=== PATIENT | male | born 1940 | race Caucasian/White ===

== ENCOUNTER 2020-04-14 07:28 | Outpatient (REF) | payer MEDICARE, SELFPAY ==
[2020-04-14 08:23] LABS: Estimated Average Glucose 123 mg/dL; Hemoglobin A1c % 5.9 %
[2020-04-14 08:30] LABS: Alanine Aminotransferase 9 U/L (0-40); Anion Gap 13 (12-20); Blood Urea Nitrogen 25 mg/dL (9-16); Carbon Dioxide 26 mmol/L (22-29); Chloride 106 mmol/L (96-108); Cholesterol 111 mg/dL; Estimated Glomerular Filt Rate 54; Glucose Fasting 116 mg/dL (60-99); HDL Cholesterol 43 mg/dL; LDL Cholesterol Calculated 58 mg/dl; Potassium 4.5 mmol/L (3.3-5.1); Sodium 140 mmol/L (135-145); Triglycerides 54 mg/dL; Uric Acid 5.3 mg/dL (3.4-7.0)
[2020-04-14 08:32] LABS: Creatinine Urine 135.55 mg/dL
== END 2020-04-14 07:29 | disposition home or self-care (01) ==
LOC: HO.LAB 07:28
PROVIDERS: PCP Family Medicine; Visit Provider Family Medicine
DX: E11.9 Type 2 diabetes mellitus without complications (principal); E78.00 Pure hypercholesterolemia, unspecified; M10.9 Gout, unspecified; I10 Essential (primary) hypertension; Z79.899 Other long term (current) drug therapy
CPT/HCPCS: 36415; 80051; 80061; 82043; 82550; 82565; 82947; 83036; 84460; 84520; 84550

== ENCOUNTER 2020-10-11 07:43 | Outpatient (REF) | payer MEDICARE, SELFPAY ==
[2020-10-11 08:10] LABS: Estimated Average Glucose 126 mg/dL; Hemoglobin A1C 143.9695 umol/L
[2020-10-11 09:15] LABS: Anion Gap 10 (12-20); Carbon Dioxide 26 mmol/L (22-29); Chloride 108 mmol/L (96-108); Estimated Glomerular Filt Rate 57; Glucose Fasting 108 mg/dL (60-99); Potassium 4.2 mmol/L (3.3-5.1); Sodium 140 mmol/L (135-145)
== END 2020-10-11 07:44 | disposition home or self-care (01) ==
LOC: HO.LAB 07:43
PROVIDERS: PCP Family Medicine; Visit Provider Family Medicine
DX: I10 Essential (primary) hypertension (principal); E11.9 Type 2 diabetes mellitus without complications; Z79.899 Other long term (current) drug therapy
CPT/HCPCS: 36415; 80051; 82565; 82947; 83036; 83735

== ENCOUNTER 2021-07-20 07:52 | Outpatient (REF) | payer MEDICARE, SELFPAY ==
[2021-07-20 08:48] LABS: Estimated Average Glucose 123 mg/dL; Hemoglobin A1c % 5.9 %
[2021-07-20 08:56] LABS: Alanine Aminotransferase 13 U/L (0-40); Anion Gap 10 (12-20); Aspartate Amino Transferase 16 U/L (5-37); Blood Urea Nitrogen 20 mg/dL (9-16); Carbon Dioxide 28 mmol/L (22-29); Chloride 106 mmol/L (96-108); Estimated Glomerular Filt Rate > 60; Glucose Fasting 121 mg/dL (60-99); Potassium 4.6 mmol/L (3.3-5.1); Sodium 139 mmol/L (135-145)
[2021-07-20 09:06] LABS: Creatinine Urine 121.58 mg/dL; Microalbum/Creatinine Ratio Ur 50.1 ug/mg cr
== END 2021-07-20 07:53 | disposition home or self-care (01) ==
LOC: HO.LAB 07:52
PROVIDERS: PCP Family Medicine; Visit Provider Family Medicine
DX: E11.9 Type 2 diabetes mellitus without complications (principal); E78.00 Pure hypercholesterolemia, unspecified; I10 Essential (primary) hypertension; Z79.899 Other long term (current) drug therapy
CPT/HCPCS: 36415; 80051; 82043; 82550; 82565; 82947; 83036; 84450; 84460; 84520

== ENCOUNTER 2021-11-21 15:09 | Outpatient (REF) | payer MEDICARE, SELFPAY | END 2021-11-21 15:10 | disposition home or self-care (01) | LOC: HO.LAB 15:09 | PROVIDERS: PCP Family Medicine; Visit Provider Urology | DX: Z12.5 Encounter for screening for malignant neoplasm of prostate (principal); Z85.46 Personal history of malignant neoplasm of prostate | CPT/HCPCS: 36415; 84153 ==

== ENCOUNTER 2022-02-12 08:03 | Outpatient (REF) | payer MEDICARE, SELFPAY ==
[2022-02-12 08:17] LABS: MANUAL DIFF FLAG NO
[2022-02-12 08:56] LABS: Basophils Percent Auto 0.2 % (0-2); Eosinophils Absolute Auto 0.2 X10*3/uL (0.0-0.4); Eosinophils Percent Auto 1.8 % (0-4); Hematocrit 27.6 % (42.0-52.0); Hemoglobin 8.8 g/dl (14.0-18.0); Imm Gran Abs Auto 0.03 X10*3/uL (0.00-0.03); Imm Gran Pct Auto 0.4 % (0.0-0.4); Lymphocytes Absolute Auto 1.9 X10*3/uL (1.2-4.9); Lymphocytes Percent Auto 22.1 % (20-40); Mean Corpuscular HGB Conc 31.9 g/dl (31.0-36.0); Mean Corpuscular Hemoglobin 32.1 pg (27.0-33.0); Mean Corpuscular Volume 100.7 fL (80.0-98.0); Mean Platelet Volume 10.6 fL (9.4-12.4); Monocytes Absolute Auto 0.7 X10*3/uL (0.1-1.2); Monocytes Percent Auto 7.7 % (2-11); Neutrophils Absolute Auto 5.7 x10*3/uL (2.0-8.3); Neutrophils Percent Auto 67.8 % (45-73); Platelet Count 194 X10*3/uL (160-400); Red Blood Count 2.74 X10*6/uL (4.60-5.80); Red Cell Distribution Width 14.4 % (11.0-16.0); White Blood Count 8.5 X10*3/uL (4.8-10.8)
[2022-02-12 09:03] LABS: Estimated Average Glucose 140 mg/dL; Hemoglobin A1c % 6.5 %
[2022-02-12 09:16] LABS: Appearance Urine Turbid; Color Urine Yellow; Glucose Urine UA Negative (Negative); Leukocyte Esterase Urine Large (3+) (Negative); Nitrite Urine Positive (Negative); UMIC TRIGGER UA YES; Urine Blood Small (1+) (Negative); Urine Ketones Negative (Negative); Urine Protein Negative (Neg-Trace)
[2022-02-12 09:39] LABS: Erythrocyte Sedimentation Rate 115 MM/HR (0-15)
[2022-02-12 09:41] LABS: Bacteria Urine 1+ (None Seen); Hyaline Casts Urine 0-2 /LPF (0-2); Squamous Epithelial Cell Urine 0-2 /HPF (0-2); WBC Urine >50 /HPF (0-5)
[2022-02-12 09:52] LABS: Alanine Aminotransferase 9 U/L (0-40); Albumin Level 3.4 g/dL (3.5-5.0); Alkaline Phosphatase 86 U/L (39-117); Anion Gap 13 (12-20); Aspartate Amino Transferase 13 U/L (5-37); Bilirubin Total 0.4 mg/dL (0.0-1.0); Blood Urea Nitrogen 21 mg/dL (9-16); Calcium 8.6 mg/dL (8.4-10.2); Carbon Dioxide 31 mmol/L (22-29); Chloride 104 mmol/L (96-108); Estimated Glomerular Filt Rate 40; Free T4 (Free Thyroxine) 1.26 ng/dL (0.71-1.85); Glucose Fasting 136 mg/dL (60-99); Sodium 145 mmol/L (135-145); Total Protein 6.2 g/dL (6.5-8.0)
== END 2022-02-12 08:04 | disposition home or self-care (01) ==
LOC: HO.LAB 08:03
PROVIDERS: PCP Family Medicine; Visit Provider Family Medicine
DX: R53.83 Other fatigue (principal); E11.9 Type 2 diabetes mellitus without complications; R63.4 Abnormal weight loss
CPT/HCPCS: 36415; 80053; 81001; 81003; 83036; 84439; 85025; 85652

== ENCOUNTER 2022-02-13 09:39 | Outpatient (REF) | payer MEDICARE, SELFPAY ==
[2022-02-13 10:46] LABS: Immature Retic Fraction 25.9 % (2.3-13.4); Retic HGB Equivalent 32.5 pg (30.0-35.0); Reticulocyte Percent 1.4 % (0.5-1.8); Reticulocytes Absolute 0.038 X10*6/uL (0.026-0.095)
[2022-02-13 11:18] LABS: Iron 29 mcg/dL (45-160); Percent Iron Saturation 12 % (15-50); Total Iron Binding Capacity 233 mcg/dL (228-428); Unsaturated Iron Binding 204 ug/dL
[2022-02-13 11:36] LABS: Prostate Specific Antigen 2.23 ng/mL (<0.05-4.0)
[2022-02-13 14:32] LABS: Ferritin 553 ng/mL (20-250)
[2022-02-13 15:30] LABS: Folate 9.8 ng/mL (> or = 4.0); Vitamin B12 199 pg/mL (200-900)
== END 2022-02-13 09:40 | disposition home or self-care (01) ==
LOC: HO.LAB 09:39
PROVIDERS: PCP Family Medicine; Visit Provider Family Medicine
DX: C61 Malignant neoplasm of prostate (principal); D64.9 Anemia, unspecified; R63.4 Abnormal weight loss
CPT/HCPCS: 36415; 82378; 82607; 82728; 82746; 83540; 84153; 85045; 87086

== ENCOUNTER 2022-02-22 10:21 | Outpatient (REF) | payer MEDICARE, SELFPAY ==
[2022-02-22 10:34] LABS: MANUAL DIFF FLAG NO
[2022-02-22 11:02] LABS: Basophils Percent Auto 0.2 % (0-2); Eosinophils Absolute Auto 0.1 X10*3/uL (0.0-0.4); Eosinophils Percent Auto 1.5 % (0-4); Hematocrit 26.4 % (42.0-52.0); Hemoglobin 8.3 g/dl (14.0-18.0); Imm Gran Abs Auto 0.04 X10*3/uL (0.00-0.03); Imm Gran Pct Auto 0.5 % (0.0-0.4); Immature Retic Fraction 28.5 % (2.3-13.4); Lymphocytes Absolute Auto 2.1 X10*3/uL (1.2-4.9); Lymphocytes Percent Auto 24.3 % (20-40); Mean Corpuscular HGB Conc 31.4 g/dl (31.0-36.0); Mean Corpuscular Hemoglobin 31.3 pg (27.0-33.0); Mean Corpuscular Volume 99.6 fL (80.0-98.0); Mean Platelet Volume 10.4 fL (9.4-12.4); Monocytes Absolute Auto 0.7 X10*3/uL (0.1-1.2); Monocytes Percent Auto 8.1 % (2-11); Neutrophils Absolute Auto 5.5 x10*3/uL (2.0-8.3); Neutrophils Percent Auto 65.4 % (45-73); Platelet Count 224 X10*3/uL (160-400); Red Blood Count 2.65 X10*6/uL (4.60-5.80); Red Cell Distribution Width 14.6 % (11.0-16.0); Retic HGB Equivalent 33.1 pg (30.0-35.0); Reticulocytes Absolute 0.054 X10*6/uL (0.026-0.095); White Blood Count 8.5 X10*3/uL (4.8-10.8)
[2022-02-22 11:47] LABS: Erythrocyte Sedimentation Rate 121 MM/HR (0-15)
[2022-02-22 11:50] LABS: Anion Gap 13 (12-20); Blood Urea Nitrogen 25 mg/dL (9-16); Carbon Dioxide 31 mmol/L (22-29); Chloride 102 mmol/L (96-108); Estimated Glomerular Filt Rate 35; Iron 41 mcg/dL (45-160); Percent Iron Saturation 21 % (15-50); Potassium 2.7 mmol/L (3.3-5.1); Sodium 143 mmol/L (135-145); Total Iron Binding Capacity 200 mcg/dL (228-428); Unsaturated Iron Binding 159 ug/dL
[2022-02-22 14:08] LABS: Urine Cytology See Pathology rpt
== END 2022-02-22 10:22 | disposition home or self-care (01) ==
LOC: HO.LAB 10:21
PROVIDERS: PCP Family Medicine; Visit Provider Family Medicine
DX: D64.9 Anemia, unspecified (principal); R63.4 Abnormal weight loss; N13.30 Unspecified hydronephrosis
CPT/HCPCS: 36415; 80051; 82378; 82565; 83540; 84520; 85025; 85045; 85652; 88112

== ENCOUNTER 2022-02-26 14:41 | Outpatient (REF) | payer MEDICARE, SELFPAY ==
[2022-02-26 15:00] LABS: MANUAL DIFF FLAG NO
[2022-02-26 15:19] LABS: Basophils Percent Auto 0.2 % (0-2); Eosinophils Absolute Auto 0.3 X10*3/uL (0.0-0.4); Eosinophils Percent Auto 2.9 % (0-4); Hematocrit 25.3 % (42.0-52.0); Imm Gran Abs Auto 0.05 X10*3/uL (0.00-0.03); Imm Gran Pct Auto 0.6 % (0.0-0.4); Immature Retic Fraction 30.3 % (2.3-13.4); Lymphocytes Absolute Auto 2.2 X10*3/uL (1.2-4.9); Lymphocytes Percent Auto 25.5 % (20-40); Mean Corpuscular HGB Conc 31.6 g/dl (31.0-36.0); Mean Corpuscular Hemoglobin 31.6 pg (27.0-33.0); Mean Platelet Volume 10.3 fL (9.4-12.4); Monocytes Absolute Auto 0.8 X10*3/uL (0.1-1.2); Monocytes Percent Auto 8.7 % (2-11); Neutrophils Absolute Auto 5.5 x10*3/uL (2.0-8.3); Neutrophils Percent Auto 62.1 % (45-73); Platelet Count 230 X10*3/uL (160-400); Red Blood Count 2.53 X10*6/uL (4.60-5.80); Red Cell Distribution Width 14.6 % (11.0-16.0); Retic HGB Equivalent 33.6 pg (30.0-35.0); Reticulocyte Percent 2.5 % (0.5-1.8); Reticulocytes Absolute 0.062 X10*6/uL (0.026-0.095); White Blood Count 8.8 X10*3/uL (4.8-10.8)
[2022-02-26 16:51] LABS: Anion Gap 14 (12-20); Blood Urea Nitrogen 27 mg/dL (9-16); Carbon Dioxide 32 mmol/L (22-29); Chloride 100 mmol/L (96-108); Estimated Glomerular Filt Rate 33; Iron 36 mcg/dL (45-160); Percent Iron Saturation 18 % (15-50); Potassium 2.8 mmol/L (3.3-5.1); Sodium 143 mmol/L (135-145); Total Iron Binding Capacity 204 mcg/dL (228-428); Unsaturated Iron Binding 168 ug/dL
== END 2022-02-26 14:42 | disposition home or self-care (01) ==
LOC: HO.LAB 14:41
PROVIDERS: PCP Family Medicine; Visit Provider Family Medicine
DX: D50.9 Iron deficiency anemia, unspecified (principal); E87.6 Hypokalemia
CPT/HCPCS: 36415; 80051; 82550; 82565; 83540; 84520; 85025; 85045; 86850; 86880

== ENCOUNTER 2022-03-07 08:03 | Outpatient (REF) | payer MEDICARE, SELFPAY ==
[2022-03-07 08:10] LABS: MANUAL DIFF FLAG NO
[2022-03-07 08:20] LABS: Basophils Percent Auto 0.2 % (0-2); Eosinophils Absolute Auto 0.1 X10*3/uL (0.0-0.4); Eosinophils Percent Auto 1.2 % (0-4); Hematocrit 23.4 % (42.0-52.0); Hemoglobin 7.4 g/dl (14.0-18.0); Imm Gran Abs Auto 0.06 X10*3/uL (0.00-0.03); Imm Gran Pct Auto 0.6 % (0.0-0.4); Lymphocytes Absolute Auto 1.6 X10*3/uL (1.2-4.9); Lymphocytes Percent Auto 16.8 % (20-40); Mean Corpuscular HGB Conc 31.6 g/dl (31.0-36.0); Mean Corpuscular Hemoglobin 31.1 pg (27.0-33.0); Mean Corpuscular Volume 98.3 fL (80.0-98.0); Mean Platelet Volume 9.4 fL (9.4-12.4); Monocytes Absolute Auto 0.6 X10*3/uL (0.1-1.2); Neutrophils Absolute Auto 7.3 x10*3/uL (2.0-8.3); Neutrophils Percent Auto 75.2 % (45-73); Platelet Count 197 X10*3/uL (160-400); Red Blood Count 2.38 X10*6/uL (4.60-5.80); Red Cell Distribution Width 15.4 % (11.0-16.0); White Blood Count 9.7 X10*3/uL (4.8-10.8)
[2022-03-07 09:01] LABS: Anion Gap 13 (12-20); Blood Urea Nitrogen 25 mg/dL (9-16); Carbon Dioxide 25 mmol/L (22-29); Chloride 107 mmol/L (96-108); Estimated Glomerular Filt Rate 39; Iron 31 mcg/dL (45-160); Percent Iron Saturation 17 % (15-50); Potassium 3.4 mmol/L (3.3-5.1); Sodium 142 mmol/L (135-145); Total Iron Binding Capacity 181 mcg/dL (228-428); Unsaturated Iron Binding 150 ug/dL
== END 2022-03-07 08:04 | disposition home or self-care (01) ==
LOC: HO.LAB 08:03
PROVIDERS: PCP Family Medicine; Visit Provider Family Medicine
DX: D50.9 Iron deficiency anemia, unspecified (principal); N18.30 Chronic kidney disease, stage 3 unspecified; E87.6 Hypokalemia
CPT/HCPCS: 36415; 80051; 82565; 83540; 84520; 85025

== ENCOUNTER 2022-03-13 14:28 | Inpatient (IN) | payer MEDICARE, SELFPAY ==
[2022-03-13] VITALS (24 sets, daily range): BP systolic 104–170; BP diastolic 47–95; PULSE 81–157; RESP 14–28; TEMP 36.4–37; O2SAT 97–99; BMI 27.4
--- NOTE | 2022-03-13 | ECG_ITS ---
Test Reason : REPEAT Blood Pressure : / mmHG Vent. Rate : 137 BPM Atrial Rate : 000 BPM P-R Int : 000 ms QRS Dur : 102 ms QT Int : 320 ms P-R-T Axes : 000 069 -26 degrees QTc Int : 483 ms Atrial fibrillation with rapid ventricular response Low voltage QRS Septal infarct (cited on or before 13-MAR-2022) Abnormal ECG When compared with ECG of 13-MAR-2022 14:43, Vent. rate has increased BY 60 BPM Referred By: Brenda Dacosta Electronically Signed By:Rafi Hood
--- NOTE | ~2022-03-13 | FL_ITS ---
EXAMINATION: XR FLUOROSCOPY WITH IMAGES CLINICAL INFORMATION: Cystoscopy. COMPARISON: None. TECHNIQUE: Fluoroscopy Supervised By: Dr. Madsen. Fluoroscopy Time: 116.9 seconds. Cumulative Dose: 40.02 mGy. Images: 1. FINDINGS: A single image obtained of pelvis during cystoscopy reveals contrast within the bladder with a moderate filling defect at the base likely enlarged prostate. FL/FL guidance in OR IMPRESSION: Fluoroscopy was provided to the referring physician for cystoscopy.
--- NOTE | ~2022-03-13 | CT_ITS ---
EXAMINATION: CT HEAD WITHOUT CONTRAST CLINICAL INFORMATION: Fall out of bed on eliquis COMPARISON: None TECHNIQUE: Imaging was performed from the skull base to vertex without intravenous administration of contrast. This CT examination was performed using dose optimization techniques as appropriate, variously including the following: *Automated exposure control *Adjustment of mA and/or kV according to patient size (this includes techniques or standardized protocols for targeted exams where dose is matched to indication/reason for exam; i.e. extremities or head) *Use of iterative reconstruction technique Total exam dose length product: 805 mGy-cm FINDINGS: No intra or extra-axial fluid collection, hemorrhage, or mass. No ventriculomegaly. No midline shift or herniation. Basal cisterns are patent. Zavaleta-white matter differentiation is maintained. No territorial encephalomalacia. Proportional prominence of the ventricles and sulcal spaces is consistent with mild volume loss. Patchy periventricular and deep white matter hypoattenuation is consistent with mild small vessel ischemic changes. Small focus of hypoattenuation consistent with remote lacunar infarct in the right caudate head. Minimal left sided soft tissue/scalp swelling laterally. No calvarial fracture. The mastoid air cells and visualized portions of the paranasal sinuses are well aerated. CT/CT head/brain wo IV con IMPRESSION: 1. No intracranial hemorrhage or calvarial fracture. 2. Mild cerebral atrophy and chronic small vessel ischemic white matter change. 3. 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
--- NOTE | ~2022-03-13 | CT_ITS ---
EXAMINATION: CT CHEST, ABDOMEN AND PELVIS WITHOUT CONTRAST. CLINICAL INFORMATION: Shortness of breath. Abdominal discomfort, ?b/l hydro . COMPARISON: 07/20/2017. TECHNIQUE: Multidetector volumetric imaging was performed from the thoracic inlet through the pubic symphysis without intravenous contrast. Sagittal and coronal reformatted images were obtained on the technologist workstation. This CT examination was performed using dose optimization techniques as appropriate, variously including the following: *Automated exposure control *Adjustment of mA and/or kV according to patient size (this includes techniques or standardized protocols for targeted exams where dose is matched to indication/reason for exam; i.e. extremities or head) *Use of iterative reconstruction technique DLP: 953 mGy-cm FINDINGS: CHEST: Lungs: Patchy groundglass airspace disease is seen within the right lung and to less extent the left lung. Infectious or inflammatory etiologies would be strong suspected. More prominent on the right. There is associated mild peribronchial cuffing and thickening. Minimal dependent atelectasis with the associated small bilateral pleural effusions. Again this is more prominent on the right. Mediastinum: Shotty mediastinal and hilar lymph nodes. Prominent vascular calculation in aorta. Enlarged bilateral atria Coronary Artery Calcification: Present Pericardium/Pleura: Tiny pericardial effusion. No obvious pericardial calcification. Small bilateral pleural effusions. Chest Wall/Axilla: Unremarkable. ABDOMEN/PELVIS: Peritoneal Space:No significant free air or free fluid identified. Liver, Gallbladder, Biliary Tree: The non contrast liver is normal in size, shape, and attenuation. No focal hepatic lesion or biliary ductal dilatation is present. The gallbladder is unremarkable with no evidence of radiopaque gallstones, gallbladder wall thickening, or obvious pericholecystic inflammatory changes. Pancreas: Atrophic Spleen: Unremarkable. Adrenal Glands: Unremarkable. Kidneys and Ureters: Prominent bilateral hydronephrosis and hydroureter with both dilated ureters. Follow up to the dilated bladder. No suspicious ureteric calculi. Lateral right upper pole renal cyst incidentally noted Bladder: Dilated with a few bladder diverticula Gastrointestinal Tract: Scattered colonic diverticulosis but no obvious colonic wall thickening or significant pericolonic inflammatory changes. Surgical clips in the region of the cecum suggesting prior ileocecectomy. No obstructive changes to the adjacent small bowel Abdominal Wall: No significant hernia is appreciated. Lymphovascular Structures: Prominent vascular calcification within the aorta iliac system. Incidental retroaortic left renal vein. Pelvic Viscera: Prostate not well-defined and relatively diminutive Osseus Structures: Degenerative changes in the spine. No acute bony abnormalities CT/CT abdomen pelvis wo IV con IMPRESSION: 1. Patchy groundglass airspace disease more prominent on the right. Infectious or inflammatory causes would be favored with this appearance. There is associated peribronchial cuffing and thickening. Small bilateral pleural effusions. Clinical correlation would be needed. 2. Prominent bilateral hydronephrosis and hydroureter extending up to the dilated bladder. No suspicious ureteric calculi. Prostate is not well-defined. Bladder outlet obstruction could have this appearance and should be clinically correlated. 3. Chronic appearing and postoperative changes otherwise as described.
--- NOTE | 2022-03-13 14:37 | ECG_ITS ---
Test Reason : SYNCOPE Blood Pressure : / mmHG Vent. Rate : 077 BPM Atrial Rate : 000 BPM P-R Int : 000 ms QRS Dur : 108 ms QT Int : 422 ms P-R-T Axes : 000 054 005 degrees QTc Int : 477 ms Atrial fibrillation Low voltage QRS Cannot rule out Anteroseptal infarct , age undetermined Abnormal ECG When compared with ECG of 28-FEB-2019 11:35, Nonspecific T wave abnormality no longer evident in Lateral leads Referred By: Generic ED Physician Electronically Signed By:Rafi Hood
[2022-03-13 15:53] LABS: MANUAL DIFF FLAG NO
[2022-03-13 15:55] LABS: Basophils Percent Auto 0.2 % (0-2); Eosinophils Absolute Auto 0.2 X10*3/uL (0.0-0.4); Eosinophils Percent Auto 1.7 % (0-4); Hematocrit 21.5 % (42.0-52.0); Imm Gran Abs Auto 0.08 X10*3/uL (0.00-0.03); Imm Gran Pct Auto 0.9 % (0.0-0.4); Immature Retic Fraction 27.4 % (2.3-13.4); Lymphocytes Absolute Auto 1.6 X10*3/uL (1.2-4.9); Lymphocytes Percent Auto 16.6 % (20-40); Mean Corpuscular HGB Conc 30.7 g/dl (31.0-36.0); Mean Corpuscular Hemoglobin 30.8 pg (27.0-33.0); Mean Corpuscular Volume 100.5 fL (80.0-98.0); Mean Platelet Volume 9.8 fL (9.4-12.4); Monocytes Absolute Auto 0.5 X10*3/uL (0.1-1.2); Monocytes Percent Auto 5.1 % (2-11); Neutrophils Absolute Auto 7.1 x10*3/uL (2.0-8.3); Neutrophils Percent Auto 75.5 % (45-73); Platelet Count 230 X10*3/uL (160-400); Red Blood Count 2.14 X10*6/uL (4.60-5.80); Red Cell Distribution Width 16.9 % (11.0-16.0); Retic HGB Equivalent 34.1 pg (30.0-35.0); Reticulocyte Percent 4.2 % (0.5-1.8); Reticulocytes Absolute 0.089 X10*6/uL (0.026-0.095); White Blood Count 9.4 X10*3/uL (4.8-10.8)
[2022-03-13 16:02] LABS: Hemoglobin 6.6 g/dl (14.0-18.0)
[2022-03-13 16:03] LABS: INTERNATIONAL NORM RATIO 1.5 (0.9-1.1); Prothrombin Time 17.1 SEC (10.0-13.1)
[2022-03-13 16:11] LABS: Alanine Aminotransferase 10 U/L (0-40); Albumin Level 3.3 g/dL (3.5-5.0); Alkaline Phosphatase 121 U/L (39-117); Anion Gap 10 (12-20); Aspartate Amino Transferase 17 U/L (5-37); Bilirubin Total 0.5 mg/dL (0.0-1.0); Blood Urea Nitrogen 25 mg/dL (9-16); Calcium 8.5 mg/dL (8.4-10.2); Carbon Dioxide 25 mmol/L (22-29); Chloride 109 mmol/L (96-108); Creatinine Clr Calc Pharmacy 42.8; Estimated Glomerular Filt Rate 43; Glucose Random 135 mg/dL (60-115); Magnesium 2.2 mg/dL (1.6-2.6); Sodium 139 mmol/L (135-145); Total Protein 6.2 g/dL (6.5-8.0)
[2022-03-13 16:14] LABS: COVID-19 Test Negative (Negative); IDNOW Serial# 55D5AD1C
[2022-03-13 16:15] LABS: B Type Natriuretic Peptide 477 pg/mL (<100); IDNOW Serial# 9DB6401D; Influenza A Negative (Negative); Influenza B2 Negative (Negative); Troponin-I High Sensitivity 8.5 ng/L (<3.5-35.0)
--- NOTE | 2022-03-13 16:20 | PC.NURSE ---
Due to H&H, 2nd IV established. 18g Rt Forearm
--- NOTE | 2022-03-13 16:29 | ED.WEAKNESS ---
HPI - Weakness General Chief complaint: Weakness Stated complaint: WEAKNESS,ROLLED OUT OF BED Time Seen by Provider: 03/13/22 14:42 Source: patient Mode of arrival: EMS History of Present Illness HPI Narrative: 81-year-old male who presents via EMS with increasing weakness for months, patient states he is unable to lay flat and denies being on any diuretics at this time. Patient denies any hematochezia/melena and denies any hematemesis. Patient states he takes his medications as prescribed and is where that his primary care provider is concerned regarding did degree of anemia that he has. He otherwise denies any fevers, chills, chest pain. Related Data Allergies Allergy/AdvReac Type Severity Reaction Status Date / Time No Known Allergies Allergy Unverified 11/18/19 15:22 [No Known Allergies*] Review of Systems Review of Systems: Pertinent positives and negatives as stated in [facility]PI [facility] Past Medical History Source: nursing notes reviewed Social History Social History Alcohol intake: never Smoked in Last 30 Days: No Use of substances other than those prescribed or required for medical reasons: No Advance Directives: No Advance Directives Information Provided: Yes Physical Exam Vital Signs: Vital Signs: Last Vital Signs Temp 97.6 F 03/13/22 17:49 Pulse 101 H 03/13/22 17:49 Resp 18 03/13/22 17:49 BP 134/81 03/13/22 17:49 Pulse Ox 97 03/13/22 14:42 O2 Del Method 03/13/22 14:42 BMI result Body Mass Index 27.4 VITAL SIGNS: Reviewed. GENERAL: Well developed, well nourished, in no acute distress. HEAD: Normocephalic/atraumatic EYES: PERRLA, EOMI EARS: Ext canals without abnormality, TMs non-bulging and non-erythematous NOSE: Nares patent bilateral OROPHARYNX: no oral lesions noted, posterior pharynx clear NECK: Supple, no adenopathy LUNGS: Good inspiratory effort, however decreased breath sounds with bibasilar rales, tachypnea present. SpO2<97> CARDIOVASCULAR: Regular rate and irregularly irregular rhythm without noted murmurs, no JVD bilateral lower extremity 1 to 2+ pitting edema ABDOMEN: Soft, non-tender, non-distended with bowel sounds. MUSCULOSKELETAL: No tenderness, deformities, or effusions noted on gross inspection. EXTREMITIES: No cyanosis, clubbing or edema. SKIN: Inspection of the skin reveals no rashes NEUROLOGIC: Alert and oriented x 4. Strength and sensation to light touch were grossly intact x 4. Medications Administered Discontinued Medications Generic Name Dose Route Start Last Admin Trade Name Freq PRN Reason Stop Dose Admin Furosemide 80 mg 03/13/22 16:29 03/13/22 16:49 Furosemide 100 Mg/10 Ml Vial IVPUSH 03/13/22 16:30 80 mg ONCE ONE Administration Protocol Lidocaine HCl 10 ml 03/13/22 16:55 03/13/22 17:19 Lidocaine Hcl 2 % Urojet 10 Ml Jel.Pf.Liz TOPICAL 03/13/22 16:56 10 ml ONCE ONE Administration Metoprolol Tartrate 5 mg 03/13/22 17:35 03/13/22 17:35 Metoprolol Tartrate 5 Mg/5 Ml Vial IVPUSH 03/13/22 17:36 5 mg ONCE ONE Administration Medical Decision Making Medical Decision Making MDM Narrative: 81-year-old male with unexplained anemia and clearly in CHF exacerbation. Labs, imaging ordered to include CT of the head as he is on Eliquis. I have reviewed the entire workup and my interpretation is that this patient has gradually developed worsening CHF likely due to a combination of atrial fibrillation and anemia. Patient was consented will receive 2 units of RBCs, he received 80 mg of Lasix, and [place] catheter was applied. 1717: I spoke with the inpatient hospitalist who accepts admission. 174: I was notified the patient was in atrial fibrillation with RVR, ordered 5 mg of Lopressor, with good response. Patient feeling much better and at this time I am going to order an additional 80 mg of Lasix as patient needs aggressive diuresis especially in the context of receiving blood transfusion. On review of prior imaging I am not able to see any CT scan of the abdomen and pelvis so I have ordered a noncontrast CT abdomen pelvis and due to patient's shortness of breath will also obtain a CT of the chest. Differential Diagnosis Please see the discussion above Consult Healthcare Provider Management of the patient was discussed with: Hospitalist Please see the discussion above Lab Data Please see the discussion above 03/13/22 15:45 03/13/22 15:45 Labs: Lab Results 03/13/22 03/13/22 03/13/22 Range/Units 15:45 15:45 15:45 WBC 9.4 (4.8-10.8) X10*3/uL RBC 2.14 L (4.60-5.80) X10*6/uL Hgb 6.6 L* (14.0-18.0) g/dl Hct 21.5 L (42.0-52.0) % MCV 100.5 H (80.0-98.0) fL MCH 30.8 (27.0-33.0) pg MCHC 30.7 L (31.0-36.0) g/dl RDW 16.9 H (11.0-16.0) % Plt Count 230 (160-400) X10*3/uL MPV 9.8 (9.4-12.4) fL Immature Gran % (Auto) 0.9 H (0.0-0.4) % Neut % (Auto) 75.5 H (45-73) % Lymph % (Auto) 16.6 L (20-40) % [place] % (Auto) 5.1 (2-11) % Eos % (Auto) 1.7 (0-4) % Baso % (Auto) 0.2 (0-2) % Lymph # (Auto) 1.6 (1.2-4.9) X10*3/uL [place] # (Auto) 0.5 (0.1-1.2) X10*3/uL Eos # (Auto) 0.2 (0.0-0.4) X10*3/uL Baso # (Auto) 0.0 (0.0-0.2) X10*3/uL Abs Immat Gran (auto) 0.08 H (0.00-0.03) X10*3/uL Absolute Neuts (auto) 7.1 (2.0-8.3) x10*3/uL Absolute Nucleated RBC 0.000 (0.0-0.012) X10*3/uL Nucleated RBC % (auto) 0.0 (0.0-0.2) /100WBC Absolute Retic 0.089 (0.026-0.095) X10*6/uL Percent Retic 4.2 H (0.5-1.8) % Immature Retic Fraction 27.4 H (2.3-13.4) % Retic Hgb Equivalent 34.1 (30.0-35.0) pg PT 17.1 H (10.0-13.1) SEC INR 1.5 H (0.9-1.1) Sodium 139 (135-145) mmol/L Potassium 5.0 D (3.3-5.1) mmol/L Chloride 109 H (96-108) mmol/L Carbon Dioxide 25 (22-29) mmol/L Anion Gap 10 L (12-20) BUN 25 H (9-16) mg/dL Creatinine 1.58 H (0.5-1.4) mg/dL Estim Creat Clear Calc 42.8 Estimated GFR 43 Random Glucose 135 H (60-115) mg/dL Calcium 8.5 (8.4-10.2) mg/dL Magnesium 2.2 (1.6-2.6) mg/dL Total Bilirubin 0.5 (0.0-1.0) mg/dL AST 17 (5-37) U/L ALT 10 (0-40) U/L Alkaline Phosphatase 121 H (39-117) U/L Troponin I High Sens (<3.5-35.0) ng/L B-Natriuretic Peptide (<100) pg/mL Total Protein 6.2 L (6.5-8.0) g/dL Albumin 3.3 L (3.5-5.0) g/dL COVID-19 (JONATHAN) (Negative) COVID-19 Clin Com Influenza Type A (MATTHEW) (Negative) Influenza Type B (MATTHEW) (Negative) Influenza A & B Note Blood Type Antibody Screen Crossmatch 03/13/22 03/13/22 03/13/22 Range/Units 15:45 15:45 15:45 WBC (4.8-10.8) X10*3/uL RBC (4.60-5.80) X10*6/uL Hgb (14.0-18.0) g/dl Hct (42.0-52.0) % MCV (80.0-98.0) fL MCH (27.0-33.0) pg MCHC (31.0-36.0) g/dl RDW (11.0-16.0) % Plt Count (160-400) X10*3/uL MPV (9.4-12.4) fL Immature Gran % (Auto) (0.0-0.4) % Neut % (Auto) (45-73) % Lymph % (Auto) (20-40) % [place] % (Auto) (2-11) % Eos % (Auto) (0-4) % Baso % (Auto) (0-2) % Lymph # (Auto) (1.2-4.9) X10*3/uL [place] # (Auto) (0.1-1.2) X10*3/uL Eos # (Auto) (0.0-0.4) X10*3/uL Baso # (Auto) (0.0-0.2) X10*3/uL Abs Immat Gran (auto) (0.00-0.03) X10*3/uL Absolute Neuts (auto) (2.0-8.3) x10*3/uL Absolute Nucleated RBC (0.0-0.012) X10*3/uL Nucleated RBC % (auto) (0.0-0.2) /100WBC Absolute Retic (0.026-0.095) X10*6/uL Percent Retic (0.5-1.8) % Immature Retic Fraction (2.3-13.4) % Retic Hgb Equivalent (30.0-35.0) pg PT (10.0-13.1) SEC INR (0.9-1.1) Sodium (135-145) mmol/L Potassium (3.3-5.1) mmol/L Chloride (96-108) mmol/L Carbon Dioxide (22-29) mmol/L Anion Gap (12-20) BUN (9-16) mg/dL Creatinine (0.5-1.4) mg/dL Estim Creat Clear Calc Estimated GFR Random Glucose (60-115) mg/dL Calcium (8.4-10.2) mg/dL Magnesium (1.6-2.6) mg/dL Total Bilirubin (0.0-1.0) mg/dL AST (5-37) U/L ALT (0-40) U/L Alkaline Phosphatase (39-117) U/L Troponin I High Sens 8.5 (<3.5-35.0) ng/L B-Natriuretic Peptide 477 H (<100) pg/mL Total Protein (6.5-8.0) g/dL Albumin (3.5-5.0) g/dL COVID-19 (JONATHAN) (Negative) COVID-19 Clin Com Influenza Type A (MATTHEW) Negative (Negative) Influenza Type B (MATTHEW) Negative (Negative) Influenza A & B Note See Note Blood Type Antibody Screen Crossmatch 03/13/22 03/13/22 Range/Units 15:45 16:04 WBC (4.8-10.8) X10*3/uL RBC (4.60-5.80) X10*6/uL Hgb (14.0-18.0) g/dl Hct (42.0-52.0) % MCV (80.0-98.0) fL MCH (27.0-33.0) pg MCHC (31.0-36.0) g/dl RDW (11.0-16.0) % Plt Count (160-400) X10*3/uL MPV (9.4-12.4) fL Immature Gran % (Auto) (0.0-0.4) % Neut % (Auto) (45-73) % Lymph % (Auto) (20-40) % [place] % (Auto) (2-11) % Eos % (Auto) (0-4) % Baso % (Auto) (0-2) % Lymph # (Auto) (1.2-4.9) X10*3/uL [place] # (Auto) (0.1-1.2) X10*3/uL Eos # (Auto) (0.0-0.4) X10*3/uL Baso # (Auto) (0.0-0.2) X10*3/uL Abs Immat Gran (auto) (0.00-0.03) X10*3/uL Absolute Neuts (auto) (2.0-8.3) x10*3/uL Absolute Nucleated RBC (0.0-0.012) X10*3/uL Nucleated RBC % (auto) (0.0-0.2) /100WBC Absolute Retic (0.026-0.095) X10*6/uL Percent Retic (0.5-1.8) % Immature Retic Fraction (2.3-13.4) % Retic Hgb Equivalent (30.0-35.0) pg PT (10.0-13.1) SEC INR (0.9-1.1) Sodium (135-145) mmol/L Potassium (3.3-5.1) mmol/L Chloride (96-108) mmol/L Carbon Dioxide (22-29) mmol/L Anion Gap (12-20) BUN (9-16) mg/dL Creatinine (0.5-1.4) mg/dL Estim Creat Clear Calc Estimated GFR Random Glucose (60-115) mg/dL Calcium (8.4-10.2) mg/dL Magnesium (1.6-2.6) mg/dL Total Bilirubin (0.0-1.0) mg/dL AST (5-37) U/L ALT (0-40) U/L Alkaline Phosphatase (39-117) U/L Troponin I High Sens (<3.5-35.0) ng/L B-Natriuretic Peptide (<100) pg/mL Total Protein (6.5-8.0) g/dL Albumin (3.5-5.0) g/dL COVID-19 (JONATHAN) Negative (Negative) COVID-19 Clin Com See Note Influenza Type A (MATTHEW) (Negative) Influenza Type B (MATTHEW) (Negative) Influenza A & B Note Blood Type O Positive Antibody Screen NEGATIVE Crossmatch See Detail Independent Interpretation I performed an independent interpretation of an: EKG Interpretation: Atrial fibrillation, HR-77, no STEMI, OTC is within normal limits. Radiology Impression Radiologist Impression: My interpretation is in agreement with patient's impression imaging studies. External Record Review External record reviewed: Outpatient record and Prior outpatient labs Chronic Conditions Patient?s care impacted by: Other Atrial fibrillation, prostate cancer history Critical Care Time Critical Care Time Critical Care Time: Yes Total Critical Care Time: 60 Attestation: I personally attest to this time spent taking care of the patient. Discharge Plan Discharge Clinical Impression: CHF exacerbation, Anemia, Weakness Patient Disposition: Admitted As Inpatient
[2022-03-13] MEDS: Furosemide 100 MG/10 ML VIAL 80 MG IVPUSH ×2 (16:49→18:01)
[2022-03-13] MEDS: Lidocaine HCl 2 % Urojet 10 ML JEL.PF.APP TOPICAL (17:19)
[2022-03-13] MEDS: Metoprolol Tartrate 5 MG/5 ML VIAL IVPUSH (17:35)
--- NOTE | 2022-03-13 17:41 | PC.NURSE ---
Pt rolled s/p condom cath administration HR 150's. C/o SOB. Lung sounds clear but diminished. notified. 5mg lopressor administered. pt responsive to bp
[2022-03-13] MEDS: carvediloL 25 MG TABLET PO ×2 (18:03→21:30)
--- NOTE | 2022-03-13 18:08 | PHA.MEDREC ---
Pharmacy Consult ? Medication Reconciliation Pharmacy has completed the medication reconciliation. pt no longer on warfarin changed to eliquis, lisinopril/hctz stop per pcp
--- NOTE | 2022-03-13 18:49 | PM.EVENT ---
Event Note Date of Service: 03/13/22 Event Note: the patient was seen and evaluated with MARY Valdes. I agree with his note, assessment and plan with the following. A 81 years old male with PMHx of Afib, BPH who presents after sustaining a fall at home. reports increase weakness and dyspnea gradually over the last few months. he was evaluated by his PCP for Anemia which has been progressing over the last few months with many tests coming back negative. patient denies bleeding, reports black stool once he start iron pills, had multiple negative occult stool, blood work only showed mildly low B12. today found to drop his Hb to 6.6 from baseline around 8 with symptomatic dyspnea and increase swelling in LE for the last 2 days. Symptomatic Anemia unclear underlying reason; B12 def? GIB ? less likley hemolysis with low bili, pending LDH and Haptoglobin getting 2 units of blood pending CT chest and abdomen CHF exacerbation, acute No prev hx get Echo give Lasix Cardiology consult Rest of evaluations by PA note. Time Spent With Patient Time: Total time managing care of this patient today ____ minutes.
--- NOTE | 2022-03-13 18:59 | PM.IMHP ---
History of Present Illness Date of Service: 03/13/22 Attending physician on admission: Alix Tristan Chief Complaint: Weakness Pt is a 81-year-old male with a PMH significant for persistent afib on Eliquis, restless leg syndrome, HLD, gout, and?prostate cancer treated with radiation in 2005 who presents to the ED with?weakness and recent syncopal episode. Pt states he was climing the stairs earlier today and became lightheaded when he reached the top and blacked out. Denies headstrike. Since the beginning of January the pt has been experiencing a number of medical issues: worsening anemia, iron levels, and weakness. Pt also became incontinent of urine, especially at night when in deep sleep, and developed an ADE. Pt notes he's been anorexic (eating maybe one meal a day), unable to sleep, and has lost 8-10 pounds during this time. Pt's INR, which has been stable for years, suddenly increased and was started on Eliquis. He has developed intermittent headaches in the past few weeks, noticed swelling in his lower legs and feet 2-3 days ago, and become increasingly SOB with exertion. Patient denies hematochezia, melena, hematuria. Denies abdominal pain. No chest pain/pressure, palpitations. Of note, pt has been seeing his PCP Dr. Gibbons for his anemia workup, who has so far not found a cause, and was scheduled to meet with Dr. Mcdaniels from GI tomorrow. In the ED patient was found to be afebrile, tachycardic and tachypneic. Labs were significant for H&H of 6.6/21.5, MCV 100.5, reticulocyte percentage 4.2, immature reticulocyte fraction of 27.4, creatinine of 1.59, elevated BNP of 477. Stool occult blood still pending. UA was hazy with a 3+ blood, positive nitrates, 3+ leukocyte esterase, greater than 20 RBCs, greater than [address]?of head showed no intracranial hemorrhage or calvarial fracture. CT of the abdomen and pelvis found patchy ground-glass airspace disease more prominent on the right with peribronchial cuffing and thickening and small bilateral pleural effusions. It also found prominent bilateral hydronephrosis and hydroureter extending all the way up to the dilated bladder with a suspicion of bladder outlet obstruction. EKG showed atrial fibrillation without any evidence of acute ischemia. Pt was treated with 2 units of packed RBC, 2 doses of furosemide 80 mg IV, metoprolol 5 mg IV, and carvedilol 25 mg, and a [place] catheter was placed. Pt will be admitted to the hospital for further workup and treatment of congestive heart failure likely secondary to anemia. Review of Systems Review of Systems: Generalized weakness, lightheadedness and dizziness since early January Occasional incontinence of urine since january Worsening SOB since january Headache x2 weeks Lower leg edema bilaterally x2-3 days Yes all other systems are reviewed and are negative [facility] Social History (Updated 03/13/22 @ 20:49 by MARY Valdes) Alcohol intake: current Alcohol intake frequency: 0-2 drinks per day Smoked in Last 30 Days: No Use of substances other than those prescribed or required for medical reasons: No Advance Directives: No Advance Directives Information Provided: Yes service: No Current occupational status: retired Meds Allergies Allergy/AdvReac Type Severity Reaction Status Date / Time No Known Allergies Allergy Unverified 11/18/19 15:22 [No Known Allergies*] Active Medications: Current Medications Allopurinol (Allopurinol 300 Mg Tablet) 300 mg PO DAILY [facility] Apixaban (Apixaban 2.5 Mg Tablet) 2.5 mg PO BID [facility] Atorvastatin Calcium (Atorvastatin Calcium 20 Mg Tablet) 20 mg PO BEDTIME [facility] Carvedilol (Carvedilol 25 Mg Tablet) 25 mg PO BID [facility]; Protocol Gabapentin (Gabapentin 600 Mg Tablet) 600 mg PO BEDTIME [facility] Pharmacy Consult (Consult Rx Perform Med Rec) 1 each MISCELLANE ONCE PRN PRN Reason: Consult order Potassium Chloride (Potassium Chloride Er 20 Meq Tab.Er.Prt) 20 meq PO DAILY [facility] Tamsulosin HCl (Tamsulosin Hcl 0.4 Mg Capsule) 0.4 mg PO BEDTIME [facility] Home Medications Medication Instructions Recorded Confirmed Last Taken Type alfuzosin 10 mg tablet,extended 1 tab PO BEDTIME 03/13/22 03/13/22 03/12/22 History release 24 hr allopurinol 300 mg tablet 1 tab PO DAILY 03/13/22 03/13/22 03/13/22 History apixaban 2.5 mg tablet (Eliquis) 1 tab PO BID 03/13/22 03/13/22 03/13/22 History carvedilol 25 mg tablet 1 tab PO BID 03/13/22 03/13/22 03/13/22 History ferrous sulfate 325 mg (65 mg 975 mg PO DAILY 03/13/22 03/13/22 03/13/22 History iron) tablet gabapentin 600 mg tablet 1 tab PO BEDTIME 03/13/22 03/13/22 03/12/22 History magnesium 250 mg tablet 250 mg PO DAILY 03/13/22 03/13/22 03/13/22 History potassium chloride 20 mEq 1 tab PO DAILY 03/13/22 03/13/22 03/13/22 History tablet,extended release simvastatin 40 mg tablet 1 tab PO BEDTIME 03/13/22 03/13/22 03/12/22 History vitamin B complex 1 tab PO DAILY 03/13/22 03/13/22 03/13/22 History Physical Exam Vital Signs and Narrative: Vital Signs: Last Vital Signs Temp 98.0 F 03/13/22 18:06 Pulse 95 03/13/22 18:06 Resp 16 03/13/22 18:06 BP 153/65 H 03/13/22 18:06 Pulse Ox 97 03/13/22 14:42 O2 Del Method 03/13/22 14:42 BMI result Body Mass Index 27.4 Constitutional: Alert, in no acute distress. Mental Status: Oriented to person, place and time. Eyes: Pupils are equal, round, and reactive to light. Ear, Nose, and Throat: Oropharynx clear, mucous membranes moist. Ears and nose without deformities. Trachea midline. Respiratory: Decreased breath sounds of lower lung boland bilaterally. Cardiovascular: Irregularly regular rhythm. No murmurs, rubs, or gallops. Gastrointestinal: Abdomen soft, non-tender, non-distended. Normal bowel sounds. Back: No CVA tenderness Neurologic: Cranial nerves II-XI are grossly intact. No focal neurological deficits. Moves all extremities spontaneously. Skin: No rashes or lesions noted. Musculoskeletal: No cyanosis or clubbing. Extremities: 1+ pitting lower leg edema bilaterally. Psychiatric: Normal mood and affect. Results Labs 03/13/22 15:45 03/13/22 15:45 Labs: Laboratory Results - last 24 hr 03/13/22 03/13/22 03/13/22 15:45 15:45 15:45 MCV 100.5 H MCH 30.8 MCHC 30.7 L RDW 16.9 H Plt Count 230 MPV 9.8 Immature Gran % (Auto) 0.9 H Neut % (Auto) 75.5 H Lymph % (Auto) 16.6 L Windham % (Auto) 5.1 Eos % (Auto) 1.7 Baso % (Auto) 0.2 Lymph # (Auto) 1.6 Windham # (Auto) 0.5 Eos # (Auto) 0.2 Baso # (Auto) 0.0 Abs Immat Gran (auto) 0.08 H Absolute Neuts (auto) 7.1 Absolute Nucleated RBC 0.000 Nucleated RBC % (auto) 0.0 Absolute Retic 0.089 Percent Retic 4.2 H Immature Retic Fraction 27.4 H Retic Hgb Equivalent 34.1 PT 17.1 H INR 1.5 H Anion Gap 10 L Estim Creat Clear Calc 42.8 Estimated GFR 43 Random Glucose 135 H Calcium 8.5 Magnesium 2.2 Total Bilirubin 0.5 AST 17 ALT 10 Alkaline Phosphatase 121 H Troponin I High Sens B-Natriuretic Peptide Total Protein 6.2 L Albumin 3.3 L COVID-19 (JONATHAN) COVID-19 Clin Com Influenza Type A (MATTHEW) Influenza Type B (MATTHEW) Influenza A & B Note Blood Type Antibody Screen Crossmatch 03/13/22 03/13/22 03/13/22 15:45 15:45 15:45 MCV MCH MCHC RDW Plt Count MPV Immature Gran % (Auto) Neut % (Auto) Lymph % (Auto) Windham % (Auto) Eos % (Auto) Baso % (Auto) Lymph # (Auto) Windham # (Auto) Eos # (Auto) Baso # (Auto) Abs Immat Gran (auto) Absolute Neuts (auto) Absolute Nucleated RBC Nucleated RBC % (auto) Absolute Retic Percent Retic Immature Retic Fraction Retic Hgb Equivalent PT INR Anion Gap Estim Creat Clear Calc Estimated GFR Random Glucose Calcium Magnesium Total Bilirubin AST ALT Alkaline Phosphatase Troponin I High Sens 8.5 B-Natriuretic Peptide 477 H Total Protein Albumin COVID-19 (JONATHAN) COVID-19 Clin Com Influenza Type A (MATTHEW) Negative Influenza Type B (MATTHEW) Negative Influenza A & B Note See Note Blood Type Antibody Screen Crossmatch 03/13/22 03/13/22 15:45 16:04 MCV MCH MCHC RDW Plt Count MPV Immature Gran % (Auto) Neut % (Auto) Lymph % (Auto) [place] % (Auto) Eos % (Auto) Baso % (Auto) Lymph # (Auto) [place] # (Auto) Eos # (Auto) Baso # (Auto) Abs Immat Gran (auto) Absolute Neuts (auto) Absolute Nucleated RBC Nucleated RBC % (auto) Absolute Retic Percent Retic Immature Retic Fraction Retic Hgb Equivalent PT INR Anion Gap Estim Creat Clear Calc Estimated GFR Random Glucose Calcium Magnesium Total Bilirubin AST ALT Alkaline Phosphatase Troponin I High Sens B-Natriuretic Peptide Total Protein Albumin COVID-19 (JONATHAN) Negative COVID-19 Clin Com See Note Influenza Type A (MATTHEW) Influenza Type B (MATTHEW) Influenza A & B Note Blood Type O Positive Antibody Screen NEGATIVE Crossmatch See Detail Imaging Radiologist's Impressions: Impressions Head CT 03/13/22 15:32 IMPRESSION: 1. No intracranial hemorrhage or calvarial fracture. 2. Mild cerebral atrophy and chronic small vessel ischemic white matter change. 3. 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 Assessment and Plan (1) CHF exacerbation: Status: Acute (2) Anemia: Status: Acute (3) Weakness: Status: Acute (4) UTI (urinary tract infection): Status: Acute (5) ADE (acute kidney injury): Status: Acute Plan Pt is a 81-year-old male with a PMH significant for persistent afib on Eliquis, restless leg syndrome, HLD, gout, and?prostate cancer treated with radiation in 2005 who presents to the ED with?weakness and recent syncopal episode. Patient was found to have hydronephrosis, hydroureter, positive UTI, anemia, and acute CHF. Patient will be admitted to the hospital for additional workup and treatment for anemia, acute CHF, UTI, and possible bladder obstruction. CHF Likely secondary to anemia Increasing SOB, bilateral pitting edema, elevated BNP, pleural effusions bilaterally Furosemide 40 mg IV b.i.d. Follow lytes, MG, I/O Echocardiogram Cardiology consult Anemia Etiology unclear, possible GI bleed, bladder cancer, multiple myeloma Patient received 2 units of packed blood red cells in the ED UA shows 3+ urine blood and > 20 urine RBC Check iron levels, supplement as necessary Monitor labs Syncopal episode Likely secondary to CHF and anemia CT of head clear Treat as above ADE Patient has been experiencing an ADE since beginning of January Likely post-renal, CT shows prominent bilateral hydronephrosis and hydroureter with possible obstruction Nephrology consult Incontinence of urine Etiology unclear, CT shows suspicion of bladder outlet obstruction, bladder cancer also on the differential UA was hazy with 3+ blood, positive nitrates, 3+ leukocyte esterase, >20 RBC, >50 WBC, 1+ bacteria. Continue catheter Urology consult UTI UA positive for UTI Ceftriaxone 1g daily, 1/5 Chronic AFib Continue Eliquis Admit to telemetry Insomnia Trazodone 50mg at nighttime Tachycardia Patient became tachycardic in the 140s in the ED, given 5 mg IV metoprolol to good effect Patient became tachycardic again in the 140s, HR not resolved with another 5 mg of IV metoprolol, placed on Cardizem drip Consider digoxin if Cardizem drip does not bring down HR Gout Continue home meds HLD Continue home meds Full Code Attending:?Dr. Tristan DVT Prophylaxis: On Eliquis Pt will require a hospitalization of at least two nights for treatment of anemia, CHF, ADE, UTI, and bladder obstruction.. Time Spent With Patient Time: Total time managing care of this patient today ____ minutes. Quality Stroke Does the patient have a stroke diagnosis?: No VTE Prior VTE?: No VTE Risk Level:: Medical - moderate - high VTE Device Contraindication: Treatment Not Indicated VTE Drug Contraindication: N/A - Med Ordered
[2022-03-13 19:13] LABS: Folate 15.2 ng/mL (> or = 4.0); Vitamin B12 339 pg/mL (200-900)
--- NOTE | 2022-03-13 19:17 | PC.NURSE ---
Hospitalist at bedside.
[2022-03-13 19:24] LABS: Lactate Dehydrogenase 166 U/L (118-273)
[2022-03-13 20:08] LABS: Iron 30 mcg/dL (45-160); Percent Iron Saturation 15 % (15-50); Total Iron Binding Capacity 195 mcg/dL (228-428); Unsaturated Iron Binding 165 ug/dL
[2022-03-13 20:18] LABS: Appearance Urine Hazy; Color Urine Yellow; Glucose Urine UA Negative (Negative); Leukocyte Esterase Urine Large (3+) (Negative); Nitrite Urine Positive (Negative); PH 5.5 (5.0-9.0); UMIC TRIGGER UA YES; Urine Blood Large (3+) (Negative); Urine Ketones Negative (Negative); Urine Protein Trace mg/dL (Neg-Trace)
[2022-03-13 20:41] LABS: Bacteria Urine 1+ (None Seen); Hyaline Casts Urine 0-2 /LPF (0-2); RBC Urine >20 /HPF (0-2); Squamous Epithelial Cell Urine 0-2 /HPF (0-2); WBC Urine >50 /HPF (0-5)
[2022-03-13] MEDS: Atorvastatin Calcium 20 MG TABLET PO (21:29)
[2022-03-13] MEDS: Tamsulosin HCL 0.4 MG CAPSULE PO (21:30)
[2022-03-13] MEDS: Gabapentin 600 MG TABLET PO (21:30)
[2022-03-13] MEDS: Metoprolol Tartrate 5 MG/5 ML VIAL 2.5 MG IVPUSH ×2 (21:36→21:58)
[2022-03-13] MEDS: Apixaban 2.5 MG TABLET PO (21:39)
--- NOTE | 2022-03-13 21:50 | PC.NURSE ---
Pt HR 145 MD Dacosta notified orders placed.
--- NOTE | 2022-03-13 22:11 | PC.NURSE ---
Pt HR 144 MD Schmitz notified orders placed.
[2022-03-13] MEDS: dilTIAZem HCL 125 MG in 0.9 % Sodium Chloride 100 ML 10 MG IVCONT (22:24)
[2022-03-13] MEDS: cefTRIAXone sodium 1 GM in 0.9 % Sodium Chloride 50 ML IV (22:41)
--- NOTE | 2022-03-13 22:50 | MHC.CM.PN ---
IMM 03/13. Lives alone. Independent. Drives. No DMR/Services. Pfizer x4. HCP reviewed, completed and signed. Signed by CM with witnesses. Pt in afib w RVR. Copies given. Uploaded into [employer] and [facility]. HCP/daughter Dinora Montejo ([phone]). Dinora lives in [place]. Visiting for holidays. Has remained due to fathers illness.D/C plan: ? STR. Pt and family want to evaluate during hospital stay. CM will evaluate need for STR in daily MDR's. No referrals at this time. CM to follow for d/c planning.
[2022-03-13] MEDS: traZODone HCL 50 MG TABLET PO (23:57)
[2022-03-14] VITALS (18 sets, daily range): BP systolic 101–126; BP diastolic 56–81; PULSE 73–124; RESP 13–22; TEMP 36.6–37.4; O2SAT 92–100
--- NOTE | 2022-03-14 00:03 | PC.NURSE ---
Pt moved to hospital bed. No needs expressed at this time.
--- NOTE | 2022-03-14 02:25 | PC.NURSE ---
Pt sleeping, VSS.
--- NOTE | 2022-03-14 02:59 | PC.NURSE ---
This RN attempted to place Oconnell catheter twice with no success. Bladder scan reads 852ml, MD Dacosta notified. Pt is void minimal urine on own. Pt denies any discomfort.
--- NOTE | 2022-03-14 05:47 | PC.NURSE ---
Pt sleeping, respirations regular.
[2022-03-14 06:42] LABS: Hematocrit 25.7 % (42.0-52.0); Hemoglobin 8.2 g/dl (14.0-18.0); Mean Corpuscular HGB Conc 31.9 g/dl (31.0-36.0); Mean Corpuscular Hemoglobin 31.2 pg (27.0-33.0); Mean Corpuscular Volume 97.7 fL (80.0-98.0); Mean Platelet Volume 10.2 fL (9.4-12.4); Platelet Count 244 X10*3/uL (160-400); Red Blood Count 2.63 X10*6/uL (4.60-5.80); Red Cell Distribution Width 16.4 % (11.0-16.0); White Blood Count 13.9 X10*3/uL (4.8-10.8)
[2022-03-14 06:48] LABS: Anion Gap 14 (12-20); Blood Urea Nitrogen 29 mg/dL (9-16); Calcium 8.3 mg/dL (8.4-10.2); Carbon Dioxide 25 mmol/L (22-29); Chloride 106 mmol/L (96-108); Creatinine Clr Calc Pharmacy 32.5; Estimated Glomerular Filt Rate 31; Glucose Random 106 mg/dL (60-115); Potassium 4.5 mmol/L (3.3-5.1); Sodium 140 mmol/L (135-145)
[2022-03-14 06:50] LABS: Magnesium 1.9 mg/dL (1.6-2.6)
--- NOTE | 2022-03-14 07:00 | CA_ITS ---
Transthoracic Echocardiogram Patient (Last, First, Middle): Damian Sommers D Gender: Male Date of : 1940 Age: 81 Procedure Date: 03/14/2022 Procedure Type: Transthoracic Echocardiogram Location: ER Height: 185.42 cm Weight: 94.35 kg BSA: 2.19 m2 Heart Rate: bpm BP: 125 / 62 mmHg Motor Patrol Operator: ANN Referring MD: Alix Tristan MD Symptoms: new onset heart failure Study Quality: Adequate Conclusions: - Normal left ventricular cavity size. There is mildly increased left ventricular wall thickness. The left ventricular systolic function is mildly decreased. The visually estimated ejection fraction is between 40-45%. - The basal inferior segment is hypokinetic. - Mildly increased right ventricular cavity size. There is mildly decreased right ventricular systolic function. - The left atrium is severely dilated. The right atrium is severely dilated. Findings Left Ventricle Normal left ventricular cavity size. There is mildly increased left ventricular wall thickness. The left ventricular systolic function is mildly decreased. The visually estimated ejection fraction is between 40-45%. There is evidence of regional wall motion abnormalities. Diastolic function is indeterminate on the basis of available data. Wall Motion Rest Echo Findings The basal inferior segment is hypokinetic. Right Ventricle Mildly increased right ventricular cavity size. There is mildly decreased right ventricular systolic function. Atria The left atrium is severely dilated. The right atrium is severely dilated. Aortic Valve There is a normal trileaflet aortic valve. There is mild calcification of the aortic valve. There is moderate thickening of the aortic valve. There is mild aortic valve stenosis. The peak aortic velocity is 2.13 m/s. The mean gradient is 10 mmHg. The aortic valve area is 1.26 cm2. There is no aortic valve regurgitation. Mitral Valve There is mild anterior and posterior mitral leaflet thickening. There is moderate mitral valve regurgitation. There is no mitral valve stenosis. Pulmonic Valve Normal pulmonic valve structure and function. There is no pulmonic valve regurgitation. Tricuspid Valve Normal tricuspid valve structure and function. There is trace tricuspid valve regurgitation. The right ventricular systolic pressure is 46 mmHg. Moderately elevated right atrial pressure. Mild pulmonary hypertension is present. Great Vessels All visible segments of the aorta are normal in size. The visualized portions of the pulmonary artery and branches are normal. Venous The inferior vena cava is dilated and collapses less than 50% with inspiration. Pericardium/Pleural There is no evidence of pericardial effusion. Prior Study Comparison No prior study available for comparison. Measurements 2D Linear Measurements IVSd: 1.03 0.6-0.9/0.6-1.0 cm LVIDd: 5.67 3.9-5.3/4.2-5.9 cm LVIDd Index: 2.59 2.4-3.2/2.2-3.1 cm/m2 LVIDs: 4.31 2.0-3.6 cm LVPWd: 1.15 0.7-1.1 cm LA Diam: 5.30 2.7-3.8/3.0-4.0 cm LAIDs Index: 2.42 1.5-2.3 cm/m2 LV Mass: 313.51 67-162/88-224 g LV Mass Index: 143.16 43-95/49-115 g/m2 LVOT Diam: 2.00 3.0+(-)1.3 cm 2D Systolic Function EF 4C: 44.20 >55% EF 2C: 50.70 >55% EF BiP: 47.90 >55% Mitral Valve MV Pk E: 1.43 MV Decel Time: 167.00 E'Lateral: 9.85 E'Medial: 6.66 E/E' Med: 21.50 E/E' Lat: 14.50 PHT: 49.00 MVA PHT: 4.49 Decel Mcculloch: 8.89 MR Vol - PW Dopp: 36.18 MR VTI: 1.34 MR ERO: 27.00 MR Alias Nishant: 0.42 MR RAD: 0.70 Aortic Valve AoV Pk Nishant: 2.13 AoV Mn Nishant: 1.50 AoV VTI: 0.45 AoV Pk Grad: 18.00 Aov Mn Grad: 10.00 LOKESH Cont.VTI: 1.26 LVOT LVOT Pk Nishant: 0.92 LVOT Mn Nishant: 0.64 LVOT VTI: 0.18 LVOT Pk Grad: 3.00 LVOT Mn Grad: 2.00 LVOT Diam: 2.00 LVOT Area: 3.14 Diastolic Function MV Pk E: 1.43 E'Medial: 6.66 E/E' Med: 21.50 E' Laterial: 9.85 E/E' Lat: 14.50 Right Ventricle TAPSE (mm): 21.90 TVS' Nishant: 11.90 Tricuspid Valve TR Pk Nishant: 2.80 TR Pk Grad: 31.00 RA Press: 15.00 RVSP: 46.00 Great Vessels Aorta Sinus of Valsalva: 3.20 2.0-3.[address] Ridge: 2.29 1.7-3.4 cm Ao Asc: 3.40 2.1-3.4 cm Updated in Other Vendor System with Status of Final Rafi Hood MD electronically signed on 03/14/2022 4:39:30 PM with status of Final
[2022-03-14] MEDS: Apixaban 2.5 MG TABLET PO (08:30)
[2022-03-14] MEDS: allopurinoL 300 MG TABLET PO (08:30)
[2022-03-14] MEDS: Potassium Chloride ER 20 MEQ TAB.ER.PRT PO (08:30)
[2022-03-14] MEDS: Furosemide 40 MG/4 ML VIAL IVPUSH (08:30)
[2022-03-14] MEDS: dilTIAZem HCL 125 MG in 0.9 % Sodium Chloride 100 ML 10 MG IVCONT (08:35)
[2022-03-14] MEDS: 0.9 % Sodium Chloride Flush 3 ML SYRINGE IVFLUSH ×2 (08:37→21:29)
--- NOTE | 2022-03-14 08:45 | PC.NURSE ---
bedside echocardiogram at this time.
--- NOTE | 2022-03-14 09:45 | PC.NURSE ---
dr lezama (nephrology) at bedside, pt/family aware of plan of care.
--- NOTE | 2022-03-14 10:08 | P.CDIC_ITS ---
CDI Concurrent Query Documentation Clarification: PHYSICIAN'S DOCUMENTATION REQUEST Date of Query: 03/14/22 1008 Patient Name: Damian Sommers Admit Date: 03/13/22 Dear Doctor, A review of the medical record indicates additional documentation may be needed. Please review below and update the documentation accordingly. Clinical Indicators: The following diagnoses or signs and symptoms were noted in the patient record: Lab Tests: Imaging: Progress Notes: Nurse's Notes: Ancillary Notes: Other Documentation: Risk Factors/Clinical Indicators/Treatments Based on the above, could you clarify in the Progress Notes the appropriate diagnosis, if significant, that supports the above abnormalities and additional evaluation, monitoring, and/or treatment rendered: * A * Other (please specify) * Unable to determine Use of terms such as suspected, likely, concern for, or probable (associated with a specific diagnosis that is being evaluated, monitored, or treated as if it exists) are acceptable and can be coded in the inpatient setting, when documented at the time of discharge. Thank you, Candy Aj [facility], CDIS Extension: [phone] Please use your independent medical judgment in providing your response. THIS QUERY IS PART OF THE PERMANENT MEDICAL RECORD
--- NOTE | 2022-03-14 10:14 | PC.NURSE ---
pt is a/o x 4 , no sob/jayson noted speaks in full sentences. lungs - diminished. heart sounds irregular. abd soft and non-tender. no edema noted. hob up, cardiazem drip at 10mg/hr. pt aware of plan of care.
[2022-03-14] MEDS: carvediloL 25 MG TABLET PO ×2 (10:32→20:54)
--- NOTE | 2022-03-14 10:37 | MHC.CDI.CONC ---
CDI Concurrent Query Documentation Clarification: PHYSICIAN'S DOCUMENTATION REQUEST Date of Query: 03/14/22 1038 Patient Name: Damian Sommers Admit Date: 03/13/22 Dear Doctor, A review of the medical record indicates additional documentation may be needed. Please review below and update the documentation accordingly. Clinical Indicators: Risk Factors/Clinical Indicators/Treatments Dx: Anemia ? GI bleed Transfused 2 units PRBC HGB 6.6 L post transfusion 8.2 HCT 21.5 post transfusion 25.7 Patient atrial fibrillation on Eliquis. Based on the above, could you clarify in the Progress Notes which of the following is the most likely type of anemia you are evaluating, treating, and/or monitoring? Anemia Acute blood loss anemia Acute blood loss anemia due to anticoagulants or other Other ? please specify Unable to determine Use of terms such as suspected, likely, concern for, or probable (associated with a specific diagnosis that is being evaluated, monitored, or treated as if it exists) are acceptable and can be coded in the inpatient setting, when documented at the time of discharge. Thank you, Candy Aj [facility], CDIS Extension: [phone] Please use your independent medical judgment in providing your response. THIS QUERY IS PART OF THE PERMANENT MEDICAL RECORD Provider Response: Other Other Diagnosis: Unable to determine
--- NOTE | 2022-03-14 10:45 | P.CONCA_ITS ---
History of Present Illness History of Present Illness Date of Service: 03/14/22 Requesting physician: Alix Tristan Chief complaint: Afib, mild CHF Narrative: 81-year-old who has chronic atrial fibrillation on Eliquis and was previously following at [facility] in [place], hyperlipidemia, gout and prostate cancer who is presenting with syncopal episode. He was noticed to be significantly anemic. He is saying he has been taking iron supplements and has noticed black stools. He has chronic atrial fibrillation by report and was also noticed to be in AFib with RVR. His Eliquis was held and he was transfused. He is denying any abdominal pain. He is denying any chest discomfort. He is saying that he has been short of breath for some time. He is saying since transfusion is feeling little better. He was started on Cardizem drip and received IV diuretics. His CT scan of the abdomen and chest has shown patchy ground-glass airspace disease in the lungs as well as prominent bilateral hydronephrosis and hydroureter is extending up to the dilated bladder and it is felt that he has bladder outlet obstruction. His creatinine is also elevated. [facility] Social History Social History (Updated 03/13/22 @ 20:49 by MARY Valdes) Alcohol intake: current Alcohol intake frequency: 0-2 drinks per day Smoked in Last 30 Days: No Use of substances other than those prescribed or required for medical reasons: No Advance Directives: No Advance Directives Information Provided: Yes service: No Current occupational status: retired Meds Allergies Allergy/AdvReac Type Severity Reaction Status Date / Time No Known Allergies Allergy Unverified 11/18/19 15:22 [No Known Allergies*] Active Medications: Current Medications Acetaminophen (Acetaminophen 325 Mg Tablet) 650 mg PO Q6H PRN PRN Reason: Pain, Mild (Pain Scale 1-3) Allopurinol (Allopurinol 100 Mg Tablet) 100 mg PO DAILY [facility] Last Admin: 03/14/22 08:38 Dose: Not Given Apixaban (Apixaban 2.5 Mg Tablet) 2.5 mg PO BID [facility] Last Admin: 03/14/22 08:30 Dose: 2.5 mg Atorvastatin Calcium (Atorvastatin Calcium 20 Mg Tablet) 20 mg PO BEDTIME [facility] Last Admin: 03/13/22 21:29 Dose: 20 mg Carvedilol (Carvedilol 25 Mg Tablet) 25 mg PO BID [facility]; Protocol Last Admin: 03/14/22 10:32 Dose: 25 mg Docusate Sodium (Docusate Sodium 100 Mg Capsule) 100 mg PO DAILY PRN PRN Reason: Constipation Furosemide (Furosemide 40 Mg/4 Ml Vial) 40 mg IVPUSH BID@0900,1800 [facility]; Protocol Last Admin: 03/14/22 08:30 Dose: 40 mg Gabapentin (Gabapentin 600 Mg Tablet) 300 mg PO BEDTIME [facility] Ceftriaxone Sodium 1 gm/ (Sodium Chloride) 50 mls @ 100 mls/hr IV Q24H [facility] Stop: 03/18/22 21:59 Last Infusion: 03/13/22 23:42 Dose: Infused Diltiazem HCl 125 mg/ Sodium (Chloride) 125 mls @ 0 mls/hr IVCONT .Q0M [facility]; Protocol Last Admin: 03/14/22 08:35 Dose: 10 mg/hr, 10 mls/hr Ondansetron HCl (Ondansetron Hcl 4 Mg/2 Ml Vial) 4 mg IVPUSH Q8H PRN PRN Reason: Nausea and Vomiting Pharmacy Consult (Consult Rx Perform Med Rec) 1 each MISCELLANE ONCE PRN PRN Reason: Consult order Potassium Chloride (Potassium Chloride Er 20 Meq Tab.Er.Prt) 20 meq PO DAILY S Last Admin: 03/14/22 08:30 Dose: 20 meq Sodium Chloride (0.9 % Sodium Chloride Flush 3 Ml Syringe) 3 ml IVFLUSH QSHIFT [facility] Last Admin: 03/14/22 08:37 Dose: 3 ml Tamsulosin HCl (Tamsulosin Hcl 0.4 Mg Capsule) 0.4 mg PO BEDTIME [facility] Last Admin: 03/13/22 21:30 Dose: 0.4 mg Trazodone HCl (Trazodone Hcl 50 Mg Tablet) 50 mg PO BEDTIME [facility] Last Admin: 03/13/22 23:57 Dose: 50 mg Home Medications Medication Instructions Recorded Confirmed Last Taken Type alfuzosin 10 mg tablet,extended 1 tab PO BEDTIME 03/13/22 03/13/22 03/12/22 History release 24 hr allopurinol 300 mg tablet 1 tab PO DAILY 03/13/22 03/13/22 03/13/22 History apixaban 2.5 mg tablet (Eliquis) 1 tab PO BID 03/13/22 03/13/22 03/13/22 History carvedilol 25 mg tablet 1 tab PO BID 03/13/22 03/13/22 03/13/22 History ferrous sulfate 325 mg (65 mg 975 mg PO DAILY 03/13/22 03/13/22 03/13/22 History iron) tablet gabapentin 600 mg tablet 1 tab PO BEDTIME 03/13/22 03/13/22 03/12/22 History magnesium 250 mg tablet 250 mg PO DAILY 03/13/22 03/13/22 03/13/22 History potassium chloride 20 mEq 1 tab PO DAILY 03/13/22 03/13/22 03/13/22 History tablet,extended release simvastatin 40 mg tablet 1 tab PO BEDTIME 03/13/22 03/13/22 03/12/22 History vitamin B complex 1 tab PO DAILY 03/13/22 03/13/22 03/13/22 History Physical Exam Vital Signs: Vital Signs: Last Vital Signs Temp 98.2 F 03/14/22 10:06 Pulse 85 03/14/22 10:06 Resp 15 03/14/22 10:06 BP 116/73 03/14/22 10:06 Pulse Ox 100 03/14/22 10:06 O2 Del Method 03/14/22 10:06 O2 Flow Rate 2 03/14/22 10:06 BMI result Body Mass Index 27.4 GENERAL APPEARANCE: in no acute distress, pleasant. NECK: no carotid bruit, no jugular venous distention. SKIN: no suspicious lesions, warm and dry. HEART: no murmurs, irregular rate and rhythm. LUNGS: clear to auscultation bilaterally. ABDOMEN: soft, nontender. EXTREMITIES: no edema. PERIPHERAL PULSES: equal. NEUROLOGIC: No gross deficits, AAO X 3 Objective Labs and Meds 03/14/22 05:34 03/14/22 05:34 Lab results: Laboratory Results - last 24 hr 03/13/22 03/13/22 03/13/22 15:45 15:45 15:45 WBC 9.4 RBC 2.14 L Hgb 6.6 L* Hct 21.5 L MCV 100.5 H MCH 30.8 MCHC 30.7 L RDW 16.9 H Plt Count 230 MPV 9.8 Immature Gran % (Auto) 0.9 H Neut % (Auto) 75.5 H Lymph % (Auto) 16.6 L Dukes % (Auto) 5.1 Eos % (Auto) 1.7 Baso % (Auto) 0.2 Lymph # (Auto) 1.6 Dukes # (Auto) 0.5 Eos # (Auto) 0.2 Baso # (Auto) 0.0 Abs Immat Gran (auto) 0.08 H Absolute Neuts (auto) 7.1 Absolute Nucleated RBC 0.000 Nucleated RBC % (auto) 0.0 Absolute Retic 0.089 Percent Retic 4.2 H Immature Retic Fraction 27.4 H Retic Hgb Equivalent 34.1 PT 17.1 H INR 1.5 H Sodium 139 Potassium 5.0 D Chloride 109 H Carbon Dioxide 25 Anion Gap 10 L BUN 25 H Creatinine 1.58 H Estim Creat Clear Calc 42.8 Estimated GFR 43 Random Glucose 135 H Calcium 8.5 Magnesium 2.2 Iron 30 L TIBC 195 L % Saturation 15 Unsat Iron Binding 165 Total Bilirubin 0.5 AST 17 ALT 10 Alkaline Phosphatase 121 H Lactate Dehydrogenase 166 Troponin I High Sens B-Natriuretic Peptide Total Protein 6.2 L Albumin 3.3 L Vitamin B12 Folate Urine Color Urine Appearance Urine pH Ur Specific Raccoon Urine Protein Urine Glucose (UA) Urine Ketones Urine Blood Urine Nitrite Ur Leukocyte Esterase Urine RBC Urine WBC Ur Squamous Epith Cells Urine Bacteria Hyaline Casts COVID-19 (JONATHAN) COVID-19 Clin Com Influenza Type A (MATTHEW) Influenza Type B (MATTHEW) Influenza A & B Note Blood Type Antibody Screen Crossmatch 03/13/22 03/13/22 03/13/22 15:45 15:45 15:45 WBC RBC Hgb Hct MCV MCH MCHC RDW Plt Count MPV Immature Gran % (Auto) Neut % (Auto) Lymph % (Auto) Dukes % (Auto) Eos % (Auto) Baso % (Auto) Lymph # (Auto) Dukes # (Auto) Eos # (Auto) Baso # (Auto) Abs Immat Gran (auto) Absolute Neuts (auto) Absolute Nucleated RBC Nucleated RBC % (auto) Absolute Retic Percent Retic Immature Retic Fraction Retic Hgb Equivalent PT INR Sodium Potassium Chloride Carbon Dioxide Anion Gap BUN Creatinine Estim Creat Clear Calc Estimated GFR Random Glucose Calcium Magnesium Iron TIBC % Saturation Unsat Iron Binding Total Bilirubin AST ALT Alkaline Phosphatase Lactate Dehydrogenase Troponin I High Sens 8.5 B-Natriuretic Peptide 477 H Total Protein Albumin Vitamin B12 Folate Urine Color Urine Appearance Urine pH Ur Specific Raccoon Urine Protein Urine Glucose (UA) Urine Ketones Urine Blood Urine Nitrite Ur Leukocyte Esterase Urine RBC Urine WBC Ur Squamous Epith Cells Urine Bacteria Hyaline Casts COVID-19 (JONATHAN) COVID-19 Clin Com Influenza Type A (MATTHEW) Negative Influenza Type B (MATTHEW) Negative Influenza A & B Note See Note Blood Type Antibody Screen Crossmatch 03/13/22 03/13/22 03/13/22 15:45 15:45 16:04 WBC RBC Hgb Hct MCV MCH MCHC RDW Plt Count MPV Immature Gran % (Auto) Neut % (Auto) Lymph % (Auto) Dukes % (Auto) Eos % (Auto) Baso % (Auto) Lymph # (Auto) Dukes # (Auto) Eos # (Auto) Baso # (Auto) Abs Immat Gran (auto) Absolute Neuts (auto) Absolute Nucleated RBC Nucleated RBC % (auto) Absolute Retic Percent Retic Immature Retic Fraction Retic Hgb Equivalent PT INR Sodium Potassium Chloride Carbon Dioxide Anion Gap BUN Creatinine Estim Creat Clear Calc Estimated GFR Random Glucose Calcium Magnesium Iron TIBC % Saturation Unsat Iron Binding Total Bilirubin AST ALT Alkaline Phosphatase Lactate Dehydrogenase Troponin I High Sens B-Natriuretic Peptide Total Protein Albumin Vitamin B12 339 Folate 15.2 Urine Color Urine Appearance Urine pH Ur Specific Raccoon Urine Protein Urine Glucose (UA) Urine Ketones Urine Blood Urine Nitrite Ur Leukocyte Esterase Urine RBC Urine WBC Ur Squamous Epith Cells Urine Bacteria Hyaline Casts COVID-19 (JONATHAN) Negative COVID-19 Clin Com See Note Influenza Type A (MATTHEW) Influenza Type B (MATTHEW) Influenza A & B Note Blood Type O Positive Antibody Screen NEGATIVE Crossmatch See Detail 03/13/22 03/14/22 03/14/22 20:10 05:34 05:34 WBC 13.9 H RBC 2.63 L D Hgb 8.2 L D Hct 25.7 L MCV 97.7 MCH 31.2 MCHC 31.9 RDW 16.4 H Plt Count 244 MPV 10.2 Immature Gran % (Auto) Neut % (Auto) Lymph % (Auto) Dukes % (Auto) Eos % (Auto) Baso % (Auto) Lymph # (Auto) Dukes # (Auto) Eos # (Auto) Baso # (Auto) Abs Immat Gran (auto) Absolute Neuts (auto) Absolute Nucleated RBC 0.000 Nucleated RBC % (auto) 0.0 Absolute Retic Percent Retic Immature Retic Fraction Retic Hgb Equivalent PT INR Sodium Potassium Chloride Carbon Dioxide Anion Gap BUN Creatinine Estim Creat Clear Calc Estimated GFR Random Glucose Calcium Magnesium 1.9 Iron TIBC % Saturation Unsat Iron Binding Total Bilirubin AST ALT Alkaline Phosphatase Lactate Dehydrogenase Troponin I High Sens B-Natriuretic Peptide Total Protein Albumin Vitamin B12 Folate Urine Color Yellow Urine Appearance Hazy Urine pH 5.5 Ur Specific Raccoon 1.010 Urine Protein Trace Urine Glucose (UA) Negative Urine Ketones Negative Urine Blood Large (3+) H Urine Nitrite Positive H Ur Leukocyte Esterase Large (3+) H Urine RBC >20 H Urine WBC >50 H Ur Squamous Epith Cells 0-2 Urine Bacteria 1+ Hyaline Casts 0-2 COVID-19 (JONATHAN) COVID-19 Clin Com Influenza Type A (MATTHEW) Influenza Type B (MATTHEW) Influenza A & B Note Blood Type Antibody Screen Crossmatch 03/14/22 05:34 WBC RBC Hgb Hct MCV MCH MCHC RDW Plt Count MPV Immature Gran % (Auto) Neut % (Auto) Lymph % (Auto) Dukes % (Auto) Eos % (Auto) Baso % (Auto) Lymph # (Auto) Dukes # (Auto) Eos # (Auto) Baso # (Auto) Abs Immat Gran (auto) Absolute Neuts (auto) Absolute Nucleated RBC Nucleated RBC % (auto) Absolute Retic Percent Retic Immature Retic Fraction Retic Hgb Equivalent PT INR Sodium 140 Potassium 4.5 Chloride 106 Carbon Dioxide 25 Anion Gap 14 BUN 29 H Creatinine 2.08 H Estim Creat Clear Calc 32.5 Estimated GFR 31 Random Glucose 106 Calcium 8.3 L Magnesium Iron TIBC % Saturation Unsat Iron Binding Total Bilirubin AST ALT Alkaline Phosphatase Lactate Dehydrogenase Troponin I High Sens B-Natriuretic Peptide Total Protein Albumin Vitamin B12 Folate Urine Color Urine Appearance Urine pH Ur Specific [place] Urine Protein Urine Glucose (UA) Urine Ketones Urine Blood Urine Nitrite Ur Leukocyte Esterase Urine RBC Urine WBC Ur Squamous Epith Cells Urine Bacteria Hyaline Casts COVID-19 (JONATHAN) COVID-19 Clin Com Influenza Type A (MATTHEW) Influenza Type B (MATTHEW) Influenza A & B Note Blood Type Antibody Screen Crossmatch Imaging Radiologist's impression: Impressions Head CT 03/13/22 15:32 IMPRESSION: 1. No intracranial hemorrhage or calvarial fracture. 2. Mild cerebral atrophy and chronic small vessel ischemic white matter change. 3. 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 Abdomen/Pelvis CT 03/13/22 18:30 IMPRESSION: 1. Patchy groundglass airspace disease more prominent on the right. Infectious or inflammatory causes would be favored with this appearance. There is associated peribronchial cuffing and thickening. Small bilateral pleural effusions. Clinical correlation would be needed. 2. Prominent bilateral hydronephrosis and hydroureter extending up to the dilated bladder. No suspicious ureteric calculi. Prostate is not well-defined. Bladder outlet obstruction could have this appearance and should be clinically correlated. 3. Chronic appearing and postoperative changes otherwise as described. Chest CT 03/13/22 18:30 IMPRESSION: 1. Patchy groundglass airspace disease more prominent on the right. Infectious or inflammatory causes would be favored with this appearance. There is associated peribronchial cuffing and thickening. Small bilateral pleural effusions. Clinical correlation would be needed. 2. Prominent bilateral hydronephrosis and hydroureter extending up to the dilated bladder. No suspicious ureteric calculi. Prostate is not well-defined. Bladder outlet obstruction could have this appearance and should be clinically correlated. 3. Chronic appearing and postoperative changes otherwise as described. Assessment and Plan (1) CHF exacerbation: Status: Acute (2) ADE (acute kidney injury): Status: Acute (3) Anemia: Status: Acute (4) Atrial fibrillation with rapid ventricular response: Status: Acute Plan 81-year-old gentleman presenting with complex issues. He is anemic, has acute kidney injury with concern for bladder outlet obstruction with bilateral hydronephrosis as well as congestive heart failure. He has chronic atrial fibrillation and was noticed to be in AFib with RVR. I think AFib with RVR is secondary to multiple issues going on. He is on carvedilol 25 mg twice a day currently. He has been transfused 2 units of blood. I think Cardizem can be stopped and we can sees response to blood transfusion. I would not leave him on standing dose of IV diuretics currently specially with bilateral hydronephrosis. His lungs sound clear and I do not see any obvious JVD currently. It is possible all the dyspnea and mild congestive heart failure is due to anemia and as you fix that he may not require diuretics. Anticoagulation is on hold appropriately. We will follow along with you. Thank you for allowing me to participate in the care of your patient. Please feel free to contact me if you have any questions. Time Spent With Patient Time: Total time managing care of this patient today ____ minutes. Procedures Date of Service Date of Service: 03/14/22
--- NOTE | 2022-03-14 11:07 | PC.NURSE ---
pt seen by dr. rivera, pt/daughter aware of plan of care. cardiazem drip decrease to 5mg/hr per hosp, dr. man.
--- NOTE | 2022-03-14 12:30 | PC.NURSE ---
dr. corea (urology and money position officer) at bedside with pt to place multani cath.
--- NOTE | 2022-03-14 13:16 | PC.NURSE ---
dr. corea (urology) attempted to place multani cath without any success. pt aware of plan of care. dante vizcaino d/c'd at this time per hosp . vs 106/57-73, aware
--- NOTE | 2022-03-14 13:24 | PC.NURSE ---
dr. tiwari (egg breaking machine operator) at bedside. pt/family aware of plan of care.
--- NOTE | 2022-03-14 13:42 | PM.UROCN ---
History of Present Illness Consult details Consult date: 03/14/22 Narrative: Damian is a 81 year old male presented in urinary retention. failed multiple multani catheter insertions. 16 fr catheter attempted, met with resistance in the mid urethra. Bedside flexible cystourethroscopy - findings stricture at bulbous urethra unable to pass a guide wire into the bladder. Plan: Evaluation under anesthesia, for possible urethral dilation vs suprapubic tube insertion CT - Pertinent findings: Mod B/L hydronephrosis/hydroureter distended bladder Review of Systems Review of Systems: 10 point ROS negative other than stated in [facility] Social History Social History (Updated 03/13/22 @ 20:49 by MARY Valdes) Alcohol intake: current Alcohol intake frequency: 0-2 drinks per day Patient Tobacco Use Status: Never used Tobacco service: No Current occupational status: retired [employer] Allergies Allergy/AdvReac Type Severity Reaction Status Date / Time No Known Allergies Allergy Unverified 11/18/19 15:22 [No Known Allergies*] Active Medications: Current Medications Acetaminophen (Acetaminophen 325 Mg Tablet) 650 mg PO Q6H PRN PRN Reason: Pain, Mild (Pain Scale 1-3) Allopurinol (Allopurinol 100 Mg Tablet) 100 mg PO DAILY [facility] Last Admin: 03/14/22 08:38 Dose: Not Given Apixaban (Apixaban 2.5 Mg Tablet) 2.5 mg PO BID [facility] Last Admin: 03/14/22 08:30 Dose: 2.5 mg Atorvastatin Calcium (Atorvastatin Calcium 20 Mg Tablet) 20 mg PO BEDTIME [facility] Last Admin: 03/13/22 21:29 Dose: 20 mg Carvedilol (Carvedilol 25 Mg Tablet) 25 mg PO BID [facility]; Protocol Last Admin: 03/14/22 10:32 Dose: 25 mg Docusate Sodium (Docusate Sodium 100 Mg Capsule) 100 mg PO DAILY PRN PRN Reason: Constipation Furosemide (Furosemide 40 Mg/4 Ml Vial) 40 mg IVPUSH BID@0900,1800 [facility]; Protocol Last Admin: 03/14/22 08:30 Dose: 40 mg Gabapentin (Gabapentin 600 Mg Tablet) 300 mg PO BEDTIME [facility] Ceftriaxone Sodium 1 gm/ (Sodium Chloride) 50 mls @ 100 mls/hr IV Q24H [facility] Stop: 03/18/22 21:59 Last Infusion: 01/11/23 23:42 Dose: Infused Diltiazem HCl 125 mg/ Sodium (Chloride) 125 mls @ 0 mls/hr IVCONT .Q0M [facility]; Protocol Last Titration: 03/14/22 13:18 Dose: 0 mg/hr, 0 mls/hr Ondansetron HCl (Ondansetron Hcl 4 Mg/2 Ml Vial) 4 mg IVPUSH Q8H PRN PRN Reason: Nausea and Vomiting Pharmacy Consult (Consult Rx Perform Med Rec) 1 each MISCELLANE ONCE PRN PRN Reason: Consult order Potassium Chloride (Potassium Chloride Er 20 Meq Tab.Er.Prt) 20 meq PO DAILY [facility] Last Admin: 03/14/22 08:30 Dose: 20 meq Sodium Chloride (0.9 % Sodium Chloride Flush 3 Ml Syringe) 3 ml IVFLUSH QSHIFT [facility] Last Admin: 03/14/22 08:37 Dose: 3 ml Tamsulosin HCl (Tamsulosin Hcl 0.4 Mg Capsule) 0.4 mg PO BEDTIME [facility] Last Admin: 03/13/22 21:30 Dose: 0.4 mg Trazodone HCl (Trazodone Hcl 50 Mg Tablet) 50 mg PO BEDTIME [facility] Last Admin: 03/13/22 23:57 Dose: 50 mg Home Medications Medication Instructions Recorded Confirmed Last Taken Type alfuzosin 10 mg tablet,extended 1 tab PO BEDTIME 03/13/22 03/13/22 03/12/22 History release 24 hr allopurinol 300 mg tablet 1 tab PO DAILY 03/13/22 03/13/22 03/13/22 History apixaban 2.5 mg tablet (Eliquis) 1 tab PO BID 03/13/22 03/13/22 03/13/22 History carvedilol 25 mg tablet 1 tab PO BID 03/13/22 03/13/22 03/13/22 History ferrous sulfate 325 mg (65 mg 975 mg PO DAILY 03/13/22 03/13/22 03/13/22 History iron) tablet gabapentin 600 mg tablet 1 tab PO BEDTIME 03/13/22 03/13/22 03/12/22 History magnesium 250 mg tablet 250 mg PO DAILY 03/13/22 03/13/22 03/13/22 History potassium chloride 20 mEq 1 tab PO DAILY 03/13/22 03/13/22 03/13/22 History tablet,extended release simvastatin 40 mg tablet 1 tab PO BEDTIME 03/13/22 03/13/22 03/12/22 History vitamin B complex 1 tab PO DAILY 03/13/22 03/13/22 03/13/22 History Physical Exam Vital Signs: Vital Signs: Last Vital Signs Temp 98.0 F 03/14/22 12:32 Pulse 79 03/14/22 12:32 Resp 20 03/14/22 12:32 BP 101/59 L 03/14/22 12:32 Pulse Ox 99 03/14/22 12:32 O2 Del Method 03/14/22 12:32 O2 Flow Rate 2 03/14/22 12:32 BMI result Body Mass Index 27.4 Const: General: no acute distress Orientation/consciousness: patient oriented x3 HEENT: Head: Yes normocephalic and Yes atraumatic Eyes: Conjunctivae: conjunctivae normal Neck: Neck: Yes normal visual inspection Chest: Chest palpation & inspection: normal inspection of the chest Resp: Effort & Inspection: normal respiratory effort Cardio: Rate: regular rate GI: Inspection: Yes normal to inspection Palpation (GI): Soft to palpation : Penis: normal penis Scrotum: scrotum normal Skin: General skin exam: no rashes or lesions noted Neuro: General: patient oriented x3 Extrem: General: No pedal edema Psych: Appearance: grossly normal Affect: normal affect Results Labs 03/14/22 05:34 03/14/22 05:34 Labs: Abnormal lab results 03/13/22 03/13/22 03/13/22 Range/Units 15:45 15:45 15:45 WBC (4.8-10.8) X10*3/uL RBC 2.14 L (4.60-5.80) X10*6/uL Hgb 6.6 L* (14.0-18.0) g/dl Hct 21.5 L (42.0-52.0) % MCV 100.5 H (80.0-98.0) fL MCHC 30.7 L (31.0-36.0) g/dl RDW 16.9 H (11.0-16.0) % Immature Gran % (Auto) 0.9 H (0.0-0.4) % Neut % (Auto) 75.5 H (45-73) % Lymph % (Auto) 16.6 L (20-40) % Abs Immat Gran (auto) 0.08 H (0.00-0.03) X10*3/uL Percent Retic 4.2 H (0.5-1.8) % Immature Retic Fraction 27.4 H (2.3-13.4) % PT 17.1 H (10.0-13.1) SEC INR 1.5 H (0.9-1.1) Chloride 109 H (96-108) mmol/L Anion Gap 10 L (12-20) BUN 25 H (9-16) mg/dL Creatinine 1.58 H (0.5-1.4) mg/dL Random Glucose 135 H (60-115) mg/dL Calcium (8.4-10.2) mg/dL Iron 30 L (45-160) mcg/dL TIBC 195 L (228-428) mcg/dL Alkaline Phosphatase 121 H (39-117) U/L B-Natriuretic Peptide (<100) pg/mL Total Protein 6.2 L (6.5-8.0) g/dL Albumin 3.3 L (3.5-5.0) g/dL Urine Blood (Negative) Urine Nitrite (Negative) Ur Leukocyte Esterase (Negative) Urine RBC (0-2) /HPF Urine WBC (0-5) /HPF Crossmatch 03/13/22 03/13/22 03/13/22 Range/Units 15:45 16:04 20:10 WBC (4.8-10.8) X10*3/uL RBC (4.60-5.80) X10*6/uL Hgb (14.0-18.0) g/dl Hct (42.0-52.0) % MCV (80.0-98.0) fL MCHC (31.0-36.0) g/dl RDW (11.0-16.0) % Immature Gran % (Auto) (0.0-0.4) % Neut % (Auto) (45-73) % Lymph % (Auto) (20-40) % Abs Immat Gran (auto) (0.00-0.03) X10*3/uL Percent Retic (0.5-1.8) % Immature Retic Fraction (2.3-13.4) % PT (10.0-13.1) SEC INR (0.9-1.1) Chloride (96-108) mmol/L Anion Gap (12-20) BUN (9-16) mg/dL Creatinine (0.5-1.4) mg/dL Random Glucose (60-115) mg/dL Calcium (8.4-10.2) mg/dL Iron (45-160) mcg/dL TIBC (228-428) mcg/dL Alkaline Phosphatase (39-117) U/L B-Natriuretic Peptide 477 H (<100) pg/mL Total Protein (6.5-8.0) g/dL Albumin (3.5-5.0) g/dL Urine Blood Large (3+) H (Negative) Urine Nitrite Positive H (Negative) Ur Leukocyte Esterase Large (3+) H (Negative) Urine RBC >20 H (0-2) /HPF Urine WBC >50 H (0-5) /HPF Crossmatch See Detail 03/14/22 03/14/22 Range/Units 05:34 05:34 WBC 13.9 H (4.8-10.8) X10*3/uL RBC 2.63 L D (4.60-5.80) X10*6/uL Hgb 8.2 L D (14.0-18.0) g/dl Hct 25.7 L (42.0-52.0) % MCV (80.0-98.0) fL MCHC (31.0-36.0) g/dl RDW 16.4 H (11.0-16.0) % Immature Gran % (Auto) (0.0-0.4) % Neut % (Auto) (45-73) % Lymph % (Auto) (20-40) % Abs Immat Gran (auto) (0.00-0.03) X10*3/uL Percent Retic (0.5-1.8) % Immature Retic Fraction (2.3-13.4) % PT (10.0-13.1) SEC INR (0.9-1.1) Chloride (96-108) mmol/L Anion Gap (12-20) BUN 29 H (9-16) mg/dL Creatinine 2.08 H (0.5-1.4) mg/dL Random Glucose (60-115) mg/dL Calcium 8.3 L (8.4-10.2) mg/dL Iron (45-160) mcg/dL TIBC (228-428) mcg/dL Alkaline Phosphatase (39-117) U/L B-Natriuretic Peptide (<100) pg/mL Total Protein (6.5-8.0) g/dL Albumin (3.5-5.0) g/dL Urine Blood (Negative) Urine Nitrite (Negative) Ur Leukocyte Esterase (Negative) Urine RBC (0-2) /HPF Urine WBC (0-5) /HPF Crossmatch Short CBC 03/13/22 03/14/22 Range/Units 15:45 05:34 WBC 9.4 13.9 H (4.8-10.8) X10*3/uL Hgb 6.6 L* 8.2 L D (14.0-18.0) g/dl Hct 21.5 L 25.7 L (42.0-52.0) % Plt Count 230 244 (160-400) X10*3/uL BMP 03/13/22 03/14/22 15:45 05:34 Sodium 139 140 Potassium 5.0 D 4.5 Chloride 109 H 106 Carbon Dioxide 25 25 BUN 25 H 29 H Creatinine 1.58 H 2.08 H Calcium 8.5 8.3 L Liver Function 03/13/22 Range/Units 15:45 Total Bilirubin 0.5 (0.0-1.0) mg/dL AST 17 (5-37) U/L ALT 10 (0-40) U/L Alkaline Phosphatase 121 H (39-117) U/L Albumin 3.3 L (3.5-5.0) g/dL Urine 03/13/22 Range/Units 20:10 Urine Color Yellow Urine Appearance Hazy Urine pH 5.5 (5.0-9.0) Ur Specific [place] 1.010 (1.005-1.025) Urine Protein Trace (Neg-Trace) mg/dL Urine Glucose (UA) Negative (Negative) mg/dL Imaging Abdomen CT scan report/results: report reviewed CT scan - pelvis: report reviewed Additional studies: Date of Service: 03/13/22 CT CHEST, ABDOMEN AND PELVIS WITHOUT CONTRAST. CLINICAL INFORMATION: Shortness of breath. Abdominal discomfort, ?b/l hydro . COMPARISON: 07/20/2017. FINDINGS: CHEST: Lungs: Patchy groundglass airspace disease is seen within the right lung and to less extent the left lung. Infectious or inflammatory etiologies would be strong suspected. More prominent on the right. There is associated mild peribronchial cuffing and thickening. Minimal dependent atelectasis with the associated small bilateral pleural effusions. Again this is more prominent on the right. Mediastinum: Shotty mediastinal and hilar lymph nodes. Prominent vascular calculation in aorta. Enlarged bilateral atria Coronary Artery Calcification: Present Pericardium/Pleura: Tiny pericardial effusion. No obvious pericardial calcification. Small bilateral pleural effusions. Chest Wall/Axilla: Unremarkable. ABDOMEN/PELVIS: Peritoneal Space:No significant free air or free fluid identified. Liver, Gallbladder, Biliary Tree: The non contrast liver is normal in size, shape, and attenuation. No focal hepatic lesion or biliary ductal dilatation is present.? The gallbladder is unremarkable with no evidence of radiopaque gallstones, gallbladder wall thickening, or obvious pericholecystic inflammatory changes. Pancreas: Atrophic Spleen: Unremarkable. Adrenal Glands: Unremarkable. Kidneys and Ureters: Prominent bilateral hydronephrosis and hydroureter with both dilated ureters. Follow up to the dilated bladder. No suspicious ureteric calculi. Lateral right upper pole renal cyst incidentally noted Bladder: Dilated with a few bladder diverticula Gastrointestinal Tract: Scattered colonic diverticulosis but no obvious colonic wall thickening or significant pericolonic inflammatory changes. Surgical clips in the region of the cecum suggesting prior ileocecectomy. No obstructive changes to the adjacent small bowel Abdominal Wall: No significant hernia is appreciated. Lymphovascular Structures: Prominent vascular calcification within the aorta iliac system. Incidental retroaortic left renal vein. Pelvic Viscera: Prostate not well-defined and relatively diminutive Osseus Structures: Degenerative changes in the spine. No acute bony abnormalities IMPRESSION: 1.? Patchy groundglass airspace disease more prominent on the right. Infectious or inflammatory causes would be favored with this appearance. There is associated peribronchial cuffing and thickening. Small bilateral pleural effusions. Clinical correlation would be needed. 2.? Prominent bilateral hydronephrosis and hydroureter extending up to the dilated bladder. No suspicious ureteric calculi. Prostate is not well-defined. Bladder outlet obstruction could have this appearance and should be clinically correlated. 3.? Chronic appearing and postoperative changes otherwise as described. ? Assessment and Plan (1) ADE (acute kidney injury): Status: Acute (2) Obstructive uropathy: Status: Acute (3) Urethral stricture: Status: Acute Plan Unable to get a multani catheter in at the bedside Cystourethroscopy - flexible at bedside bulbous urethral stricture Plan - possible dilate urethral stricture vs supra pubic tube under anesthesia Time Spent With Patient Time: Total time managing care of this patient today ____ minutes. Procedures Date of Service Date of Service: 03/14/22
--- NOTE | 2022-03-14 14:29 | PC.NURSE ---
rn to rn report given to xi in sss. pt aware of plan of care for surgery later today. pt is npo.
--- NOTE | 2022-03-14 14:41 | HO.PM.IMPN ---
Subjective Subjective Date of Service: 03/14/22 Interval History: Seen and evaluated this morning Went into AFib with RVR overnight, better controlled this morning Unable to pass urine lately, CT showed bilateral hydronephrosis He reports feeling little bit stronger with improvement in his breathing No other overnight events Review of Systems Review of Systems: Yes all other systems are reviewed and are negative Physical Exam Vital Signs: Vital Signs: Last Vital Signs Temp 99.4 F 03/14/22 14:13 Pulse 73 03/14/22 14:13 Resp 13 03/14/22 14:13 BP 111/60 03/14/22 14:13 Pulse Ox 98 03/14/22 14:13 O2 Del Method 03/14/22 14:13 O2 Flow Rate 1 03/14/22 14:13 BMI result Body Mass Index 27.4 Const: Other: Constitutional : Awake, interactive, not in distress Neck : Normal inspection, Supple Cardiovascular : Irregular irregular, no JVP, trace lower extremity edema Respiratory : Fair bilateral air entry, no crackles, wheezes or rhonchi Gastrointestinal: soft, lax, Normal bowel sounds, Non tender Skin : Warm, Dry Neurological : Alert & oriented x3, No focal deficit Objective Data Active Medications Acetaminophen (Acetaminophen 325 Mg Tablet) 650 mg PO Q6H PRN PRN Reason: Pain, Mild (Pain Scale 1-3) Allopurinol (Allopurinol 100 Mg Tablet) 100 mg PO DAILY [facility] Last Admin: 03/14/22 08:38 Dose: Not Given Documented By: LIZETH Non-Admin Reason: see d/c order that was given Apixaban (Apixaban 2.5 Mg Tablet) 2.5 mg PO BID [facility] Last Admin: 03/14/22 08:30 Dose: 2.5 mg Documented By: LIZETH Atorvastatin Calcium (Atorvastatin Calcium 20 Mg Tablet) 20 mg PO BEDTIME [facility] Last Admin: 03/13/22 21:29 Dose: 20 mg Documented By: JALEN-LITMARTITA Carvedilol (Carvedilol 25 Mg Tablet) 25 mg PO BID [facility]; Protocol Last Admin: 03/14/22 10:32 Dose: 25 mg Documented By: LIZETH Docusate Sodium (Docusate Sodium 100 Mg Capsule) 100 mg PO DAILY PRN PRN Reason: Constipation Gabapentin (Gabapentin 600 Mg Tablet) 300 mg PO BEDTIME [facility] Ceftriaxone Sodium 1 gm/ (Sodium Chloride) 50 mls @ 100 mls/hr IV Q24H [facility] Stop: 03/18/22 21:59 Last Infusion: 03/13/22 23:42 Dose: 0 mls/hr Documented By: KHADIJAH Ondansetron HCl (Ondansetron Hcl 4 Mg/2 Ml Vial) 4 mg IVPUSH Q8H PRN PRN Reason: Nausea and Vomiting Pharmacy Consult (Consult Rx Perform Med Rec) 1 each MISCELLANE ONCE PRN PRN Reason: Consult order Potassium Chloride (Potassium Chloride Er 20 Meq Tab.Er.Prt) 20 meq PO DAILY [facility] Last Admin: 03/14/22 08:30 Dose: 20 meq Documented By: LIZETH Sodium Chloride (0.9 % Sodium Chloride Flush 3 Ml Syringe) 3 ml IVFLUSH QSHIFT [facility] Last Admin: 03/14/22 08:37 Dose: 3 ml Documented By: LIZETH Tamsulosin HCl (Tamsulosin Hcl 0.4 Mg Capsule) 0.4 mg PO BEDTIME [facility] Last Admin: 03/13/22 21:30 Dose: 0.4 mg Documented By: KHADIJAH Trazodone HCl (Trazodone Hcl 50 Mg Tablet) 50 mg PO BEDTIME [facility] Last Admin: 03/13/22 23:57 Dose: 50 mg Documented By: KHADIJAH Labs 03/14/22 05:34 03/14/22 05:34 Labs: Laboratory Results - last 24 hr 03/13/22 03/13/22 03/13/22 15:45 15:45 15:45 MCV 100.5 H MCH 30.8 MCHC 30.7 L RDW 16.9 H Plt Count 230 MPV 9.8 Immature Gran % (Auto) 0.9 H Neut % (Auto) 75.5 H Lymph % (Auto) 16.6 L [place] % (Auto) 5.1 Eos % (Auto) 1.7 Baso % (Auto) 0.2 Lymph # (Auto) 1.6 [place] # (Auto) 0.5 Eos # (Auto) 0.2 Baso # (Auto) 0.0 Abs Immat Gran (auto) 0.08 H Absolute Neuts (auto) 7.1 Absolute Nucleated RBC 0.000 Nucleated RBC % (auto) 0.0 Smear Path Review SEE NOTE Absolute Retic 0.089 Percent Retic 4.2 H Immature Retic Fraction 27.4 H Retic Hgb Equivalent 34.1 PT 17.1 H INR 1.5 H Anion Gap 10 L Estim Creat Clear Calc 42.8 Estimated GFR 43 Random Glucose 135 H Calcium 8.5 Magnesium 2.2 Iron 30 L TIBC 195 L % Saturation 15 Unsat Iron Binding 165 Total Bilirubin 0.5 AST 17 ALT 10 Alkaline Phosphatase 121 H Lactate Dehydrogenase 166 Troponin I High Sens B-Natriuretic Peptide Total Protein 6.2 L Albumin 3.3 L Vitamin B12 Folate Urine Color Urine Appearance Urine pH Ur Specific [place] Urine Protein Urine Glucose (UA) Urine Ketones Urine Blood Urine Nitrite Ur Leukocyte Esterase Urine RBC Urine WBC Ur Squamous Epith Cells Urine Bacteria Hyaline Casts COVID-19 (JONATHAN) COVID-19 Clin Com Influenza Type A (MATTHEW) Influenza Type B (MATTHEW) Influenza A & B Note Blood Type Antibody Screen Crossmatch 03/13/22 03/13/22 03/13/22 15:45 15:45 15:45 MCV MCH MCHC RDW Plt Count MPV Immature Gran % (Auto) Neut % (Auto) Lymph % (Auto) [place] % (Auto) Eos % (Auto) Baso % (Auto) Lymph # (Auto) [place] # (Auto) Eos # (Auto) Baso # (Auto) Abs Immat Gran (auto) Absolute Neuts (auto) Absolute Nucleated RBC Nucleated RBC % (auto) Smear Path Review Absolute Retic Percent Retic Immature Retic Fraction Retic Hgb Equivalent PT INR Anion Gap Estim Creat Clear Calc Estimated GFR Random Glucose Calcium Magnesium Iron TIBC % Saturation Unsat Iron Binding Total Bilirubin AST ALT Alkaline Phosphatase Lactate Dehydrogenase Troponin I High Sens 8.5 B-Natriuretic Peptide 477 H Total Protein Albumin Vitamin B12 Folate Urine Color Urine Appearance Urine pH Ur Specific [place] Urine Protein Urine Glucose (UA) Urine Ketones Urine Blood Urine Nitrite Ur Leukocyte Esterase Urine RBC Urine WBC Ur Squamous Epith Cells Urine Bacteria Hyaline Casts COVID-19 (JONATHAN) COVID-19 Clin Com Influenza Type A (MATTHEW) Negative Influenza Type B (MATTHEW) Negative Influenza A & B Note See Note Blood Type Antibody Screen Crossmatch 03/13/22 03/13/22 03/13/22 15:45 15:45 16:04 MCV MCH MCHC RDW Plt Count MPV Immature Gran % (Auto) Neut % (Auto) Lymph % (Auto) [place] % (Auto) Eos % (Auto) Baso % (Auto) Lymph # (Auto) [place] # (Auto) Eos # (Auto) Baso # (Auto) Abs Immat Gran (auto) Absolute Neuts (auto) Absolute Nucleated RBC Nucleated RBC % (auto) Smear Path Review Absolute Retic Percent Retic Immature Retic Fraction Retic Hgb Equivalent PT INR Anion Gap Estim Creat Clear Calc Estimated GFR Random Glucose Calcium Magnesium Iron TIBC % Saturation Unsat Iron Binding Total Bilirubin AST ALT Alkaline Phosphatase Lactate Dehydrogenase Troponin I High Sens B-Natriuretic Peptide Total Protein Albumin Vitamin B12 339 Folate 15.2 Urine Color Urine Appearance Urine pH Ur Specific [place] Urine Protein Urine Glucose (UA) Urine Ketones Urine Blood Urine Nitrite Ur Leukocyte Esterase Urine RBC Urine WBC Ur Squamous Epith Cells Urine Bacteria Hyaline Casts COVID-19 (JONATHAN) Negative COVID-19 Clin Com See Note Influenza Type A (MATTHEW) Influenza Type B (MATTHEW) Influenza A & B Note Blood Type O Positive Antibody Screen NEGATIVE Crossmatch See Detail 03/13/22 03/14/22 03/14/22 20:10 05:34 05:34 MCV 97.7 MCH 31.2 MCHC 31.9 RDW 16.4 H Plt Count 244 MPV 10.2 Immature Gran % (Auto) Neut % (Auto) Lymph % (Auto) [place] % (Auto) Eos % (Auto) Baso % (Auto) Lymph # (Auto) [place] # (Auto) Eos # (Auto) Baso # (Auto) Abs Immat Gran (auto) Absolute Neuts (auto) Absolute Nucleated RBC 0.000 Nucleated RBC % (auto) 0.0 Smear Path Review Absolute Retic Percent Retic Immature Retic Fraction Retic Hgb Equivalent PT INR Anion Gap Estim Creat Clear Calc Estimated GFR Random Glucose Calcium Magnesium 1.9 Iron TIBC % Saturation Unsat Iron Binding Total Bilirubin AST ALT Alkaline Phosphatase Lactate Dehydrogenase Troponin I High Sens B-Natriuretic Peptide Total Protein Albumin Vitamin B12 Folate Urine Color Yellow Urine Appearance Hazy Urine pH 5.5 Ur Specific [place] 1.010 Urine Protein Trace Urine Glucose (UA) Negative Urine Ketones Negative Urine Blood Large (3+) H Urine Nitrite Positive H Ur Leukocyte Esterase Large (3+) H Urine RBC >20 H Urine WBC >50 H Ur Squamous Epith Cells 0-2 Urine Bacteria 1+ Hyaline Casts 0-2 COVID-19 (JONATHAN) COVID-19 Clin Com Influenza Type A (MATTHEW) Influenza Type B (MATTHEW) Influenza A & B Note Blood Type Antibody Screen Crossmatch 03/14/22 05:34 MCV MCH MCHC RDW Plt Count MPV Immature Gran % (Auto) Neut % (Auto) Lymph % (Auto) [place] % (Auto) Eos % (Auto) Baso % (Auto) Lymph # (Auto) [place] # (Auto) Eos # (Auto) Baso # (Auto) Abs Immat Gran (auto) Absolute Neuts (auto) Absolute Nucleated RBC Nucleated RBC % (auto) Smear Path Review Absolute Retic Percent Retic Immature Retic Fraction Retic Hgb Equivalent PT INR Anion Gap 14 Estim Creat Clear Calc 32.5 Estimated GFR 31 Random Glucose 106 Calcium 8.3 L Magnesium Iron TIBC % Saturation Unsat Iron Binding Total Bilirubin AST ALT Alkaline Phosphatase Lactate Dehydrogenase Troponin I High Sens B-Natriuretic Peptide Total Protein Albumin Vitamin B12 Folate Urine Color Urine Appearance Urine pH Ur Specific [place] Urine Protein Urine Glucose (UA) Urine Ketones Urine Blood Urine Nitrite Ur Leukocyte Esterase Urine RBC Urine WBC Ur Squamous Epith Cells Urine Bacteria Hyaline Casts COVID-19 (JONATHAN) COVID-19 Clin Com Influenza Type A (MATTHEW) Influenza Type B (MATTHEW) Influenza A & B Note Blood Type Antibody Screen Crossmatch Assessment and Plan (1) Atrial fibrillation with rapid ventricular response: Status: Acute (2) Obstructive uropathy: Status: Acute (3) ADE (acute kidney injury): Status: Acute (4) UTI (urinary tract infection): Status: Acute (5) CHF exacerbation: Status: Acute (6) Symptomatic anemia: Status: Acute Plan Pt is a 81-year-old male with a PMH significant for persistent afib on Eliquis, restless leg syndrome, HLD, gout, and?prostate cancer treated with radiation in 2005 who presents to the ED with?weakness and recent syncopal episode. Patient was found to have hydronephrosis, hydroureter, positive UTI, anemia, and acute CHF. Patient will be admitted to the hospital for additional workup and treatment for anemia, acute CHF, UTI, and possible bladder obstruction. Acute diastolic CHF exacerbation secondary to anemia Med significant amount of urine overnight with decreased swelling Follow lytes, MG, I/O Pending Echocardiogram Cardiology recommended to hold Lasix for now Continue to monitor the need of diuresis Symptomatic Acute on chronic anemia, Etiology unclear, possible GI bleed, bladder cancer, others Received 2 units PRBC with improvement of HGB to 8.2 UA shows 3+ urine blood and > 20 urine RBC Low iron levels Monitor labs Syncopal episode Likely secondary to CHF and anemia CT of head clear To do PT valve ADE on CKD stage 3 Kidney function has worsening for over a month CT shows prominent bilateral hydronephrosis and hydroureter with outlet obstruction Nephrology input appreciated Urology to place click catheter today Monitor BMP Incontinence of urine Etiology unclear, CT shows suspicion of bladder outlet obstruction, bladder cancer also on the differential To place catheter by Urology UTI UA positive for UTI Ceftriaxone 1g daily, 2/5 Chronic AFib Continue Eliquis Admit to telemetry Insomnia Trazodone 50mg at nighttime Chronic atrial fibrillation with RVR Did not respond to IV metoprolol Started on Cardizem drip with good response Continue carvedilol per Cardiology recommendation and avoid Cardizem Gout Continue home meds HLD Continue home meds DVT Prophylaxis: On Eliquis Pt will require inpatient hospital stay overnight for treatment of anemia, CHF, ADE, UTI, and bladder obstruction.. Time Spent With Patient Time: Total time managing care of this patient today ____ minutes. Quality Stroke Does the patient have a stroke diagnosis?: No VTE Prior VTE?: No VTE Risk Level:: Medical - moderate - high VTE Device Contraindication: Treatment Not Indicated VTE Drug Contraindication: N/A - Med Ordered
--- NOTE | 2022-03-14 16:11 | P.CONAN_ITS ---
HPI - Anesthesia Eval Consult details Narrative: Admitted after syncopal episode. Rapid a-fib with chf, anaemia, bilateral uretheral obstruction. 2U's RBCs given, hr down. PMFSH Active Problems Active Problems: All Active Problems (Updated 03/14/22 @ 14:47 by Alix Tristan MD) Symptomatic anemia (Acute) Atrial fibrillation with rapid ventricular response (Acute) Urethral stricture (Acute) Obstructive uropathy (Acute) ADE (acute kidney injury) (Acute) UTI (urinary tract infection) (Acute) CHF exacerbation (Acute) Anemia (Acute) Weakness (Acute) Past Medical History Functional capacity: independent ambulation Family History Family history of problems with anesthesia: No Surgical History History of Problems with Anesthesia: No Social History Social History (Updated 03/13/22 @ 20:49 by MARY Valdes) Alcohol intake: current Alcohol intake frequency: 0-2 drinks per day service: No Current occupational status: retired [employer] Allergies Allergy/AdvReac Type Severity Reaction Status Date / Time No Known Allergies Allergy Unverified 11/18/19 15:22 [No Known Allergies*] Active Medications: Current Medications Acetaminophen (Acetaminophen 325 Mg Tablet) 650 mg PO Q6H PRN PRN Reason: Pain, Mild (Pain Scale 1-3) Allopurinol (Allopurinol 100 Mg Tablet) 100 mg PO DAILY [facility] Last Admin: 03/14/22 08:38 Dose: Not Given Apixaban (Apixaban 2.5 Mg Tablet) 2.5 mg PO BID [facility] Last Admin: 03/14/22 08:30 Dose: 2.5 mg Atorvastatin Calcium (Atorvastatin Calcium 20 Mg Tablet) 20 mg PO BEDTIME [facility] Last Admin: 03/13/22 21:29 Dose: 20 mg Carvedilol (Carvedilol 25 Mg Tablet) 25 mg PO BID [facility]; Protocol Last Admin: 03/14/22 10:32 Dose: 25 mg Docusate Sodium (Docusate Sodium 100 Mg Capsule) 100 mg PO DAILY PRN PRN Reason: Constipation Gabapentin (Gabapentin 600 Mg Tablet) 300 mg PO BEDTIME [facility] Ceftriaxone Sodium 1 gm/ (Sodium Chloride) 50 mls @ 100 mls/hr IV Q24H [facility] Stop: 03/18/22 21:59 Last Infusion: 03/13/22 23:42 Dose: Infused Ondansetron HCl (Ondansetron Hcl 4 Mg/2 Ml Vial) 4 mg IVPUSH Q8H PRN PRN Reason: Nausea and Vomiting Pharmacy Consult (Consult Rx Perform Med Rec) 1 each MISCELLANE ONCE PRN PRN Reason: Consult order Potassium Chloride (Potassium Chloride Er 20 Meq Tab.Er.Prt) 20 meq PO DAILY [facility] Last Admin: 03/14/22 08:30 Dose: 20 meq Sodium Chloride (0.9 % Sodium Chloride Flush 3 Ml Syringe) 3 ml IVFLUSH QSHIFT [facility] Last Admin: 03/14/22 08:37 Dose: 3 ml Tamsulosin HCl (Tamsulosin Hcl 0.4 Mg Capsule) 0.4 mg PO BEDTIME [facility] Last Admin: 03/13/22 21:30 Dose: 0.4 mg Trazodone HCl (Trazodone Hcl 50 Mg Tablet) 50 mg PO BEDTIME [facility] Last Admin: 03/13/22 23:57 Dose: 50 mg Home Medications Medication Instructions Recorded Confirmed Last Taken Type alfuzosin 10 mg tablet,extended 1 tab PO BEDTIME 03/13/22 03/13/22 03/12/22 History release 24 hr allopurinol 300 mg tablet 1 tab PO DAILY 03/13/22 03/13/22 03/13/22 History apixaban 2.5 mg tablet (Eliquis) 1 tab PO BID 03/13/22 03/13/22 03/13/22 History carvedilol 25 mg tablet 1 tab PO BID 03/13/22 03/13/22 03/13/22 History ferrous sulfate 325 mg (65 mg 975 mg PO DAILY 03/13/22 03/13/22 03/13/22 History iron) tablet gabapentin 600 mg tablet 1 tab PO BEDTIME 03/13/22 03/13/22 03/12/22 History magnesium 250 mg tablet 250 mg PO DAILY 03/13/22 03/13/22 03/13/22 History potassium chloride 20 mEq 1 tab PO DAILY 03/13/22 03/13/22 03/13/22 History tablet,extended release simvastatin 40 mg tablet 1 tab PO BEDTIME 03/13/22 03/13/22 03/12/22 History vitamin B complex 1 tab PO DAILY 03/13/22 03/13/22 03/13/22 History Exam Exam Date and Time: March 14, 2022 161 Height,Weight and Vital Signs: Height 6 ft 1 in Weight 94.5 kg Last Vital Signs Temp 99.4 F 03/14/22 14:13 Pulse 73 03/14/22 14:13 Resp 13 03/14/22 14:13 BP 111/60 03/14/22 14:13 Pulse Ox 98 03/14/22 14:13 O2 Del Method 03/14/22 14:13 O2 Flow Rate 1 03/14/22 14:13 Pertinent Lab Results Pertinent Lab Results: Laboratory Tests 03/13/22 03/13/22 03/13/22 15:45 15:45 15:45 WBC 9.4 RBC 2.14 L Hgb 6.6 L* Hct 21.5 L MCV 100.5 H MCH 30.8 MCHC 30.7 L RDW 16.9 H Plt Count 230 MPV 9.8 Immature Gran % (Auto) 0.9 H Neut % (Auto) 75.5 H Lymph % (Auto) 16.6 L Amelia % (Auto) 5.1 Eos % (Auto) 1.7 Baso % (Auto) 0.2 Lymph # (Auto) 1.6 Amelia # (Auto) 0.5 Eos # (Auto) 0.2 Baso # (Auto) 0.0 Abs Immat Gran (auto) 0.08 H Absolute Neuts (auto) 7.1 Absolute Nucleated RBC 0.000 Nucleated RBC % (auto) 0.0 Smear Path Review SEE NOTE Absolute Retic 0.089 Percent Retic 4.2 H Immature Retic Fraction 27.4 H Retic Hgb Equivalent 34.1 PT 17.1 H INR 1.5 H Sodium 139 Potassium 5.0 D Chloride 109 H Carbon Dioxide 25 Anion Gap 10 L BUN 25 H Creatinine 1.58 H Estim Creat Clear Calc 42.8 Estimated GFR 43 Random Glucose 135 H Calcium 8.5 Magnesium 2.2 Iron 30 L TIBC 195 L % Saturation 15 Unsat Iron Binding 165 Total Bilirubin 0.5 AST 17 ALT 10 Alkaline Phosphatase 121 H Lactate Dehydrogenase 166 Troponin I High Sens B-Natriuretic Peptide Total Protein 6.2 L Albumin 3.3 L Vitamin B12 Folate Urine Color Urine Appearance Urine pH Ur Specific [place] Urine Protein Urine Glucose (UA) Urine Ketones Urine Blood Urine Nitrite Ur Leukocyte Esterase Urine RBC Urine WBC Ur Squamous Epith Cells Urine Bacteria Hyaline Casts COVID-19 (JONATHAN) COVID-19 Clin Com Influenza Type A (MATTHEW) Influenza Type B (MATTHEW) Influenza A & B Note Blood Type Antibody Screen Crossmatch 03/13/22 03/13/22 03/13/22 15:45 15:45 15:45 WBC RBC Hgb Hct MCV MCH MCHC RDW Plt Count MPV Immature Gran % (Auto) Neut % (Auto) Lymph % (Auto) Amelia % (Auto) Eos % (Auto) Baso % (Auto) Lymph # (Auto) Amelia # (Auto) Eos # (Auto) Baso # (Auto) Abs Immat Gran (auto) Absolute Neuts (auto) Absolute Nucleated RBC Nucleated RBC % (auto) Smear Path Review Absolute Retic Percent Retic Immature Retic Fraction Retic Hgb Equivalent PT INR Sodium Potassium Chloride Carbon Dioxide Anion Gap BUN Creatinine Estim Creat Clear Calc Estimated GFR Random Glucose Calcium Magnesium Iron TIBC % Saturation Unsat Iron Binding Total Bilirubin AST ALT Alkaline Phosphatase Lactate Dehydrogenase Troponin I High Sens 8.5 B-Natriuretic Peptide 477 H Total Protein Albumin Vitamin B12 Folate Urine Color Urine Appearance Urine pH Ur Specific [place] Urine Protein Urine Glucose (UA) Urine Ketones Urine Blood Urine Nitrite Ur Leukocyte Esterase Urine RBC Urine WBC Ur Squamous Epith Cells Urine Bacteria Hyaline Casts COVID-19 (JONATHAN) COVID-19 Clin Com Influenza Type A (MATTHEW) Negative Influenza Type B (MATTHEW) Negative Influenza A & B Note See Note Blood Type Antibody Screen Crossmatch 03/13/22 03/13/22 03/13/22 15:45 15:45 16:04 WBC RBC Hgb Hct MCV MCH MCHC RDW Plt Count MPV Immature Gran % (Auto) Neut % (Auto) Lymph % (Auto) Amelia % (Auto) Eos % (Auto) Baso % (Auto) Lymph # (Auto) Amelia # (Auto) Eos # (Auto) Baso # (Auto) Abs Immat Gran (auto) Absolute Neuts (auto) Absolute Nucleated RBC Nucleated RBC % (auto) Smear Path Review Absolute Retic Percent Retic Immature Retic Fraction Retic Hgb Equivalent PT INR Sodium Potassium Chloride Carbon Dioxide Anion Gap BUN Creatinine Estim Creat Clear Calc Estimated GFR Random Glucose Calcium Magnesium Iron TIBC % Saturation Unsat Iron Binding Total Bilirubin AST ALT Alkaline Phosphatase Lactate Dehydrogenase Troponin I High Sens B-Natriuretic Peptide Total Protein Albumin Vitamin B12 339 Folate 15.2 Urine Color Urine Appearance Urine pH Ur Specific [place] Urine Protein Urine Glucose (UA) Urine Ketones Urine Blood Urine Nitrite Ur Leukocyte Esterase Urine RBC Urine WBC Ur Squamous Epith Cells Urine Bacteria Hyaline Casts COVID-19 (JONATHAN) Negative COVID-19 Clin Com See Note Influenza Type A (MATTHEW) Influenza Type B (MATTHEW) Influenza A & B Note Blood Type O Positive Antibody Screen NEGATIVE Crossmatch See Detail 03/13/22 03/14/22 03/14/22 20:10 05:34 05:34 WBC 13.9 H RBC 2.63 L D Hgb 8.2 L D Hct 25.7 L MCV 97.7 MCH 31.2 MCHC 31.9 RDW 16.4 H Plt Count 244 MPV 10.2 Immature Gran % (Auto) Neut % (Auto) Lymph % (Auto) Amelia % (Auto) Eos % (Auto) Baso % (Auto) Lymph # (Auto) Amelia # (Auto) Eos # (Auto) Baso # (Auto) Abs Immat Gran (auto) Absolute Neuts (auto) Absolute Nucleated RBC 0.000 Nucleated RBC % (auto) 0.0 Smear Path Review Absolute Retic Percent Retic Immature Retic Fraction Retic Hgb Equivalent PT INR Sodium Potassium Chloride Carbon Dioxide Anion Gap BUN Creatinine Estim Creat Clear Calc Estimated GFR Random Glucose Calcium Magnesium 1.9 Iron TIBC % Saturation Unsat Iron Binding Total Bilirubin AST ALT Alkaline Phosphatase Lactate Dehydrogenase Troponin I High Sens B-Natriuretic Peptide Total Protein Albumin Vitamin B12 Folate Urine Color Yellow Urine Appearance Hazy Urine pH 5.5 Ur Specific [place] 1.010 Urine Protein Trace Urine Glucose (UA) Negative Urine Ketones Negative Urine Blood Large (3+) H Urine Nitrite Positive H Ur Leukocyte Esterase Large (3+) H Urine RBC >20 H Urine WBC >50 H Ur Squamous Epith Cells 0-2 Urine Bacteria 1+ Hyaline Casts 0-2 COVID-19 (JONATHAN) COVID-19 Clin Com Influenza Type A (MATTHEW) Influenza Type B (MATTHEW) Influenza A & B Note Blood Type Antibody Screen Crossmatch 03/14/22 05:34 WBC RBC Hgb Hct MCV MCH MCHC RDW Plt Count MPV Immature Gran % (Auto) Neut % (Auto) Lymph % (Auto) Amelia % (Auto) Eos % (Auto) Baso % (Auto) Lymph # (Auto) Amelia # (Auto) Eos # (Auto) Baso # (Auto) Abs Immat Gran (auto) Absolute Neuts (auto) Absolute Nucleated RBC Nucleated RBC % (auto) Smear Path Review Absolute Retic Percent Retic Immature Retic Fraction Retic Hgb Equivalent PT INR Sodium 140 Potassium 4.5 Chloride 106 Carbon Dioxide 25 Anion Gap 14 BUN 29 H Creatinine 2.08 H Estim Creat Clear Calc 32.5 Estimated GFR 31 Random Glucose 106 Calcium 8.3 L Magnesium Iron TIBC % Saturation Unsat Iron Binding Total Bilirubin AST ALT Alkaline Phosphatase Lactate Dehydrogenase Troponin I High Sens B-Natriuretic Peptide Total Protein Albumin Vitamin B12 Folate Urine Color Urine Appearance Urine pH Ur Specific [place] Urine Protein Urine Glucose (UA) Urine Ketones Urine Blood Urine Nitrite Ur Leukocyte Esterase Urine RBC Urine WBC Ur Squamous Epith Cells Urine Bacteria Hyaline Casts COVID-19 (JONATHAN) COVID-19 Clin Com Influenza Type A (MATTHEW) Influenza Type B (MATTHEW) Influenza A & B Note Blood Type Antibody Screen Crossmatch Airway Mallampati Class: II TM Dist: >3cm Neck ROM: Limited Heart: [id number] irregular Lungs: Decreased BS both sides Assessment and Plan Assessment Anesthesia Assessment: Anesthesia Plan Discussed and Chart Reviewed Final Anesthetic Review Family History of Problems with Anesthesia: No History of Problems with Anesthesia: No NPO: Yes (8am) ASA Class: IV and Emergency Final Preanesthetic Review: No Changes in Pt Med Stat, Meds/Allgs Chart Reviewed, Consent Obtained/Reviewed and Anes Risks/Benef Reviewed Patient Risk: High Procedure Risk: Intermediate Anesthetic Plan Anesthetic Plan: GA and Agree w/ Assess. and Plan Disposition: Standard PACU
--- NOTE | 2022-03-14 16:34 | MHC.SHP ---
Pre-Procedural Eval Section A Date of Service: 03/14/22 The patient is an INPATIENT: Yes Section B Chief Complaint: Afib, mild CHF Details of Present Illness: obstructive uropathy, bladder outlet obstruction, urethral stricture, acute on chronic KD Allergies: Allergies Allergy/AdvReac Type Severity Reaction Status Date / Time No Known Allergies Allergy Unverified 11/18/19 15:22 [No Known Allergies*] Plan Diagnosis/Plan: Unchanged I have reviewed the history and physical and performed a pertinent physical examination on my patient. No changes have occurred unless specified. Cystourethroscopy, possible urethral dilation vs suprapubic tube insertion Time Spent With Patient Time: Total time managing care of this patient today ____ minutes.
--- NOTE | 2022-03-14 17:06 | PM.EVENT ---
Event Note Date of Service: 03/14/22 Event Note: GI consult dictated I have discussed EGD and colonoscopy with Mr Sommers and his daughter for further evaluation of iron deficiency anemia. This will be scheduled for early next week as his last dose of Eliquis was this am. They understand risks and benefits and agree to proceed. Time Spent With Patient Time: Total time managing care of this patient today ____ minutes.
--- NOTE | 2022-03-14 18:47 | PM.CNNEP ---
History of Present Illness Reason for Consult Consult date: 03/14/22 Chief Complaint Chief complaint: Afib, mild CHF History of Present Illness Narrative: 81-year-old male with a PMH significant for CKD 3, prostate cancer treated with radiation in 2005 who presented to the ED with?weakness and recent syncopal episode. Pt also became incontinent of urine, especially at night when in deep sleep, and developed an ADE. Pt notes he's been anorexic (eating maybe one meal a day), unable to sleep, and has lost 8-10 pounds during this time..? Patient denies hematochezia, melena, hematuria.? Denies abdominal pain.? No chest pain/pressure, palpitations. In the ED patient was found to be afebrile, tachycardic and tachypneic. Labs were significant for creatinine of 1.59 [address] has [address] worse[address] CT of the abdomen and pelvis showed bilateral hydronephrosis and hydroureter extending all the way up to the dilated bladder with a suspicion of bladder outlet obstruction. He was admitted for further management. Nephrology has been consulted to assist in his clinical care during his current hospital stay Review of Systems Review of Systems Difficulty catheterizing Yes all other systems are reviewed and are negative PMFSH Past Medical History Functional capacity: independent ambulation Social History Social History (Updated 03/13/22 @ 20:49 by MARY Valdes) Alcohol intake: current Alcohol intake frequency: 0-2 drinks per day Patient Tobacco Use Status: Never used Tobacco service: No Current occupational status: retired Meds Allergies Allergy/AdvReac Type Severity Reaction Status Date / Time No Known Allergies Allergy Unverified 11/18/19 15:22 [No Known Allergies*] Active Medications: Current Medications Acetaminophen (Acetaminophen 325 Mg Tablet) 650 mg PO Q6H PRN PRN Reason: Pain, Mild (Pain Scale 1-3) Allopurinol (Allopurinol 100 Mg Tablet) 100 mg PO DAILY [facility] Last Admin: 03/14/22 08:38 Dose: Not Given Apixaban (Apixaban 2.5 Mg Tablet) 2.5 mg PO BID [facility] Last Admin: 03/14/22 08:30 Dose: 2.5 mg Atorvastatin Calcium (Atorvastatin Calcium 20 Mg Tablet) 20 mg PO BEDTIME [facility] Last Admin: 03/13/22 21:29 Dose: 20 mg Carvedilol (Carvedilol 25 Mg Tablet) 25 mg PO BID [facility]; Protocol Last Admin: 03/14/22 10:32 Dose: 25 mg Docusate Sodium (Docusate Sodium 100 Mg Capsule) 100 mg PO DAILY PRN PRN Reason: Constipation Gabapentin (Gabapentin 600 Mg Tablet) 300 mg PO BEDTIME [facility] Ceftriaxone Sodium 1 gm/ (Sodium Chloride) 50 mls @ 100 mls/hr IV Q24H [facility] Stop: 03/18/22 21:59 Last Infusion: 03/13/22 23:42 Dose: Infused Ondansetron HCl (Ondansetron Hcl 4 Mg/2 Ml Vial) 4 mg IVPUSH Q8H PRN PRN Reason: Nausea and Vomiting Pharmacy Consult (Consult Rx Perform Med Rec) 1 each MISCELLANE ONCE PRN PRN Reason: Consult order Potassium Chloride (Potassium Chloride Er 20 Meq Tab.Er.Prt) 20 meq PO DAILY [facility] Last Admin: 03/14/22 08:30 Dose: 20 meq Sodium Chloride (0.9 % Sodium Chloride Flush 3 Ml Syringe) 3 ml IVFLUSH QSHIFT [facility] Last Admin: 03/14/22 08:37 Dose: 3 ml Tamsulosin HCl (Tamsulosin Hcl 0.4 Mg Capsule) 0.4 mg PO BEDTIME [facility] Last Admin: 03/13/22 21:30 Dose: 0.4 mg Trazodone HCl (Trazodone Hcl 50 Mg Tablet) 50 mg PO BEDTIME [facility] Last Admin: 03/13/22 23:57 Dose: 50 mg Home Medications Medication Instructions Recorded Confirmed Last Taken Type alfuzosin 10 mg tablet,extended 1 tab PO BEDTIME 03/13/22 03/13/22 03/12/22 History release 24 hr allopurinol 300 mg tablet 1 tab PO DAILY 03/13/22 03/13/22 03/13/22 History apixaban 2.5 mg tablet (Eliquis) 1 tab PO BID 03/13/22 03/13/22 03/13/22 History carvedilol 25 mg tablet 1 tab PO BID 03/13/22 03/13/22 03/13/22 History ferrous sulfate 325 mg (65 mg 975 mg PO DAILY 03/13/22 03/13/22 03/13/22 History iron) tablet gabapentin 600 mg tablet 1 tab PO BEDTIME 03/13/22 03/13/22 03/12/22 History magnesium 250 mg tablet 250 mg PO DAILY 03/13/22 03/13/22 03/13/22 History potassium chloride 20 mEq 1 tab PO DAILY 03/13/22 03/13/22 03/13/22 History tablet,extended release simvastatin 40 mg tablet 1 tab PO BEDTIME 03/13/22 03/13/22 03/12/22 History vitamin B complex 1 tab PO DAILY 03/13/22 03/13/22 03/13/22 History Physical Exam Vital Signs: Last Vital Signs Temp 99.2 F 03/14/22 16:10 Pulse 85 03/14/22 16:10 Resp 20 03/14/22 16:10 BP 126/69 03/14/22 16:10 Pulse Ox 96 03/14/22 16:10 O2 Del Method 03/14/22 16:10 O2 Flow Rate 1 03/14/22 14:13 BMI result Body Mass Index 27.4 Const General: no acute distress Orientation/consciousness: patient oriented x3 Eyes EOM: EOMs intact bilaterally Neck Neck: Yes supple Resp Auscultation: diminished lung sounds GI Palpation (GI): Soft to palpation Neuro General: patient oriented x3 and moves all extremities Results Lab Results 03/14/22 05:34 03/14/22 05:34 Lab results: Chemistry 03/13/22 03/14/22 15:45 05:34 Sodium 139 140 Potassium 5.0 D 4.5 Carbon Dioxide 25 25 BUN 25 H 29 H Creatinine 1.58 H 2.08 H Calcium 8.5 8.3 L Hematology 03/13/22 03/14/22 15:45 05:34 WBC 9.4 13.9 H Hgb 6.6 L* 8.2 L D Plt Count 230 244 Urinalysis 03/13/22 20:10 Urine Color Yellow Urine Appearance Hazy Urine pH 5.5 Ur Specific [place] 1.010 Urine Protein Trace Urine Glucose (UA) Negative Urine Ketones Negative Urine Blood Large (3+) H Urine Nitrite Positive H Ur Leukocyte Esterase Large (3+) H Urine RBC >20 H Urine WBC >50 H Ur Squamous Epith Cells 0-2 Hyaline Casts 0-2 Assessment and Plan (1) ADE (acute kidney injury): Status: Acute Plan Has CKD 3 at baseline from obstructive uropathy ADE due to obstruction; Urgent Urology eval- cysto/catheter Ordered Immunofixation given CKD/ADE/Anemia No ACEI/ARB/NSAID's/Diuretics for now Work up for anemia; No indication for renal replacement Labs AM. Shall closely follow up Time Spent With Patient Time: Total time managing care of this patient today ____ minutes. Procedures Date of Service Date of Service: 03/14/22
--- NOTE | 2022-03-14 18:59 | W.PM.OPN ---
Operative Note Operative Note Date of Service: 03/14/22 Narrative: PREOP DIAGNOSIS: Urethral stricture, urinary retention POSTOP DIAGNOSIS: Urethral stricture, urinary retention PROCEDURE: CYSTOSCOPY - Urethrogram, Urethral dilation, Insertion of 16 [place] tip [place] SURGEON: Rosendo Madsen MD ANESTHESIA: general Indications: Damian was admitted with complaints of decreased urinary stream. CT imaging noted bilateral hydronephrosis hydroureter with distended bladder. Bedside flexible cystourethroscopy noted urethral stricture Details of procedure: The patient was brought into the operating room placed on the OR table in supine position. 2 g of Ancef IV. gentamicin 120 mg IV. General anesthesia was administered. The patient was repositioned into lithotomy position, prepped and draped in the usual sterile fashion. Time-out was done per protocol. A 22 fr cystoscope was placed transurethrally a stricture was noted in the proximal bulbous urethra. an open-ended 5 fr catheter was passed to the opening of the stricture and contrast was injected, Urethrogram. The stricture was delineated and contrast entered the bladder. a Sure glide Guidewire was passed through the stricture under fluoroscopy into the bladder, the open-ended 5 [place] catheter was passed over the guidewire, into the bladder, the Sure glide guidewire was removed and the Amplatz stiff guidewire was passed through the 5 fr catheter, the open-ended catheter was removed and the stricture was dilated starting with a 8 [place] up to a 16 [place]ian; upon placing the 18 [place] dilator there was resistance, so a pediatric scope was then passed over the guidewire to visualized the tissue and passed into the bladder, urine was drained from the bladder and sent for culture. A 2nd guidewire was placed through the pediatric cystoscope, after removing the pediatric cystoscope and leaving the guidewire in place the stricture was redilated, up to an 18 [place]ian and a 16 [place]ian [place] tip was then passed the bladder was drained 15 cc placed into the balloon. Complications: None Drains: Sixteen [place]ian [place] tip [place] catheter
[2022-03-14] MEDS: Gabapentin 600 MG TABLET 300 MG PO (20:54)
[2022-03-14] MEDS: Tamsulosin HCL 0.4 MG CAPSULE PO (20:54)
[2022-03-14] MEDS: Atorvastatin Calcium 20 MG TABLET PO (20:55)
[2022-03-14] MEDS: traZODone HCL 50 MG TABLET PO (21:23)
[2022-03-14] MEDS: levoFLOXacin/D5W 500 MG/100 ML PIGGYBACK 100 MG IV (21:23)
[2022-03-14] MEDS: Acetaminophen 325 MG TABLET 650 MG PO (21:32)
[2022-03-15] VITALS (13 sets, daily range): BP systolic 102–134; BP diastolic 53–79; PULSE 90–114; RESP 14–20; TEMP 36.3–37.7; O2SAT 94–98
[2022-03-15] MEDS: diphenhydrAMINE HCL 25 MG CAPSULE PO (00:21)
[2022-03-15] MEDS: HYDROmorphone HCl 0.5 MG/0.5 ML SYRINGE 0.25 MG IVPUSH ×2 (01:11→22:26)
--- NOTE | 2022-03-15 03:18 | CONS_ITS ---
DATE OF SERVICE: 03/14/2022 REFERRING PHYSICIAN: Alix Tristan MD REASON FOR CONSULTATION: Iron deficiency anemia. HISTORY OF PRESENT ILLNESS: The patient is a pleasant 81-year-old man who was admitted to the hospital after presenting to the emergency room on the day of admission with a syncopal episode. This occurred after he climbed a flight of stairs and felt dizzy, he tried to lay down on his bed and woke up on the floor. He was evaluated in the Emergency Department and admitted to the hospital. The patient has been followed by his primary care provider as an outpatient and has had iron deficiency anemia diagnosed several weeks ago for which he has been started on iron supplementation. Despite this, he has been noted to have worsening anemia with a hematocrit of 21.5 on admission, which was down from 23.4 earlier about a week ago. Iron studies have shown a saturation of 15% on admission, which was up from 12% in January of 2022. The patient denies any change in his bowel habits. He reports soft stools. He has not seen any rectal bleeding and denies any abdominal pain. He does have a history of colon polyps and last underwent colonoscopy in January of 2017 and was found to have a 5 x 6 x 4 cm sessile polyp, not amenable to endoscopic resection, for which he underwent laparoscopic hand assisted right colectomy in June of 2017. He was scheduled for outpatient GI evaluation today in the office, but was admitted to the hospital because of the syncopal episode as above. Since admission, he has been transfused 2 units of packed red blood cells and diuresed for what was felt to be an episode of congestive heart failure. His most recent hematocrit was 25.7 this morning. He has no upper GI complaints. PAST MEDICAL HISTORY: 1. Atrial fibrillation, for which he is on Eliquis, and received his last dose as most recent dose this morning. 2. Restless legs syndrome. 3. Hyperlipidemia. 4. Gout. 5. Prostate cancer status post radiation therapy. 6. Recent diagnosis of hydronephrosis and hydroureter with bladder obstruction, currently being evaluated by Urology. CURRENT MEDICATIONS: Current medication list is reviewed in the chart. ALLERGIES: THERE ARE NONE REPORTED. FAMILY HISTORY: This is reviewed with the patient and is negative for GI malignancy. SOCIAL HISTORY: There is no current tobacco, alcohol, or substance abuse. REVIEW OF SYSTEMS: SKIN: No pruritus. HEENT: Negative. CARDIOPULMONARY: No shortness of breath or chest pain currently. GASTROINTESTINAL: As above. GENITOURINARY: Negative. Neuropsychiatric: Negative. PHYSICAL EXAMINATION: GENERAL: Shows an elderly male, in no acute distress. VITAL SIGNS: Reviewed in the electronic medical record and are stable. SKIN: Anicteric. HEENT: Shows no scleral icterus. NECK: Without lymphadenopathy or thyromegaly. LUNGS: Clear. HEART: Shows an irregular S1, S2. No murmur. ABDOMEN: Soft without focal masses or tenderness. Bowel sounds are present. No organomegaly is noted. EXTREMITIES: Without edema. LABORATORY DATA: Reviewed as is his CT scan. IMPRESSION: 1. Iron deficiency anemia. RECOMMENDATION: We discussed the differential diagnosis for this including blood loss from the upper or lower GI tract. He is at risk for polyps and colon cancer because of his prior history of colon polyps. We discussed risks and benefits of endoscopy and colonoscopy today. This will be arranged after he has been off his Eliquis for 2-3 days. I have discussed this with his daughter and him and they understand and agree to proceed. Thanks for asking me to see him. I will follow him in the hospital with you. MD NAV Manriquez/MELVIN / [phone]
[2022-03-15 06:13] LABS: Hematocrit 23.7 % (42.0-52.0); Hemoglobin 7.3 g/dl (14.0-18.0); Mean Corpuscular HGB Conc 30.8 g/dl (31.0-36.0); Mean Corpuscular Hemoglobin 30.9 pg (27.0-33.0); Mean Corpuscular Volume 100.4 fL (80.0-98.0); Mean Platelet Volume 9.8 fL (9.4-12.4); Platelet Count 199 X10*3/uL (160-400); Red Blood Count 2.36 X10*6/uL (4.60-5.80); Red Cell Distribution Width 16.8 % (11.0-16.0); White Blood Count 11.2 X10*3/uL (4.8-10.8)
[2022-03-15 06:33] LABS: B Type Natriuretic Peptide 362 pg/mL (<100)
[2022-03-15 06:43] LABS: Anion Gap 13 (12-20); Blood Urea Nitrogen 31 mg/dL (9-16); Carbon Dioxide 23 mmol/L (22-29); Chloride 109 mmol/L (96-108); Creatinine Clr Calc Pharmacy 32.7; Estimated Glomerular Filt Rate 31; Glucose Random 90 mg/dL (60-115); Potassium 4.1 mmol/L (3.3-5.1); Sodium 141 mmol/L (135-145)
[2022-03-15] MEDS: allopurinoL 100 MG TABLET PO (08:00)
[2022-03-15] MEDS: carvediloL 25 MG TABLET PO ×2 (08:01→20:14)
[2022-03-15] MEDS: Potassium Chloride ER 20 MEQ TAB.ER.PRT PO (08:01)
[2022-03-15] MEDS: 0.9 % Sodium Chloride Flush 3 ML SYRINGE IVFLUSH ×2 (08:01→20:15)
--- NOTE | 2022-03-15 08:16 | HO.POSTANES ---
Post Anesthesia Evaluation Post Anesthesia Evaluation Vital Signs: Vital Signs Temp Pulse Resp BP Pulse Ox O2 Del Method O2 Flow Rate 03/15/22 07:55 97.9 F 109 H 16 134/79 95 Nasal Cannula 1 03/15/22 03:51 98.9 F 101 H 20 131/69 98 Room Air 03/14/22 23:04 98.6 F 82 18 107/56 L 98 Room Air Anesthesia: General Mental Status: Awake Pain Control: Satisfactory Nausea/Vomiting: None Hydration: Adequate Anesthesia-Related Issues: No Anes. Related Issues
--- NOTE | 2022-03-15 12:48 | PM.PNNEP ---
Subjective Subjective Date of Service: 03/15/22 Interval history: seen and examined sitting out of bed no complaints Physical Exam Vital Signs: Vital Signs: Last Vital Signs Temp 98.0 F 03/15/22 12:00 Pulse 95 03/15/22 12:00 Resp 16 03/15/22 12:00 BP 102/58 L 03/15/22 12:00 Pulse Ox 94 03/15/22 12:00 O2 Del Method 03/15/22 12:00 O2 Flow Rate 2 03/15/22 12:00 BMI result Body Mass Index 27.4 Const: General: no acute distress HEENT: Head: Yes normocephalic and Yes atraumatic Neck: Neck: Yes supple Resp: Auscultation: clear to auscultation bilaterally Cardio: Heart sounds: S1 normal heart sound present and S2 normal heart sound present GI: Palpation (GI): Soft to palpation and nontender Extrem: General: Yes no pedal edema Objective Data Labs 03/15/22 05:45 03/15/22 05:45 Labs: Laboratory Results - last 24 hr 03/13/22 03/15/22 03/15/22 16:04 05:45 05:45 WBC 11.2 H RBC 2.36 L Hgb 7.3 L Hct 23.7 L MCV 100.4 H MCH 30.9 MCHC 30.8 L RDW 16.8 H Plt Count 199 MPV 9.8 Absolute Nucleated RBC 0.000 Nucleated RBC % (auto) 0.0 Sodium 141 Potassium 4.1 Chloride 109 H Carbon Dioxide 23 Anion Gap 13 BUN 31 H Creatinine 2.07 H Estim Creat Clear Calc 32.7 Estimated GFR 31 Random Glucose 90 Calcium 8.0 L B-Natriuretic Peptide Blood Type O Positive Antibody Screen NEGATIVE Crossmatch See Detail 03/15/22 05:45 WBC RBC Hgb Hct MCV MCH MCHC RDW Plt Count MPV Absolute Nucleated RBC Nucleated RBC % (auto) Sodium Potassium Chloride Carbon Dioxide Anion Gap BUN Creatinine Estim Creat Clear Calc Estimated GFR Random Glucose Calcium B-Natriuretic Peptide 362 H Blood Type Antibody Screen Crossmatch Procedures Date of Service Date of Service: 03/15/22 Assessment & Plan Assessment and plan (1) ADE (acute kidney injury): Status: Acute (2) Obstructive uropathy: Status: Acute (3) Anemia: Status: Acute Plan Scr stable ADE due to obstructive uropathy bladder outlet obstruction due to urethral stricture seen by urology anemia requiring blood transfusion r/o paraproteinemia serum immunofixation pending REC [facility] urology following blood transfusion as needed follow kidney function and electrolytes Time Spent With Patient Time: Total time managing care of this patient today ____ minutes. Progress Note: Quality Stroke Does the patient have a stroke diagnosis?: No
--- NOTE | 2022-03-15 12:56 | PM.UROPN ---
Subjective Subjective Date of Service: 03/15/22 Patient reports: feels better Interval history: s/p urethral dilation, significant scarring of tissue noted DO NOT REMOVE MULTANI FOR VOIDING TRIAL Intra - op - urine was cloudy; so I sent urine for c/s and empirically started levaquin 250 mg Physical Exam Vital Signs: Vital Signs: Last Vital Signs Temp 98.0 F 03/15/22 12:00 Pulse 95 03/15/22 12:00 Resp 16 03/15/22 12:00 BP 102/58 L 03/15/22 12:00 Pulse Ox 94 03/15/22 12:00 O2 Del Method 03/15/22 12:00 O2 Flow Rate 2 03/15/22 12:00 BMI result Body Mass Index 27.4 Urology Results Labs 03/15/22 05:45 03/15/22 05:45 Labs: Laboratory Results - last 24 hr 03/13/22 03/15/22 03/15/22 16:04 05:45 05:45 WBC 11.2 H RBC 2.36 L Hgb 7.3 L Hct 23.7 L MCV 100.4 H MCH 30.9 MCHC 30.8 L RDW 16.8 H Plt Count 199 MPV 9.8 Absolute Nucleated RBC 0.000 Nucleated RBC % (auto) 0.0 Sodium 141 Potassium 4.1 Chloride 109 H Carbon Dioxide 23 Anion Gap 13 BUN 31 H Creatinine 2.07 H Estim Creat Clear Calc 32.7 Estimated GFR 31 Random Glucose 90 Calcium 8.0 L B-Natriuretic Peptide Blood Type O Positive Antibody Screen NEGATIVE Crossmatch See Detail 03/15/22 05:45 WBC RBC Hgb Hct MCV MCH MCHC RDW Plt Count MPV Absolute Nucleated RBC Nucleated RBC % (auto) Sodium Potassium Chloride Carbon Dioxide Anion Gap BUN Creatinine Estim Creat Clear Calc Estimated GFR Random Glucose Calcium B-Natriuretic Peptide 362 H Blood Type Antibody Screen Crossmatch Progress Note: A&P Assessment and plan (1) Urethral stricture: Status: Acute (2) Obstructive uropathy: Status: Acute (3) ADE (acute kidney injury): Status: Acute (4) UTI (urinary tract infection): Status: Acute (5) Pyuria: Status: Acute Plan s/p urethral dilation, multani needs to stay in place for 10 to 14 days for healing DO NOT REMOVE MULTANI FOR VOIDING TRIAL Intra - op - urine was cloudy; so I sent urine for c/s and empirically started levaquin 250 mg FU with me for out patient management Time Spent With Patient Time: Total time managing care of this patient today ____ minutes. Progress Note: Quality Stroke Does the patient have a stroke diagnosis?: No
--- NOTE | 2022-03-15 14:13 | P.PNIM_ITS ---
Subjective Subjective Date of Service: 03/15/22 Interval History: Seen and evaluated this morning Feels much better, weaned off O2 AFib better controlled this morning Urology placed a multani No other overnight events Review of Systems Review of Systems: Yes all other systems are reviewed and are negative Physical Exam Vital Signs: Vital Signs: Last Vital Signs Temp 98.0 F 03/15/22 12:00 Pulse 95 03/15/22 12:00 Resp 16 03/15/22 12:00 BP 102/58 L 03/15/22 12:00 Pulse Ox 94 03/15/22 12:00 O2 Del Method 03/15/22 12:00 O2 Flow Rate 2 03/15/22 12:00 BMI result Body Mass Index 27.4 Const: Other: Constitutional : Awake, interactive, not in distress Neck : Normal inspection, Supple Cardiovascular : Irregular irregular, no JVP, trace lower extremity edema Respiratory : Fair bilateral air entry, no crackles, wheezes or rhonchi Gastrointestinal: soft, lax, Normal bowel sounds, Non tender Skin : Warm, Dry Neurological : Alert & oriented x3, No focal deficit Objective Data Active Medications Acetaminophen (Acetaminophen 325 Mg Tablet) 650 mg PO Q6H PRN PRN Reason: Pain, Mild (Pain Scale 1-3) Last Admin: 03/14/22 21:32 Dose: 650 mg Documented By: DAVID Allopurinol (Allopurinol 100 Mg Tablet) 100 mg PO DAILY [facility] Last Admin: 03/15/22 08:00 Dose: 100 mg Documented By: PLACIDO Atorvastatin Calcium (Atorvastatin Calcium 20 Mg Tablet) 20 mg PO BEDTIME [facility] Last Admin: 03/14/22 20:55 Dose: 20 mg Documented By: DAVID Carvedilol (Carvedilol 25 Mg Tablet) 25 mg PO BID [facility]; Protocol Last Admin: 03/15/22 08:01 Dose: 25 mg Documented By: PLACIDO Docusate Sodium (Docusate Sodium 100 Mg Capsule) 100 mg PO DAILY PRN PRN Reason: Constipation Fentanyl (Fentanyl Citrate/Pf 100 Mcg/2 Ml Vial) 25 mcg IVPUSH Q5M PRN; Protocol PRN Reason: Pain, Moderate (Pain Scale 4-6 Gabapentin (Gabapentin 600 Mg Tablet) 300 mg PO BEDTIME [facility] Last Admin: 03/14/22 20:54 Dose: 300 mg Documented By: DAVID Hydromorphone HCl (Hydromorphone Hcl 0.5 Mg/0.5 Ml Syringe) 0.25 mg IVPUSH Q5M PRN; Protocol PRN Reason: Pain, Severe (Pain Scale 7-10) Last Admin: 03/15/22 01:11 Dose: 0.25 mg Documented By: DAVID Levofloxacin (Levaquin) 250 mg in 50 mls @ 50 mls/hr IV Q24H [facility] Melatonin (Melatonin 3 Mg Tablet) 6 mg PO BEDTIME [facility] Ondansetron HCl (Ondansetron Hcl 4 Mg/2 Ml Vial) 4 mg IVPUSH Q8H PRN PRN Reason: Nausea and Vomiting Pharmacy Consult (Consult Rx Perform Med Rec) 1 each MISCELLANE ONCE PRN PRN Reason: Consult order Potassium Chloride (Potassium Chloride Er 20 Meq Tab.Er.Prt) 20 meq PO DAILY [facility] Last Admin: 03/15/22 08:01 Dose: 20 meq Documented By: PLACIDO Sodium Chloride (0.9 % Sodium Chloride Flush 3 Ml Syringe) 3 ml IVFLUSH QSHIFT [facility] Last Admin: 03/15/22 08:01 Dose: 3 ml Documented By: PLACIDO Tamsulosin HCl (Tamsulosin Hcl 0.4 Mg Capsule) 0.4 mg PO BEDTIME [facility] Last Admin: 03/14/22 20:54 Dose: 0.4 mg Documented By: DAVID Trazodone HCl (Trazodone Hcl 50 Mg Tablet) 50 mg PO BEDTIME [facility] Last Admin: 03/14/22 21:23 Dose: 50 mg Documented By: DAVID Labs 03/15/22 05:45 03/15/22 05:45 Labs: Laboratory Results - last 24 hr 03/13/22 03/15/22 03/15/22 16:04 05:45 05:45 MCV 100.4 H MCH 30.9 MCHC 30.8 L RDW 16.8 H Plt Count 199 MPV 9.8 Absolute Nucleated RBC 0.000 Nucleated RBC % (auto) 0.0 Anion Gap 13 Estim Creat Clear Calc 32.7 Estimated GFR 31 Random Glucose 90 Calcium 8.0 L B-Natriuretic Peptide Blood Type O Positive Antibody Screen NEGATIVE Crossmatch See Detail 03/15/22 05:45 MCV MCH MCHC RDW Plt Count MPV Absolute Nucleated RBC Nucleated RBC % (auto) Anion Gap Estim Creat Clear Calc Estimated GFR Random Glucose Calcium B-Natriuretic Peptide 362 H Blood Type Antibody Screen Crossmatch Microbiology Microbiology Results: Microbiology 03/14/22 Unknown Urine Culture - Preliminary Urine Catheterized - Straight Catheter No growth to date. Assessment and Plan (1) Symptomatic anemia: Status: Acute (2) Atrial fibrillation with rapid ventricular response: Status: Acute (3) Urethral stricture: Status: Acute (4) Obstructive uropathy: Status: Acute (5) ADE (acute kidney injury): Status: Acute (6) CHF exacerbation: Status: Acute Plan Pt is a 81-year-old male with a PMH significant for persistent afib on Eliquis, restless leg syndrome, HLD, gout, and?prostate cancer treated with radiation in 2005 who presents to the ED with?weakness and recent syncopal episode. Patient was found to have hydronephrosis, hydroureter, positive UTI, anemia, and acute CHF. Patient will be admitted to the hospital for additional workup and treatment for anemia, acute CHF, UTI, and possible bladder obstruction. Acute diastolic CHF exacerbation secondary to anemia improved after transfusion Follow lytes, MG, I/O Echocardiogram EF40-45% Cardiology recommended to hold Lasix for now Continue to monitor the need of diuresis Symptomatic Acute on chronic anemia, Etiology unclear, possible GI bleed, bladder cancer, others Hb dropped to 7.3 this morning, no evidence of bleeding Received 2 units PRBC, to give 2 extra units UA shows 3+ urine blood and > 20 urine RBC Low iron levels Monitor labs Syncopal episode Likely secondary to CHF and anemia CT of head clear PT eval Incontinence of urine 2/2 retention ADE on CKD stage 3 Kidney function stable today CT shows prominent bilateral hydronephrosis and hydroureter with outlet obstruction, URology placed Multani Nephrology input appreciated Monitor BMP Multani catheter placed by Urology UTI UA positive for UTI Ceftriaxone 1g daily, 3/5 Chronic AFib Continue Eliquis Admit to telemetry Insomnia Trazodone 50mg at nighttime Chronic atrial fibrillation with RVR Did not respond to IV metoprolol Started on Cardizem drip with good response Continue carvedilol per Cardiology recommendation and avoid Cardizem Gout Continue home meds HLD Continue home meds DVT Prophylaxis: On Eliquis Pt will require inpatient hospital stay overnight for treatment of anemia, CHF, ADE, UTI, and bladder obstruction.. Time Spent With Patient Time: Total time managing care of this patient today ____ minutes. Quality Stroke Does the patient have a stroke diagnosis?: No VTE Prior VTE?: No VTE Risk Level:: Medical - moderate - high VTE Device Contraindication: Treatment Not Indicated VTE Drug Contraindication: N/A - Med Ordered
--- NOTE | 2022-03-15 15:03 | PC.NURSE ---
Pt recieved a unit of packed red blood cells. Prior to transfusion, patient's vitals were as follows: 102/53, 97.4F, 95, 14, 97% on room air. The transfusion began at 11:05 and vital signs were as follows: 106/58, 98.3F, 100, 14, and 98% on room air. The patient denied any adverse reactions such as chills, fever, aches, SOB. Transfusion ended at 14:00 with 350mL transfused, and current vitals signs are 110/32, 92, 16, 98.3F, and 97% on room air. Patient resting comfortably will continue to monitor.
[2022-03-15] MEDS: Acetaminophen 325 MG TABLET 650 MG PO (16:48)
--- NOTE | 2022-03-15 19:20 | PM.GIPN ---
Subjective Subjective Date of Service: 03/15/22 Interval History: Mr Sommers feels better today. He underwent uretheral dilation and multani catheter placement yesterday. He has a good appetitie. Critical Care Time (minutes): 0 Physical Exam Vital Signs: Vital Signs: Last Vital Signs Temp 99.2 F 03/15/22 18:14 Pulse 104 H 03/15/22 16:40 Resp 16 03/15/22 16:40 BP 129/69 03/15/22 16:40 Pulse Ox 95 03/15/22 15:37 O2 Del Method 03/15/22 18:56 O2 Flow Rate 2 03/15/22 15:37 BMI result Body Mass Index 27.4 GI: Other: abdomen is soft and nontender Objective Data Labs 03/15/22 05:45 03/15/22 05:45 Labs: Laboratory Results - last 24 hr 03/13/22 03/15/22 03/15/22 16:04 05:45 05:45 WBC 11.2 H RBC 2.36 L Hgb 7.3 L Hct 23.7 L MCV 100.4 H MCH 30.9 MCHC 30.8 L RDW 16.8 H Plt Count 199 MPV 9.8 Absolute Nucleated RBC 0.000 Nucleated RBC % (auto) 0.0 Sodium 141 Potassium 4.1 Chloride 109 H Carbon Dioxide 23 Anion Gap 13 BUN 31 H Creatinine 2.07 H Estim Creat Clear Calc 32.7 Estimated GFR 31 Random Glucose 90 Calcium 8.0 L B-Natriuretic Peptide Blood Type O Positive Antibody Screen NEGATIVE Crossmatch See Detail 03/15/22 05:45 WBC RBC Hgb Hct MCV MCH MCHC RDW Plt Count MPV Absolute Nucleated RBC Nucleated RBC % (auto) Sodium Potassium Chloride Carbon Dioxide Anion Gap BUN Creatinine Estim Creat Clear Calc Estimated GFR Random Glucose Calcium B-Natriuretic Peptide 362 H Blood Type Antibody Screen Crossmatch Microbiology Microbiology Results: Microbiology 03/14/22 Unknown Urine Catheterized - Straight Catheter Urine Culture - Preliminary No growth to date. Procedures Date of Service Date of Service: 03/15/22 Progress Note: A&P Assessment and plan (1) Symptomatic anemia: Status: Acute Assessment and Plan: He is currently receiving 2 more pRBCs for a total of 4. No signs of active GI Bleeding Anticoagulation is on hold for EGD/Colonoscopy 03/18. 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 I discussed this with Mr Sommers and his daughter. Time Spent With Patient Time: Total time managing care of this patient today ____ minutes. Quality Stroke Does the patient have a stroke diagnosis?: No VTE Prior VTE?: No VTE Risk Level:: Medical - moderate - high VTE Device Contraindication: Treatment Not Indicated VTE Drug Contraindication: N/A - Med Ordered
[2022-03-15] MEDS: Atorvastatin Calcium 20 MG TABLET PO (20:13)
[2022-03-15] MEDS: Gabapentin 600 MG TABLET 300 MG PO (20:14)
[2022-03-15] MEDS: Tamsulosin HCL 0.4 MG CAPSULE PO (20:15)
[2022-03-15] MEDS: Phytonadione (Vit K1) 10 MG in 0.9 % Sodium Chloride 50 ML 51 MG IV (20:15)
[2022-03-15] MEDS: traZODone HCL 50 MG TABLET PO (20:15)
[2022-03-15] MEDS: Melatonin 3 MG TABLET 6 MG PO (20:15)
[2022-03-15 21:13] LABS: Hematocrit 29.3 % (42.0-52.0); Hemoglobin 9.1 g/dl (14.0-18.0)
[2022-03-15] MEDS: levoFLOXacin/D5W 250 MG/50 ML PIGGYBACK 50 MG IV (21:25)
[2022-03-16] VITALS (9 sets, daily range): BP systolic 104–148; BP diastolic 58–81; PULSE 71–119; RESP 18–20; TEMP 36.3–37.2; O2SAT 93–98
[2022-03-16 06:55] LABS: Hematocrit 28.2 % (42.0-52.0); Mean Corpuscular HGB Conc 31.9 g/dl (31.0-36.0); Mean Corpuscular Hemoglobin 31.1 pg (27.0-33.0); Mean Corpuscular Volume 97.6 fL (80.0-98.0); Mean Platelet Volume 10.1 fL (9.4-12.4); Platelet Count 204 X10*3/uL (160-400); Red Blood Count 2.89 X10*6/uL (4.60-5.80); Red Cell Distribution Width 16.4 % (11.0-16.0); White Blood Count 8.8 X10*3/uL (4.8-10.8)
[2022-03-16 06:58] LABS: INTERNATIONAL NORM RATIO 1.4 (0.9-1.1); Prothrombin Time 16.6 SEC (10.0-13.1)
[2022-03-16 07:21] LABS: Anion Gap 9 (12-20); Blood Urea Nitrogen 26 mg/dL (9-16); Calcium 8.1 mg/dL (8.4-10.2); Carbon Dioxide 28 mmol/L (22-29); Chloride 109 mmol/L (96-108); Creatinine Clr Calc Pharmacy 37.3; Estimated Glomerular Filt Rate 36; Glucose Random 121 mg/dL (60-115); Potassium 4.3 mmol/L (3.3-5.1); Sodium 142 mmol/L (135-145)
[2022-03-16] MEDS: carvediloL 25 MG TABLET PO ×2 (08:50→21:19)
[2022-03-16] MEDS: 0.9 % Sodium Chloride Flush 3 ML SYRINGE IVFLUSH ×3 (08:50→21:20)
[2022-03-16] MEDS: allopurinoL 100 MG TABLET PO (08:50)
[2022-03-16] MEDS: Potassium Chloride ER 20 MEQ TAB.ER.PRT PO (08:50)
--- NOTE | 2022-03-16 10:03 | PM.PNNEP ---
Subjective Subjective Date of Service: 03/16/22 Interval history: seen and examined feels better Physical Exam Vital Signs: Vital Signs: Last Vital Signs Temp 97.9 F 03/16/22 07:38 Pulse 71 03/16/22 07:38 Resp 20 03/16/22 07:38 BP 129/69 03/16/22 07:38 Pulse Ox 96 03/16/22 07:38 O2 Del Method 03/16/22 07:38 O2 Flow Rate 2 03/15/22 15:37 BMI result Body Mass Index 27.4 Const: General: no acute distress HEENT: Head: Yes normocephalic and Yes atraumatic Neck: Neck: Yes supple Resp: Auscultation: clear to auscultation bilaterally Cardio: Heart sounds: S1 normal heart sound present and S2 normal heart sound present GI: Palpation (GI): Soft to palpation and nontender Extrem: General: Yes no pedal edema Objective Data Labs 03/16/22 06:13 03/16/22 06:13 Labs: Laboratory Results - last 24 hr 03/13/22 03/15/22 03/16/22 16:04 21:00 06:13 WBC 8.8 RBC 2.89 L D Hgb 9.1 L D 9.0 L Hct 29.3 L D 28.2 L MCV 97.6 MCH 31.1 MCHC 31.9 RDW 16.4 H Plt Count 204 MPV 10.1 Absolute Nucleated RBC 0.000 Nucleated RBC % (auto) 0.0 PT INR Sodium Potassium Chloride Carbon Dioxide Anion Gap BUN Creatinine Estim Creat Clear Calc Estimated GFR Random Glucose Calcium Blood Type O Positive Antibody Screen NEGATIVE Crossmatch See Detail 03/16/22 03/16/22 06:13 06:13 WBC RBC Hgb Hct MCV MCH MCHC RDW Plt Count MPV Absolute Nucleated RBC Nucleated RBC % (auto) PT 16.6 H INR 1.4 H Sodium 142 Potassium 4.3 Chloride 109 H Carbon Dioxide 28 Anion Gap 9 L BUN 26 H Creatinine 1.81 H Estim Creat Clear Calc 37.3 Estimated GFR 36 Random Glucose 121 H Calcium 8.1 L Blood Type Antibody Screen Crossmatch Microbiology Microbiology Results: Microbiology 03/14/22 Unknown Urine Catheterized - Straight Catheter Urine Culture - Preliminary No growth to date. Procedures Date of Service Date of Service: 03/16/22 Assessment & Plan Assessment and plan (1) ADE (acute kidney injury): Status: Acute (2) Obstructive uropathy: Status: Acute (3) Anemia: Status: Acute Plan kidney function better ADE due to obstructive uropathy bladder outlet obstruction due to urethral stricture seen by urology anemia requiring blood transfusion r/o paraproteinemia serum immunofixation pending scheduled for colonoscopy REC [facility] blood transfusion as needed follow kidney function and electrolytes Time Spent With Patient Time: Total time managing care of this patient today ____ minutes. Progress Note: Quality Stroke Does the patient have a stroke diagnosis?: No
[2022-03-16] MEDS: Acetaminophen 325 MG TABLET 650 MG PO (11:39)
--- NOTE | 2022-03-16 12:06 | HO.PM.IMPN ---
Subjective Subjective Date of Service: 03/16/22 Interval History: Seen and evaluated this morning Hb stable, no major drop post transfusion weaned off O2 AFib rate controlled Cr trending down No other overnight events Review of Systems Review of Systems: Yes all other systems are reviewed and are negative Physical Exam Vital Signs: Vital Signs: Last Vital Signs Temp 97.8 F 03/16/22 11:18 Pulse 84 03/16/22 11:18 Resp 20 03/16/22 11:18 BP 119/65 03/16/22 11:18 Pulse Ox 96 03/16/22 11:18 O2 Del Method 03/16/22 11:18 O2 Flow Rate 2 03/15/22 15:37 BMI result Body Mass Index 27.4 Const: Other: Constitutional : Awake, interactive, not in distress Neck : Normal inspection, Supple Cardiovascular : Irregular irregular, no JVP, trace lower extremity edema Respiratory : Fair bilateral air entry, no crackles, wheezes or rhonchi Gastrointestinal: soft, lax, Normal bowel sounds, Non tender Skin : Warm, Dry Urology: Oconnell cath in place Neurological : Alert & oriented x3, No focal deficit Objective Data Active Medications Acetaminophen (Acetaminophen 325 Mg Tablet) 650 mg PO Q6H PRN PRN Reason: Pain, Mild (Pain Scale 1-3) Last Admin: 03/16/22 11:39 Dose: 650 mg Documented By: VASHTI Allopurinol (Allopurinol 100 Mg Tablet) 100 mg PO DAILY [facility] Last Admin: 03/16/22 08:50 Dose: 100 mg Documented By: VASHTI Atorvastatin Calcium (Atorvastatin Calcium 20 Mg Tablet) 20 mg PO BEDTIME [facility] Last Admin: 03/15/22 20:13 Dose: 20 mg Documented By: TAURUS Carvedilol (Carvedilol 25 Mg Tablet) 25 mg PO BID [facility]; Protocol Last Admin: 03/16/22 08:50 Dose: 25 mg Documented By: VASHTI Docusate Sodium (Docusate Sodium 100 Mg Capsule) 100 mg PO DAILY PRN PRN Reason: Constipation Fentanyl (Fentanyl Citrate/Pf 100 Mcg/2 Ml Vial) 25 mcg IVPUSH Q5M PRN; Protocol PRN Reason: Pain, Moderate (Pain Scale 4-6 Gabapentin (Gabapentin 600 Mg Tablet) 300 mg PO BEDTIME [facility] Last Admin: 03/15/22 20:14 Dose: 300 mg Documented By: TAURUS Hydromorphone HCl (Hydromorphone Hcl 0.5 Mg/0.5 Ml Syringe) 0.25 mg IVPUSH Q5M PRN; Protocol PRN Reason: Pain, Severe (Pain Scale 7-10) Last Admin: 03/15/22 22:26 Dose: 0.25 mg Documented By: TAURUS Levofloxacin (Levaquin) 250 mg in 50 mls @ 50 mls/hr IV Q24H [facility] Last Infusion: 03/15/22 22:31 Dose: 0 mls/hr Documented By: TAURUS Melatonin (Melatonin 3 Mg Tablet) 6 mg PO BEDTIME [facility] Last Admin: 03/15/22 20:15 Dose: 6 mg Documented By: TAURUS Ondansetron HCl (Ondansetron Hcl 4 Mg/2 Ml Vial) 4 mg IVPUSH Q8H PRN PRN Reason: Nausea and Vomiting Pharmacy Consult (Consult Rx Perform Med Rec) 1 each MISCELLANE ONCE PRN PRN Reason: Consult order Polyethylene Glycol/Electrolytes (Peg 3350/Na Sulf,Bicarb,Cl/Kcl 4,000 Ml Soln.Recon) 4,000 ml PO ONCE ONE Stop: 03/17/22 13:01 Potassium Chloride (Potassium Chloride Er 20 Meq Tab.Er.Prt) 20 meq PO DAILY [facility] Last Admin: 03/16/22 08:50 Dose: 20 meq Documented By: VASHTI Sodium Chloride (0.9 % Sodium Chloride Flush 3 Ml Syringe) 3 ml IVFLUSH QSHIFT [facility] Last Admin: 03/16/22 08:50 Dose: 3 ml Documented By: VASHTI Tamsulosin HCl (Tamsulosin Hcl 0.4 Mg Capsule) 0.4 mg PO BEDTIME [facility] Last Admin: 03/15/22 20:15 Dose: 0.4 mg Documented By: TAURUS Trazodone HCl (Trazodone Hcl 50 Mg Tablet) 50 mg PO BEDTIME [facility] Last Admin: 03/15/22 20:15 Dose: 50 mg Documented By: TAURUS Labs 03/16/22 06:13 03/16/22 06:13 Labs: Laboratory Results - last 24 hr 03/13/22 03/16/22 03/16/22 16:04 06:13 06:13 MCV 97.6 MCH 31.1 MCHC 31.9 RDW 16.4 H Plt Count 204 MPV 10.1 Absolute Nucleated RBC 0.000 Nucleated RBC % (auto) 0.0 PT INR Anion Gap 9 L Estim Creat Clear Calc 37.3 Estimated GFR 36 Random Glucose 121 H Calcium 8.1 L Blood Type O Positive Antibody Screen NEGATIVE Crossmatch See Detail 03/16/22 06:13 MCV MCH MCHC RDW Plt Count MPV Absolute Nucleated RBC Nucleated RBC % (auto) PT 16.6 H INR 1.4 H Anion Gap Estim Creat Clear Calc Estimated GFR Random Glucose Calcium Blood Type Antibody Screen Crossmatch Microbiology Microbiology Results: Microbiology 03/14/22 Unknown Urine Culture - Final Urine Catheterized - Straight Catheter No growth. Assessment and Plan (1) Pyuria: Status: Acute (2) Symptomatic anemia: Status: Acute (3) Atrial fibrillation with rapid ventricular response: Status: Acute (4) Urethral stricture: Status: Acute (5) Obstructive uropathy: Status: Acute (6) ADE (acute kidney injury): Status: Acute (7) CHF exacerbation: Status: Acute Plan Pt is a 81-year-old male with a PMH significant for persistent afib on Eliquis, restless leg syndrome, HLD, gout, and?prostate cancer treated with radiation in 2005 who presents to the ED with?weakness and recent syncopal episode. Patient was found to have hydronephrosis, hydroureter, positive UTI, anemia, and acute CHF. Patient will be admitted to the hospital for additional workup and treatment for anemia, acute CHF, UTI, and possible bladder obstruction. Acute diastolic CHF exacerbation secondary to anemia improved after transfusion Follow MG brian, I/O Echocardiogram EF 40-45% Cardiology recommended to hold Lasix for now Continue to monitor the need of diuresis Symptomatic Acute on chronic anemia, Etiology unclear, possible GI bleed, bladder cancer, others Hb improved to 9 post total of 4 units transfusion Low iron levels Monitor labs Gi to do EGD & Colonoscopy by Friday Syncopal episode Likely secondary to CHF and anemia CT of head clear PT eval Incontinence of urine 2/2 retention ADE on CKD stage [address] shows prominent bilateral hydronephrosis and hydroureter with outlet obstruction, URology placed Oconnell Nephrology input appreciated Monitor BMP Oconnell catheter placed by Urology UTI UA positive for UTI Ceftriaxone 1g daily, 4/5 Chronic AFib Continue Eliquis Admit to telemetry Insomnia Trazodone 50mg at nighttime Chronic atrial fibrillation with RVR Did not respond to IV metoprolol Started on Cardizem drip with good response Continue carvedilol per Cardiology recommendation and avoid Cardizem Gout Continue home meds HLD Continue home meds DVT Prophylaxis: On Eliquis Pt will require inpatient hospital stay overnight for treatment of anemia, CHF, ADE, UTI, and bladder obstruction.. Time Spent With Patient Time: Total time managing care of this patient today ____ minutes. Quality Stroke Does the patient have a stroke diagnosis?: No VTE Prior VTE?: No VTE Risk Level:: Medical - moderate - high VTE Device Contraindication: Treatment Not Indicated VTE Drug Contraindication: N/A - Med Ordered
--- NOTE | 2022-03-16 13:52 | P.PNCA_ITS ---
Subjective Subjective Date of Service: 03/16/22 Interval history: Seen examined at bedside. Overall feeling better. Telemetry reviewed and he is in persistent atrial fibrillation with occasional fast heart rates. Echocardiography has shown mildly reduced ejection fraction with severe biatrial enlargement. Physical Exam Vital Signs: Last Vital Signs Temp 97.8 F 03/16/22 11:18 Pulse 84 03/16/22 11:18 Resp 20 03/16/22 11:18 BP 119/65 03/16/22 11:18 Pulse Ox 96 03/16/22 11:18 O2 Del Method 03/16/22 11:18 O2 Flow Rate 2 03/15/22 15:37 BMI result Body Mass Index 27.4 GENERAL APPEARANCE: in no acute distress, pleasant. NECK: no carotid bruit, no jugular venous distention. SKIN: no suspicious lesions, warm and dry. HEART: no murmurs, irregular rate and rhythm. LUNGS: clear to auscultation bilaterally. ABDOMEN: soft, nontender. EXTREMITIES: no edema. PERIPHERAL PULSES: equal. NEUROLOGIC: No gross deficits, AAO X 3 Objective Labs and Meds 03/16/22 06:13 03/16/22 06:13 Lab results: Laboratory Results - last 24 hr 03/13/22 03/15/22 03/16/22 16:04 21:00 06:13 WBC 8.8 RBC 2.89 L D Hgb 9.1 L D 9.0 L Hct 29.3 L D 28.2 L MCV 97.6 MCH 31.1 MCHC 31.9 RDW 16.4 H Plt Count 204 MPV 10.1 Absolute Nucleated RBC 0.000 Nucleated RBC % (auto) 0.0 PT INR Sodium Potassium Chloride Carbon Dioxide Anion Gap BUN Creatinine Estim Creat Clear Calc Estimated GFR Random Glucose Calcium Blood Type O Positive Antibody Screen NEGATIVE Crossmatch See Detail 03/16/22 03/16/22 06:13 06:13 WBC RBC Hgb Hct MCV MCH MCHC RDW Plt Count MPV Absolute Nucleated RBC Nucleated RBC % (auto) PT 16.6 H INR 1.4 H Sodium 142 Potassium 4.3 Chloride 109 H Carbon Dioxide 28 Anion Gap 9 L BUN 26 H Creatinine 1.81 H Estim Creat Clear Calc 37.3 Estimated GFR 36 Random Glucose 121 H Calcium 8.1 L Blood Type Antibody Screen Crossmatch Imaging Radiologist's impression: Impressions Guidance Fluoroscopy 03/14/22 18:48 IMPRESSION: Fluoroscopy was provided to the referring physician for cystoscopy. Progress Note: A&P Assessment and plan (1) Atrial fibrillation with rapid ventricular response: Status: Acute (2) Symptomatic anemia: Status: Acute (3) CHF exacerbation: Status: Acute Plan 81-year-old gentleman presenting with AFib with RVR in the setting of anemia due to GI blood loss. He was on Eliquis which was stopped. He also has obstructive uropathy and had Oconnell catheter placed. Does not look significantly volume overloaded. Should be dosed for diuretics if required. Heart rate is reasonably controlled with occasional fast heart rates when he ambulates. This could be related to anemia and blood loss. He has biatrial enlargement and can have underlying amyloidosis at his age. I would avoid Cardizem and digoxin currently. As he gets GI workup and we find a reversible cause then we can consider starting him back on anticoagulation. He is intermediate risk for periprocedu ral complications. Thank you for allowing me to participate in the care of your patient. Please f eel free to contact me if you have any questions. Time Spent With Patient Time: Total time managing care of this patient today ____ minutes. Progress Note: Quality Stroke Does the patient have a stroke diagnosis?: No Procedures Date of Service Date of Service: 03/16/22
[2022-03-16] MEDS: Melatonin 3 MG TABLET 6 MG PO (21:18)
[2022-03-16] MEDS: levoFLOXacin/D5W 250 MG/50 ML PIGGYBACK 50 MG IV (21:19)
[2022-03-16] MEDS: traZODone HCL 50 MG TABLET PO (21:19)
[2022-03-16] MEDS: Tamsulosin HCL 0.4 MG CAPSULE PO (21:20)
[2022-03-16] MEDS: Atorvastatin Calcium 20 MG TABLET PO (21:20)
[2022-03-16] MEDS: Gabapentin 600 MG TABLET 300 MG PO (21:20)
[2022-03-16] MEDS: HYDROmorphone HCl 0.5 MG/0.5 ML SYRINGE 0.25 MG IVPUSH (22:30)
[2022-03-17] VITALS (7 sets, daily range): BP systolic 124–143; BP diastolic 68–95; PULSE 87–114; RESP 18–20; TEMP 36.6–37.1; O2SAT 96–98
--- NOTE | 2022-03-17 04:02 | PC.NURSE ---
patient had [address] Dacosta sent message via [employer].
[2022-03-17 04:59] LABS: Hematocrit 28.9 % (42.0-52.0); Hemoglobin 9.2 g/dl (14.0-18.0); Mean Corpuscular HGB Conc 31.8 g/dl (31.0-36.0); Mean Corpuscular Hemoglobin 30.9 pg (27.0-33.0); Mean Platelet Volume 9.2 fL (9.4-12.4); Platelet Count 192 X10*3/uL (160-400); Red Blood Count 2.98 X10*6/uL (4.60-5.80); White Blood Count 8.3 X10*3/uL (4.8-10.8)
[2022-03-17 05:25] LABS: Anion Gap 16 (12-20); Blood Urea Nitrogen 24 mg/dL (9-16); Calcium 8.4 mg/dL (8.4-10.2); Carbon Dioxide 24 mmol/L (22-29); Chloride 108 mmol/L (96-108); Creatinine Clr Calc Pharmacy 42.8; Estimated Glomerular Filt Rate 43; Glucose Random 121 mg/dL (60-115); Potassium 4.5 mmol/L (3.3-5.1); Sodium 143 mmol/L (135-145)
[2022-03-17 05:26] LABS: Anion Gap 12 (12-20); Blood Urea Nitrogen 25 mg/dL (9-16); Calcium 8.4 mg/dL (8.4-10.2); Carbon Dioxide 26 mmol/L (22-29); Chloride 109 mmol/L (96-108); Creatinine Clr Calc Pharmacy 43.1; Estimated Glomerular Filt Rate 43; Glucose Random 122 mg/dL (60-115); Magnesium 1.7 mg/dL (1.6-2.6); Potassium 4.7 mmol/L (3.3-5.1); Sodium 142 mmol/L (135-145)
--- NOTE | 2022-03-17 06:23 | PM.EVENT ---
Event Note Date of Service: 03/17/22 Event Note: patient with 3 beats of V-tach, BMP shows potassium 7 and magnesium of 1.7, given 2 of Mag to keep magnesium above 2 Time Spent With Patient Time: Total time managing care of this patient today ____ minutes.
[2022-03-17] MEDS: Magnesium Sulfate/H2O 2 GM/50 ML PIGGYBACK IV (06:49)
[2022-03-17] MEDS: allopurinoL 100 MG TABLET PO (08:01)
[2022-03-17] MEDS: Potassium Chloride ER 20 MEQ TAB.ER.PRT PO (08:01)
[2022-03-17] MEDS: carvediloL 25 MG TABLET PO ×2 (08:01→19:59)
[2022-03-17] MEDS: Acetaminophen 325 MG TABLET 650 MG PO (08:10)
--- NOTE | 2022-03-17 08:35 | PM.PNNEP ---
Subjective Subjective Date of Service: 03/17/22 Interval history: seen and examined no complaints Physical Exam Vital Signs: Vital Signs: Last Vital Signs Temp 97.8 F 03/17/22 07:47 Pulse 89 03/17/22 07:47 Resp 20 03/17/22 07:47 BP 143/95 H 03/17/22 07:47 Pulse Ox 96 03/17/22 07:47 O2 Del Method 03/17/22 07:47 O2 Flow Rate 2 03/15/22 15:37 BMI result Body Mass Index 27.4 Const: General: no acute distress HEENT: Head: Yes normocephalic and Yes atraumatic Neck: Neck: Yes supple Resp: Auscultation: clear to auscultation bilaterally Cardio: Heart sounds: S1 normal heart sound present and S2 normal heart sound present GI: Palpation (GI): Soft to palpation and nontender Extrem: General: Yes no pedal edema Objective Data Labs 03/17/22 04:51 03/17/22 04:51 Labs: Laboratory Results - last 24 hr 03/17/22 03/17/22 03/17/22 04:51 04:51 04:51 WBC 8.3 RBC 2.98 L Hgb 9.2 L Hct 28.9 L MCV 97.0 MCH 30.9 MCHC 31.8 RDW 16.0 Plt Count 192 MPV 9.2 L Absolute Nucleated RBC 0.000 Nucleated RBC % (auto) 0.0 Sodium 143 142 Potassium 4.5 4.7 Chloride 108 109 H Carbon Dioxide 24 26 Anion Gap 16 12 BUN 24 H 25 H Creatinine 1.58 H 1.57 H Estim Creat Clear Calc 42.8 43.1 Estimated GFR 43 43 Random Glucose 121 H 122 H Calcium 8.4 8.4 Magnesium 1.7 Microbiology Microbiology Results: Microbiology 03/14/22 Unknown Urine Catheterized - Straight Catheter Urine Culture - Final No growth. Procedures Date of Service Date of Service: 03/17/22 Assessment & Plan Assessment and plan (1) ADE (acute kidney injury): Status: Acute (2) Obstructive uropathy: Status: Acute (3) Anemia: Status: Acute Plan kidney function contiues to improve ADE due to obstructive uropathy bladder outlet obstruction due to urethral stricture seen by urology anemia requiring blood transfusion r/o paraproteinemia serum immunofixation pending scheduled for colonoscopy REC Oconnell follow kidney function and electrolytes Time Spent With Patient Time: Total time managing care of this patient today ____ minutes. Progress Note: Quality Stroke Does the patient have a stroke diagnosis?: No
--- NOTE | 2022-03-17 11:40 | P.PNIM_ITS ---
Subjective Subjective Date of Service: 03/17/22 Interval History: Seen and evaluated this morning Hb stable, no major drop post transfusion off O2 AFib rate controlled Cr trending down No other overnight events Review of Systems Review of Systems: Yes all other systems are reviewed and are negative Physical Exam Vital Signs: Vital Signs: Last Vital Signs Temp 97.8 F 03/17/22 11:27 Pulse 87 03/17/22 11:27 Resp 20 03/17/22 11:27 BP 141/78 H 03/17/22 11:27 Pulse Ox 97 03/17/22 11:27 O2 Del Method 03/17/22 11:27 O2 Flow Rate 2 03/15/22 15:37 BMI result Body Mass Index 27.4 Const: Other: Constitutional : Awake, interactive, not in distress Neck : Normal inspection, Supple Cardiovascular : Irregular irregular, no JVP, trace lower extremity edema Respiratory : Fair bilateral air entry, no crackles, wheezes or rhonchi Gastrointestinal: soft, lax, Normal bowel sounds, Non tender Skin : Warm, Dry Urology: Oconnell cath in place Neurological : Alert & oriented x3, No focal deficit Objective Data Active Medications Acetaminophen (Acetaminophen 325 Mg Tablet) 650 mg PO Q6H PRN PRN Reason: Pain, Mild (Pain Scale 1-3) Last Admin: 03/17/22 08:10 Dose: 650 mg Documented By: VASHTI Allopurinol (Allopurinol 100 Mg Tablet) 100 mg PO DAILY [facility] Last Admin: 03/17/22 08:01 Dose: 100 mg Documented By: VASHTI Atorvastatin Calcium (Atorvastatin Calcium 20 Mg Tablet) 20 mg PO BEDTIME [facility] Last Admin: 03/16/22 21:20 Dose: 20 mg Documented By: HENRY Carvedilol (Carvedilol 25 Mg Tablet) 25 mg PO BID [facility]; Protocol Last Admin: 03/17/22 08:01 Dose: 25 mg Documented By: VASHTI Docusate Sodium (Docusate Sodium 100 Mg Capsule) 100 mg PO DAILY PRN PRN Reason: Constipation Fentanyl (Fentanyl Citrate/Pf 100 Mcg/2 Ml Vial) 25 mcg IVPUSH Q5M PRN; Protocol PRN Reason: Pain, Moderate (Pain Scale 4-6 Gabapentin (Gabapentin 600 Mg Tablet) 300 mg PO BEDTIME [facility] Last Admin: 03/16/22 21:20 Dose: 300 mg Documented By: HENRY Hydromorphone HCl (Hydromorphone Hcl 0.5 Mg/0.5 Ml Syringe) 0.25 mg IVPUSH Q5M PRN; Protocol PRN Reason: Pain, Severe (Pain Scale 7-10) Last Admin: 03/16/22 22:30 Dose: 0.25 mg Documented By: HENRY Levofloxacin (Levaquin) 250 mg in 50 mls @ 50 mls/hr IV Q24H [facility] Last Infusion: 03/16/22 22:25 Dose: 0 mls/hr Documented By: HENRY Melatonin (Melatonin 3 Mg Tablet) 6 mg PO BEDTIME [facility] Last Admin: 03/16/22 21:18 Dose: 6 mg Documented By: HENRY Ondansetron HCl (Ondansetron Hcl 4 Mg/2 Ml Vial) 4 mg IVPUSH Q8H PRN PRN Reason: Nausea and Vomiting Pharmacy Consult (Consult Rx Perform Med Rec) 1 each MISCELLANE ONCE PRN PRN Reason: Consult order Polyethylene Glycol/Electrolytes (Peg 3350/Na Sulf,Bicarb,Cl/Kcl 4,000 Ml Soln.Recon) 4,000 ml PO ONCE ONE Stop: 03/17/22 13:01 Potassium Chloride (Potassium Chloride Er 20 Meq Tab.Er.Prt) 20 meq PO DAILY [facility] Last Admin: 03/17/22 08:01 Dose: 20 meq Documented By: VASHTI Sodium Chloride (0.9 % Sodium Chloride Flush 3 Ml Syringe) 3 ml IVFLUSH QSHIFT [facility] Last Admin: 03/17/22 08:02 Dose: Not Given Documented By: VASHTI Non-Admin Reason: IV Running Tamsulosin HCl (Tamsulosin Hcl 0.4 Mg Capsule) 0.4 mg PO BEDTIME [facility] Last Admin: 03/16/22 21:20 Dose: 0.4 mg Documented By: HENRY Trazodone HCl (Trazodone Hcl 50 Mg Tablet) 50 mg PO BEDTIME [facility] Last Admin: 03/16/22 21:19 Dose: 50 mg Documented By: HENRY Labs 03/17/22 04:51 03/17/22 04:51 Labs: Laboratory Results - last 24 hr 03/17/22 03/17/22 03/17/22 04:51 04:51 04:51 MCV 97.0 MCH 30.9 MCHC 31.8 RDW 16.0 Plt Count 192 MPV 9.2 L Absolute Nucleated RBC 0.000 Nucleated RBC % (auto) 0.0 Anion Gap 16 12 Estim Creat Clear Calc 42.8 43.1 Estimated GFR 43 43 Random Glucose 121 H 122 H Calcium 8.4 8.4 Magnesium 1.7 Microbiology Microbiology Results: Microbiology 03/14/22 Unknown Urine Culture - Final Urine Catheterized - Straight Catheter No growth. Assessment and Plan (1) Symptomatic anemia: Status: Acute (2) Urethral stricture: Status: Acute (3) Obstructive uropathy: Status: Acute (4) CHF exacerbation: Status: Acute Plan Pt is a 81-year-old male with a PMH significant for persistent afib on Eliquis, restless leg syndrome, HLD, gout, and?prostate cancer treated with radiation in 2005 who presents to the ED with?weakness and recent syncopal episode. Patient was found to have hydronephrosis, hydroureter, positive UTI, anemia, and acute CHF. Patient will be admitted to the hospital for additional workup and treatment for anemia, acute CHF, UTI, and possible bladder obstruction. Acute diastolic CHF exacerbation secondary to anemia improved after transfusion Follow lytes, MG, I/O Echocardiogram EF 40-45% Cardiology recommended to hold Lasix for now Continue to monitor the need of diuresis Symptomatic Acute on chronic anemia, Etiology unclear, possible GI bleed, bladder cancer, others Hb improved to 9 post total of 4 units transfusion Low iron levels Monitor labs Gi to do EGD & Colonoscopy tomorrow Syncopal episode Likely secondary to CHF and anemia CT of head clear PT eval Incontinence of urine 2/2 retention ADE on CKD stage [address] shows prominent bilateral hydronephrosis and hydroureter with outlet obstruction, URology placed Oconnell Nephrology input appreciated Monitor BMP Oconnell catheter placed by Urology UTI UA positive for UTI To finish 5 days of Abx Chronic AFib Continue Eliquis Admit to telemetry Insomnia Trazodone 50mg at nighttime Chronic atrial fibrillation with RVR Did not respond to IV metoprolol Started on Cardizem drip with good response Continue carvedilol per Cardiology recommendation and avoid Cardizem Gout Continue home meds HLD Continue home meds DVT Prophylaxis: On Eliquis Pt will require inpatient hospital stay overnight for treatment of anemia, CHF, ADE, UTI, and bladder obstruction.. Time Spent With Patient Time: Total time managing care of this patient today ____ minutes. Quality Stroke Does the patient have a stroke diagnosis?: No VTE Prior VTE?: No VTE Risk Level:: Medical - moderate - high VTE Device Contraindication: Treatment Not Indicated VTE Drug Contraindication: N/A - Med Ordered
[2022-03-17] MEDS: PEG 3350/Na Sulf,Bicarb,Cl/KCL 4,000 ML SOLN.RECON 4000 ML PO (13:56)
[2022-03-17 14:06] LABS: OBS Int Ctl Valid YES; OBS1 NEGATIVE (NEGATIVE)
[2022-03-17] MEDS: 0.9 % Sodium Chloride Flush 3 ML SYRINGE IVFLUSH ×2 (15:44→20:07)
[2022-03-17] MEDS: traZODone HCL 50 MG TABLET PO (19:59)
[2022-03-17] MEDS: Melatonin 3 MG TABLET 6 MG PO (19:59)
[2022-03-17] MEDS: Tamsulosin HCL 0.4 MG CAPSULE PO (20:00)
[2022-03-17] MEDS: Atorvastatin Calcium 20 MG TABLET PO (20:00)
[2022-03-17] MEDS: Gabapentin 600 MG TABLET 300 MG PO (20:00)
[2022-03-17] MEDS: levoFLOXacin/D5W 250 MG/50 ML PIGGYBACK 50 MG IV (20:02)
[2022-03-18] VITALS (9 sets, daily range): BP systolic 109–159; BP diastolic 59–94; PULSE 80–117; RESP 16–20; TEMP 36.1–37; O2SAT 94–98
[2022-03-18 06:20] LABS: Hematocrit 31.5 % (42.0-52.0); Mean Corpuscular HGB Conc 31.7 g/dl (31.0-36.0); Mean Corpuscular Hemoglobin 30.9 pg (27.0-33.0); Mean Corpuscular Volume 97.2 fL (80.0-98.0); Mean Platelet Volume 9.7 fL (9.4-12.4); Platelet Count 224 X10*3/uL (160-400); Red Blood Count 3.24 X10*6/uL (4.60-5.80); Red Cell Distribution Width 15.8 % (11.0-16.0); White Blood Count 8.6 X10*3/uL (4.8-10.8)
[2022-03-18 06:39] LABS: Anion Gap 13 (12-20); Blood Urea Nitrogen 19 mg/dL (9-16); Calcium 8.8 mg/dL (8.4-10.2); Carbon Dioxide 26 mmol/L (22-29); Chloride 107 mmol/L (96-108); Creatinine Clr Calc Pharmacy 50.5; Estimated Glomerular Filt Rate 51; Glucose Random 117 mg/dL (60-115); Potassium 4.7 mmol/L (3.3-5.1); Sodium 141 mmol/L (135-145)
--- NOTE | 2022-03-18 09:11 | PM.PNNEP ---
Subjective Subjective Date of Service: 03/18/22 Interval history: seen and examined no complaints Physical Exam Vital Signs: Vital Signs: Last Vital Signs Temp 96.9 F 03/18/22 07:07 Pulse 104 H 03/18/22 07:07 Resp 20 03/18/22 07:07 BP 159/83 H 03/18/22 07:07 Pulse Ox 96 03/18/22 07:07 O2 Del Method 03/18/22 07:07 O2 Flow Rate 2 03/15/22 15:37 BMI result Body Mass Index 27.4 Const: General: no acute distress HEENT: Head: Yes normocephalic and Yes atraumatic Neck: Neck: Yes supple Resp: Auscultation: clear to auscultation bilaterally Cardio: Heart sounds: S1 normal heart sound present and S2 normal heart sound present GI: Palpation (GI): Soft to palpation and nontender Extrem: General: Yes no pedal edema Objective Data Labs 03/18/22 05:55 03/18/22 05:55 Labs: Laboratory Results - last 24 hr 03/17/22 03/18/22 03/18/22 Unknown 05:55 05:55 WBC 8.6 RBC 3.24 L Hgb 10.0 L Hct 31.5 L MCV 97.2 MCH 30.9 MCHC 31.7 RDW 15.8 Plt Count 224 MPV 9.7 Absolute Nucleated RBC 0.000 Nucleated RBC % (auto) 0.0 Sodium 141 Potassium 4.7 Chloride 107 Carbon Dioxide 26 Anion Gap 13 BUN 19 H Creatinine 1.34 Estim Creat Clear Calc 50.5 Estimated GFR 51 Random Glucose 117 H Calcium 8.8 Stool Occult Blood NEGATIVE Microbiology Microbiology Results: Microbiology 03/14/22 Unknown Urine Catheterized - Straight Catheter Urine Culture - Final No growth. Procedures Date of Service Date of Service: 03/18/22 Assessment & Plan Assessment and plan (1) ADE (acute kidney injury): Status: Acute (2) Obstructive uropathy: Status: Acute (3) Anemia: Status: Acute Plan kidney function improving ADE due to obstructive uropathy bladder outlet obstruction due to urethral stricture seen by urology anemia requiring blood transfusion r/o paraproteinemia serum immunofixation pending scheduled for colonoscopy REC Oconnell follow kidney function and electrolytes Time Spent With Patient Time: Total time managing care of this patient today ____ minutes. Progress Note: Quality Stroke Does the patient have a stroke diagnosis?: No
[2022-03-18] MEDS: dilTIAZem HCL 125 MG in 0.9 % Sodium Chloride 100 ML 10 MG IVCONT (09:38)
[2022-03-18] MEDS: Potassium Chloride ER 20 MEQ TAB.ER.PRT PO (09:39)
[2022-03-18] MEDS: 0.9 % Sodium Chloride Flush 3 ML SYRINGE IVFLUSH ×2 (09:39→17:51)
[2022-03-18] MEDS: carvediloL 25 MG TABLET PO ×2 (09:39→14:13)
[2022-03-18] MEDS: allopurinoL 100 MG TABLET PO (09:39)
--- NOTE | 2022-03-18 11:12 | MHC.CM.PN ---
per rounds pt to have egd today will be dcd in 1 to 2 days dc plan possible str
--- NOTE | 2022-03-18 11:24 | PM.PNCARD ---
Subjective Subjective Date of Service: 03/18/22 Principal diagnosis: Atrial fibrillation, cardiomyopathy Interval history: At current time I was asked to see this patient again as he has to undergo colonoscopy and was noted to have 1 run of nonsustained VT overnight. No symptoms related to it. He has been restarted on IV Cardizem drip due to rapid heart rate. Currently having no cardiac symptoms. Heart rate is well controlled. No signs or symptoms of heart failure. Review of Systems Review of Systems Yes all other systems are reviewed and are negative Physical Exam Vital Signs: Last Vital Signs Temp 96.9 F 03/18/22 07:07 Pulse 104 H 03/18/22 07:07 Resp 20 03/18/22 07:07 BP 159/83 H 03/18/22 07:07 Pulse Ox 96 03/18/22 07:07 O2 Del Method 03/18/22 07:07 O2 Flow Rate 2 03/15/22 15:37 BMI result Body Mass Index 27.4 GENERAL APPEARANCE: in no acute distress, pleasant. NECK: no carotid bruit, no jugular venous distention. SKIN: no suspicious lesions, warm and dry. HEART: no murmurs, irregular rate and rhythm. LUNGS: clear to auscultation bilaterally. ABDOMEN: soft, nontender. EXTREMITIES: no edema. PERIPHERAL PULSES: equal. NEUROLOGIC: No gross deficits, AAO X 3 Objective Labs and Meds 03/18/22 05:55 03/18/22 05:55 Lab results: Laboratory Results - last 24 hr 03/17/22 03/18/22 03/18/22 Unknown 05:55 05:55 WBC 8.6 RBC 3.24 L Hgb 10.0 L Hct 31.5 L MCV 97.2 MCH 30.9 MCHC 31.7 RDW 15.8 Plt Count 224 MPV 9.7 Absolute Nucleated RBC 0.000 Nucleated RBC % (auto) 0.0 Sodium 141 Potassium 4.7 Chloride 107 Carbon Dioxide 26 Anion Gap 13 BUN 19 H Creatinine 1.34 Estim Creat Clear Calc 50.5 Estimated GFR 51 Random Glucose 117 H Calcium 8.8 Stool Occult Blood NEGATIVE Progress Note: A&P Assessment and plan (1) Persistent atrial fibrillation: Status: Acute Assessment and Plan: Persistent atrial fibrillation this elderly gentleman with prior history of what appears to paroxysmal atrial fibrillation. Currently rate is not adequate control. He has no signs or symptoms of heart failure at current time. Will continue Cardizem drip for now for the purposes of the procedure. Can pursue colonoscopy. He remains at intermediate risk for perioperative cardiovascular morbidity mortality. Nonsustained ventricular tachycardia is not of concern at this point time. Eventually switch to p.o. metoprolol therapy and maximize it for better rate control. Further treatment terms of anticoagulation based on the findings of colonoscopy. GI input will be required to reinitiate oral anticoagulation therapy. If he is not considered a good candidate for anticoagulation should consider Watchman device. This was discussed with the patient. In the long run may require rhythm control approach although this might be less likely given that he has significant biatrial enlargement. But may need to be pursued if he has development of heart failure syndrome or worsening cardiomyopathy process. (2) Cardiomyopathy: Status: Acute Assessment and Plan: Cardiomyopathy process most likely related to recurrent atrial fibrillation flutter with rapid heart rate. Continue aggressive rate control approach. If he has worsening heart failure or worsening LV systolic function may require rhythm control approach. For now given his renal dysfunction would hold off on angiotensin receptor antagonist. Start on metoprolol therapy. Signs and symptoms of heart failure were discussed. Will continue to follow with you Time Spent With Patient Time: Total time managing care of this patient today ____ minutes. Progress Note: Quality Stroke Does the patient have a stroke diagnosis?: No Procedures Date of Service Date of Service: 03/18/22
--- NOTE | 2022-03-18 12:31 | P.PNIM_ITS ---
Subjective Subjective Date of Service: 03/18/22 Interval History: Seen and evaluated this morning Hb stable, no major drop post transfusion broke into Afib w RvR overnight Cr trending down denies chest pain, heaviness or SOB No other overnight events Review of Systems Review of Systems: Yes all other systems are reviewed and are negative Physical Exam Vital Signs: Vital Signs: Last Vital Signs Temp 97.7 F 03/18/22 11:34 Pulse 83 03/18/22 11:34 Resp 20 03/18/22 11:34 BP 138/59 L 03/18/22 11:34 Pulse Ox 97 03/18/22 11:34 O2 Del Method 03/18/22 11:34 O2 Flow Rate 2 03/15/22 15:37 BMI result Body Mass Index 27.4 Const: Other: Constitutional : Awake, interactive, not in distress Neck : Normal inspection, Supple Cardiovascular : Irregular irregular, no JVP, trace lower extremity edema Respiratory : Fair bilateral air entry, no crackles, wheezes or rhonchi Gastrointestinal: soft, lax, Normal bowel sounds, Non tender Skin : Warm, Dry Urology: Oconnell cath in place Neurological : Alert & oriented x3, No focal deficit Objective Data Active Medications Acetaminophen (Acetaminophen 325 Mg Tablet) 650 mg PO Q6H PRN PRN Reason: Pain, Mild (Pain Scale 1-3) Last Admin: 03/17/22 08:10 Dose: 650 mg Documented By: VASHTI Allopurinol (Allopurinol 100 Mg Tablet) 100 mg PO DAILY [facility] Last Admin: 03/18/22 09:39 Dose: 100 mg Documented By: HILL Atorvastatin Calcium (Atorvastatin Calcium 20 Mg Tablet) 20 mg PO BEDTIME [facility] Last Admin: 03/17/22 20:00 Dose: 20 mg Documented By: REY Carvedilol (Carvedilol 25 Mg Tablet) 25 mg PO BID [facility]; Protocol Last Admin: 03/18/22 09:39 Dose: 25 mg Documented By: HILL Docusate Sodium (Docusate Sodium 100 Mg Capsule) 100 mg PO DAILY PRN PRN Reason: Constipation Fentanyl (Fentanyl Citrate/Pf 100 Mcg/2 Ml Vial) 25 mcg IVPUSH Q5M PRN; Protocol PRN Reason: Pain, Moderate (Pain Scale 4-6 Gabapentin (Gabapentin 600 Mg Tablet) 300 mg PO BEDTIME [facility] Last Admin: 03/17/22 20:00 Dose: 300 mg Documented By: REY Hydromorphone HCl (Hydromorphone Hcl 0.5 Mg/0.5 Ml Syringe) 0.25 mg IVPUSH Q5M PRN; Protocol PRN Reason: Pain, Severe (Pain Scale 7-10) Last Admin: 03/16/22 22:30 Dose: 0.25 mg Documented By: HENRY Diltiazem HCl 125 mg/ Sodium (Chloride) 125 mls @ 0 mls/hr IVCONT .Q0M CORTEZ; Protocol Last Titration: 03/18/22 10:56 Dose: 5 mg/hr, 5 mls/hr Documented By: HILL Melatonin (Melatonin 3 Mg Tablet) 6 mg PO BEDTIME [facility] Last Admin: 03/17/22 19:59 Dose: 6 mg Documented By: REY Ondansetron HCl (Ondansetron Hcl 4 Mg/2 Ml Vial) 4 mg IVPUSH Q8H PRN PRN Reason: Nausea and Vomiting Pharmacy Consult (Consult Rx Perform Med Rec) 1 each MISCELLANE ONCE PRN PRN Reason: Consult order Potassium Chloride (Potassium Chloride Er 20 Meq Tab.Er.Prt) 20 meq PO DAILY [facility] Last Admin: 03/18/22 09:39 Dose: 20 meq Documented By: HILL Sodium Chloride (0.9 % Sodium Chloride Flush 3 Ml Syringe) 3 ml IVFLUSH QSHIFT [facility] Last Admin: 03/18/22 09:39 Dose: 3 ml Documented By: HILL Tamsulosin HCl (Tamsulosin Hcl 0.4 Mg Capsule) 0.4 mg PO BEDTIME [facility] Last Admin: 03/17/22 20:00 Dose: 0.4 mg Documented By: REY Trazodone HCl (Trazodone Hcl 50 Mg Tablet) 50 mg PO BEDTIME [facility] Last Admin: 03/17/22 19:59 Dose: 50 mg Documented By: REY Labs 03/18/22 05:55 03/18/22 05:55 Labs: Laboratory Results - last 24 hr 03/17/22 03/18/22 03/18/22 Unknown 05:55 05:55 MCV 97.2 MCH 30.9 MCHC 31.7 RDW 15.8 Plt Count 224 MPV 9.7 Absolute Nucleated RBC 0.000 Nucleated RBC % (auto) 0.0 Anion Gap 13 Estim Creat Clear Calc 50.5 Estimated GFR 51 Random Glucose 117 H Calcium 8.8 Stool Occult Blood NEGATIVE Assessment and Plan (1) Cardiomyopathy: Status: Acute (2) Persistent atrial fibrillation: Status: Acute (3) Symptomatic anemia: Status: Acute (4) Atrial fibrillation with rapid ventricular response: Status: Acute (5) Anemia: Status: Acute (6) ADE (acute kidney injury): Status: Acute (7) UTI (urinary tract infection): Status: Acute (8) Obstructive uropathy: Status: Acute Plan Pt is a 81-year-old male with a PMH significant for persistent afib on Eliquis, restless leg syndrome, HLD, gout, and?prostate cancer treated with radiation in 2005 who presents to the ED with?weakness and recent syncopal episode. Patient was found to have hydronephrosis, hydroureter, positive UTI, anemia, and acute CHF. Patient will be admitted to the hospital for additional workup and treatment for anemia, acute CHF, UTI, and possible bladder obstruction. Chronic AFib w RvR Eliquis held for GIB Increased Carvedilol dosage Start Cardizem drip Symptomatic Acute on chronic anemia, Etiology unclear, possible GI bleed, bladder cancer, others Hb improved to 9 post total of 4 units transfusion Low iron levels Monitor labs Gi to do EGD & Colonoscopy today if HR is better controlled Acute diastolic CHF exacerbation secondary to anemia improved after transfusion Follow lytes, MG, I/O Echocardiogram EF 40-45% Cardiology recommended to hold Lasix for now Continue to monitor the need of diuresis Syncopal episode Likely secondary to CHF and anemia CT of head clear PT eval Incontinence of urine 2/2 retention ADE on CKD stage [address] shows prominent bilateral hydronephrosis and hydroureter with outlet obstruc tion, URology placed Oconnell Nephrology input appreciated Monitor BMP Oconnell catheter placed by Urology UTI UA positive for UTI To finish 5 days of Abx Insomnia Trazodone 50mg at nighttime Chronic atrial fibrillation with RVR Did not respond to IV metoprolol Started on Cardizem drip with good response Continue carvedilol per Cardiology recommendation and avoid Cardizem Gout Continue home meds HLD Continue home meds DVT Prophylaxis: Eliquis held, on SCDs Pt will require inpatient hospital stay overnight for treatment of anemia, CHF, ADE, UTI, and bladder obstruction pending EGD\colonoscopg and HR control Time Spent With Patient Time: Total time managing care of this patient today ____ minutes. Quality Stroke Does the patient have a stroke diagnosis?: No VTE Prior VTE?: No VTE Risk Level:: Medical - moderate - high VTE Device Contraindication: Treatment Not Indicated VTE Drug Contraindication: N/A - Med Ordered
--- NOTE | 2022-03-18 14:03 | P.CONAN_ITS ---
[facility] Active Problems Active Problems: All Active Problems (Updated 03/18/22 @ 11:25 by Baljeet Hastings MD) Cardiomyopathy (Acute) Persistent atrial fibrillation (Acute) Pyuria (Acute) Symptomatic anemia (Acute) Atrial fibrillation with rapid ventricular response (Acute) Urethral stricture (Acute) Obstructive uropathy (Acute) ADE (acute kidney injury) (Acute) UTI (urinary tract infection) (Acute) CHF exacerbation (Acute) Anemia (Acute) Weakness (Acute) Past Medical History Functional capacity: independent ambulation Family History Family history of problems with anesthesia: No Surgical History History of Problems with Anesthesia: No Social History Social History Alcohol intake: current Alcohol intake frequency: 0-2 drinks per day Patient Tobacco Use Status: Never used Tobacco service: No Current occupational status: retired [employer] Allergies Allergy/AdvReac Type Severity Reaction Status Date / Time No Known Allergies Allergy Unverified 11/18/19 15:22 [No Known Allergies*] Active Medications: Current Medications Acetaminophen (Acetaminophen 325 Mg Tablet) 650 mg PO Q6H PRN PRN Reason: Pain, Mild (Pain Scale 1-3) Last Admin: 03/17/22 08:10 Dose: 650 mg Allopurinol (Allopurinol 100 Mg Tablet) 100 mg PO DAILY [facility] Last Admin: 03/18/22 09:39 Dose: 100 mg Atorvastatin Calcium (Atorvastatin Calcium 20 Mg Tablet) 20 mg PO BEDTIME [facility] Last Admin: 03/17/22 20:00 Dose: 20 mg Carvedilol (Carvedilol 12.5 Mg Tablet) 37.5 mg PO BID [facility]; Protocol Docusate Sodium (Docusate Sodium 100 Mg Capsule) 100 mg PO DAILY PRN PRN Reason: Constipation Fentanyl (Fentanyl Citrate/Pf 100 Mcg/2 Ml Vial) 25 mcg IVPUSH Q5M PRN; Protocol PRN Reason: Pain, Moderate (Pain Scale 4-6 Gabapentin (Gabapentin 600 Mg Tablet) 300 mg PO BEDTIME [facility] Last Admin: 03/17/22 20:00 Dose: 300 mg Hydromorphone HCl (Hydromorphone Hcl 0.5 Mg/0.5 Ml Syringe) 0.25 mg IVPUSH Q5M PRN; Protocol PRN Reason: Pain, Severe (Pain Scale 7-10) Last Admin: 03/16/22 22:30 Dose: 0.25 mg Diltiazem HCl 125 mg/ Sodium (Chloride) 125 mls @ 0 mls/hr IVCONT .Q0M [facility]; Protocol Last Titration: 03/18/22 10:56 Dose: 5 mg/hr, 5 mls/hr Melatonin (Melatonin 3 Mg Tablet) 6 mg PO BEDTIME [facility] Last Admin: 03/17/22 19:59 Dose: 6 mg Ondansetron HCl (Ondansetron Hcl 4 Mg/2 Ml Vial) 4 mg IVPUSH Q8H PRN PRN Reason: Nausea and Vomiting Pharmacy Consult (Consult Rx Perform Med Rec) 1 each MISCELLANE ONCE PRN PRN Reason: Consult order Potassium Chloride (Potassium Chloride Er 20 Meq Tab.Er.Prt) 20 meq PO DAILY [facility] Last Admin: 03/18/22 09:39 Dose: 20 meq Sodium Chloride (0.9 % Sodium Chloride Flush 3 Ml Syringe) 3 ml IVFLUSH QSHIFT [facility] Last Admin: 03/18/22 09:39 Dose: 3 ml Tamsulosin HCl (Tamsulosin Hcl 0.4 Mg Capsule) 0.4 mg PO BEDTIME [facility] Last Admin: 03/17/22 20:00 Dose: 0.4 mg Trazodone HCl (Trazodone Hcl 50 Mg Tablet) 50 mg PO BEDTIME [facility] Last Admin: 03/17/22 19:59 Dose: 50 mg Home Medications Medication Instructions Recorded Confirmed Last Taken Type alfuzosin 10 mg tablet,extended 1 tab PO BEDTIME 03/13/22 03/13/22 03/12/22 History release 24 hr allopurinol 300 mg tablet 1 tab PO DAILY 03/13/22 03/13/22 03/13/22 History apixaban 2.5 mg tablet (Eliquis) 1 tab PO BID 03/13/22 03/13/22 03/13/22 History carvedilol 25 mg tablet 1 tab PO BID 03/13/22 03/13/22 03/13/22 History ferrous sulfate 325 mg (65 mg 975 mg PO DAILY 03/13/22 03/13/22 03/13/22 History iron) tablet gabapentin 600 mg tablet 1 tab PO BEDTIME 03/13/22 03/13/22 03/12/22 History magnesium 250 mg tablet 250 mg PO DAILY 03/13/22 03/13/22 03/13/22 History potassium chloride 20 mEq 1 tab PO DAILY 03/13/22 03/13/22 03/13/22 History tablet,extended release simvastatin 40 mg tablet 1 tab PO BEDTIME 03/13/22 03/13/22 03/12/22 History vitamin B complex 1 tab PO DAILY 03/13/22 03/13/22 03/13/22 History Exam Exam Date and Time: March 18, 2022 1403 Height,Weight and Vital Signs: Height 6 ft 1 in Weight 94.5 kg Last Vital Signs Temp 97.7 F 03/18/22 11:34 Pulse 83 03/18/22 11:34 Resp 20 03/18/22 11:34 BP 138/59 L 03/18/22 11:34 Pulse Ox 97 03/18/22 11:34 O2 Del Method 03/18/22 11:34 O2 Flow Rate 2 03/15/22 15:37 Pertinent Lab Results Pertinent Lab Results: Laboratory Tests 03/13/22 03/13/22 03/13/22 15:45 15:45 15:45 WBC 9.4 RBC 2.14 L Hgb 6.6 L* Hct 21.5 L MCV 100.5 H MCH 30.8 MCHC 30.7 L RDW 16.9 H Plt Count 230 MPV 9.8 Immature Gran % (Auto) 0.9 H Neut % (Auto) 75.5 H Lymph % (Auto) 16.6 L [place] % (Auto) 5.1 Eos % (Auto) 1.7 Baso % (Auto) 0.2 Lymph # (Auto) 1.6 [place] # (Auto) 0.5 Eos # (Auto) 0.2 Baso # (Auto) 0.0 Abs Immat Gran (auto) 0.08 H Absolute Neuts (auto) 7.1 Absolute Nucleated RBC 0.000 Nucleated RBC % (auto) 0.0 Smear Path Review SEE NOTE Absolute Retic 0.089 Percent Retic 4.2 H Immature Retic Fraction 27.4 H Retic Hgb Equivalent 34.1 PT 17.1 H INR 1.5 H Sodium 139 Potassium 5.0 D Chloride 109 H Carbon Dioxide 25 Anion Gap 10 L BUN 25 H Creatinine 1.58 H Estim Creat Clear Calc 42.8 Estimated GFR 43 Random Glucose 135 H Calcium 8.5 Magnesium 2.2 Iron 30 L TIBC 195 L % Saturation 15 Unsat Iron Binding 165 Total Bilirubin 0.5 AST 17 ALT 10 Alkaline Phosphatase 121 H Lactate Dehydrogenase 166 Troponin I High Sens B-Natriuretic Peptide Total Protein 6.2 L Albumin 3.3 L Vitamin B12 Folate Urine Color Urine Appearance Urine pH Ur Specific [place] Urine Protein Urine Glucose (UA) Urine Ketones Urine Blood Urine Nitrite Ur Leukocyte Esterase Urine RBC Urine WBC Ur Squamous Epith Cells Urine Bacteria Hyaline Casts Stool Occult Blood COVID-19 (JONATHAN) COVID-19 Clin Com Influenza Type A (MATTHEW) Influenza Type B (MATTHEW) Influenza A & B Note Blood Type Antibody Screen Crossmatch 03/13/22 03/13/22 03/13/22 15:45 15:45 15:45 WBC RBC Hgb Hct MCV MCH MCHC RDW Plt Count MPV Immature Gran % (Auto) Neut % (Auto) Lymph % (Auto) [place] % (Auto) Eos % (Auto) Baso % (Auto) Lymph # (Auto) [place] # (Auto) Eos # (Auto) Baso # (Auto) Abs Immat Gran (auto) Absolute Neuts (auto) Absolute Nucleated RBC Nucleated RBC % (auto) Smear Path Review Absolute Retic Percent Retic Immature Retic Fraction Retic Hgb Equivalent PT INR Sodium Potassium Chloride Carbon Dioxide Anion Gap BUN Creatinine Estim Creat Clear Calc Estimated GFR Random Glucose Calcium Magnesium Iron TIBC % Saturation Unsat Iron Binding Total Bilirubin AST ALT Alkaline Phosphatase Lactate Dehydrogenase Troponin I High Sens 8.5 B-Natriuretic Peptide 477 H Total Protein Albumin Vitamin B12 Folate Urine Color Urine Appearance Urine pH Ur Specific [place] Urine Protein Urine Glucose (UA) Urine Ketones Urine Blood Urine Nitrite Ur Leukocyte Esterase Urine RBC Urine WBC Ur Squamous Epith Cells Urine Bacteria Hyaline Casts Stool Occult Blood COVID-19 (JONATHAN) COVID-19 Clin Com Influenza Type A (MATTHEW) Negative Influenza Type B (MATTHEW) Negative Influenza A & B Note See Note Blood Type Antibody Screen Crossmatch 03/13/22 03/13/22 03/13/22 15:45 15:45 16:04 WBC RBC Hgb Hct MCV MCH MCHC RDW Plt Count MPV Immature Gran % (Auto) Neut % (Auto) Lymph % (Auto) [place] % (Auto) Eos % (Auto) Baso % (Auto) Lymph # (Auto) [place] # (Auto) Eos # (Auto) Baso # (Auto) Abs Immat Gran (auto) Absolute Neuts (auto) Absolute Nucleated RBC Nucleated RBC % (auto) Smear Path Review Absolute Retic Percent Retic Immature Retic Fraction Retic Hgb Equivalent PT INR Sodium Potassium Chloride Carbon Dioxide Anion Gap BUN Creatinine Estim Creat Clear Calc Estimated GFR Random Glucose Calcium Magnesium Iron TIBC % Saturation Unsat Iron Binding Total Bilirubin AST ALT Alkaline Phosphatase Lactate Dehydrogenase Troponin I High Sens B-Natriuretic Peptide Total Protein Albumin Vitamin B12 339 Folate 15.2 Urine Color Urine Appearance Urine pH Ur Specific [place] Urine Protein Urine Glucose (UA) Urine Ketones Urine Blood Urine Nitrite Ur Leukocyte Esterase Urine RBC Urine WBC Ur Squamous Epith Cells Urine Bacteria Hyaline Casts Stool Occult Blood COVID-19 (JONATHAN) Negative COVID-19 Clin Com See Note Influenza Type A (MATTHEW) Influenza Type B (MATTHEW) Influenza A & B Note Blood Type O Positive Antibody Screen NEGATIVE Crossmatch See Detail 03/13/22 03/14/22 03/14/22 20:10 05:34 05:34 WBC 13.9 H RBC 2.63 L D Hgb 8.2 L D Hct 25.7 L MCV 97.7 MCH 31.2 MCHC 31.9 RDW 16.4 H Plt Count 244 MPV 10.2 Immature Gran % (Auto) Neut % (Auto) Lymph % (Auto) [place] % (Auto) Eos % (Auto) Baso % (Auto) Lymph # (Auto) [place] # (Auto) Eos # (Auto) Baso # (Auto) Abs Immat Gran (auto) Absolute Neuts (auto) Absolute Nucleated RBC 0.000 Nucleated RBC % (auto) 0.0 Smear Path Review Absolute Retic Percent Retic Immature Retic Fraction Retic Hgb Equivalent PT INR Sodium Potassium Chloride Carbon Dioxide Anion Gap BUN Creatinine Estim Creat Clear Calc Estimated GFR Random Glucose Calcium Magnesium 1.9 Iron TIBC % Saturation Unsat Iron Binding Total Bilirubin AST ALT Alkaline Phosphatase Lactate Dehydrogenase Troponin I High Sens B-Natriuretic Peptide Total Protein Albumin Vitamin B12 Folate Urine Color Yellow Urine Appearance Hazy Urine pH 5.5 Ur Specific [place] 1.010 Urine Protein Trace Urine Glucose (UA) Negative Urine Ketones Negative Urine Blood Large (3+) H Urine Nitrite Positive H Ur Leukocyte Esterase Large (3+) H Urine RBC >20 H Urine WBC >50 H Ur Squamous Epith Cells 0-2 Urine Bacteria 1+ Hyaline Casts 0-2 Stool Occult Blood COVID-19 (JONATHAN) COVID-19 Clin Com Influenza Type A (MATTHEW) Influenza Type B (MATTHEW) Influenza A & B Note Blood Type Antibody Screen Crossmatch 03/14/22 03/15/22 03/15/22 05:34 05:45 05:45 WBC 11.2 H RBC 2.36 L Hgb 7.3 L Hct 23.7 L MCV 100.4 H MCH 30.9 MCHC 30.8 L RDW 16.8 H Plt Count 199 MPV 9.8 Immature Gran % (Auto) Neut % (Auto) Lymph % (Auto) [place] % (Auto) Eos % (Auto) Baso % (Auto) Lymph # (Auto) [place] # (Auto) Eos # (Auto) Baso # (Auto) Abs Immat Gran (auto) Absolute Neuts (auto) Absolute Nucleated RBC 0.000 Nucleated RBC % (auto) 0.0 Smear Path Review Absolute Retic Percent Retic Immature Retic Fraction Retic Hgb Equivalent PT INR Sodium 140 141 Potassium 4.5 4.1 Chloride 106 109 H Carbon Dioxide 25 23 Anion Gap 14 13 BUN 29 H 31 H Creatinine 2.08 H 2.07 H Estim Creat Clear Calc 32.5 32.7 Estimated GFR 31 31 Random Glucose 106 90 Calcium 8.3 L 8.0 L Magnesium Iron TIBC % Saturation Unsat Iron Binding Total Bilirubin AST ALT Alkaline Phosphatase Lactate Dehydrogenase Troponin I High Sens B-Natriuretic Peptide Total Protein Albumin Vitamin B12 Folate Urine Color Urine Appearance Urine pH Ur Specific [place] Urine Protein Urine Glucose (UA) Urine Ketones Urine Blood Urine Nitrite Ur Leukocyte Esterase Urine RBC Urine WBC Ur Squamous Epith Cells Urine Bacteria Hyaline Casts Stool Occult Blood COVID-19 (JONATHAN) COVID-19 Clin Com Influenza Type A (MATTHEW) Influenza Type B (MATTHEW) Influenza A & B Note Blood Type Antibody Screen Crossmatch 03/15/22 03/15/22 03/16/22 05:45 21:00 06:13 WBC 8.8 RBC 2.89 L D Hgb 9.1 L D 9.0 L Hct 29.3 L D 28.2 L MCV 97.6 MCH 31.1 MCHC 31.9 RDW 16.4 H Plt Count 204 MPV 10.1 Immature Gran % (Auto) Neut % (Auto) Lymph % (Auto) [place] % (Auto) Eos % (Auto) Baso % (Auto) Lymph # (Auto) [place] # (Auto) Eos # (Auto) Baso # (Auto) Abs Immat Gran (auto) Absolute Neuts (auto) Absolute Nucleated RBC 0.000 Nucleated RBC % (auto) 0.0 Smear Path Review Absolute Retic Percent Retic Immature Retic Fraction Retic Hgb Equivalent PT INR Sodium Potassium Chloride Carbon Dioxide Anion Gap BUN Creatinine Estim Creat Clear Calc Estimated GFR Random Glucose Calcium Magnesium Iron TIBC % Saturation Unsat Iron Binding Total Bilirubin AST ALT Alkaline Phosphatase Lactate Dehydrogenase Troponin I High Sens B-Natriuretic Peptide 362 H Total Protein Albumin Vitamin B12 Folate Urine Color Urine Appearance Urine pH Ur Specific [place] Urine Protein Urine Glucose (UA) Urine Ketones Urine Blood Urine Nitrite Ur Leukocyte Esterase Urine RBC Urine WBC Ur Squamous Epith Cells Urine Bacteria Hyaline Casts Stool Occult Blood COVID-19 (JONATHAN) COVID-19 Clin Com Influenza Type A (MATTHEW) Influenza Type B (MATTHEW) Influenza A & B Note Blood Type Antibody Screen Crossmatch 03/16/22 03/16/22 03/17/22 06:13 06:13 04:51 WBC 8.3 RBC 2.98 L Hgb 9.2 L Hct 28.9 L MCV 97.0 MCH 30.9 MCHC 31.8 RDW 16.0 Plt Count 192 MPV 9.2 L Immature Gran % (Auto) Neut % (Auto) Lymph % (Auto) [place] % (Auto) Eos % (Auto) Baso % (Auto) Lymph # (Auto) [place] # (Auto) Eos # (Auto) Baso # (Auto) Abs Immat Gran (auto) Absolute Neuts (auto) Absolute Nucleated RBC 0.000 Nucleated RBC % (auto) 0.0 Smear Path Review Absolute Retic Percent Retic Immature Retic Fraction Retic Hgb Equivalent PT 16.6 H INR 1.4 H Sodium 142 Potassium 4.3 Chloride 109 H Carbon Dioxide 28 Anion Gap 9 L BUN 26 H Creatinine 1.81 H Estim Creat Clear Calc 37.3 Estimated GFR 36 Random Glucose 121 H Calcium 8.1 L Magnesium Iron TIBC % Saturation Unsat Iron Binding Total Bilirubin AST ALT Alkaline Phosphatase Lactate Dehydrogenase Troponin I High Sens B-Natriuretic Peptide Total Protein Albumin Vitamin B12 Folate Urine Color Urine Appearance Urine pH Ur Specific [place] Urine Protein Urine Glucose (UA) Urine Ketones Urine Blood Urine Nitrite Ur Leukocyte Esterase Urine RBC Urine WBC Ur Squamous Epith Cells Urine Bacteria Hyaline Casts Stool Occult Blood COVID-19 (JONATHAN) COVID-19 Clin Com Influenza Type A (MATTHEW) Influenza Type B (MATTHEW) Influenza A & B Note Blood Type Antibody Screen Crossmatch 03/17/22 03/17/2203/17/23 04:51 04:51 Unknown WBC RBC Hgb Hct MCV MCH MCHC RDW Plt Count MPV Immature Gran % (Auto) Neut % (Auto) Lymph % (Auto) [place] % (Auto) Eos % (Auto) Baso % (Auto) Lymph # (Auto) [place] # (Auto) Eos # (Auto) Baso # (Auto) Abs Immat Gran (auto) Absolute Neuts (auto) Absolute Nucleated RBC Nucleated RBC % (auto) Smear Path Review Absolute Retic Percent Retic Immature Retic Fraction Retic Hgb Equivalent PT INR Sodium 143 142 Potassium 4.5 4.7 Chloride 108 109 H Carbon Dioxide 24 26 Anion Gap 16 12 BUN 24 H 25 H Creatinine 1.58 H 1.57 H Estim Creat Clear Calc 42.8 43.1 Estimated GFR 43 43 Random Glucose 121 H 122 H Calcium 8.4 8.4 Magnesium 1.7 Iron TIBC % Saturation Unsat Iron Binding Total Bilirubin AST ALT Alkaline Phosphatase Lactate Dehydrogenase Troponin I High Sens B-Natriuretic Peptide Total Protein Albumin Vitamin B12 Folate Urine Color Urine Appearance Urine pH Ur Specific [place] Urine Protein Urine Glucose (UA) Urine Ketones Urine Blood Urine Nitrite Ur Leukocyte Esterase Urine RBC Urine WBC Ur Squamous Epith Cells Urine Bacteria Hyaline Casts Stool Occult Blood NEGATIVE COVID-19 (JONATHAN) COVID-19 Clin Com Influenza Type A (MATTHEW) Influenza Type B (MATTHEW) Influenza A & B Note Blood Type Antibody Screen Crossmatch 03/18/22 03/18/22 05:55 05:55 WBC 8.6 RBC 3.24 L Hgb 10.0 L Hct 31.5 L MCV 97.2 MCH 30.9 MCHC 31.7 RDW 15.8 Plt Count 224 MPV 9.7 Immature Gran % (Auto) Neut % (Auto) Lymph % (Auto) [place] % (Auto) Eos % (Auto) Baso % (Auto) Lymph # (Auto) [place] # (Auto) Eos # (Auto) Baso # (Auto) Abs Immat Gran (auto) Absolute Neuts (auto) Absolute Nucleated RBC 0.000 Nucleated RBC % (auto) 0.0 Smear Path Review Absolute Retic Percent Retic Immature Retic Fraction Retic Hgb Equivalent PT INR Sodium 141 Potassium 4.7 Chloride 107 Carbon Dioxide 26 Anion Gap 13 BUN 19 H Creatinine 1.34 Estim Creat Clear Calc 50.5 Estimated GFR 51 Random Glucose 117 H Calcium 8.8 Magnesium Iron TIBC % Saturation Unsat Iron Binding Total Bilirubin AST ALT Alkaline Phosphatase Lactate Dehydrogenase Troponin I High Sens B-Natriuretic Peptide Total Protein Albumin Vitamin B12 Folate Urine Color Urine Appearance Urine pH Ur Specific [place] Urine Protein Urine Glucose (UA) Urine Ketones Urine Blood Urine Nitrite Ur Leukocyte Esterase Urine RBC Urine WBC Ur Squamous Epith Cells Urine Bacteria Hyaline Casts Stool Occult Blood COVID-19 (JONATHAN) COVID-19 Clin Com Influenza Type A (MATTHEW) Influenza Type B (MATTHEW) Influenza A & B Note Blood Type Antibody Screen Crossmatch Airway Mallampati Class: III (Poor dentition) TM Dist: >3cm Neck ROM: Full Loose/Missing/Broken Teeth: Yes, Upper and Lower Heart: RRR Lungs: CTA Assessment and Plan Assessment Anesthesia Assessment: Anesthesia Plan Discussed and Chart Reviewed Final Anesthetic Review Family History of Problems with Anesthesia: No History of Problems with Anesthesia: No NPO: Yes ASA Class: III Final Preanesthetic Review: Meds/Allgs Chart Reviewed, Consent Obtained/Reviewed and Anes Risks/Benef Reviewed Patient Risk: Intermediate Procedure Risk: Intermediate Anesthetic Plan Anesthetic Plan: MAC: Disposition: Standard PACU
--- NOTE | 2022-03-18 14:42 | PC.NURSE ---
Pt left at 1415 to surgery to have endoscopy and colonoscopy done. Cardizem drip on hold
--- NOTE | 2022-03-18 15:44 | P.BOP_ITS ---
Brief Operative Note Date of Service: 03/18/22 Pre-op diagnosis: iron def anemia Post-op diagnosis: same (gastritis, colon polyps) Procedure: egd, colonoscopy Surgeon: Jerry Mcdaniels Anesthesia: MAC Was an Behavioral Therapist used for this Procedure?: No Estimated blood loss (mL): 5 Pathology: other Condition: stable Disposition: PACU
--- NOTE | 2022-03-18 15:53 | PM.EVENT ---
Event Note Date of Service: 03/18/22 Event Note: EGD/Colonoscopy egd shows mild focal gastritis, antral biopsies taken. colonoscopy shows multiple polyps, all under 10 mm, removed with snare and biopsy forceps. rec: oral ppi, f/u bx results ok to restart anticoagulation in am monitor hct. Time Spent With Patient Time: Total time managing care of this patient today ____ minutes.
[2022-03-18] MEDS: Melatonin 3 MG TABLET 6 MG PO (20:22)
[2022-03-18] MEDS: Tamsulosin HCL 0.4 MG CAPSULE PO (20:23)
[2022-03-18] MEDS: carvediloL 12.5 MG TABLET 37.5 MG PO (20:23)
[2022-03-18] MEDS: Atorvastatin Calcium 20 MG TABLET PO (20:23)
[2022-03-18] MEDS: Gabapentin 600 MG TABLET 300 MG PO (20:23)
[2022-03-18] MEDS: traZODone HCL 50 MG TABLET PO (20:23)
[2022-03-18] MEDS: HYDROmorphone HCl 0.5 MG/0.5 ML SYRINGE 0.25 MG IVPUSH (21:20)
--- NOTE | 2022-03-18 21:56 | PC.NURSE ---
Patient's heart rate sustaining in the 70s-90, per protocol infusion to be held for hr <90 Dr. Ambriz notified, cardizem drip paused at this time.
[2022-03-19] VITALS (9 sets, daily range): BP systolic 116–140; BP diastolic 58–88; PULSE 75–104; RESP 12–20; TEMP 36.3–37.1; O2SAT 96–99
[2022-03-19] MEDS: 0.9 % Sodium Chloride Flush 3 ML SYRINGE IVFLUSH ×3 (00:44→17:29)
--- NOTE | 2022-03-19 01:51 | OP_ITS ---
SURGEON: Jerry Mcdaniels MD INDICATIONS: Iron deficiency anemia. PREOPERATIVE DIAGNOSIS: POSTOPERATIVE DIAGNOSIS: PROCEDURE PERFORMED: Upper endoscopy, colonoscopy with biopsy and snare polypectomy. ESTIMATED BLOOD LOSS: COMPLICATIONS: ANESTHESIA: Monitored anesthesia care. ASSISTANTS: SPECIMENS: DESCRIPTION OF PROCEDURE: History and physical performed. The procedure was performed on 03/18/2021. The risks and benefits of the procedure were explained to the patient and informed consent was obtained. The patient was placed in the left lateral decubitus position. The Olympus video gastroscope was introduced into the esophagus, stomach, and duodenum. Examination was performed. The scope was removed. He was repositioned for colonoscopy. A digital rectal exam was performed and was found to be normal. The Olympus pediatric video colonoscope was introduced into the rectum and advanced to the ileocolonic anastomosis. Examination was performed. The scope was removed. He tolerated both procedures well and was taken to recovery in stable condition. FINDINGS: Upper endoscopy: 1. Esophagus: The esophagus was normal. 2. Stomach: The stomach showed focal erythema in the antrum consistent with gastritis. Biopsies were obtained to evaluate for H pylori. 3. Duodenum: The bulb and second portion were normal. COLONOSCOPY: There was a widely patent ileocolonic anastomosis at 80 cm from the anal verge. There appeared to be no evidence of recurrent polyp at the anastomosis. Multiple colonic polyps were identified and removed using a combination of snare and biopsy forceps. All were less than 10 mm. Two were located at 75 cm, 2 at 60 cm, which could not be recovered due to technical reasons, 1 at 50 cm, 1 at 40 cm, and 3 polyps in the rectum. Retroflexed examination showed small internal hemorrhoids. There was moderate sigmoid diverticulosis. IMPRESSION: 1. Gastritis. 2. Colon polyps. RECOMMENDATION: 1. Follow up the biopsy results. 2. Anticoagulation may be resumed in the morning. 3. Monitor hematocrit. MD NAV Manriquez/MODL / [id number]
[2022-03-19] MEDS: Omeprazole 20 MG CAPSULE.DR PO (05:22)
[2022-03-19 06:31] LABS: Hematocrit 29.7 % (42.0-52.0); Hemoglobin 9.3 g/dl (14.0-18.0); Mean Corpuscular HGB Conc 31.3 g/dl (31.0-36.0); Mean Corpuscular Hemoglobin 30.3 pg (27.0-33.0); Mean Corpuscular Volume 96.7 fL (80.0-98.0); Platelet Count 199 X10*3/uL (160-400); Red Blood Count 3.07 X10*6/uL (4.60-5.80); Red Cell Distribution Width 15.8 % (11.0-16.0); White Blood Count 7.4 X10*3/uL (4.8-10.8)
[2022-03-19 06:44] LABS: Anion Gap 15 (12-20); Blood Urea Nitrogen 19 mg/dL (9-16); Calcium 8.7 mg/dL (8.4-10.2); Carbon Dioxide 26 mmol/L (22-29); Chloride 108 mmol/L (96-108); Creatinine Clr Calc Pharmacy 50.1; Estimated Glomerular Filt Rate 51; Glucose Random 105 mg/dL (60-115); Potassium 4.5 mmol/L (3.3-5.1); Sodium 144 mmol/L (135-145)
[2022-03-19] MEDS: allopurinoL 100 MG TABLET PO (09:53)
[2022-03-19] MEDS: Potassium Chloride ER 20 MEQ TAB.ER.PRT PO (09:53)
[2022-03-19] MEDS: carvediloL 12.5 MG TABLET 37.5 MG PO ×2 (09:56→20:13)
[2022-03-19] MEDS: Apixaban 5 MG TABLET PO ×2 (10:03→20:13)
--- NOTE | 2022-03-19 10:18 | P.PNCA_ITS ---
Subjective Subjective Date of Service: 03/19/22 Principal diagnosis: Atrial fibrillation, cardiomyopathy Interval history: Patient has no cardiac symptoms. Heart rate is better controlled. Coreg was increased 37.5 mg b.i.d.. Underwent endoscopy and colonoscopy without any obvious source of bleeding. Cleared by GI to start on Eliquis therapy. was started this morning. Renal function is improved. He denies any chest pain, shortness of breath, palpitations, lightheadedness. Review of Systems Constitutional: Reports no additional constitutional complaints Eyes: Reports no additional eye complaints Cardiovascular: Reports no additional cardiovascular complaints Respiratory: Reports no additional respiratory complaints Gastrointestinal: Reports no additional gastrointestinal complaints Genitourinary: Reports no additional male genitourinary complaints Musculoskeletal: Reports no additional musculoskeletal complaints Skin/Breast: Reports system reviewed and no additional complaints, except as docu Physical Exam Vital Signs: Last Vital Signs Temp 98.6 F 03/19/22 08:00 Pulse 93 03/19/22 08:00 Resp 12 03/19/22 08:00 BP 122/88 03/19/22 08:00 Pulse Ox 96 03/19/22 08:00 O2 Del Method 03/19/22 08:00 O2 Flow Rate 2 03/15/22 15:37 BMI result Body Mass Index 27.4 Const General: cooperative, comfortable, no acute distress, alert and awake Nutritional Appearance: average body habitus Orientation/consciousness: patient oriented x3 Neck Neck: Yes trachea midline, Yes supple and Yes no JVD Resp Effort & Inspection: normal respiratory effort Auscultation: clear to auscultation bilaterally Cardio Jugular venous distension: no JVD Rhythm: abnormal rhythm irregularly irregular Heart sounds: S1 normal heart sound present, S2 normal heart sound present, no click and no gallops GI Auscultation: normal bowel sounds Neuro General: patient oriented x3 and no focal motor deficits Extrem General: Yes no clubbing, cyanosis or edema Objective Labs and Meds 03/19/22 05:58 03/19/22 05:58 Lab results: Laboratory Results - last 24 hr 03/18/22 03/19/22 03/19/22 14:41 05:58 05:58 WBC 7.4 RBC 3.07 L Hgb 9.3 L Hct 29.7 L MCV 96.7 MCH 30.3 MCHC 31.3 RDW 15.8 Plt Count 199 MPV 10.0 Absolute Nucleated RBC 0.000 Nucleated RBC % (auto) 0.0 Sodium 144 Potassium 4.5 Chloride 108 Carbon Dioxide 26 Anion Gap 15 BUN 19 H Creatinine 1.35 Estim Creat Clear Calc 50.1 Estimated GFR 51 Random Glucose 105 Calcium 8.7 Blood Type O Positive Antibody Screen NEGATIVE Progress Note: A&P Assessment and plan (1) Persistent atrial fibrillation: Status: Acute Assessment and Plan: Persistent atrial fibrillation with rate control with development of cardiomyopathy, most likely reason for development of LV systolic dysfunction. However his use of oral anticoagulation is not certain given that he came with significant GI bleed of unclear etiology by endoscopy. He has been cleared to be started on Eliquis therapy for now. Closely follow his hematocrit as an outpatient. I would refer him to Watchman team at [facility] for consultation for possible consideration Watchman device as likelihood of GI bleed related to oral anticoagulation therapy remains without obvious source. Agree with carvedilol as rate control. If rate becomes difficult control can add digoxin. Would avoid Cardizem given his LV systolic dysfunction. May need to pursue rhythm control approach in the future which may be difficult given his significant biatrial enlargement. (2) Cardiomyopathy: Status: Acute Assessment and Plan: Mild cardiomyopathy without any obvious evidence of heart failure. Most likely tachycardia mediated or atrial fibrillation mediated. Continue aggressive rate control. Add Diovan 40 mg to his regimen for neurohormonal modulation as well. Signs and symptoms of heart failure were discussed. Will set up for outpatient follow-up. Will sign of the case at this point time. Will follow as outpatient Time Spent With Patient Time: Total time managing care of this patient today ____ minutes. Progress Note: Quality Stroke Does the patient have a stroke diagnosis?: No Procedures Date of Service Date of Service: 03/19/22
--- NOTE | 2022-03-19 10:24 | PM.PNNEP ---
Subjective Subjective Date of Service: 03/19/22 Principal diagnosis: Atrial fibrillation, cardiomyopathy Interval history: Events noted Physical Exam Vital Signs: Vital Signs: Last Vital Signs Temp 98.6 F 03/19/22 08:00 Pulse 93 03/19/22 08:00 Resp 12 03/19/22 08:00 BP 122/88 03/19/22 08:00 Pulse Ox 96 03/19/22 08:00 O2 Del Method 03/19/22 08:00 O2 Flow Rate 2 03/15/22 15:37 BMI result Body Mass Index 27.4 Const: General: no acute distress Orientation/consciousness: patient oriented x3 HEENT: Head: Yes normocephalic and Yes atraumatic Eyes: EOM: EOMs intact bilaterally Neck: Neck: Yes supple Resp: Auscultation: clear to auscultation bilaterally and diminished lung sounds Cardio: Heart sounds: S1 normal heart sound present and S2 normal heart sound present GI: Palpation (GI): Soft to palpation and nontender Neuro: General: patient oriented x3 and moves all extremities Extrem: General: Yes no pedal edema Objective Data Labs 03/19/22 05:58 03/19/22 05:58 Labs: Laboratory Results - last 24 hr 03/18/22 03/19/22 03/19/22 14:41 05:58 05:58 WBC 7.4 RBC 3.07 L Hgb 9.3 L Hct 29.7 L MCV 96.7 MCH 30.3 MCHC 31.3 RDW 15.8 Plt Count 199 MPV 10.0 Absolute Nucleated RBC 0.000 Nucleated RBC % (auto) 0.0 Sodium 144 Potassium 4.5 Chloride 108 Carbon Dioxide 26 Anion Gap 15 BUN 19 H Creatinine 1.35 Estim Creat Clear Calc 50.1 Estimated GFR 51 Random Glucose 105 Calcium 8.7 Blood Type O Positive Antibody Screen NEGATIVE Microbiology Microbiology Results: Microbiology 03/14/22 Unknown Urine Catheterized - Straight Catheter Urine Culture - Final No growth. Procedures Date of Service Date of Service: 03/19/22 Assessment & Plan Assessment and plan (1) Obstructive uropathy: Status: Acute Plan kidney function improving ADE due to obstructive uropathy bladder outlet obstruction due to urethral stricture seen by urology anemia requiring blood transfusion r/o paraproteinemia serum immunofixation pending scheduled for colonoscopy Time Spent With Patient Time: Total time managing care of this patient today ____ minutes. Progress Note: Quality Stroke Does the patient have a stroke diagnosis?: No
--- NOTE | 2022-03-19 11:08 | P.PNIM_ITS ---
Subjective Subjective Date of Service: 03/19/22 Interval History: Seen and evaluated this morning Hb stable, no major drop post transfusion Afib w RvR better controlled Cr trending down denies chest pain, heaviness or SOB No other overnight events Physical Exam Vital Signs: Vital Signs: Last Vital Signs Temp 98.6 F 03/19/22 08:00 Pulse 93 03/19/22 08:00 Resp 12 03/19/22 08:00 BP 122/88 03/19/22 08:00 Pulse Ox 96 03/19/22 08:00 O2 Del Method 03/19/22 08:00 O2 Flow Rate 2 03/15/22 15:37 BMI result Body Mass Index 27.4 Const: Other: Constitutional : Awake, interactive, not in distress Neck : Normal inspection, Supple Cardiovascular : Irregular irregular, no JVP, trace lower extremity edema Respiratory : Fair bilateral air entry, no crackles, wheezes or rhonchi Gastrointestinal: soft, lax, Normal bowel sounds, Non tender Skin : Warm, Dry Urology: Oconnell cath in place Neurological : Alert & oriented x3, No focal deficit Objective Data Active Medications Acetaminophen (Acetaminophen 325 Mg Tablet) 650 mg PO Q6H PRN PRN Reason: Pain, Mild (Pain Scale 1-3) Last Admin: 03/17/22 08:10 Dose: 650 mg Documented By: VASHTI Allopurinol (Allopurinol 100 Mg Tablet) 100 mg PO DAILY COUNT INCLUDES THE [facility] Last Admin: 03/19/22 09:53 Dose: 100 mg Documented By: ESTELA Apixaban (Apixaban 5 Mg Tablet) 5 mg PO BID COUNT INCLUDES THE [facility] Last Admin: 03/19/22 10:03 Dose: 5 mg Documented By: ESTELA Atorvastatin Calcium (Atorvastatin Calcium 20 Mg Tablet) 20 mg PO BEDTIME COUNT INCLUDES THE [facility] Last Admin: 03/18/22 20:23 Dose: 20 mg Documented By: MAL Carvedilol (Carvedilol 12.5 Mg Tablet) 37.5 mg PO BID COUNT INCLUDES THE [facility]; Protocol Last Admin: 03/19/22 09:56 Dose: 37.5 mg Documented By: ESTELA Docusate Sodium (Docusate Sodium 100 Mg Capsule) 100 mg PO DAILY PRN PRN Reason: Constipation Fentanyl (Fentanyl Citrate/Pf 100 Mcg/2 Ml Vial) 25 mcg IVPUSH Q5M PRN; Protocol PRN Reason: Pain, Moderate (Pain Scale 4-6 Gabapentin (Gabapentin 600 Mg Tablet) 300 mg PO BEDTIME COUNT INCLUDES THE [facility] Last Admin: 03/18/22 20:23 Dose: 300 mg Documented By: MAL Melatonin (Melatonin 3 Mg Tablet) 6 mg PO BEDTIME COUNT INCLUDES THE [facility] Last Admin: 03/18/22 20:22 Dose: 6 mg Documented By: MAL Omeprazole (Omeprazole 20 Mg Capsule.Dr) 20 mg PO DAILY@0630 COUNT INCLUDES THE [facility] Last Admin: 03/19/22 05:22 Dose: 20 mg Documented By: MARIBEL Ondansetron HCl (Ondansetron Hcl 4 Mg/2 Ml Vial) 4 mg IVPUSH Q8H PRN PRN Reason: Nausea and Vomiting Pharmacy Consult (Consult Rx Perform Med Rec) 1 each MISCELLANE ONCE PRN PRN Reason: Consult order Potassium Chloride (Potassium Chloride Er 20 Meq Tab.Er.Prt) 20 meq PO DAILY COUNT INCLUDES THE [facility] Last Admin: 03/19/22 09:53 Dose: 20 meq Documented By: ESTELA Sodium Chloride (0.9 % Sodium Chloride Flush 3 Ml Syringe) [facility] Last Admin: 03/19/22 09:57 Dose: 3 ml Documented By: ESTELA Tamsulosin HCl (Tamsulosin Hcl 0.4 Mg Capsule) 0.4 mg PO BEDTIME COUNT INCLUDES THE [facility] Last Admin: 03/18/22 20:23 Dose: 0.4 mg Documented By: MAL Trazodone HCl (Trazodone Hcl 50 Mg Tablet) 50 mg PO BEDTIME COUNT INCLUDES THE [facility] Last Admin: 03/18/22 20:23 Dose: 50 mg Documented By: MAL Labs 03/19/22 05:58 03/19/22 05:58 Labs: Laboratory Results - last 24 hr 03/18/22 03/19/22 03/19/22 14:41 05:58 05:58 MCV 96.7 MCH 30.3 MCHC 31.3 RDW 15.8 Plt Count 199 MPV 10.0 Absolute Nucleated RBC 0.000 Nucleated RBC % (auto) 0.0 Anion Gap 15 Estim Creat Clear Calc 50.1 Estimated GFR 51 Random Glucose 105 Calcium 8.7 Blood Type O Positive Antibody Screen NEGATIVE Assessment and Plan (1) Cardiomyopathy: Status: Acute (2) Atrial fibrillation with rapid ventricular response: Status: Acute (3) Symptomatic anemia: Status: Acute Plan Pt is a 81-year-old male with a PMH significant for persistent afib on Eliquis, restless leg syndrome, HLD, gout, and?prostate cancer treated with radiation in 2005 who presents to the ED with?weakness and recent syncopal episode. Patient was found to have hydronephrosis, hydroureter, positive UTI, anemia, and acute CHF. Patient will be admitted to the hospital for additional workup and treatment for anemia, acute CHF, UTI, and possible bladder obstruction. Symptomatic Acute on chronic anemia, Etiology unclear Hb improved to 9 post total of 4 units transfusion Low iron levels EGD & Colonoscopy showed gastritis and multiple polyps with no bleeding PPI follow H&H after restarting Eliquis Chronic AFib w RvR Eliquis restarted Increased Carvedilol dosage consider Digoxin if not well controlled per Cardiology Acute diastolic CHF exacerbation secondary to anemia improved after transfusion Follow lytes, MG, I/O Echocardiogram EF 40-45% hold Lasix per cardiology Continue to monitor the need of diuresis Syncopal episode Likely secondary to CHF and anemia CT of head clear PT eval Incontinence of urine 2/2 retention ADE on CKD stage 3 Cr trending down to baseline CT shows prominent bilateral hydronephrosis and hydroureter with outlet obstruction, URology placed Oconnlel Nephrology following Monitor BMP Oconnell catheter placed by Urology UTI UA positive for UTI finished 5 days of Abx Insomnia Trazodone 50mg at nighttime Gout Continue home meds HLD Continue home meds DVT Prophylaxis: Eliquis held, on SCDs Pt will require inpatient hospital stay overnight for monitorting of Afib w RvR, Hb after restarting blood thinners. Time Spent With Patient Time: Total time managing care of this patient today ____ minutes. Quality Stroke Does the patient have a stroke diagnosis?: No VTE Prior VTE?: No VTE Risk Level:: Medical - moderate - high VTE Device Contraindication: Treatment Not Indicated VTE Drug Contraindication: N/A - Med Ordered
--- NOTE | 2022-03-19 11:28 | PM.GIPN ---
Subjective Subjective Date of Service: 03/19/22 Interval History: had bowel movement this am, no bleeding restarted anticoagualtion Critical Care Time (minutes): 0 Physical Exam Vital Signs: Vital Signs: Last Vital Signs Temp 98.8 F 03/19/22 11:18 Pulse 91 03/19/22 11:18 Resp 14 03/19/22 11:18 BP 123/65 03/19/22 11:18 Pulse Ox 97 03/19/22 11:18 O2 Del Method 03/19/22 11:18 O2 Flow Rate 2 03/15/22 15:37 BMI result Body Mass Index 27.4 GI: Other: abdomen is soft and nontender Objective Data Labs 03/19/22 05:58 03/19/22 05:58 Labs: Laboratory Results - last 24 hr 03/18/22 03/19/22 03/19/22 14:41 05:58 05:58 WBC 7.4 RBC 3.07 L Hgb 9.3 L Hct 29.7 L MCV 96.7 MCH 30.3 MCHC 31.3 RDW 15.8 Plt Count 199 MPV 10.0 Absolute Nucleated RBC 0.000 Nucleated RBC % (auto) 0.0 Sodium 144 Potassium 4.5 Chloride 108 Carbon Dioxide 26 Anion Gap 15 BUN 19 H Creatinine 1.35 Estim Creat Clear Calc 50.1 Estimated GFR 51 Random Glucose 105 Calcium 8.7 Blood Type O Positive Antibody Screen NEGATIVE Microbiology Microbiology Results: Microbiology 03/14/22 Unknown Urine Catheterized - Straight Catheter Urine Culture - Final No growth. Procedures Date of Service Date of Service: 03/19/22 Progress Note: A&P Assessment and plan (1) Symptomatic anemia: Status: Acute Assessment and Plan: discussed egd/colon findings with Mr Sommers and his daughter recommend continue ppi f/u bx results monitor hct. Time Spent With Patient Time: Total time managing care of this patient today ____ minutes. Quality Stroke Does the patient have a stroke diagnosis?: No VTE Prior VTE?: No VTE Risk Level:: Medical - moderate - high VTE Device Contraindication: Treatment Not Indicated VTE Drug Contraindication: N/A - Med Ordered
--- NOTE | 2022-03-19 14:19 | HO.POSTANES ---
Post Anesthesia Evaluation Post Anesthesia Evaluation Vital Signs: Vital Signs Temp Pulse Resp BP Pulse Ox O2 Del Method 03/19/22 11:18 98.8 F 91 14 123/65 97 Room Air 03/19/22 08:00 98.6 F 93 12 122/88 96 Room Air 03/19/22 04:00 97.5 F 98 126/61 97 Room Air Anesthesia: Monitored Mental Status: Awake Pain Control: Satisfactory Nausea/Vomiting: None Hydration: Adequate Anesthesia-Related Issues: No Anes. Related Issues
[2022-03-19 15:17] LABS: IgA 375 mg/dL (70-320); IgG 993 mg/dL (600-1540); IgM 65 mg/dL (50-300)
[2022-03-19] MEDS: Acetaminophen 325 MG TABLET 650 MG PO (18:54)
[2022-03-19] MEDS: traZODone HCL 50 MG TABLET PO (20:13)
[2022-03-19] MEDS: Atorvastatin Calcium 20 MG TABLET PO (20:13)
[2022-03-19] MEDS: Tamsulosin HCL 0.4 MG CAPSULE PO (20:13)
[2022-03-19] MEDS: traMADoL HCL 50 MG TABLET PO (20:14)
[2022-03-19] MEDS: Melatonin 3 MG TABLET 6 MG PO (20:14)
[2022-03-19] MEDS: Gabapentin 600 MG TABLET 300 MG PO (20:14)
[2022-03-19] MEDS: Morphine Sulfate 2 MG/ML CARTRIDGE 1 MG IVPUSH (22:32)
[2022-03-20] MEDS: 0.9 % Sodium Chloride Flush 3 ML SYRINGE IVFLUSH ×2 (00:05→07:38)
[2022-03-20 02:53] VITALS: BP 125/71; PULSE 85; RESP 20; TEMP 36.3; O2SAT 96
[2022-03-20] MEDS: Omeprazole 20 MG CAPSULE.DR PO (05:56)
[2022-03-20 06:07] LABS: Hematocrit 30.5 % (42.0-52.0); Hemoglobin 9.5 g/dl (14.0-18.0); Mean Corpuscular HGB Conc 31.1 g/dl (31.0-36.0); Mean Corpuscular Hemoglobin 30.8 pg (27.0-33.0); Platelet Count 197 X10*3/uL (160-400); Red Blood Count 3.08 X10*6/uL (4.60-5.80); Red Cell Distribution Width 15.5 % (11.0-16.0); White Blood Count 7.3 X10*3/uL (4.8-10.8)
[2022-03-20 06:30] LABS: Anion Gap 11 (12-20); Blood Urea Nitrogen 17 mg/dL (9-16); Calcium 8.7 mg/dL (8.4-10.2); Carbon Dioxide 28 mmol/L (22-29); Chloride 107 mmol/L (96-108); Creatinine Clr Calc Pharmacy 54.5; Estimated Glomerular Filt Rate 56; Glucose Random 112 mg/dL (60-115); Sodium 142 mmol/L (135-145)
[2022-03-20 07:13] VITALS: BP 135/75; PULSE 95; RESP 18; TEMP 36.4; O2SAT 98
[2022-03-20] MEDS: Potassium Chloride ER 20 MEQ TAB.ER.PRT PO (07:37)
[2022-03-20] MEDS: Apixaban 5 MG TABLET PO (07:37)
[2022-03-20] MEDS: carvediloL 12.5 MG TABLET 37.5 MG PO (07:38)
[2022-03-20] MEDS: allopurinoL 100 MG TABLET PO (07:38)
[2022-03-20] MEDS: Valsartan 40 MG TABLET PO (09:28)
--- NOTE | 2022-03-20 10:15 | P.DS_ITS ---
DS: Providers Provider Date of Service: 03/20/22 Date of admission: 03/13/22 20:02 Primary care physician: Teddy Pabon MD Consults: 03/13/22 18:50 Consult to Cardiology Routine Consulting Provider: Rafi Hood Reason for consultation: new onset heart failure 03/13/22 21:59 Consult to Nephrology Routine Consulting Provider: Dariusz Hardwick Reason for consultation: ADE since January Has provider been notified: No Consult to Urology Routine Consulting Provider: Frances Dasilva Reason for consultation: Hydronephrosis and hydroureter, possible obstruction Has provider been notified: No 03/14/22 08:23 Consult to Gastroenterology Routine Consulting Provider: Jerry Mcdaniels Reason for consultation: symptomatic anemia, for EGD\Colonoscopy 03/18/22 08:42 Consult to Cardiology Stat Consulting Provider: Rafi Hood Reason for consultation: pt episodes of Vtach overnight, needs pre-op clearance. Has provider been notified: Yes DS: Diagnosis Discharge Diagnosis (1) Symptomatic anemia: Status: Acute DS: Summary Hospital Course Hospital Course: from initial hpi: Chief Complaint: Weakness Pt is a 81-year-old male with a PMH significant for persistent afib on Eliquis, restless leg syndrome, HLD, gout, and?prostate cancer treated with radiation in 2005 who presents to the ED with?weakness and recent syncopal episode. Pt states he was climing the stairs earlier today and became lightheaded when he reached the top and blacked out. Denies headstrike. Since the beginning of January the pt has been experiencing a number of medical issues: worsening anemia, iron levels, and weakness. Pt also became incontinent of urine, especially at night when in deep sleep, and developed an DAE. Pt notes he's been anorexic (eating maybe one meal a day), unable to sleep, and has lost 8-10 pounds during this time. Pt's INR, which has been stable for years, suddenly increased and was started on Eliquis. He has developed intermittent headaches in the past few weeks, noticed swelling in his lower legs and feet 2-3 days ago, and become increasingly SOB with exertion.? Patient denies hematochezia, melena, hematuria.? Denies abdominal pain.? No chest pain/pressure, palpitations. Of note, pt has been seeing his PCP Dr. Gibbons for his anemia workup, who has so far not found a cause, and was scheduled to meet with Dr. Mcdaniels from GI tomorrow. In the ED patient was found to be afebrile, tachycardic and tachypneic. Labs were significant for H&H of 6.6/21.5, MCV 100.5, reticulocyte percentage 4.2, immature reticulocyte fraction of 27.4, creatinine of 1.59, elevated BNP of 477.? Stool occult blood still pending.? UA was hazy with a 3+ blood, positive nitrates, 3+ leukocyte esterase, greater than 20 RBCs, greater than [address]?of head showed no intracranial hemorrhage or calvarial fracture.? CT of the abdomen and pelvis found patchy ground-glass airspace disease more prominent on the right with peribronchial cuffing and thickening and small bilateral pleural effusions.? It also found prominent bilateral hydronephrosis and hydroureter extending all the way up to the dilated bladder with a suspicion of bladder outlet obstruction.? EKG showed atrial fibrillation without any evidence of acute ischemia.? Pt was treated with 2 units of packed RBC, 2 doses of furosemide 80 mg IV, metoprolol 5 mg IV, and carvedilol 25 mg, and a [place] catheter was placed. Pt will be admitted to the hospital for further workup and treatment of congestive heart failure likely secondary to anemia. hospital course: Patient was admitted for symptomatic acute on chronic anemia. His hemoglobin improved after total 4 units transfusion. Was noted to have iron deficiency. He underwent EGD and colonoscopy which showed gastritis and multiple polyps but no bleeding and unclear source of blood loss. Recommendations were for PPI, hemoglobin remained stable on Eliquis. He will follow up outpatient for possible capsule endoscopy. Course was complicated by chronic atrial f ibrillation with rapid ventricular response. His carvedilol was increased to 37.5 mg b.i.d.. Heart rate became better controlled. Course was also complicated by acute on chronic systolic CHF. Patient now euvolemic. He will be discharged on carvedilol, valsartan, and follow-up with Cardiology. Patient also presented with acute kidney injury on CKD 3, mostly due to urinary obstruction, bilateral hydronephrosis. Multani catheter was placed by Urology and will be maintained on discharge, patient will follow up with Urology as outpatient. Creatinine returned to baseline. For urinary tract infection patient completed 5 days of antibiotics. For hyperlipidemia is continue on statin. For gout is continued on allopurinol. Patient is feeling better will be discharged home. Time Spent with Patient Time attestation: Total time managing care of this patient today ____ minutes. Discharge coordination time: Greater than 30 minutes Quality: Safe Use of Opioids Does Pt have an Active Cancer Diagnosis on the Problem List?: No Quality: Stroke Does the patient have a stroke diagnosis?: No Physical Exam Vital Signs: Vital Signs: Last Vital Signs Temp 97.6 F 03/20/22 07:13 Pulse 95 03/20/22 07:13 Resp 18 03/20/22 07:13 BP 135/75 03/20/22 07:13 Pulse Ox 98 03/20/22 07:13 O2 Del Method 03/20/22 07:13 O2 Flow Rate 2 03/15/22 15:37 BMI result Body Mass Index 27.4 General: AO X 3, no acute distress Resp: CTA bilateral, no accessory muscles used CVS: S1,S2 irregular GI: soft, non tender, non distended Neuro: motor grossly intact, alert Psych: appropriate affect, appropriate insight DS: Data Data Completed and Pending Pending studies at discharge: Pending at discharge 03/18/22 15:07 Surgical [PTH] Routine Labs on day of discharge: Laboratory Results - last 24 hr 03/15/22 03/20/22 03/20/22 05:45 05:33 05:33 WBC 7.3 RBC 3.08 L Hgb 9.5 L Hct 30.5 L MCV 99.0 H MCH 30.8 MCHC 31.1 RDW 15.5 Plt Count 197 MPV 10.0 Absolute Nucleated RBC 0.000 Nucleated RBC % (auto) 0.0 Sodium 142 Potassium 4.0 Chloride 107 Carbon Dioxide 28 Anion Gap 11 L BUN 17 H Creatinine 1.24 Estim Creat Clear Calc 54.5 Estimated GFR 56 Random Glucose 112 Calcium 8.7 IgG Total 993 IgA Total 375 H IgM 65 DARBY Interpretation Discharge Plan Discharge Anticipated Discharge Date/Time: 03/20/22 10:06 Patient Disposition: Home Health Service Discharge Diagnosis: afib, anemia, cardiomyopathy, ade, hydronephrosis Referrals: Rosendo Madsen MD [Physician] - 1 Week Jerry Mcdaniels [Physician] - 1 Week Dariusz Hardwick MD [Physician] - 1 Week Teddy Pabon MD [Primary Care Provider] - 1 Week Discharge Medications: New Eliquis 5 mg Tablet 5 mg PO BID Qty: 0 0RF carvedilol 12.5 mg Tablet 37.5 mg PO BID Qty: 6 0RF Protocol: Hold for SBP/HR < HOLD for SBP < : 90 HOLD for HR < : 60 omeprazole 20 mg Capsule,Delayed Release(Dr/Ec) 20 mg PO DAILY@0630 Qty: 30 0RF valsartan 40 mg Tablet 40 mg PO DAILY Qty: 30 0RF Protocol: Hold for SBP< HOLD for SBP < : 90 Continued gabapentin 600 mg tablet 1 tab PO BEDTIME simvastatin 40 mg tablet 1 tab PO BEDTIME allopurinol 300 mg tablet 1 tab PO DAILY alfuzosin 10 mg tablet extended release 24 hr 1 tab PO BEDTIME potassium chloride 20 mEq tablet extended release 1 tab PO DAILY ferrous sulfate 325 mg (65 mg iron) Tablet 975 mg PO DAILY vitamin B complex Tablet 1 tab PO DAILY magnesium 250 mg Tablet 250 mg PO DAILY Discontinued carvedilol 25 mg tablet 1 tab PO BID Eliquis 2.5 mg tablet 1 tab PO BID Discharge Orders: Discharge Order (Routine); Ordered 03/20/22 Ordered By: Luke Wood Diet: Advance to usual diet Activity on Discharge: As tolerated Stand Alone Forms: Patient Portal Discharge page Care Plan Goals: manage hydronephrosis, cardiomyopathy, afib, work up anemia Health Concerns: hydronephrosis, cardiomyopathy, afib, anemia Plan of Treatment: coreg increased to 37.5 bid, eliquis increased to 5mg bid, started on valsartan and omeprazole, keep multani until seen by urology, follow up with gi for possible camera pill and pathology results, follow up with nephrology and cardiology Assessment: see above
--- NOTE | 2022-03-20 10:15 | P.F2F_ITS ---
Service Date Service Date: 03/20/22 Encounter Date of encounter: 03/20/22 Reasons for Services Signs and symptoms assessed: weakness, sob on exertion Reason for group home: medication management, medication treatment, teach disease management and GI/ assessment Homebound: Leaving the home is medically contraindicated at this time without the asist of a device and/or another person due th the listed conditions above and below. Reason homebound: unsteady gait / fall risk Certification: Based on the above findings, I certify that this patient is confined to the home and needs intermittent group home care, physical therapy and/or speech therapy, or continues to need occupational therapy. The patient is under my care, and I have initiated the establishment of the plan of care. The patient will be followed by a physician who will periodically review the plan of care. Time Spent With Patient Time: Total time managing care of this patient today ____ minutes.
--- NOTE | 2022-03-20 10:37 | PM.PNNEP ---
Subjective Subjective Date of Service: 04/08/22 Principal diagnosis: Atrial fibrillation, cardiomyopathy Interval history: Events noted Cr trending down Physical Exam Vital Signs: Vital Signs: Last Vital Signs Temp 97.6 F 03/20/22 07:13 Pulse 95 03/20/22 07:13 Resp 18 03/20/22 07:13 BP 135/75 03/20/22 07:13 Pulse Ox 98 03/20/22 07:13 O2 Del Method 03/20/22 07:13 O2 Flow Rate 2 03/15/22 15:37 BMI result Body Mass Index 27.4 Const: General: no acute distress Orientation/consciousness: patient oriented x3 HEENT: Head: Yes normocephalic and Yes atraumatic Eyes: EOM: EOMs intact bilaterally Neck: Neck: Yes supple Resp: Auscultation: clear to auscultation bilaterally and diminished lung sounds Cardio: Heart sounds: S1 normal heart sound present and S2 normal heart sound present GI: Palpation (GI): Soft to palpation and nontender Neuro: General: patient oriented x3 and moves all extremities Extrem: General: Yes no pedal edema Objective Data Labs 03/20/22 05:33 03/20/22 05:33 Labs: Laboratory Results - last 24 hr 03/15/22 03/20/22 03/20/22 05:45 05:33 05:33 WBC 7.3 RBC 3.08 L Hgb 9.5 L Hct 30.5 L MCV 99.0 H MCH 30.8 MCHC 31.1 RDW 15.5 Plt Count 197 MPV 10.0 Absolute Nucleated RBC 0.000 Nucleated RBC % (auto) 0.0 Sodium 142 Potassium 4.0 Chloride 107 Carbon Dioxide 28 Anion Gap 11 L BUN 17 H Creatinine 1.24 Estim Creat Clear Calc 54.5 Estimated GFR 56 Random Glucose 112 Calcium 8.7 IgG Total 993 IgA Total 375 H IgM 65 DARBY Interpretation Microbiology Microbiology Results: Microbiology 03/14/22 Unknown Urine Catheterized - Straight Catheter Urine Culture - Final No growth. Procedures Date of Service Date of Service: 03/20/22 Assessment & Plan Assessment and plan (1) Obstructive uropathy: Status: Inactive Plan kidney function improving ADE due to obstructive uropathy bladder outlet obstruction due to urethral stricture seen by urology anemia requiring blood transfusion r/o paraproteinemia serum immunofixation pending Will arrange OP follow up Time Spent With Patient Time: Total time managing care of this patient today ____ minutes. Progress Note: Quality Stroke Does the patient have a stroke diagnosis?: No
== END 2022-03-20 12:00 | disposition home health service (06) | DRG 811 ==
LOC: HO.ED 17:59 → HO.EDOVER 20:09 → HO.IMC 03-14 15:10
PROVIDERS: Internal Medicine; Internal Medicine Gastroenterology; Internal Medicine Nephrology; Student in an Organized Health Care Education/Training Program; Urology; Admitting Provider Student in an Organized Health Care Education/Training Program; Emergency Provider Student in an Organized Health Care Education/Training Program; PCP Family Medicine; Visit Provider Internal Medicine
PROC: 0T7D8ZZ Dilation of Urethra, Via Natural or Artificial Opening Endoscopic (ICD-10-PCS; principal; 2022-03-14 16:00)
DX: D50.9 Iron deficiency anemia, unspecified (principal); I50.33 Acute on chronic diastolic (congestive) heart failure; N13.6 Pyonephrosis; N13.8 Other obstructive and reflux uropathy; I47.20 Ventricular tachycardia, unspecified; I48.19 Other persistent atrial fibrillation; I42.9 Cardiomyopathy, unspecified; N17.9 Acute kidney failure, unspecified; G47.00 Insomnia, unspecified; D89.2 Hypergammaglobulinemia, unspecified; N40.1 Benign prostatic hyperplasia with lower urinary tract symptoms; N18.30 Chronic kidney disease, stage 3 unspecified; D63.1 Anemia in chronic kidney disease; N35.912 Unspecified bulbous urethral stricture, male; K63.5 Polyp of colon; R33.8 Other retention of urine; K29.70 Gastritis, unspecified, without bleeding; K57.30 Diverticulosis of large intestine without perforation or abscess without bleeding; M10.9 Gout, unspecified; G25.81 Restless legs syndrome; E78.5 Hyperlipidemia, unspecified; Z20.822 Contact with and (suspected) exposure to COVID-19; Z98.0 Intestinal bypass and anastomosis status; Z85.46 Personal history of malignant neoplasm of prostate; Z92.3 Personal history of irradiation; Z79.899 Other long term (current) drug therapy
CPT/HCPCS: 36415; 70450; 71250; 74176; 80048; 80053; 81001; 82272; 82607; 82746; 82784; 83540; 83615; 83735; 83880; 84484; 85014; 85018; 85025; 85027; 85045; 85610; 86334; 86850; 86900; 86901; 86923; 87086; 87502; 87635; 88305; 88342; 93005; 93306; 99285; C1758; C1769; J0690; J0696; J1170; J1940; J1956; J2270; J2370; J2405; J3010; J3430; J3475; P9016; Q9957; Q9967

== ENCOUNTER → 2022-03-22 07:27 | Outpatient (REF) | payer MEDICARE, SELFPAY ==
--- NOTE | 2022-03-22 07:31 | HM_ITS ---
Conclusion: 1. Patient was monitored for total period of 3 days 2. Baseline was atrial fibrillation with average heart of 81 beats per minute with good heart rate control 3. No significant pauses or bradycardia noted 4. Total of 7884 PVCs accounting for 2.2% of total beats account for frequent PVCs 5. Total 7 runs of nonsustained VT, fastest at 164 beats per minute and longest 4 beats 6. Patient reported to events of palpitation that correlated with atrial fibrillation with controlled rate MTDD
== END ==
LOC: HO.CARD 07:27
PROVIDERS: Visit Provider Internal Medicine Cardiovascular Disease
DX: I42.9 Cardiomyopathy, unspecified (principal); I48.91 Unspecified atrial fibrillation
CPT/HCPCS: 93242

== ENCOUNTER 2022-03-26 15:31 | Outpatient (REF) | payer MEDICARE, SELFPAY ==
[2022-03-26 16:15] LABS: MANUAL DIFF FLAG NO
[2022-03-26 16:30] LABS: Basophils Percent Auto 0.4 % (0-2); Eosinophils Absolute Auto 0.3 X10*3/uL (0.0-0.4); Eosinophils Percent Auto 3.6 % (0-4); Hematocrit 30.3 % (42.0-52.0); Hemoglobin 9.6 g/dl (14.0-18.0); Imm Gran Abs Auto 0.05 X10*3/uL (0.00-0.03); Imm Gran Pct Auto 0.7 % (0.0-0.4); Immature Retic Fraction 25.2 % (2.3-13.4); Lymphocytes Absolute Auto 2.4 X10*3/uL (1.2-4.9); Lymphocytes Percent Auto 32.6 % (20-40); Mean Corpuscular HGB Conc 31.7 g/dl (31.0-36.0); Mean Corpuscular Hemoglobin 31.2 pg (27.0-33.0); Mean Corpuscular Volume 98.4 fL (80.0-98.0); Mean Platelet Volume 10.8 fL (9.4-12.4); Monocytes Absolute Auto 0.5 X10*3/uL (0.1-1.2); Monocytes Percent Auto 6.3 % (2-11); Neutrophils Absolute Auto 4.1 x10*3/uL (2.0-8.3); Neutrophils Percent Auto 56.4 % (45-73); Platelet Count 225 X10*3/uL (160-400); Red Blood Count 3.08 X10*6/uL (4.60-5.80); Retic HGB Equivalent 36.5 pg (30.0-35.0); Reticulocyte Percent 2.3 % (0.5-1.8); Reticulocytes Absolute 0.072 X10*6/uL (0.026-0.095); White Blood Count 7.3 X10*3/uL (4.8-10.8)
[2022-03-26 17:04] LABS: C Reactive Protein 0.54 mg/dL (< or = 0.50); Iron 53 mcg/dL (45-160); Percent Iron Saturation 23 % (15-50); Total Iron Binding Capacity 229 mcg/dL (228-428); Unsaturated Iron Binding 176 ug/dL; Uric Acid 4.1 mg/dL (3.4-7.0)
[2022-03-26 17:11] LABS: Erythrocyte Sedimentation Rate 70 MM/HR (0-15)
[2022-03-26 17:18] LABS: Ferritin 661 ng/mL (20-250)
[2022-03-27 08:37] LABS: HIV AB/AG Nonreactive (Nonreactive); HIV Num 1 0.06 S/CO (0.00-0.99)
[2022-03-28 14:19] LABS: Beta-2 Microglobulin, Serum 4.51 mg/L (< OR = 2.51)
[2022-03-28 14:38] LABS: Anti Nuclear Antibody Screen NEGATIVE (NEGATIVE)
== END 2022-03-26 15:32 | disposition home or self-care (01) ==
LOC: HO.LAB 15:31
PROVIDERS: PCP Family Medicine; Visit Provider Family Medicine
DX: D50.9 Iron deficiency anemia, unspecified (principal); R53.1 Weakness
CPT/HCPCS: 36415; 82232; 82728; 83540; 84550; 85025; 85045; 85652; 86038; 86039; 86140; 87389; 88184; 88185

== ENCOUNTER → 2022-03-28 09:43 | Outpatient (BNVA) | payer MEDICARE, SELFPAY | PROVIDERS: PCP Family Medicine; Visit Provider Urology | DX: C61 Malignant neoplasm of prostate (principal) | CPT/HCPCS: 51700; 51702; 99212 ==

== ENCOUNTER 2022-03-31 18:12 | Inpatient (IN) | payer MEDICARE, SELFPAY ==
--- NOTE | 2022-03-31 | ECG_ITS ---
Test Reason : tachy Blood Pressure : / mmHG Vent. Rate : 117 BPM Atrial Rate : 000 BPM P-R Int : 000 ms QRS Dur : 110 ms QT Int : 350 ms P-R-T Axes : 000 082 -19 degrees QTc Int : 488 ms Atrial fibrillation with rapid ventricular response with premature ventricular or aberrantly conducted complexes Low voltage QRS Septal infarct (cited on or before 13-MAR-2022) Abnormal ECG When compared with ECG of 13-MAR-2022 21:59, Questionable change in initial forces of Septal leads Referred By: Isaac Stiles Electronically Signed By:Rafi Hood
--- NOTE | ~2022-03-31 | XR_ITS ---
EXAMINATION: XR CHEST CLINICAL INFORMATION: Follow-up abnormal chest radiograph COMPARISON: Chest radiograph and CT chest 03/31/2022 TECHNIQUE: 2 views of the chest were obtained. FINDINGS: Compared to the study from a few days ago, findings are unchanged. The lungs are better expanded and right mid to lower lung infiltrates are again seen and unchanged. Heart size is borderline. There is no upper zone redistribution. There are no pleural effusions. XR/XR chest 2V IMPRESSION: Unchanged right mid to lower lung infiltrates. No evidence of CHF
--- NOTE | ~2022-03-31 | CT_ITS ---
EXAMINATION: CT CHEST WITHOUT CONTRAST CLINICAL INFORMATION: Evaluate pneumonia versus alveolar edema COMPARISON: Chest CT 03/13/2022 TECHNIQUE: Multidetector volumetric CT imaging of the chest was done. Axial MIP volume rendering provided. Sagittal and coronal reformatted images were obtained. This CT examination was performed using dose optimization techniques as appropriate, variously including the following: *Automated exposure control *Adjustment of mA and/or kV according to patient size (this includes techniques or standardized protocols for targeted exams where dose is matched to indication/reason for exam; i.e. extremities or head) *Use of iterative reconstruction technique DLP: 313 mGy-cm FINDINGS: LUNGS: Interlobular septal thickening or pronounced in the right lung relative to the left. Accompanying areas of hazy groundglass opacity in the right middle and lower lobes. Additionally, there are some patchy nodular consolidative opacities in the right middle lobe small ill-defined centrilobular and tree-in-bud nodules in the right lung. No suspicious appearing pulmonary nodule. Small amount of fluid dependent secretions or debris within the trachea and mainstem bronchi and bronchus intermedius. Mild bronchial wall thickening. MEDIASTINUM: Mild biatrial enlargement. No pericardial effusion. LAD and left circumflex coronary artery vascular calcifications. Normal caliber thoracic aorta. Nondilated central pulmonary trunk. No mediastinal or hilar lymphadenopathy by size criteria. CORONARY ARTERY CALCIFICATION: Present, as above. PLEURA: No pleural effusions. No pneumothorax. AXILLA: No lymphadenopathy. UPPER ABDOMEN: Small calcified gallstone. 2.3 cm exophytic right upper pole renal lesion, likely a cyst. Symmetric perirenal fascial stranding, nonspecific finding. Visualized upper abdominal viscera otherwise unremarkable.. OSSEOUS STRUCTURES: No acute fracture or suspicious osseous lesion. Mild multilevel degenerative disc disease. CT/CT chest wo IV con IMPRESSION: 1. Interlobular septal thickening in the right lung relative to the left with areas of hazy groundglass opacity in the right middle and lower lobes and small ill-defined centrilobular and tree-in-bud nodules in the right lung. Findings are without entirely specific and may be due to asymmetric pulmonary edema or atypical infectious process. 2. No pleural effusions. 3. Small amount of secretions or aspirated debris within the trachea and mainstem bronchi and bronchus intermedius.
--- NOTE | ~2022-03-31 | XR_ITS ---
EXAMINATION: XR CHEST CLINICAL INFORMATION: CHF COMPARISON: Chest x-ray 02/28/2019 TECHNIQUE: Frontal view of the chest was obtained. FINDINGS: Patchy airspace opacity in the right lower lung. No other airspace consolidation. No pleural effusion or pneumothorax identified. Heart size appears at the upper limits of normal. Mediastinal contour otherwise within normal limits. Increased indistinct pulmonary vascular markings primarily in the right lung suggesting mild asymmetric interstitial pulmonary edema. No acute osseous injury identified. XR/XR chest 1V IMPRESSION: 1. Patchy airspace opacity in the right lower lung, which could represent alveolar edema or pneumonia in the appropriate clinical setting. 2. Findings suggesting asymmetric mild interstitial pulmonary edema.
[2022-03-31 18:26] VITALS: BP 142/90; PULSE 120; O2SAT 95; BMI 25.6
[2022-03-31 18:53] VITALS: BP 130/71; PULSE 121; PULSE 133; RESP 16; TEMP 36.8; O2SAT 96
--- NOTE | 2022-03-31 18:58 | ED_ITS ---
HPI - Chest Pain General Chief Complaint: Chest Pain Stated Complaint: PALPITATIONS PER EMS Time Seen by Provider: 03/31/22 18:29 Source: patient Mode of arrival: EMS History of Present Illness HPI narrative: Patient is 81 years old with history of AFib on Eliquis, restless leg syndrome, hyperlipidemia, gout, prostate cancer was admitted here on 03/13 for weakness noted to have ADE, CHF with severe anemia hemoglobin 6.6 requiring 4 units of blood transfusion patient discharged home on 03/20/2022 was feeling good until today morning when started feeling weak when to take shower felt lightheaded with increased palpitation on arrival patient's heart rate was fluctuating between 130-150 no chest pain patient also has poor sleep sleeping only 1 or 2 hours per night with increased shortness of breath saturating 88-90% on 2 L patient also complaining of cough for last few days patient was treated with Levaquin for UTI and lung infiltrate during admission Related Data Home Medications Medication Instructions Recorded Confirmed alfuzosin 10 mg tablet,extended 1 tab PO BEDTIME 03/13/22 04/01/22 release 24 hr allopurinol 300 mg tablet 1 tab PO DAILY 03/13/22 04/01/22 ferrous sulfate 325 mg (65 mg 975 mg PO DAILY 03/13/22 04/01/22 iron) tablet gabapentin 600 mg tablet 1 tab PO BEDTIME 03/13/22 04/01/22 magnesium 250 mg tablet 250 mg PO DAILY 03/13/22 04/01/22 potassium chloride 20 mEq 1 tab PO DAILY 03/13/22 04/01/22 tablet,extended release simvastatin 40 mg tablet 1 tab PO BEDTIME 03/13/22 04/01/22 vitamin B complex 1 tab PO DAILY 03/13/22 04/01/22 lorazepam 0.5 mg tablet 1 tab PO BEDTIME PRN Anxiety 04/01/22 04/01/22 Previous Rx's Medication Instructions Recorded apixaban 5 mg tablet (Eliquis) 5 mg PO BID #0 tabs 03/20/22 omeprazole 20 mg capsule,delayed 20 mg PO DAILY@0630 #30 caps 03/20/22 release valsartan 40 mg tablet 40 mg PO DAILY #30 tabs 03/20/22 carvedilol 25 mg tablet (Coreg) 37.5 mg PO Q12H #90 tabs 03/21/22 Allergies Allergy/AdvReac Type Severity Reaction Status Date / Time No Known Allergies Allergy Unverified 11/18/19 15:22 [No Known Allergies*] Review of Systems Review of Systems: Yes all other systems are reviewed and are negative [facility], [facility] Past Medical History Medical History Afib Anxiety Social History Social History Alcohol intake: current Alcohol intake frequency: 0-2 drinks per day Alcohol type: hard liquor Patient Tobacco Use Status: Current someday Tobacco user Smoked in Last 30 Days: Yes Use of substances other than those prescribed or required for medical reasons: No Advance Directives: No Advance Directives Information Provided: No Nutrition Risks: No Nutritional Risk service: No Current occupational status: retired Physical Exam Vital Signs: Vital Signs: Last Vital Signs Temp 98.6 F 04/01/22 00:24 Pulse 98 04/01/22 00:24 Resp 19 04/01/22 00:24 BP 117/65 04/01/22 00:24 Pulse Ox 94 04/01/22 00:24 O2 Del Method 04/01/22 00:24 BMI result Body Mass Index 25.6 Appearance: Alert. Oriented X3. No acute distress. Eyes: PERRLA, No Nystagmus ENT: Pharynx normal. Oral Mucosa moist Neck: Normal inspection. Neck supple. CVS: Tachycardia irregular irregular heart rate Pulses normal. Respiratory: No respiratory distress. Equal air entry bilateral, no wheezing/rales/rhonchi Abdomen: Soft and nontender. Bowel sounds are present, no mass palpable, no CVA tenderness Skin: Skin warm and dry. Normal skin color. Normal skin turgor. Extremities: No lower extremity edema. No calf tenderness Neuro: Oriented X 3. No motor deficit. No sensory deficit.No cerebellar signs , cranial nerves II-XII intact Medications Administered Discontinued Medications Generic Name Dose Route Start Last Admin Trade Name Freq PRN Reason Stop Dose Admin Diltiazem HCl 10 mg 03/31/22 19:17 03/31/22 19:23 Diltiazem Hcl 50 Mg/10 Ml Vial IVPUSH 03/31/22 19:18 10 mg STAT STA Administration Furosemide 20 mg 03/31/22 21:08 03/31/22 22:08 Furosemide 20 Mg/2 Ml Vial IVPUSH 03/31/22 21:09 20 mg ONCE ONE Administration Protocol Piperacillin Sod/Tazobactam 50 mls @ 100 mls/hr 03/31/22 21:11 04/01/22 00:24 Sod 3.375 gm/ Sodium Chloride IV 03/31/22 21:40 Infused ONCE ONE Infusion Medical Decision Making Medical Decision Making [facility] Narrative: Patient with AFib with fast ventricular rate improved after IV Cardizem, noticed to have elevated WBC count 11.2 with normal lactic acid level CT chest showed right lower lobe infiltrate likely aspiration pneumonia will admit patient for IV antibiotics patient received Cardizem 10 mg IV for the tachycardia and heart rate improved Consult Healthcare Provider Management of the patient was discussed with: Hospitalist Lab Data [facility] Lab Attestation statement: I reviewed the patient's lab results. 03/31/22 19:41 03/31/22 19:41 Labs: Lab Results 03/31/22 03/31/22 03/31/22 Range/Units 19:41 19:41 19:41 WBC 11.2 H (4.8-10.8) X10*3/uL RBC 3.05 L (4.60-5.80) X10*6/uL Hgb 9.4 L (14.0-18.0) g/dl Hct 29.7 L (42.0-52.0) % MCV 97.4 (80.0-98.0) fL MCH 30.8 (27.0-33.0) pg MCHC 31.6 (31.0-36.0) g/dl RDW 16.9 H (11.0-16.0) % Plt Count 205 (160-400) X10*3/uL MPV 9.8 (9.4-12.4) fL Immature Gran % (Auto) 0.4 (0.0-0.4) % Neut % (Auto) 72.1 (45-73) % Lymph % (Auto) 19.4 L (20-40) % [place] % (Auto) 5.7 (2-11) % Eos % (Auto) 2.0 (0-4) % Baso % (Auto) 0.4 (0-2) % Lymph # (Auto) 2.2 (1.2-4.9) X10*3/uL [place] # (Auto) 0.6 (0.1-1.2) X10*3/uL Eos # (Auto) 0.2 (0.0-0.4) X10*3/uL Baso # (Auto) 0.0 (0.0-0.2) X10*3/uL Abs Immat Gran (auto) 0.05 H (0.00-0.03) X10*3/uL Absolute Neuts (auto) 8.1 (2.0-8.3) x10*3/uL Absolute Nucleated RBC 0.000 (0.0-0.012) X10*3/uL Nucleated RBC % (auto) 0.0 (0.0-0.2) /100WBC Sodium 138 (135-145) mmol/L Potassium 4.7 (3.3-5.1) mmol/L Chloride 109 H (96-108) mmol/L Carbon Dioxide 21 L (22-29) mmol/L Anion Gap 13 (12-20) BUN 18 H (9-16) mg/dL Creatinine 1.31 (0.5-1.4) mg/dL Estim Creat Clear Calc 50.1 Estimated GFR 53 Random Glucose 112 (60-115) mg/dL Lactic Acid (0.5-2.0) mmol/L Calcium 8.7 (8.4-10.2) mg/dL Magnesium 1.9 (1.6-2.6) mg/dL Total Bilirubin 0.5 (0.0-1.0) mg/dL AST 12 (5-37) U/L ALT 8 (0-40) U/L Alkaline Phosphatase 100 (39-117) U/L Troponin I High Sens (<3.5-35.0) ng/L B-Natriuretic Peptide (<100) pg/mL Total Protein 6.4 L (6.5-8.0) g/dL Albumin 3.5 (3.5-5.0) g/dL COVID-19 (JONATHAN) Negative (Negative) COVID-19 Clin Com See Note 03/31/22 03/31/22 03/31/22 Range/Units 19:41 19:41 21:53 WBC (4.8-10.8) X10*3/uL RBC (4.60-5.80) X10*6/uL Hgb (14.0-18.0) g/dl Hct (42.0-52.0) % MCV (80.0-98.0) fL MCH (27.0-33.0) pg MCHC (31.0-36.0) g/dl RDW (11.0-16.0) % Plt Count (160-400) X10*3/uL MPV (9.4-12.4) fL Immature Gran % (Auto) (0.0-0.4) % Neut % (Auto) (45-73) % Lymph % (Auto) (20-40) % [place] % (Auto) (2-11) % Eos % (Auto) (0-4) % Baso % (Auto) (0-2) % Lymph # (Auto) (1.2-4.9) X10*3/uL [place] # (Auto) (0.1-1.2) X10*3/uL Eos # (Auto) (0.0-0.4) X10*3/uL Baso # (Auto) (0.0-0.2) X10*3/uL Abs Immat Gran (auto) (0.00-0.03) X10*3/uL Absolute Neuts (auto) (2.0-8.3) x10*3/uL Absolute Nucleated RBC (0.0-0.012) X10*3/uL Nucleated RBC % (auto) (0.0-0.2) /100WBC Sodium (135-145) mmol/L Potassium (3.3-5.1) mmol/L Chloride (96-108) mmol/L Carbon Dioxide (22-29) mmol/L Anion Gap (12-20) BUN (9-16) mg/dL Creatinine (0.5-1.4) mg/dL Estim Creat Clear Calc Estimated GFR Random Glucose (60-115) mg/dL Lactic Acid 1.0 (0.5-2.0) mmol/L Calcium (8.4-10.2) mg/dL Magnesium (1.6-2.6) mg/dL Total Bilirubin (0.0-1.0) mg/dL AST (5-37) U/L ALT (0-40) U/L Alkaline Phosphatase (39-117) U/L Troponin I High Sens 8.2 (<3.5-35.0) ng/L B-Natriuretic Peptide 505 H (<100) pg/mL Total Protein (6.5-8.0) g/dL Albumin (3.5-5.0) g/dL COVID-19 (JONATHAN) (Negative) COVID-19 Clin Com Independent Interpretation I performed an independent interpretation of an: EKG Interpretation: AFib ventricular rate of [address] changes no acute ischemia Critical Care Time Critical Care Time Critical Care Time: Yes Total Critical Care Time: 55 Attestation: The patient was critically ill with a high probability of imminent or life threatening deterioration. I spent greater than 60 minutes of discontinuous time evaluating the patient,delivering critical care at the bedside, discussing and evaluating pertinent data with consultants. Critical care time does not include time spent performing separately billable procedures or teaching. Total time spent performing critical care was 55 minutes. Discharge Plan Discharge Clinical Impression: CHF exacerbation, Atrial fibrillation with rapid ventricular response, Aspiration pneumonia Patient Disposition: Admitted As Inpatient
[2022-03-31] MEDS: dilTIAZem HCL 50 MG/10 ML VIAL 10 MG IVPUSH (19:23)
[2022-03-31 19:44] VITALS: PULSE 98; RESP 18; O2SAT 93
[2022-03-31 19:45] LABS: MANUAL DIFF FLAG NO
[2022-03-31 19:46] LABS: Basophils Percent Auto 0.4 % (0-2); Eosinophils Absolute Auto 0.2 X10*3/uL (0.0-0.4); Hematocrit 29.7 % (42.0-52.0); Hemoglobin 9.4 g/dl (14.0-18.0); Imm Gran Abs Auto 0.05 X10*3/uL (0.00-0.03); Imm Gran Pct Auto 0.4 % (0.0-0.4); Lymphocytes Absolute Auto 2.2 X10*3/uL (1.2-4.9); Lymphocytes Percent Auto 19.4 % (20-40); Mean Corpuscular HGB Conc 31.6 g/dl (31.0-36.0); Mean Corpuscular Hemoglobin 30.8 pg (27.0-33.0); Mean Corpuscular Volume 97.4 fL (80.0-98.0); Mean Platelet Volume 9.8 fL (9.4-12.4); Monocytes Absolute Auto 0.6 X10*3/uL (0.1-1.2); Monocytes Percent Auto 5.7 % (2-11); Neutrophils Absolute Auto 8.1 x10*3/uL (2.0-8.3); Neutrophils Percent Auto 72.1 % (45-73); Platelet Count 205 X10*3/uL (160-400); Red Blood Count 3.05 X10*6/uL (4.60-5.80); Red Cell Distribution Width 16.9 % (11.0-16.0); White Blood Count 11.2 X10*3/uL (4.8-10.8)
[2022-03-31 20:00] VITALS: PULSE 96; RESP 18
[2022-03-31 20:00] LABS: Alanine Aminotransferase 8 U/L (0-40); Albumin Level 3.5 g/dL (3.5-5.0); Alkaline Phosphatase 100 U/L (39-117); Anion Gap 13 (12-20); Aspartate Amino Transferase 12 U/L (5-37); Bilirubin Total 0.5 mg/dL (0.0-1.0); Blood Urea Nitrogen 18 mg/dL (9-16); Calcium 8.7 mg/dL (8.4-10.2); Carbon Dioxide 21 mmol/L (22-29); Chloride 109 mmol/L (96-108); Creatinine Clr Calc Pharmacy 50.1; Estimated Glomerular Filt Rate 53; Glucose Random 112 mg/dL (60-115); Magnesium 1.9 mg/dL (1.6-2.6); Potassium 4.7 mmol/L (3.3-5.1); Sodium 138 mmol/L (135-145); Total Protein 6.4 g/dL (6.5-8.0)
[2022-03-31 20:01] LABS: COVID-19 Test Negative (Negative); IDNOW Serial# 6674DD1D
[2022-03-31 20:06] LABS: B Type Natriuretic Peptide 505 pg/mL (<100)
[2022-03-31 20:07] LABS: Troponin-I High Sensitivity 8.2 ng/L (<3.5-35.0)
--- NOTE | 2022-03-31 20:10 | PC.NURSE ---
pt a&ox3, reporting improvement in anxiety and palpitations after cardizem, pt resting comfortably, daughter at bedside, vss, no new orders at this time.
--- NOTE | 2022-03-31 20:38 | PC.NURSE ---
pt reporting improvement in palpitations and anxiety, ambulated independently to restroom w no symptom exacerbation. pt resting quietly, RR even and unlaboured. no new orders at this time.
[2022-03-31] MEDS: Furosemide 20 MG/2 ML VIAL IVPUSH (22:08)
[2022-03-31] MEDS: Piperacillin Sodium/Tazobactam 3.375 GM in 0.9 % Sodium Chloride 50 ML IV (22:09)
--- NOTE | 2022-03-31 22:26 | PC.NURSE ---
pt a&ox4, afib w rate between 95-115, occ runs of vtach on monitor, provider aware, medicated per provider order - abx delayed due to pt in CT. blood cultures/labs drawn by tech.
[2022-04-01] VITALS (8 sets, daily range): BP systolic 103–137; BP diastolic 49–72; PULSE 83–109; RESP 12–20; TEMP 36.6–37.2; O2SAT 94–98; BMI 24.1
--- NOTE | 2022-04-01 00:36 | PM.IMHP ---
History of Present Illness Date of Service: 04/01/22 Chief Complaint: weakness This is a 81-year-old male with past medical history of CHF with reduced ejection fraction, AFib, obstructive uropathy with chronic Oconnell in place, chronic anemia, presents to the hospital with feeling unwell for the past several days. Of note patient was discharged from the hospital on 03/10 after being treated for acute on chronic symptomatic anemia, as well as CHF as well as ADE. Patient comes in today stating that he has not been feeling well, he feels short of breath on minimal exertion, has a cough that is productive but he is unable to clear his throat, feels palpitations in his chest, denies any chest pain, reports no fever or chills, denies any abdominal pain no nausea or vomiting, no diarrhea constipation. Daughter at bedside also states that his swelling his legs have worsened over the past few days. Patient is also complaining that he has not been able to sleep for many months, he sleeps about 2 hours a night and has had difficulty staying asleep. He reports that he was described lorazepam by his doctor recently which has not helped at all. He is asking for something to help him sleep On arrival to the ED patient hemodynamically stable with no significant abnormal vitals except for heart rate in the 130s was found to be in AFib with RVR Labs are significant for WBC count of 11.2, hemoglobin of 9.4, hematocrit 29.7 which is around his baseline BNP of 505 which is increased from recent admission, COVID-[address] shows areas of hazy ground-glass opacity in the right middle and lower lobe and small ill-defined centrilobular and tree-in-bud nodules in the right lung, findings may be secondary to pulmonary edema versus atypical infection, there is also small amount of secretions or aspirated degrees within the trachea and mainstem bronchi When asked patient about his swelling he does endorse coughing on certain food and choking on certain food. Review of Systems Review of Systems: Yes all other systems are reviewed and are negative [facility] Medical History Afib Anemia Anxiety Cardiomyopathy Chronic indwelling Oconnell catheter CKD (chronic kidney disease) stage 3, GFR 30-59 ml/min Heart failure with reduced ejection fraction Obstructive uropathy Persistent atrial fibrillation Urethral stricture Social History Alcohol intake: current Alcohol intake frequency: 0-2 drinks per day Alcohol type: hard liquor Patient Tobacco Use Status: Current someday Tobacco user Smoked in Last 30 Days: Yes Use of substances other than those prescribed or required for medical reasons: No Advance Directives: No Advance Directives Information Provided: No Nutrition Risks: No Nutritional Risk service: No Current occupational status: retired Meds Allergies Allergy/AdvReac Type Severity Reaction Status Date / Time No Known Allergies Allergy Unverified 11/18/19 15:22 [No Known Allergies*] Active Medications: Current Medications Acetaminophen (Acetaminophen 325 Mg Tablet) 650 mg PO Q6H PRN PRN Reason: Pain, Mild (Pain Scale 1-3) Docusate Sodium (Docusate Sodium 100 Mg Capsule) 100 mg PO DAILY PRN PRN Reason: Constipation Furosemide (Furosemide 40 Mg/4 Ml Vial) 40 mg IVPUSH DAILY CORTEZ; Protocol Piperacillin Sod/Tazobactam (Sod 3.375 gm/ Sodium Chloride) 50 mls @ 100 mls/hr IV Q6H CORTEZ Vancomycin HCl (Vancomycin/Ns) 2,000 mg in 520 mls @ 260 mls/hr IV ONCE ONE Stop: 04/01/22 02:29 Ondansetron HCl (Ondansetron Hcl 4 Mg/2 Ml Vial) 4 mg IVPUSH Q8H PRN PRN Reason: Nausea and Vomiting Pharmacy Consult (Consult Rx Vancomycin Dosing) 1 each MISCELLANE DAILY PRN PRN Reason: Consult order Sodium Chloride (0.9 % Sodium Chloride Flush 3 Ml Syringe) 3 ml IVFLUSH QSHIFT [facility] Home Medications Medication Instructions Recorded Confirmed Last Taken Type alfuzosin 10 mg tablet,extended 1 tab PO BEDTIME 03/13/22 04/01/22 03/12/22 History release 24 hr allopurinol 300 mg tablet 1 tab PO DAILY 03/13/22 04/01/22 03/13/22 History ferrous sulfate 325 mg (65 mg 975 mg PO DAILY 03/13/22 04/01/22 03/13/22 History iron) tablet gabapentin 600 mg tablet 1 tab PO BEDTIME 03/13/22 04/01/22 03/12/22 History magnesium 250 mg tablet 250 mg PO DAILY 03/13/22 04/01/22 03/13/22 History potassium chloride 20 mEq 1 tab PO DAILY 03/13/22 04/01/22 03/13/22 History tablet,extended release simvastatin 40 mg tablet 1 tab PO BEDTIME 03/13/22 04/01/22 03/12/22 History vitamin B complex 1 tab PO DAILY 03/13/22 04/01/22 03/13/22 History lorazepam 0.5 mg tablet 1 tab PO BEDTIME PRN Anxiety 04/01/22 04/01/22 Unknown History Physical Exam Vital Signs and Narrative: Vital Signs: Last Vital Signs Temp 98.6 F 04/01/22 00:24 Pulse 98 04/01/22 00:24 Resp 19 04/01/22 00:24 BP 117/65 04/01/22 00:24 Pulse Ox 94 04/01/22 00:24 O2 Del Method 04/01/22 00:24 BMI result Body Mass Index 25.6 Const: Other: Patient alert oriented x3, able to answer questions appropriately. Ambulated to the past no difficulty General: cooperative and no acute distress Orientation/consciousness: patient oriented x3 Eyes: General: appearance normal, both eyes and all related structures Resp: Effort & Inspection: normal respiratory effort Auscultation: clear to auscultation bilaterally Cardio: Other: Elevated heart rate, irregular GI: Palpation (GI): Soft to palpation Auscultation: normal bowel sounds Skin: General skin exam: no rashes or lesions noted Neuro: General: patient oriented x3 Cognition (Neuro): normal cognition Extrem: Other: Has 2+ pitting edema bilaterally up to the ankles General: Yes normal to inspection Results Labs 03/31/22 19:41 03/31/22 19:41 Labs: Laboratory Results - last 24 hr 03/31/22 03/31/22 03/31/22 19:41 19:41 19:41 MCV 97.4 MCH 30.8 MCHC 31.6 RDW 16.9 H Plt Count 205 MPV 9.8 Immature Gran % (Auto) 0.4 Neut % (Auto) 72.1 Lymph % (Auto) 19.4 L [place] % (Auto) 5.7 Eos % (Auto) 2.0 Baso % (Auto) 0.4 Lymph # (Auto) 2.2 [place] # (Auto) 0.6 Eos # (Auto) 0.2 Baso # (Auto) 0.0 Abs Immat Gran (auto) 0.05 H Absolute Neuts (auto) 8.1 Absolute Nucleated RBC 0.000 Nucleated RBC % (auto) 0.0 Anion Gap 13 Estim Creat Clear Calc 50.1 Estimated GFR 53 Random Glucose 112 Lactic Acid Calcium 8.7 Magnesium 1.9 Total Bilirubin 0.5 AST 12 ALT 8 Alkaline Phosphatase 100 Troponin I High Sens B-Natriuretic Peptide Total Protein 6.4 L Albumin 3.5 COVID-19 (JONATHAN) Negative COVID-19 Clin Com See Note 03/31/22 03/31/22 03/31/22 19:41 19:41 21:53 MCV MCH MCHC RDW Plt Count MPV Immature Gran % (Auto) Neut % (Auto) Lymph % (Auto) [place] % (Auto) Eos % (Auto) Baso % (Auto) Lymph # (Auto) [place] # (Auto) Eos # (Auto) Baso # (Auto) Abs Immat Gran (auto) Absolute Neuts (auto) Absolute Nucleated RBC Nucleated RBC % (auto) Anion Gap Estim Creat Clear Calc Estimated GFR Random Glucose Lactic Acid 1.0 Calcium Magnesium Total Bilirubin AST ALT Alkaline Phosphatase Troponin I High Sens 8.2 B-Natriuretic Peptide 505 H Total Protein Albumin COVID-19 (JONATHAN) COVID-19 Clin Com Imaging Radiologist's Impressions: Impressions Chest X-Ray 03/31/22 19:57 IMPRESSION: 1. Patchy airspace opacity in the right lower lung, which could represent alveolar edema or pneumonia in the appropriate clinical setting. 2. Findings suggesting asymmetric mild interstitial pulmonary edema. Chest CT 03/31/22 21:44 IMPRESSION: 1. Interlobular septal thickening in the right lung relative to the left with areas of hazy groundglass opacity in the right middle and lower lobes and small ill-defined centrilobular and tree-in-bud nodules in the right lung. Findings are without entirely specific and may be due to asymmetric pulmonary edema or atypical infectious process. 2. No pleural effusions. 3. Small amount of secretions or aspirated debris within the trachea and mainstem bronchi and bronchus intermedius. Assessment and Plan (1) Atrial fibrillation with rapid ventricular response: Status: Acute (2) CHF exacerbation: Status: Acute (3) Weakness: Status: Acute (4) Aspiration pneumonia: Status: Acute (5) Insomnia: Status: Acute Plan This is a 81-year-old male with recent admission and discharge secondary to anemia chronic diseases CHF presents to the hospital with generalized weakness found to have AFib with RVR as well as other acute issues as follows # AFib with RVR - likely multifactorial in the setting of CHF exacerbation as well as aspiration - received 10 of IV Cardizem with improvement in his heart rate - at this time will resume his home carvedilol - continue Eliquis for anticoagulation - Heart rate in the 90s at this point # CHF exacerbation - has elevated BNP worse than previous, evidence of possible edema imaging, patient also has lower extremity edema and clinical evidence of volume overload - will treat with IV Lasix - follow BMP, strict I&O, daily weight, low-sodium diet - recent echocardiogram shows an ejection fraction of 40-45%- at this point no need to repeat echo # pneumonia - aspiration versus hospital-acquired - does have evidence of aspiration does report dysphagia to certain foods - will keep NPO, started on IV antibiotics - follow cultures - speech consulted for bedside eval # weakness - secondary to acute illness is as above - PT OT prior to discharge # insomnia - will try trazodone while inpatient but will need follow-up with PCP - I do recommend against lorazepam and I did state this to the daughter and patient himself # chronic anemia - stable - follow CBC # CKD stage 3 - stable - follow BMP # hypertension - soft - hold antihypertensives DVT prophylaxis: Eliquis Given patient's CHF, as well as pneumonia, as well as AFib with RVR requiring further evaluation patient required minimum 2 nights inpatient hospital stay for further management and monitoring Time Spent With Patient Time: Total time managing care of this patient today ____ minutes. Quality Stroke Does the patient have a stroke diagnosis?: No VTE Prior VTE?: No VTE Risk Level:: Medical - moderate - high VTE Device Contraindication: Treatment Not Indicated VTE Drug Contraindication: N/A - Med Ordered
[2022-04-01] MEDS: Furosemide 40 MG/4 ML VIAL IVPUSH ×2 (01:33→08:21)
[2022-04-01] MEDS: diphenhydrAMINE HCL 50 MG/ML VIAL 25 MG IVPUSH (01:54)
[2022-04-01] MEDS: Apixaban 5 MG TABLET PO ×2 (01:54→08:22)
[2022-04-01] MEDS: Zolpidem Tartrate 5 MG TABLET PO (01:54)
[2022-04-01] MEDS: carvediloL 12.5 MG TABLET 37.5 MG PO ×2 (01:54→13:38)
--- NOTE | 2022-04-01 01:58 | PC.NURSE ---
pt a&ox3, vss, remains in afib on monitor w PVCs, medicated per provider order, denies any pain at this time. pt pending bed assigment.
--- NOTE | 2022-04-01 03:14 | PC.NURSE ---
This production underwriter assumed care of this PT at 0300. PT A&Ox3, denies any pain. VSS. PT using urinal at bedside with steady gait, states I need some sleep . Lights dimmed. Will continue to observe.
[2022-04-01] MEDS: Piperacillin Sodium/Tazobactam 3.375 GM in 0.9 % Sodium Chloride 50 ML IV ×4 (04:37→21:21)
[2022-04-01] MEDS: Omeprazole 20 MG CAPSULE.DR PO (05:47)
[2022-04-01 08:07] LABS: Alanine Aminotransferase 9 U/L (0-40); Albumin Level 3.7 g/dL (3.5-5.0); Alkaline Phosphatase 103 U/L (39-117); Anion Gap 15 (12-20); Aspartate Amino Transferase 14 U/L (5-37); Bilirubin Total 1.2 mg/dL (0.0-1.0); Blood Urea Nitrogen 18 mg/dL (9-16); Calcium 9.2 mg/dL (8.4-10.2); Carbon Dioxide 25 mmol/L (22-29); Chloride 106 mmol/L (96-108); Creatinine Clr Calc Pharmacy 46.2; Estimated Glomerular Filt Rate 48; Glucose Random 122 mg/dL (60-115); Sodium 142 mmol/L (135-145); Total Protein 6.6 g/dL (6.5-8.0)
[2022-04-01] MEDS: Multivitamin TABLET 1 TAB PO (08:21)
[2022-04-01] MEDS: Potassium Chloride ER 20 MEQ TAB.ER.PRT PO (08:21)
[2022-04-01] MEDS: 0.9 % Sodium Chloride Flush 3 ML SYRINGE IVFLUSH ×2 (08:21→23:11)
[2022-04-01] MEDS: Magnesium Oxide 400 MG TABLET PO (08:21)
[2022-04-01] MEDS: allopurinoL 300 MG TABLET PO (08:22)
--- NOTE | 2022-04-01 08:35 | PHA.MEDREC ---
Pharmacy Consult ? Medication Reconciliation Pharmacy has REVIEWED the medication reconciliation done by RN. Went down to see patient to clarify a few things: Patient stated that he was d/c'd off warfarin and put on eliquis 2.5 mg. He also stated he has been d/c'd off the lisinopril/hctz.
--- NOTE | 2022-04-01 08:41 | PC.NURSE ---
alert, oriented x4, able to make needs known. ambulating with strong steady gait. call alford within reach. non slip socks and bed in lowest locked position for safety
--- NOTE | 2022-04-01 10:30 | PHA.PROG ---
Admission Date/Time: April 01, 2022 00:09 Indication: Resp Infection Weight in k.8 kg Adjusted body weight in K.88 kg [place] body weight in K.6 kg Obesity Dosing Indication % IBW: 110% Serum Creatinine - Last 168 Hours 03/31/22 04/01/22 19:41 07:20 Creatinine 1.31 1.42 H Estimated CrCl and GFR - Last 168 Hours 03/31/22 04/01/22 19:41 07:20 Estim Creat Clear Calc 50.1 46.2 Estimated GFR 53 48 Vancomycin Loading Dose: 2000 mg Current Vancomycin Dosing Regimen: 1250 mg Q24H Date and Time for next Vancomycin Level to be drawn: 04/02 @ 0 Pharmacist Comments on Vancomycin Plan: Patient received and adequate loading dose vanco 2000 mg on 04/01 @ 0138 Maintenance dose vanco 1250 mg Q24H schedule to start 04/02 @ 0000. Expected AUC 547 with a trough of 17.3. Due to increase SCr will get a trough prior to 3rd dose on 04/02 @ 2130. Pharmacy will montior renal function daily. Nanci Redman, Corina Vancomycin dosing will take advantage of [employer] as a clinical decision support tool that uses Bayesian modeling to calculate individual patient's pharmacokinetic parameters and forecast the patient's drug concentration time course with the target goal AUC 24 range of 400 - 600 mg/L/hr.
--- NOTE | 2022-04-01 10:50 | MHC.CM.PN ---
met with pt who lives alone hismdgter is stying with him tempoaily he has miles vna vax x 4 own ride home
--- NOTE | 2022-04-01 12:07 | P.EN_ITS ---
Event Note Date of Service: 04/02/22 Event Note: 81-year-old gentleman with persistent atrial fibrillation, likely cardiomyopathy due to atrial fibrillation, obstructive uropathy with chronic Oconnell catheter, chronic anemia presented to [facility] with several days of not feeling well with shortness of breath on minimal exertion, productive cough, palpitations, leg swelling and difficulty sleeping. in ED patient noted to be in AFib with RVR Labs significant for WBC count of 11.2, hemoglobin of 9.4, hematocrit 29.7 which is around his baseline BNP of 505 which is increased from recent admission, COVID-[address] chest showed Interlobular septal thickening in the right lung relative to left with areas of hazy groundglass opacity in the right middle and lower lobes and small ill-defined centrilobular and tree-in-bud nodules right lung,nonspecific findings may be due to asymmetric pulmonary edema or atypical infectious process,no pleural effusions, Small amount of secretions or aspirated debris within the trachea and mainstem bronchi and bronchus intermedius. Patient admitted to [facility] with a diagnosis of # AFib with RVR history of persistent atrial fibrillation likely cause of cardiomyopathy, continue Coreg avoid IV Cardizem with CHF will add digoxin if needed continue Eliquis 2.5 mg b.i.d. # CHF exacerbation BNP 505 on IV Lasix 40 mg, recent echocardiogram shows an ejection fraction of 40-45% - follow BMP, BNP,strict I&O, daily weight, low-sodium diet. # pneumonia no fevers, mild leukocytosis DC IV vanco, continue IV Zosyn, seen by speech therapy noted to have mildly slow oral phase is started on chopped advanced diet with thin liquids # weakness PT eval # insomnia, received trazodone last night with no significant benefit, will start temazepam # chronic anemia s/p egd 03/18/22 showed mild focal gastritis, colonoscopy shows multiple polyps, all under 10 mm, removed with snare and biopsy forceps Hematocrit stable today # CKD stage 3, creatinine bumped up to 1.4, DC IV Lasix reassess patient follow BMP # hypertension, soft blood pressure continue Coreg , was recently discharged on valsartan not noted in med rec will verify ? Time Spent With Patient Time: Total time managing care of this patient today ____ minutes.
--- NOTE | 2022-04-01 12:17 | MHC.SL.SWA ---
Speech Pathologist Impression: Mild oropharyngeal dysphagia Risk of Aspiration Due to: History of Pneumonia Dysphasia Diet Status: Upgrade from NPO, start on NDD3/thin w/ aspiration precautions and total supervision Liquid Consistency and Strategies for Safe Swallow: Liquid Intake Recommendation: Thin Liquid Intake Strategies: Small Sips No Straws Solid Food Consistency: Dietary Recommendations: Chopped/Advanced (NDD3) Additional Modifications to Solid Foods: Recommend start on CHOPPED/ADVANCED (NDD3) diet served with sauces/gravies as needed, THIN liquids (NO STRAWS), and pills WHOLE in PUREE. Aspiration precautions and total supervision to monitor for any s/s of aspiration and ensure tolerance of recommended textures. Notified care team (MD, RN, RD) via [place] Message. Oral Medication Intake: Whole with Puree Please contact the pharmacy regarding appropriate crushable or liquid drug formulations that are available whenever modified delivery is recommended. Compensatory Strategies and Precautions to be Taken for Safe Swallow: Sitting Upright (90 deg) Double Swallow No Straw Small Bites and Sips Rate of Ingestion Change Avoid Specific Foods Supervision While Eating and Drinking for Safe Swallow: Total Supervision (1:1) Foods to Avoid: Hard, tough to chew solids; mixed consistencies Swallowing Recommended Treatments: Compens. Strategy Educat. Recommendation for Speech: Inpatient Speech Therapy Modified Barium Swallow Study - Outpatient Comment: DATABASE MODELER to continue to follow M-F as needed while inpatient. If concerns persist, recommend outpatient MBSS. Forestry Technician Clinican/Clinical Fellow: No Supervisory Statement: I have reviewed and agree with the student/clinical fellow's documentation: N/A Speech Language Pathologist: Kasandra Ospina M.A., CCC-DATABASE MODELER
[2022-04-01] MEDS: rOPINIRole HCL 0.5 MG TABLET PO (13:56)
--- NOTE | 2022-04-01 18:05 | PC.NURSE ---
patient resting comfortably, daughter at the bedside. call alford within reach
[2022-04-01] MEDS: Temazepam 15 MG CAPSULE PO (21:21)
[2022-04-01] MEDS: Apixaban 2.5 MG TABLET PO (21:21)
[2022-04-01] MEDS: Atorvastatin Calcium 20 MG TABLET PO (21:21)
[2022-04-01] MEDS: Gabapentin 600 MG TABLET PO (21:21)
[2022-04-02] MEDS: carvediloL 12.5 MG TABLET 37.5 MG PO ×2 (00:40→14:01)
[2022-04-02 03:13] VITALS: BP 94/64; PULSE 82; RESP 14; TEMP 36.4; O2SAT 97
[2022-04-02] MEDS: Piperacillin Sodium/Tazobactam 3.375 GM in 0.9 % Sodium Chloride 50 ML IV ×4 (05:03→21:15)
[2022-04-02] MEDS: Omeprazole 20 MG CAPSULE.DR PO (05:41)
[2022-04-02 07:12] LABS: Hematocrit 29.1 % (42.0-52.0); Hemoglobin 9.3 g/dl (14.0-18.0); Mean Corpuscular Hemoglobin 30.5 pg (27.0-33.0); Mean Corpuscular Volume 95.4 fL (80.0-98.0); Mean Platelet Volume 10.3 fL (9.4-12.4); Platelet Count 203 X10*3/uL (160-400); Red Blood Count 3.05 X10*6/uL (4.60-5.80); Red Cell Distribution Width 16.9 % (11.0-16.0); White Blood Count 7.1 X10*3/uL (4.8-10.8)
[2022-04-02 07:34] LABS: B Type Natriuretic Peptide 340 pg/mL (<100)
[2022-04-02 07:47] LABS: Anion Gap 13 (12-20); Blood Urea Nitrogen 18 mg/dL (9-16); Calcium 8.9 mg/dL (8.4-10.2); Carbon Dioxide 28 mmol/L (22-29); Chloride 103 mmol/L (96-108); Creatinine Clr Calc Pharmacy 46.6; Estimated Glomerular Filt Rate 48; Glucose Random 118 mg/dL (60-115); Potassium 3.7 mmol/L (3.3-5.1); Sodium 140 mmol/L (135-145)
[2022-04-02 08:00] VITALS: BP 127/78; PULSE 87; RESP 18; TEMP 36.4; O2SAT 99
[2022-04-02] MEDS: Potassium Chloride ER 20 MEQ TAB.ER.PRT PO (08:28)
[2022-04-02] MEDS: 0.9 % Sodium Chloride Flush 3 ML SYRINGE IVFLUSH ×3 (08:28→21:17)
[2022-04-02] MEDS: Magnesium Oxide 400 MG TABLET PO (08:29)
[2022-04-02] MEDS: Apixaban 2.5 MG TABLET PO ×2 (08:29→21:15)
[2022-04-02] MEDS: Multivitamin TABLET 1 TAB PO (08:29)
[2022-04-02] MEDS: allopurinoL 300 MG TABLET PO (08:29)
[2022-04-02 12:00] VITALS: BP 126/69; PULSE 76; RESP 20; TEMP 36.6; O2SAT 97
--- NOTE | 2022-04-02 13:40 | MHC.SL.SWA ---
Speech Pathologist Impression: Risk of Aspiration Due to: History of Pneumonia Dysphasia Diet Status: Recommend continue on Chopped/Advanced (NDD3) with THIN liquids, pills whole w/ liquid or in puree as preferred by patient. Liquid Consistency and Strategies for Safe Swallow: Liquid Intake Recommendation: Thin Liquid Intake Strategies: Small Sips No Straws Solid Food Consistency: Dietary Recommendations: Chopped/Advanced (NDD3) Additional Modifications to Solid Foods: Recommend start on CHOPPED/ADVANCED (NDD3) diet served with sauces/gravies as needed, THIN liquids (NO STRAWS), and pills WHOLE in PUREE. Aspiration precautions and total supervision to monitor for any s/s of aspiration and ensure tolerance of recommended textures. Notified care team (MD, RN, RD) via [place] Message. Oral Medication Intake: Whole with Puree Please contact the pharmacy regarding appropriate crushable or liquid drug formulations that are available whenever modified delivery is recommended. Compensatory Strategies and Precautions to be Taken for Safe Swallow: Sitting Upright (90 deg) Liquids from Cup Small Bites and Sips Alternate Liquids/Solids Supervision While Eating and Drinking for Safe Swallow: Intermittent Supervision Foods to Avoid: Hard, tough to chew solids; mixed consistencies Swallowing Recommended Treatments: Compens. Strategy Educat. Recommendation for Speech: Inpatient Speech Therapy Modified Barium Swallow Study - Outpatient Comment: Patient seen at lunch today for toleration of recommended diet (Chopped/Advanced w/ thin liquids). Patient was awake, highly communicative and pleasant throughout. Daughter was present in room. Patient had mild c/o / surprise at breakfast pancakes which came as a ground mash, leading to some questions about his diet. Chopped/Advanced diet was discussed, described as close to a regular diet with softer foods that are precut, however the kitchen may sometimes send food that may look more ground at times. Patient's lunch was a chicken pot pie with tea and juices. Patient was able to self feed without difficulty, was noted to take small bites, and alternate periodically with sips of liquid. Patient is tolerating current diet well, recommend continue on Chopped/Advanced (NDD3) with THIN liquids, pills whole w/ liquid or in puree as preferred by patient. Frequency/Duration: Date Range for Service Req: Timeline to reassess: Erp Consultant Clinican/Clinical Fellow: No Supervisory Statement: I have reviewed and agree with the student/clinical fellow's documentation: N/A Speech Language Pathologist: Juliann Riley M.A., [facility]
--- NOTE | 2022-04-02 15:14 | P.PNIM_ITS ---
Subjective Subjective Date of Service: 04/02/22 Interval History: Patient feeling significantly better this morning slept well, denies shortness of breath, no chest pain, no palpitations tele monitor showed atrial fibrillation stable ventricular rate, no other acute issues overnight. Review of Systems Review of Systems: Yes all other systems are reviewed and are negative Physical Exam Vital Signs: Vital Signs: Last Vital Signs Temp 97.9 F 04/02/22 12:00 Pulse 76 04/02/22 12:00 Resp 20 04/02/22 12:00 BP 126/69 04/02/22 12:00 Pulse Ox 97 04/02/22 12:00 O2 Del Method 04/02/22 12:00 BMI result Body Mass Index 24.1 Const: Other: General resting comfortably, no acute distress. Neck supple no JVD. CVS irregular rate rhythm, Respiratory lungs clear to auscultation, no respiratory distress, no wheeze, no rhonchi. Gastrointestinal abdomen soft, nontender, bowel sounds audible, no guarding , no rigidity. Extremities edema resolved Neuro nonfocal Skin no rash Psych appropriate affect Objective Data Active Medications Acetaminophen (Acetaminophen 325 Mg Tablet) 650 mg PO Q6H PRN PRN Reason: Pain, Mild (Pain Scale 1-3) Allopurinol (Allopurinol 300 Mg Tablet) 300 mg PO DAILY [facility] Last Admin: 04/02/22 08:29 Dose: 300 mg Documented By: HILL Apixaban (Apixaban 2.5 Mg Tablet) 2.5 mg PO BID [facility] Last Admin: 04/02/22 08:29 Dose: 2.5 mg Documented By: HILL Atorvastatin Calcium (Atorvastatin Calcium 20 Mg Tablet) 20 mg PO BEDTIME [facility] Last Admin: 04/01/22 21:21 Dose: 20 mg Documented By: MAL Carvedilol (Carvedilol 12.5 Mg Tablet) 37.5 mg PO Q12H [facility]; Protocol Last Admin: 04/02/22 14:01 Dose: 37.5 mg Documented By: HILL Docusate Sodium (Docusate Sodium 100 Mg Capsule) 100 mg PO DAILY PRN PRN Reason: Constipation Gabapentin (Gabapentin 600 Mg Tablet) 600 mg PO BEDTIME [facility] Last Admin: 04/01/22 21:21 Dose: 600 mg Documented By: MAL Piperacillin Sod/Tazobactam (Sod 3.375 gm/ Sodium Chloride) 50 mls @ 100 mls/hr IV Q6H [facility] Last Infusion: 04/02/22 12:12 Dose: 0 mls/hr Documented By: HILL Magnesium Oxide (Magnesium Oxide 400 Mg Tablet) 400 mg PO DAILY [facility] Last Admin: 04/02/22 08:29 Dose: 400 mg Documented By: HILL Multivitamins/Vitamin C (Multivitamin Tablet) 1 tab PO DAILY [facility] Last Admin: 04/02/22 08:29 Dose: 1 tab Documented By: HILL Omeprazole (Omeprazole 20 Mg Capsule.) 20 mg PO DAILY@0630 [facility] Last Admin: 04/02/22 05:41 Dose: 20 mg Documented By: MARIBEL Ondansetron HCl (Ondansetron Hcl 4 Mg/2 Ml Vial) 4 mg IVPUSH Q8H PRN PRN Reason: Nausea and Vomiting Potassium Chloride (Potassium Chloride Er 20 Meq Tab.Er.Prt) 20 meq PO DAILY [facility] Last Admin: 04/02/22 08:28 Dose: 20 meq Documented By: HILL Sodium Chloride (0.9 % Sodium Chloride Flush 3 Ml Syringe) 3 ml IVFLUSH QSHIFT [facility] Last Admin: 04/02/22 08:28 Dose: 3 ml Documented By: HILL Temazepam (Temazepam 15 Mg Capsule) 15 mg PO BEDTIME [facility] Last Admin: 04/01/22 21:21 Dose: 15 mg Documented By: JAMIAASY Labs 04/02/22 06:49 04/02/22 06:49 Labs: Laboratory Results - last 24 hr 04/02/22 04/02/22 04/02/22 06:49 06:49 06:49 MCV 95.4 MCH 30.5 MCHC 32.0 RDW 16.9 H Plt Count 203 MPV 10.3 Absolute Nucleated RBC 0.000 Nucleated RBC % (auto) 0.0 Anion Gap 13 Estim Creat Clear Calc 46.6 Estimated GFR 48 Random Glucose 118 H Calcium 8.9 B-Natriuretic Peptide 340 H Microbiology Microbiology Results: Microbiology 03/31/22 21:53 Blood Culture - Preliminary Blood - Venous No growth after 24 hours. 03/31/22 21:53 Blood Culture - Preliminary Blood - Venous No growth after 24 hours. Assessment and Plan (1) CHF exacerbation: Status: Acute (2) Insomnia: Status: Acute Plan # AFib with RVR history of persistent atrial fibrillation likely cause of cardiomyopathy, continue Coreg avoid IV Cardizem with CHF will add digoxin if needed continue Eliquis 2.5 mg b.i.d. # acute on chronic CHF exacerbation with reduced EF Appears euvolemic, no shortness of breath, no chest pain, status post IV Lasix 40 mg, i/os not acurate is positive 790 mL BNP 505 on admission improved to 340 , recent echocardiogram shows an ejection fraction of 40-45% Patient not on home Lasix or valsartan will discuss medications with museum exhibit designer Cardio consult obtained, patient not being followed by Cardiology as outpatient. # pneumonia no fevers, leukocytosis resolved on IV Zosyn day 2, seen by speech therapy noted to have mildly slow oral phase is started on chopped advanced diet with thin liquids Will repeat chest x-ray for clearance of infection # weakness will obtain PT eval # insomnia, continue temazepam, since patient had good affect # chronic anemia s/p egd 03/18/22 showed mild focal gastritis, colonoscopy shows multiple polyps, all under 10 mm, removed with snare and biopsy negative for high-grade dysplasia or carcinoma, Hematocrit stable, normal flow cytometry. # CKD stage 3, creatinine stable at 1.4, follow BMP # hypertension, soft blood pressure continue Coreg , was recently discharged on valsartan , currently not using id will discuss medications with Cardiology. Patient need continued inpatient hospitalization for further workup and treatment of congestive heart failure and pneumonia. Time Spent With Patient Time: Total time managing care of this patient today ____ minutes. Quality Stroke Does the patient have a stroke diagnosis?: No VTE Prior VTE?: No VTE Risk Level:: Medical - moderate - high VTE Device Contraindication: Treatment Not Indicated VTE Drug Contraindication: N/A - Med Ordered
[2022-04-02 16:00] VITALS: BP 118/55; PULSE 82; RESP 20; TEMP 36.6; O2SAT 95
--- NOTE | 2022-04-02 16:04 | PM.CNCAR ---
History of Present Illness History of Present Illness Date of Service: 04/02/22 Requesting physician: Marbella Delarosa Chief complaint: CHF, PNA, A fib w RVR Narrative: 81-year-old gentleman who was recently seen with anemia and congestive heart failure. He has chronic atrial fibrillation. He has mild LV dysfunction. He is now presenting with weakness and was diagnosed with pneumonia based on imaging. There is also some concern for aspiration and his diet has been changed by speech therapy. He said he was experiencing palpitations at home. His BNP was elevated and he was given some IV diuretics on admission to. He is currently euvolemic. He is denying any shortness of breath. He has feeling much better compared to yesterday. His daughters in the room and her main concerns are that he has not been sleeping well at nighttime. He does not recall having any choking episodes. He has chronic cough which was improving after he was treated for congestive heart failure with diuretics but he does not cough particularly after eating or drinking. [facility] Past Medical History Medical History Afib Anemia Anxiety Cardiomyopathy Chronic indwelling Oconnell catheter CKD (chronic kidney disease) stage 3, GFR 30-59 ml/min Heart failure with reduced ejection fraction Obstructive uropathy Persistent atrial fibrillation Urethral stricture Social History Social History Household Members: None Household Members Other:: daughter visiting from [place] through pt health problems and staying Housing: House Do you presently have visiting nurse or other home services: Yes (pt was set up with services but said they stop coming) Alcohol intake: current Alcohol intake frequency: 0-2 drinks per day Alcohol type: hard liquor Patient Tobacco Use Status: Current everyday Tobacco user Tobacco use type: Cigar service: No Current occupational status: retired Meds Allergies Allergy/AdvReac Type Severity Reaction Status Date / Time No Known Allergies Allergy Unverified 11/18/19 15:22 [No Known Allergies*] Active Medications: Current Medications Acetaminophen (Acetaminophen 325 Mg Tablet) 650 mg PO Q6H PRN PRN Reason: Pain, Mild (Pain Scale 1-3) Allopurinol (Allopurinol 300 Mg Tablet) 300 mg PO DAILY [facility] Last Admin: 04/02/22 08:29 Dose: 300 mg Apixaban (Apixaban 2.5 Mg Tablet) 2.5 mg PO BID [facility] Last Admin: 04/02/22 08:29 Dose: 2.5 mg Atorvastatin Calcium (Atorvastatin Calcium 20 Mg Tablet) 20 mg PO BEDTIME [facility] Last Admin: 04/01/22 21:21 Dose: 20 mg Carvedilol (Carvedilol 12.5 Mg Tablet) 37.5 mg PO Q12H [facility]; Protocol Last Admin: 04/02/22 14:01 Dose: 37.5 mg Docusate Sodium (Docusate Sodium 100 Mg Capsule) 100 mg PO DAILY PRN PRN Reason: Constipation Gabapentin (Gabapentin 600 Mg Tablet) 600 mg PO BEDTIME [facility] Last Admin: 04/01/22 21:21 Dose: 600 mg Piperacillin Sod/Tazobactam (Sod 3.375 gm/ Sodium Chloride) 50 mls @ 100 mls/hr IV Q6H [facility] Last Infusion: 04/02/22 12:12 Dose: Infused Magnesium Oxide (Magnesium Oxide 400 Mg Tablet) 400 mg PO DAILY [facility] Last Admin: 04/02/22 08:29 Dose: 400 mg Multivitamins/Vitamin C (Multivitamin Tablet) 1 tab PO DAILY [facility] Last Admin: 04/02/22 08:29 Dose: 1 tab Omeprazole (Omeprazole 20 Mg Capsule.Dr) 20 mg PO DAILY@0630 [facility] Last Admin: 04/02/22 05:41 Dose: 20 mg Ondansetron HCl (Ondansetron Hcl 4 Mg/2 Ml Vial) 4 mg IVPUSH Q8H PRN PRN Reason: Nausea and Vomiting Potassium Chloride (Potassium Chloride Er 20 Meq Tab.Er.Prt) 20 meq PO DAILY [facility] Last Admin: 04/02/22 08:28 Dose: 20 meq Sodium Chloride (0.9 % Sodium Chloride Flush 3 Ml Syringe) 3 ml IVFLUSH QSHIFT [facility] Last Admin: 04/02/22 08:28 Dose: 3 ml Temazepam (Temazepam 15 Mg Capsule) 15 mg PO BEDTIME [facility] Last Admin: 04/01/22 21:21 Dose: 15 mg Home Medications Medication Instructions Recorded Confirmed Last Taken Type alfuzosin 10 mg tablet,extended 1 tab PO BEDTIME 03/13/22 04/01/22 03/12/22 History release 24 hr allopurinol 300 mg tablet 1 tab PO DAILY 03/13/22 04/01/22 03/13/22 History ferrous sulfate 325 mg (65 mg 975 mg PO DAILY 03/13/22 04/01/22 03/13/22 History iron) tablet gabapentin 600 mg tablet 1 tab PO BEDTIME 03/13/22 04/01/22 03/12/22 History magnesium 250 mg tablet 250 mg PO DAILY 03/13/22 04/01/22 03/13/22 History potassium chloride 20 mEq 1 tab PO DAILY 03/13/22 04/01/22 03/13/22 History tablet,extended release simvastatin 40 mg tablet 1 tab PO BEDTIME 03/13/22 04/01/22 03/12/22 History vitamin B complex 1 tab PO DAILY 03/13/22 04/01/22 03/13/22 History apixaban 2.5 mg tablet (Eliquis) 1 tab PO BID 04/01/22 04/01/22 03/31/22 History lorazepam 0.5 mg tablet 1 tab PO BEDTIME PRN Anxiety 04/01/22 04/01/22 Unknown History Physical Exam Vital Signs: Vital Signs: Last Vital Signs Temp 97.9 F 04/02/22 12:00 Pulse 76 04/02/22 12:00 Resp 20 04/02/22 12:00 BP 126/69 04/02/22 12:00 Pulse Ox 97 04/02/22 12:00 O2 Del Method 04/02/22 12:00 BMI result Body Mass Index 24.1 GENERAL APPEARANCE: in no acute distress, pleasant. NECK: no carotid bruit, no significant jugular venous distention. SKIN: no suspicious lesions, warm and dry. HEART: no murmurs, irregular rate and rhythm. LUNGS: clear to auscultation bilaterally. ABDOMEN: soft, nontender. EXTREMITIES: no edema. PERIPHERAL PULSES: equal. NEUROLOGIC: No gross deficits, AAO X 3 Objective Labs and Meds 04/02/22 06:49 04/02/22 06:49 Lab results: Laboratory Results - last 24 hr 04/02/22 04/02/22 04/02/22 06:49 06:49 06:49 WBC 7.1 RBC 3.05 L Hgb 9.3 L Hct 29.1 L MCV 95.4 MCH 30.5 MCHC 32.0 RDW 16.9 H Plt Count 203 MPV 10.3 Absolute Nucleated RBC 0.000 Nucleated RBC % (auto) 0.0 Sodium 140 Potassium 3.7 Chloride 103 Carbon Dioxide 28 Anion Gap 13 BUN 18 H Creatinine 1.41 H Estim Creat Clear Calc 46.6 Estimated GFR 48 Random Glucose 118 H Calcium 8.9 B-Natriuretic Peptide 340 H Assessment and Plan (1) Atrial fibrillation with rapid ventricular response: Status: Acute Plan 81-year-old gentleman was known history of chronic atrial fibrillation presenting with AFib with RVR in the setting of aspiration. He is on IV antibiotics. He is feeling better. He was thought to have mild congestive heart failure admission too. By my exam he appears fairly euvolemic at this stage. He does not need any IV diuretics. I think he should be maintained on 20 mg of Lasix daily for now. This can be adjusted based on his volume status and symptoms. He has chronic atrial fibrillation and I think his rapid ventricular response was due to aspiration and pneumonia. Overall his heart rates are well controlled currently. I would continue the same dose of carvedilol for now. He has biatrial severe enlargement of the echocardiogram. Sometimes this is features of underlying amyloid. I would avoid digoxin and diltiazem in this gentleman as much as possible. We will follow along with you. Thank you for allowing me to participate in the care of your patient. Please feel free to contact me if you have any questions. Time Spent With Patient Time: Total time managing care of this patient today ____ minutes. Procedures Date of Service Date of Service: 04/02/22
[2022-04-02 19:46] VITALS: BP 106/57; PULSE 73; RESP 16; TEMP 37.1; O2SAT 98
[2022-04-02] MEDS: Atorvastatin Calcium 20 MG TABLET PO (21:15)
[2022-04-02] MEDS: Temazepam 15 MG CAPSULE PO (21:15)
[2022-04-02] MEDS: Gabapentin 600 MG TABLET PO (21:15)
[2022-04-02 22:10] LABS: Vancomycin Random 7.7 mcg/mL (15-20)
[2022-04-02 23:40] VITALS: BP 105/60; PULSE 92; RESP 18; TEMP 36.7; O2SAT 98
[2022-04-03] MEDS: Piperacillin Sodium/Tazobactam 3.375 GM in 0.9 % Sodium Chloride 50 ML IV (03:22)
[2022-04-03] MEDS: carvediloL 12.5 MG TABLET 37.5 MG PO (03:22)
[2022-04-03 04:00] VITALS: BP 122/64; PULSE 86; RESP 18; TEMP 36.7; O2SAT 98
[2022-04-03] MEDS: Omeprazole 20 MG CAPSULE.DR PO (06:48)
[2022-04-03 07:28] VITALS: BP 117/76; PULSE 85; RESP 16; TEMP 36.9; O2SAT 98
[2022-04-03 07:51] LABS: Creatinine Clr Calc Pharmacy 49.4; Estimated Glomerular Filt Rate 52
[2022-04-03] MEDS: allopurinoL 300 MG TABLET PO (10:27)
[2022-04-03] MEDS: Potassium Chloride ER 20 MEQ TAB.ER.PRT PO (10:27)
[2022-04-03] MEDS: Multivitamin TABLET 1 TAB PO (10:27)
[2022-04-03] MEDS: Apixaban 2.5 MG TABLET PO (10:27)
[2022-04-03] MEDS: 0.9 % Sodium Chloride Flush 3 ML SYRINGE IVFLUSH (10:28)
[2022-04-03] MEDS: Magnesium Oxide 400 MG TABLET PO (10:28)
--- NOTE | 2022-04-03 10:47 | P.DS_ITS ---
DS: Providers Provider Date of Service: 04/03/22 Date of admission: 04/01/22 00:09 Primary care physician: Teddy Pabon MD Consults: 04/02/22 08:46 Consult to Cardiology Routine Consulting Provider: Rafi Hood Reason for consultation: chf Has provider been notified: No DS: Diagnosis Discharge Diagnosis (1) Atrial fibrillation with rapid ventricular response: Status: Acute DS: Summary Hospital Course Hospital Course: Date of Service: 04/01/22 Chief Complaint:? 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 Of note patient was discharged from the hospital on 03/10 after being treated for acute on chronic symptomatic anemia, as well as CHF as well as ADE.? Patient comes in today stating that he has not been feeling well, he feels short of breath on minimal exertion, has a cough that is productive but he is unable to clear his throat, feels palpitations in his chest, denies any chest pain, reports no fever or chills, denies any abdominal pain no nausea or vomiting, no diarrhea constipation.? Daughter at bedside also states that his swelling his legs have worsened over the past few days.? Patient is also complaining that he has not been able to sleep for many months, he sleeps about 2 hours a night and has had difficulty staying asleep.? He reports that he was described lorazepam by his doctor recently which has not helped at all.? He is asking for something to help him sleep On arrival to the ED patient hemodynamically stable with no significant abnormal vitals except for heart rate in the 130s was found to be in AFib with RVR Labs are significant for WBC count of 11.2, hemoglobin of 9.4, hematocrit 29.7 which is around his baseline BNP of 505 which is increased from recent admission, COVID-[address] shows areas of hazy ground-glass opacity in the right middle and lower lobe and small ill-defined centrilobular and tree-in-bud nodules in the right lung, findings may be secondary to pulmonary edema versus atypical infection, there is also small amount of secretions or aspirated degrees within the trachea and mainstem bronchi When asked patient about his swelling he does endorse coughing on certain food and choking on certain food. Hospital course 81-year-old gentleman with history of CHF with reduced EF, persistent atrial fibrillation on Eliquis presented to [facility] with multiple symptoms including shortness of breath with minimal exertion, productive cough, palpitations, lack of sleep, no associated choking or coughing with food,,no fever chills no nausea, no vomiting,no abdominal pain patient noted to have atrial fibrillation with RVR, BNP elevated at [address] showed right middle and lower lobe ground-glass opacities patient admitted to [facility] with following medical issues. # persistent AFib noted to have RVR likely cause of cardiomyopathy, patient treated in the emergency room with IV Lopressor and Cardizem, heart rate improved, patient will be continued on Coreg and Eliquis upon discharge # acute on chronic CHF exacerbation with reduced EF, patient treated with IV Lasix 40 mg with good response BNP improved from 505-340 recent echo showed an EF of 40-45% patient seen by machine buffer Dr. Hood he recommend Lasix 20 mg daily and to continue Coreg, patient has been recommended outpatient cardiology follow-up and to follow a low-salt diet. Recommend to hold valsartan and resume after cardiology follow up if blood pressure allows. # pneumonia question aspiration, no fevers, leukocytosis resolved receive IV Zosyn x3 days, speech therapy noted mildly slow oral phase is started on chopped advanced diet with thin liquids ?? repeat chest x-ray showed persistent right lung consolidation recommend outpatient follow-up chest x-ray in 4 weeks is being discharged home on Augmentin to finish course of antibiotics. # insomnia, continue temazepam, since patient had good affect # chronic anemia s/p egd 03/18/22 showed mild focal gastritis, colonoscopy shows multiple polyps, all under 10 mm, removed with snare and biopsy negative for high-grade dysplasia or carcinoma, Hematocrit stable, ?? normal flow cytometry. # CKD stage 3, creatinine stable at 1.4, follow BMP as outpatient. # hypertension, soft blood pressure continue Coreg and lasix follow bp as outpt. Time Spent with Patient Time attestation: Total time managing care of this patient today ____ minutes. Discharge coordination time: Greater than 30 minutes Quality: Safe Use of Opioids Does Pt have an Active Cancer Diagnosis on the Problem List?: No Quality: Stroke Does the patient have a stroke diagnosis?: No Physical Exam Vital Signs: Vital Signs: Last Vital Signs Temp 98.5 F 04/03/22 07:28 Pulse 85 04/03/22 07:28 Resp 16 04/03/22 07:28 BP 117/76 04/03/22 07:28 Pulse Ox 98 04/03/22 07:28 O2 Del Method 04/03/22 07:28 BMI result Body Mass Index 24.1 Const: Other: General resting comfortably, no acute distress.? Neck? supple no JVD. CVS? irregular rate rhythm, Respiratory lungs clear to auscultation, no respiratory distress, no wheeze, no rhonchi. Gastrointestinal abdomen soft, nontender, bowel sounds audible, no guarding , no rigidity. Extremities? edema resolved Neuro nonfocal Skin no rash Psych appropriate affect DS: Data Data Completed and Pending Completed studies during hospitalization [Text1]: Procedures Dilation of Urethra, Via Natural or Artificial Opening Endoscopic (03/13/22) Drainage of Bladder with Drainage Device, Via Natural or Artificial Opening Endoscopic (03/13/22) Excision of Large Intestine, Via Natural or Artificial Opening Endoscopic, Diagnostic (03/13/22) Excision of Rectum, Via Natural or Artificial Opening Endoscopic, Diagnostic (03/13/22) Excision of Stomach, Pylorus, Via Natural or Artificial Opening Endoscopic, Diagnostic (03/13/22) Transfusion of Nonautologous Red Blood Cells into Peripheral Vein, Percutaneous Approach (03/13/22) Labs on day of discharge: Laboratory Results - last 24 hr 04/02/22 04/03/22 21:38 06:59 Creatinine 1.33 Estim Creat Clear Calc 49.4 Estimated GFR 52 Random Vancomycin 7.7 L Preliminary micro results at discharge 03/31/22 21:53 Blood Culture - Preliminary Blood - Venous No growth after 48 hours. 03/31/22 21:53 Blood Culture - Preliminary Blood - Venous No growth after 48 hours. Discharge Plan Discharge Anticipated Discharge Date/Time: 04/03/22 10:37 Patient Disposition: Home Health Service Discharge Diagnosis: Acute on chronic CHF with reduced EF Aspiration pneumonia Chronic anemia Referrals: [facility] [Other] - 1 Week ([facility] will resume services) Teddy Pabon MD [Primary Care Provider] - 1 Week Discharge Medications: New furosemide [Lasix] 20 mg tablet 20 mg PO DAILY Qty: 30 0RF amoxicillin-pot clavulanate 875-125 mg Tablet 875 mg PO Q12H Qty: 6 0RF temazepam 15 mg Capsule 15 mg PO BEDTIME Qty: 30 0RF Continued Eliquis 2.5 mg tablet 1 tab PO BID gabapentin 600 mg tablet 1 tab PO BEDTIME simvastatin 40 mg tablet 1 tab PO BEDTIME allopurinol 300 mg tablet 1 tab PO DAILY alfuzosin 10 mg tablet extended release 24 hr 1 tab PO BEDTIME potassium chloride 20 mEq tablet extended release 1 tab PO DAILY ferrous sulfate 325 mg (65 mg iron) Tablet 975 mg PO DAILY vitamin B complex Tablet 1 tab PO DAILY magnesium 250 mg Tablet 250 mg PO DAILY omeprazole 20 mg Capsule,Delayed Release(Dr/Ec) 20 mg PO DAILY@0630 Qty: 30 0RF carvedilol [Coreg] 25 mg tablet 37.5 mg PO Q12H Qty: 90 0RF Rx Instructions: must administer with a meal/food Discontinued lorazepam 0.5 mg tablet 1 tab PO BEDTIME PRN (Reason: Anxiety) valsartan 40 mg Tablet 40 mg PO DAILY Qty: 30 0RF Protocol: Hold for SBP< HOLD for SBP < : 90 Discharge Orders: Discharge Order (Routine); Ordered 04/03/22 Ordered By: Marbella Delarosa Diet: Low salt diet Activity on Discharge: As tolerated Stand Alone Forms: Patient Portal Discharge page Care Plan Goals: Take Augmentin 1 tablet twice daily for 3 more days, Take Lasix 20 mg daily follow low-salt diet Temazepam 15 mg bedtime for insomnia Health Concerns: Stop Ativan since started on temazepam and stop valsartan Take all other medications as prescribed Plan of Treatment: Outpatient follow-up with primary care physician,and Cardiology Assessment: as above
--- NOTE | 2022-04-03 11:03 | MHC.CM.PN ---
IMM 04/01/22 He is discharge home today. [facility] will resume services. The discharge information has been sent to the agency. Patient has arranged for transportation home. His dtr will pick him up once discharged.
[2022-04-03 11:23] VITALS: BP 128/71; PULSE 93; RESP 16; TEMP 36.7; O2SAT 97
[2022-04-03] MEDS: Amoxicillin/Potassium Clav 875 MG TABLET PO (11:39)
--- NOTE | 2022-04-03 13:59 | PM.PNCARD ---
Subjective Subjective Date of Service: 04/03/22 Interval history: Seen examined at bedside. Feeling much better. Heart rate well controlled. Physical Exam Vital Signs: Last Vital Signs Temp 98.0 F 04/03/22 11:23 Pulse 93 04/03/22 11:23 Resp 16 04/03/22 11:23 BP 128/71 04/03/22 11:23 Pulse Ox 97 04/03/22 11:23 O2 Del Method 04/03/22 11:23 BMI result Body Mass Index 24.1 GENERAL APPEARANCE: in no acute distress, pleasant. NECK: no carotid bruit, no significant jugular venous distention. SKIN: no suspicious lesions, warm and dry. HEART: no murmurs, irregular rate and rhythm. LUNGS: clear to auscultation bilaterally. ABDOMEN: soft, nontender. EXTREMITIES: no edema. PERIPHERAL PULSES: equal. NEUROLOGIC: No gross deficits, AAO X 3 Objective Labs and Meds 04/02/22 06:49 04/03/22 06:59 Lab results: Laboratory Results - last 24 hr 04/02/22 04/03/22 21:38 06:59 Creatinine 1.33 Estim Creat Clear Calc 49.4 Estimated GFR 52 Random Vancomycin 7.7 L Imaging Radiologist's impression: Impressions Chest X-Ray 04/03/22 09:12 IMPRESSION: Unchanged right mid to lower lung infiltrates. No evidence of CHF Progress Note: A&P Assessment and plan (1) Atrial fibrillation with rapid ventricular response: Status: Acute Plan Pleasant 81-year-old gentleman presenting with AFib with RVR in the setting of aspiration pneumonia. He has chronic atrial fibrillation and probably developed RVR in the setting of pneumonia. He has improved after treatment for infection and is back to well controlled heart rates on the same medications as he was taking at home. Clinically compensated. I will recommend leaving him on 20 mg of p.o. Lasix once a day. Continue carvedilol and Eliquis as before. Follow-up in the office in few weeks. Thank you for allowing me to participate in the care of your patient. Please feel free to contact me if you have any questions. Time Spent With Patient Time: Total time managing care of this patient today ____ minutes. Progress Note: Quality Stroke Does the patient have a stroke diagnosis?: No Procedures Date of Service Date of Service: 04/03/22
== END 2022-04-03 13:08 | disposition home health service (06) | DRG 291 ==
LOC: HO.ED 18:47 → HO.EDOVER 04-01 00:16 → HO.IMC 04-01 17:04
PROVIDERS: Admitting Provider Internal Medicine; Emergency Provider Internal Medicine; PCP Family Medicine; Visit Provider Hospitalist
DX: I13.0 Hypertensive heart and chronic kidney disease with heart failure and stage 1 through stage 4 chronic kidney disease, or unspecified chronic kidney disease (principal); I50.23 Acute on chronic systolic (congestive) heart failure; J69.0 Pneumonitis due to inhalation of food and vomit; I48.19 Other persistent atrial fibrillation; I42.9 Cardiomyopathy, unspecified; N18.30 Chronic kidney disease, stage 3 unspecified; Z96.0 Presence of urogenital implants; N13.9 Obstructive and reflux uropathy, unspecified; D63.1 Anemia in chronic kidney disease; G47.00 Insomnia, unspecified; Z20.822 Contact with and (suspected) exposure to COVID-19; Z79.01 Long term (current) use of anticoagulants; Z79.899 Other long term (current) drug therapy
CPT/HCPCS: 36415; 71045; 71046; 71250; 80048; 80053; 80202; 82565; 83605; 83735; 83880; 84484; 85025; 85027; 87040; 87635; 92526; 92610; 93005; 99222; 99285; J1200; J1940; J2543; J3370

== ENCOUNTER 2022-04-08 15:32 | Outpatient (REF) | payer MEDICARE, SELFPAY ==
[2022-04-08 15:45] LABS: MANUAL DIFF FLAG NO
[2022-04-08 16:25] LABS: Basophils Percent Auto 0.4 % (0-2); Eosinophils Absolute Auto 0.4 X10*3/uL (0.0-0.4); Eosinophils Percent Auto 4.9 % (0-4); Hematocrit 30.1 % (42.0-52.0); Hemoglobin 9.4 g/dl (14.0-18.0); Imm Gran Abs Auto 0.04 X10*3/uL (0.00-0.03); Imm Gran Pct Auto 0.5 % (0.0-0.4); Lymphocytes Absolute Auto 3.2 X10*3/uL (1.2-4.9); Lymphocytes Percent Auto 40.6 % (20-40); Mean Corpuscular HGB Conc 31.2 g/dl (31.0-36.0); Mean Corpuscular Hemoglobin 30.5 pg (27.0-33.0); Mean Corpuscular Volume 97.7 fL (80.0-98.0); Mean Platelet Volume 10.3 fL (9.4-12.4); Monocytes Absolute Auto 0.6 X10*3/uL (0.1-1.2); Monocytes Percent Auto 7.2 % (2-11); Neutrophils Absolute Auto 3.6 x10*3/uL (2.0-8.3); Neutrophils Percent Auto 46.4 % (45-73); Platelet Count 182 X10*3/uL (160-400); Red Blood Count 3.08 X10*6/uL (4.60-5.80); Red Cell Distribution Width 17.1 % (11.0-16.0); White Blood Count 7.8 X10*3/uL (4.8-10.8)
[2022-04-08 16:53] LABS: Alanine Aminotransferase 10 U/L (0-40); Albumin Level 3.8 g/dL (3.5-5.0); Alkaline Phosphatase 93 U/L (39-117); Anion Gap 12 (12-20); Aspartate Amino Transferase 15 U/L (5-37); Bilirubin Total 0.3 mg/dL (0.0-1.0); Blood Urea Nitrogen 20 mg/dL (9-16); Carbon Dioxide 25 mmol/L (22-29); Chloride 108 mmol/L (96-108); Estimated Glomerular Filt Rate 58; Glucose Random 100 mg/dL (60-115); Iron 76 mcg/dL (45-160); Percent Iron Saturation 29 % (15-50); Potassium 4.6 mmol/L (3.3-5.1); Sodium 140 mmol/L (135-145); Total Iron Binding Capacity 258 mcg/dL (228-428); Total Protein 6.5 g/dL (6.5-8.0); Unsaturated Iron Binding 182 ug/dL
[2022-04-08 17:02] LABS: Ferritin 632 ng/mL (20-250)
[2022-04-08 17:06] LABS: Erythrocyte Sedimentation Rate 65 MM/HR (0-15)
[2022-04-10 07:39] LABS: Prot Elec - Albumin 3.6 g/dL (3.8-4.8); Prot Elec - Alpha1 0.4 g/dL (0.2-0.3); Prot Elec - Alpha2 0.9 g/dL (0.5-0.9); Prot Elec - Beta 1 0.5 g/dL (0.4-0.6); Prot Elec - Beta 2 0.5 g/dL (0.2-0.5); Prot Elec - Total Protein 6.8 g/dL (6.1-8.1)
[2022-04-10 14:28] LABS: IgA 378 mg/dL (70-320); IgG 1087 mg/dL (600-1540); IgM 62 mg/dL (50-300)
== END 2022-04-08 15:33 | disposition home or self-care (01) ==
LOC: HO.LAB 15:32
PROVIDERS: PCP Family Medicine; Visit Provider Family Medicine
DX: D64.9 Anemia, unspecified (principal); R53.1 Weakness; I10 Essential (primary) hypertension
CPT/HCPCS: 36415; 80053; 82728; 82784; 83540; 84165; 85025; 85652

== ENCOUNTER 2022-04-11 13:01 | Outpatient (REF) | payer MEDICARE, SELFPAY ==
--- NOTE | ~2022-04-11 | CT_ITS ---
EXAMINATION: CT CHEST WITHOUT CONTRAST CLINICAL INFORMATION: Aspiration pneumonia. COMPARISON: CT chest 03/31/2022. TECHNIQUE: Multidetector volumetric CT imaging of the chest was done. Axial MIP volume rendering provided. Sagittal and coronal reformatted images were obtained. This CT examination was performed using dose optimization techniques as appropriate, variously including the following: *Automated exposure control *Adjustment of mA and/or kV according to patient size (this includes techniques or standardized protocols for targeted exams where dose is matched to indication/reason for exam; i.e. extremities or head) *Use of iterative reconstruction technique DLP: 151 mGy-cm FINDINGS: LUNGS: The multifocal airspace disease predominantly in the right upper and lower lobes but also in the middle lobe, left upper lobe, and left lower lobe has significantly improved. There is some minor residual tree-in-bud airspace disease in the effected areas. Findings are most consistent with an airways process including aspiration. There are mildly thick-walled airways. No significant mucous plugging. No dense consolidation. MEDIASTINUM: No adenopathy. No pericardial effusion. CORONARY ARTERY CALCIFICATION: Present. PLEURA: No pleural effusion. AXILLA: No lymphadenopathy. UPPER ABDOMEN: Fatty infiltration along the falciform ligament. Simple cyst upper right kidney. OSSEOUS STRUCTURES: Degenerative changes in the spine. CT/CT chest wo IV con IMPRESSION: Significant improvement in multifocal airspace disease. There remains some residual disease throughout all affected areas of the lung but overall, significant improvement compared to the prior study. Consider follow-up chest CT in 3 months to establish new baseline. Fleischner guidelines were followed.
== END 2022-04-11 13:02 | disposition home or self-care (01) ==
LOC: HO.CT 13:01
PROVIDERS: PCP Student in an Organized Health Care Education/Training Program; Visit Provider Family Medicine
DX: J69.0 Pneumonitis due to inhalation of food and vomit (principal)
CPT/HCPCS: 71250

== ENCOUNTER 2022-04-12 10:09 | Outpatient (REF) | payer MEDICARE, SELFPAY ==
[2022-04-15 09:59] LABS: Complement C3 144 mg/dL (82-185)
[2022-04-23 15:33] LABS: C-ANCA Titer 1:40 titer (<1:20); Neutrophil Cyto Ab Screen C-ANCA POS (NEGATIVE)
== END 2022-04-12 10:10 | disposition home or self-care (01) ==
LOC: HO.LAB 10:09
PROVIDERS: PCP Family Medicine; Visit Provider Family Medicine
DX: I77.6 Arteritis, unspecified (principal)
CPT/HCPCS: 36415; 82595; 86036; 86037; 86160

== ENCOUNTER 2022-05-02 12:34 | Outpatient (REF) | payer MEDICARE, SELFPAY ==
[2022-05-02 12:45] LABS: MANUAL DIFF FLAG NO
[2022-05-02 12:52] LABS: Basophils Percent Auto 0.5 % (0-2); Eosinophils Absolute Auto 0.7 X10*3/uL (0.0-0.4); Eosinophils Percent Auto 8.5 % (0-4); Hematocrit 32.8 % (42.0-52.0); Hemoglobin 10.3 g/dl (14.0-18.0); Imm Gran Abs Auto 0.03 X10*3/uL (0.00-0.03); Imm Gran Pct Auto 0.4 % (0.0-0.4); Lymphocytes Absolute Auto 2.4 X10*3/uL (1.2-4.9); Lymphocytes Percent Auto 31.3 % (20-40); Mean Corpuscular HGB Conc 31.4 g/dl (31.0-36.0); Mean Corpuscular Hemoglobin 31.5 pg (27.0-33.0); Mean Corpuscular Volume 100.3 fL (80.0-98.0); Mean Platelet Volume 9.6 fL (9.4-12.4); Monocytes Absolute Auto 0.5 X10*3/uL (0.1-1.2); Monocytes Percent Auto 6.7 % (2-11); Neutrophils Percent Auto 52.6 % (45-73); Platelet Count 200 X10*3/uL (160-400); Red Blood Count 3.27 X10*6/uL (4.60-5.80); Red Cell Distribution Width 17.4 % (11.0-16.0); White Blood Count 7.6 X10*3/uL (4.8-10.8)
[2022-05-02 12:57] LABS: INTERNATIONAL NORM RATIO 1.2 (0.9-1.1); Prothrombin Time 13.8 SEC (10.0-13.1)
[2022-05-02 13:35] LABS: Erythrocyte Sedimentation Rate 53 MM/HR (0-15)
[2022-05-02 14:07] LABS: Iron 113 mcg/dL (45-160); Percent Iron Saturation 44 % (15-50); Total Iron Binding Capacity 257 mcg/dL (228-428); Unsaturated Iron Binding 144 ug/dL
== END 2022-05-02 12:35 | disposition home or self-care (01) ==
LOC: HO.LAB 12:34
PROVIDERS: PCP Family Medicine; Visit Provider Family Medicine
DX: D64.9 Anemia, unspecified (principal); R19.5 Other fecal abnormalities; Z79.899 Other long term (current) drug therapy
CPT/HCPCS: 36415; 83540; 85025; 85610; 85652; 85730

== ENCOUNTER → 2022-05-27 08:23 | Outpatient (BNVA) | payer MEDICARE, SELFPAY | PROVIDERS: PCP Family Medicine; Referring Provider Family Medicine; Visit Provider Internal Medicine Gastroenterology ==

== ENCOUNTER 2022-05-29 07:13 | Outpatient (REF) | payer MEDICARE, SELFPAY ==
[2022-05-29 07:17] LABS: MANUAL DIFF FLAG NO
[2022-05-29 08:20] LABS: Basophils Percent Auto 0.4 % (0-2); Eosinophils Absolute Auto 0.4 X10*3/uL (0.0-0.4); Hematocrit 30.9 % (42.0-52.0); Hemoglobin 9.7 g/dl (14.0-18.0); Imm Gran Abs Auto 0.02 X10*3/uL (0.00-0.03); Imm Gran Pct Auto 0.3 % (0.0-0.4); Lymphocytes Percent Auto 27.7 % (20-40); Mean Corpuscular HGB Conc 31.4 g/dl (31.0-36.0); Mean Corpuscular Hemoglobin 32.1 pg (27.0-33.0); Mean Corpuscular Volume 102.3 fL (80.0-98.0); Mean Platelet Volume 10.7 fL (9.4-12.4); Monocytes Absolute Auto 0.6 X10*3/uL (0.1-1.2); Neutrophils Absolute Auto 4.3 x10*3/uL (2.0-8.3); Neutrophils Percent Auto 58.6 % (45-73); Platelet Count 154 X10*3/uL (160-400); Red Blood Count 3.02 X10*6/uL (4.60-5.80); Red Cell Distribution Width 17.8 % (11.0-16.0); White Blood Count 7.3 X10*3/uL (4.8-10.8)
[2022-05-29 08:29] LABS: Alanine Aminotransferase 8 U/L (0-40); Albumin Level 3.6 g/dL (3.5-5.0); Alkaline Phosphatase 95 U/L (39-117); Anion Gap 12 (12-20); Aspartate Amino Transferase 12 U/L (5-37); Bilirubin Total 0.6 mg/dL (0.0-1.0); Blood Urea Nitrogen 12 mg/dL (9-16); Calcium 8.8 mg/dL (8.4-10.2); Carbon Dioxide 25 mmol/L (22-29); Chloride 109 mmol/L (96-108); Estimated Glomerular Filt Rate > 60; Glucose Fasting 120 mg/dL (60-99); Iron 35 mcg/dL (45-160); Percent Iron Saturation 16 % (15-50); Potassium 3.9 mmol/L (3.3-5.1); Sodium 142 mmol/L (135-145); Total Iron Binding Capacity 222 mcg/dL (228-428); Unsaturated Iron Binding 187 ug/dL
[2022-05-29 09:06] LABS: Erythrocyte Sedimentation Rate 45 MM/HR (0-15)
== END 2022-05-29 07:14 | disposition home or self-care (01) ==
LOC: HO.LAB 07:13
PROVIDERS: PCP Family Medicine; Visit Provider Family Medicine
DX: D50.9 Iron deficiency anemia, unspecified (principal)
CPT/HCPCS: 36415; 80053; 83540; 85025; 85652

== ENCOUNTER 2022-06-06 12:25 | Emergency (ER) | payer MEDICARE, SELFPAY ==
--- NOTE | ~2022-06-06 | XR_ITS ---
EXAMINATION: XR CHEST CLINICAL INFORMATION: Shortness of breath. COMPARISON: 04/03/2022 chest radiographs. TECHNIQUE: 2 views of the chest were obtained. FINDINGS: Mild blunting of the costophrenic angles is seen bilaterally. There is mild prominence of the pulmonary vasculature. The heart and mediastinal structures are unremarkable. XR/XR chest 2V IMPRESSION: Small pleural effusions bilaterally were not seen previously. Underlying mild congestion cannot be excluded.
--- NOTE | 2022-06-06 12:29 | ECG_ITS ---
Test Reason : sob Blood Pressure : / mmHG Vent. Rate : 073 BPM Atrial Rate : 000 BPM P-R Int : 000 ms QRS Dur : 114 ms QT Int : 430 ms P-R-T Axes : 000 051 -05 degrees QTc Int : 473 ms Atrial fibrillation with a competing junctional pacemaker Low voltage QRS Incomplete left bundle branch block Nonspecific ST abnormality Abnormal ECG When compared with ECG of 31-MAR-2022 19:02, Vent. rate has decreased BY 44 BPM Referred By: Yenni Alfaro Electronically Signed By:Rafi Hood
[2022-06-06 12:30] VITALS: BP 159/95; PULSE 85; RESP 20; TEMP 36.8; O2SAT 97; BMI 24.4
--- NOTE | 2022-06-06 12:30 | ED_ITS ---
HPI - SOB/Dyspnea General Stated Complaint: diff breathing <MARY Sauer - Last Filed: 06/06/22 12:34> Source: patient, family, RN notes reviewed and old records reviewed <Fiorella DASIA Sood - Last Filed: 06/07/22 19:44> Mode of arrival: ambulatory <DASIA Martinez - Last Filed: 06/07/22 19:44> Limitations: no limitations <DASIA Martinez - Last Filed: 06/07/22 19:44> History of Present Illness HPI Narrative: 81-year-old male with past medical history of chronic persistent atrial fibrillation, heart failure with mid-range ejection fraction, hypertension, dyslipidemia, obstructive uropathy with chronic Oconnell placement, chronic anemia, GERD, gout, prostate CA status post radiation therapy 2005, CKD stage 3 is here today for increased shortness of breath. Patient was hospitalized March 18 to 03/20/2022 with syncope and of fatigue with low hemoglobin, patient received total of 4 units packed red blood cells.. Upper endoscopy and colonoscopy 03/18/2022 showed mild focal gastritis and colonoscopy demonstrated multiple polyps. Patient subsequently was admitted on April 01 it and discharged on April 03 with atrial fibrillation and RVR. Patient was also treated for pneumonia. Patient denies chest pain, PND, presyncope, syncope, lower extremity edema, palpitations. He reports occasional dependent right lower extremity edema and shortness of breath that is increasing in the last couple weeks. Patient reports that about 3 weeks ago or so his PCP discontinue his Lasix. In the past couple days he has been be common little bit more short of breath. Patient's daughter reports that patient called his PCP today for restarting him back on furosemide and was told to come to emergency department to get evaluated. <DASIA Martinez - Last Filed: 06/07/22 19:44> Related Data Home Medications: Home Medications Medication Instructions Recorded Confirmed alfuzosin 10 mg tablet,extended 1 tab PO BEDTIME 03/13/22 04/01/22 release 24 hr allopurinol 300 mg tablet 1 tab PO DAILY 03/13/22 04/01/22 ferrous sulfate 325 mg (65 mg 975 mg PO DAILY 03/13/22 04/01/22 iron) tablet gabapentin 600 mg tablet 1 tab PO BEDTIME 03/13/22 04/01/22 magnesium 250 mg tablet 250 mg PO DAILY 03/13/22 04/01/22 potassium chloride 20 mEq 1 tab PO DAILY 03/13/22 04/01/22 tablet,extended release simvastatin 40 mg tablet 1 tab PO BEDTIME 03/13/22 04/01/22 vitamin B complex 1 tab PO DAILY 03/13/22 04/01/22 apixaban 2.5 mg tablet (Eliquis) 1 tab PO BID 04/01/22 04/01/22 Previous Rx's Medication Instructions Recorded omeprazole 20 mg capsule,delayed 20 mg PO DAILY@0630 #30 caps 03/20/22 release carvedilol 25 mg tablet (Coreg) 37.5 mg PO Q12H #90 tabs 03/21/22 amoxicillin 875 mg-potassium 875 mg PO Q12H #6 tabs 04/03/22 clavulanate 125 mg tablet furosemide 20 mg tablet (Lasix) 20 mg PO DAILY #30 tabs 04/03/22 temazepam 15 mg capsule 15 mg PO BEDTIME #30 caps 04/03/22 peg-electrolyte solution 420 gram 240 ml PO Q10M #2,000 mL 05/07/22 oral solution furosemide 20 mg tablet 20 mg PO DAILY #30 tabs 06/06/22 <MARY Sauer - Last Filed: 06/06/22 12:34> Allergies/Adverse Reactions: Allergies Allergy/AdvReac Type Severity Reaction Status Date / Time No Known Allergies Allergy Unverified 11/18/19 15:22 [No Known Allergies*] <MARY Sauer - Last Filed: 06/06/22 12:34> [facility] Past Medical History Medical History: Medical History Afib Anemia Anxiety Cardiomyopathy Chronic indwelling Oconnell catheter CKD (chronic kidney disease) stage 3, GFR 30-59 ml/min Heart failure with reduced ejection fraction Obstructive uropathy Persistent atrial fibrillation Urethral stricture <MARY Sauer - Last Filed: 06/06/22 12:34> Social History Social History: Social History Household Members: None Household Members Other:: daughter visiting from [place] through pt health problems and staying Housing: House Do you presently have visiting nurse or other home services: Yes (pt was set up with services but said they stop coming) Alcohol intake: current Alcohol intake frequency: 0-2 drinks per day Alcohol type: hard liquor Patient Tobacco Use Status: Current everyday Tobacco user Tobacco use type: Cigar Advance Directives: Yes Advance Directives on File: Yes Advance Directives Date on File: 03/14/22 service: No Current occupational status: retired <MARY Sauer - Last Filed: 06/06/22 12:34> Physical Exam Vital Signs: Vital Signs: Last Vital Signs Temp 98.2 F 06/06/22 12:30 Pulse 93 06/06/22 15:16 Resp 17 06/06/22 15:16 BP 156/73 H 06/06/22 15:16 Pulse Ox 97 06/06/22 15:16 O2 Del Method Room Air 06/06/22 15:16 BMI result Body Mass Index 24.4 <MARY Sauer - Last Filed: 06/06/22 12:34> Vital Signs: Last Vital Signs Temp 98.2 F 06/06/22 12:30 Pulse 93 06/06/22 15:16 Resp 17 06/06/22 15:16 BP 156/73 H 06/06/22 15:16 Pulse Ox 97 06/06/22 15:16 O2 Del Method Room Air 06/06/22 15:16 BMI result Body Mass Index 24.4 <JOSE MARIA Martinez-BC - Last Filed: 06/07/22 19:44> Course Course Course Narrative: RME - 81 yo male with history of ADE, UTI, anemia, pneumonia, prostate cancer who presents to the ER for 2-3 days of shortness of breath. Was wheezing with a rattle yesterday. No peripheral edema, chest pain. PCP concerned about new onset CHF. VSS in triage. Plan: CXR, EKG, lab workup <MARY Sauer - Last Filed: 06/06/22 12:34> RME - 81 yo male with history of ADE, UTI, anemia, pneumonia, prostate cancer who presents to the ER for 2-3 days of shortness of breath. Was wheezing with a rattle yesterday. No peripheral edema, chest pain. PCP concerned about new onset CHF. VSS in triage. Plan: CXR, EKG, lab workup 81-year-old male with past medical history of chronic persistent atrial fibrillation, heart failure with mid-range ejection fraction, hypertension, dyslipidemia, obstructive uropathy with chronic Oconnell placement, chronic anemia, GERD, gout, prostate CA status post radiation therapy 2005, CKD stage 3 is here today for increased shortness of breath. Patient was hospitalized March 18 to 03/20/2022 with syncope and of fatigue with low hemoglobin, patient received total of 4 units packed red blood cells.. Upper endoscopy and colonoscopy 03/18/2022 showed mild focal gastritis and colonoscopy demonstrated multiple polyps. Patient subsequently was admitted on April 01 it and discharged on April 03 with atrial fibrillation and RVR. Patient was also treated for pneumonia. Patient denies chest pain, PND, presyncope, syncope, lower extremity edema, palpitations. He reports occasional dependent right lower extremity edema and shortness of breath that is increasing in the last couple weeks. Will older labs that will include CBC, BMP, BNP, EKG, chest x-ray <JOSE MARIA Martinez-BC - Last Filed: 06/07/22 19:44> Reevaluation(s) Reevaluation #1: Labs discussed with Dr. Hood, Patient has elevated BNP 363. Chest x-ray without acute processes no Congestive heart failure. Patient has no respiratory distress. Lung sounds clear. Hemodynamically stable otherwise. Will send patient home with script for furosemide 20 mg. He will be following up with Dr. Hastings on the . Patient's daughter is with him both patient and his daughter are agreeable to plan of care and verbalized understanding of instructions. They where given the opportunity to ask questions all questions answered. <JOSE MARIA Martinez-BC - Last Filed: 06/07/22 19:44> Medications Administered Discontinued Medications Generic Name Dose Route Start Last Admin Trade Name Freq PRN Reason Stop Dose Admin Furosemide 20 mg 06/06/22 17:01 06/06/22 17:05 Furosemide 20 Mg Tablet PO 06/06/22 17:02 20 mg ONCE ONE Administration Protocol <MARY Sauer - Last Filed: 06/06/22 12:34> Medications Administered Discontinued Medications Generic Name Dose Route Start Last Admin Trade Name Freq PRN Reason Stop Dose Admin Furosemide 20 mg 06/06/22 17:01 06/06/22 17:05 Furosemide 20 Mg Tablet PO 06/06/22 17:02 20 mg ONCE ONE Administration Protocol <DASIA Martinez - Last Filed: 06/07/22 19:44> Medical Decision Making Medical Decision Making [facility] Narrative: Patient here today for evaluation of his shortness of breath. Patient was given Lasix that was recommended by Cardiology upon discharge. Patient seen consulting secondary school special ed teacher for Watchman procedure, awaiting to have the procedure right now. Patient has an appointment with secondary school special ed teacher for a first-time end of this month. Patient reports that he has seen Cardiology in the past for AFib, however last appointment was more than 10 years ago. Patient looks hemodynamically stable. Mildly hypertensive with pulse 80s to 90s. Lung sounds clear, mild nonpitting edema to right ankle. Afebrile. Labs, EKG and chest x- ray reviewed. No leukocytosis, anemia however patient might be mildly fluid overload, BNP elevated. Iron deficiency anemia most likely when labs reviewed from the his iron levels were low. Discussion with Dr. Hood via tiger text, will send patient home with Lasix until he sees his secondary school special ed teacher. <DASIA Martinez - Last Filed: 06/07/22 19:44> Differential Diagnosis Differential Diagnoses: The differential diagnosis associated with the presentation includes <DASIA Martinez - Last Filed: 06/07/22 19:44> Pneumonia, Congestive heart failure, bronchitis, <DASIA Martinez - Last Filed: 06/07/22 19:44> Consult Healthcare Provider Management of the patient was discussed with: Tin Tie Machine Operator [employer] (Dr. Hood) <DASIA Martinez - Last Filed: 06/07/22 19:44> Lab Data [facility] Lab Attestation statement: I reviewed the patient's lab results. <DASIA Martinez - Last Filed: 06/07/22 19:44> Result Diagrams: 06/06/22 12:49 06/06/22 12:49 <MARY Sauer - Last Filed: 06/06/22 12:34> Labs: Lab Results 06/06/22 06/06/22 06/06/22 Range/Units 12:49 12:49 12:49 WBC 6.5 (4.8-10.8) X10*3/uL RBC 2.82 L (4.60-5.80) X10*6/uL Hgb 9.2 L (14.0-18.0) g/dl Hct 29.1 L (42.0-52.0) % MCV 103.2 H (80.0-98.0) fL MCH 32.6 (27.0-33.0) pg MCHC 31.6 (31.0-36.0) g/dl RDW 17.8 H (11.0-16.0) % Plt Count 134 L (160-400) X10*3/uL MPV 10.1 (9.4-12.4) fL Immature Gran % (Auto) 0.5 H (0.0-0.4) % Neut % (Auto) 64.1 (45-73) % Lymph % (Auto) 21.6 (20-40) % [place] % (Auto) 5.9 (2-11) % Eos % (Auto) 7.4 H (0-4) % Baso % (Auto) 0.5 (0-2) % Lymph # (Auto) 1.4 (1.2-4.9) X10*3/uL [place] # (Auto) 0.4 (0.1-1.2) X10*3/uL Eos # (Auto) 0.5 H (0.0-0.4) X10*3/uL Baso # (Auto) 0.0 (0.0-0.2) X10*3/uL Abs Immat Gran (auto) 0.03 (0.00-0.03) X10*3/uL Absolute Neuts (auto) 4.2 (2.0-8.3) x10*3/uL Absolute Nucleated RBC 0.000 (0.0-0.012) X10*3/uL Nucleated RBC % (auto) 0.0 (0.0-0.2) /100WBC Sodium 144 (135-145) mmol/L Potassium 3.9 (3.3-5.1) mmol/L Chloride 111 H (96-108) mmol/L Carbon Dioxide 24 (22-29) mmol/L Anion Gap 13 (12-20) BUN 15 (9-16) mg/dL Creatinine 1.09 (0.5-1.4) mg/dL Estim Creat Clear Calc 62.1 Estimated GFR > 60 Random Glucose 141 H (60-115) mg/dL Calcium 8.6 (8.4-10.2) mg/dL Magnesium 2.0 (1.6-2.6) mg/dL Total Bilirubin 0.9 (0.0-1.0) mg/dL Direct Bilirubin 0.3 (0.0-0.5) mg/dL AST 18 (5-37) U/L ALT 16 (0-40) U/L Alkaline Phosphatase 117 (39-117) U/L B-Natriuretic Peptide 363 H (<100) pg/mL Total Protein 6.1 L (6.5-8.0) g/dL Albumin 3.6 (3.5-5.0) g/dL <MARY Sauer - Last Filed: 06/06/22 12:34> Lab Results 06/06/22 06/06/22 06/06/22 Range/Units 12:49 12:49 12:49 WBC 6.5 (4.8-10.8) X10*3/uL RBC 2.82 L (4.60-5.80) X10*6/uL Hgb 9.2 L (14.0-18.0) g/dl Hct 29.1 L (42.0-52.0) % MCV 103.2 H (80.0-98.0) fL MCH 32.6 (27.0-33.0) pg MCHC 31.6 (31.0-36.0) g/dl RDW 17.8 H (11.0-16.0) % Plt Count 134 L (160-400) X10*3/uL MPV 10.1 (9.4-12.4) fL Immature Gran % (Auto) 0.5 H (0.0-0.4) % Neut % (Auto) 64.1 (45-73) % Lymph % (Auto) 21.6 (20-40) % [place] % (Auto) 5.9 (2-11) % Eos % (Auto) 7.4 H (0-4) % Baso % (Auto) 0.5 (0-2) % Lymph # (Auto) 1.4 (1.2-4.9) X10*3/uL [place] # (Auto) 0.4 (0.1-1.2) X10*3/uL Eos # (Auto) 0.5 H (0.0-0.4) X10*3/uL Baso # (Auto) 0.0 (0.0-0.2) X10*3/uL Abs Immat Gran (auto) 0.03 (0.00-0.03) X10*3/uL Absolute Neuts (auto) 4.2 (2.0-8.3) x10*3/uL Absolute Nucleated RBC 0.000 (0.0-0.012) X10*3/uL Nucleated RBC % (auto) 0.0 (0.0-0.2) /100WBC Sodium 144 (135-145) mmol/L Potassium 3.9 (3.3-5.1) mmol/L Chloride 111 H (96-108) mmol/L Carbon Dioxide 24 (22-29) mmol/L Anion Gap 13 (12-20) BUN 15 (9-16) mg/dL Creatinine 1.09 (0.5-1.4) mg/dL Estim Creat Clear Calc 62.1 Estimated GFR > 60 Random Glucose 141 H (60-115) mg/dL Calcium 8.6 (8.4-10.2) mg/dL Magnesium 2.0 (1.6-2.6) mg/dL Total Bilirubin 0.9 (0.0-1.0) mg/dL Direct Bilirubin 0.3 (0.0-0.5) mg/dL AST 18 (5-37) U/L ALT 16 (0-40) U/L Alkaline Phosphatase 117 (39-117) U/L B-Natriuretic Peptide 363 H (<100) pg/mL Total Protein 6.1 L (6.5-8.0) g/dL Albumin 3.6 (3.5-5.0) g/dL <Fiorella Rubio, SEWING TEACHER-BC - Last Filed: 06/07/22 19:44> Independent Interpretation I performed an independent interpretation of an: EKG <DASIA Martinez - Last Filed: 06/07/22 19:44> Interpretation: Atrial fibrillation with junctional pacemaker low-voltage QRS, left bundle-branch block, <BRENDA MartinezBC - Last Filed: 06/07/22 19:44> Radiology Impression Discussion of test interpretation with radiology: I have reviewed the radiologist's reading. <BRENDA MartinezBC - Last Filed: 06/07/22 19:44> Radiologist Impression: FINDINGS: Mild blunting of the costophrenic angles is seen bilaterally. There is mild prominence of the pulmonary vasculature. The heart and mediastinal structures are unremarkable. XR/XR chest 2V IMPRESSION: Small pleural effusions bilaterally were not seen previously. Underlying mild congestion cannot be excluded. ? <JOSE MARIA Martinez-NAV - Last Filed: 06/07/22 19:44> Independent Historian Clinical information obtained from an independent historian. History obtained from or confirmed by: Other <JOSE MARIA Martinez-BC - Last Filed: 06/07/22 19:44> External Record Review External record reviewed: Inpatient record, Office record, Outpatient record, Prior outpatient labs and Prior outpatient radiology <JOSE MARIA Martinez-NAV - Last Filed: 06/07/22 19:44> Prescription Management I considered prescription management with: Other <JOSE MARIA Martinez-BC - Last Filed: 06/07/22 19:44> Diuretic <Fiorella SantizooJOSE MARIA-BC - Last Filed: 06/07/22 19:44> Chronic Conditions Patient?s care impacted by: Hypertension and Other (CHF, A-fib) <Fiorella Tiffanie Joanne JOSE MARIA-BC - Last Filed: 06/07/22 19:44> Discharge Plan Discharge Clinical Impression: Congestive heart failure <MARY Sauer - Last Filed: 06/06/22 12:34> Patient Disposition: Home, Self-Care <MARY Sauer - Last Filed: 06/06/22 12:34> Instructions: Shortness of Breath (ED) <MARY Sauer - Last Filed: 06/06/22 12:34> Additional Instructions: You were seen here today for shortness of breath. I have discussed your case with secondary school special ed teacher who saw I you at the hospital during last admission. Please stay on Lasix until you see your secondary school special ed teacher. Monitor your fluid intake. Avoid salt. You must return to emergency department if he will have any shortness of breath, chest pain, chest pressure, increase swelling in your extremities. Please follow-up with your primary care provider as well <MARY Sauer - Last Filed: 06/06/22 12:34> Prescriptions: New furosemide 20 mg tablet 20 mg PO DAILY Qty: 30 0RF No Action peg-electrolyte soln 420 gram recon soln 240 ml PO Q10M Qty: 2000 0RF Rx Instructions: until fecal effluent is clear; do not exceed a total volume of 2,000 mL Eliquis 2.5 mg tablet 1 tab PO BID furosemide [Lasix] 20 mg tablet 20 mg PO DAILY Qty: 30 0RF amoxicillin-pot clavulanate 875-125 mg Tablet 875 mg PO Q12H Qty: 6 0RF temazepam 15 mg Capsule 15 mg PO BEDTIME Qty: 30 0RF gabapentin 600 mg tablet 1 tab PO BEDTIME simvastatin 40 mg tablet 1 tab PO BEDTIME allopurinol 300 mg tablet 1 tab PO DAILY alfuzosin 10 mg tablet extended release 24 hr 1 tab PO BEDTIME potassium chloride 20 mEq tablet extended release 1 tab PO DAILY ferrous sulfate 325 mg (65 mg iron) Tablet 975 mg PO DAILY vitamin B complex Tablet 1 tab PO DAILY magnesium 250 mg Tablet 250 mg PO DAILY omeprazole 20 mg Capsule,Delayed Release(Dr/Ec) 20 mg PO DAILY@0630 Qty: 30 0RF carvedilol [Coreg] 25 mg tablet 37.5 mg PO Q12H Qty: 90 0RF Rx Instructions: must administer with a meal/food <MARY Sauer - Last Filed: 06/06/22 12:34> Referrals: Teddy Pabon MD [Primary Care Provider] - <MARY Sauer - Last Filed: 06/06/22 12:34> Interventions: ED Discharge Assessment Last Done: 06/06/22 17:31 <MARY Sauer - Last Filed: 06/06/22 12:34> Discharge Date/Time: 06/06/22 17:39 <MARY Sauer - Last Filed: 06/06/22 12:34>
[2022-06-06 12:56] LABS: MANUAL DIFF FLAG NO
[2022-06-06 12:59] LABS: Basophils Percent Auto 0.5 % (0-2); Eosinophils Absolute Auto 0.5 X10*3/uL (0.0-0.4); Eosinophils Percent Auto 7.4 % (0-4); Hematocrit 29.1 % (42.0-52.0); Hemoglobin 9.2 g/dl (14.0-18.0); Imm Gran Abs Auto 0.03 X10*3/uL (0.00-0.03); Imm Gran Pct Auto 0.5 % (0.0-0.4); Lymphocytes Absolute Auto 1.4 X10*3/uL (1.2-4.9); Lymphocytes Percent Auto 21.6 % (20-40); Mean Corpuscular HGB Conc 31.6 g/dl (31.0-36.0); Mean Corpuscular Hemoglobin 32.6 pg (27.0-33.0); Mean Corpuscular Volume 103.2 fL (80.0-98.0); Mean Platelet Volume 10.1 fL (9.4-12.4); Monocytes Absolute Auto 0.4 X10*3/uL (0.1-1.2); Monocytes Percent Auto 5.9 % (2-11); Neutrophils Absolute Auto 4.2 x10*3/uL (2.0-8.3); Neutrophils Percent Auto 64.1 % (45-73); Platelet Count 134 X10*3/uL (160-400); Red Blood Count 2.82 X10*6/uL (4.60-5.80); Red Cell Distribution Width 17.8 % (11.0-16.0); White Blood Count 6.5 X10*3/uL (4.8-10.8)
[2022-06-06 13:18] LABS: Alanine Aminotransferase 16 U/L (0-40); Albumin Level 3.6 g/dL (3.5-5.0); Alkaline Phosphatase 117 U/L (39-117); Anion Gap 13 (12-20); Aspartate Amino Transferase 18 U/L (5-37); Bilirubin Direct 0.3 mg/dL (0.0-0.5); Bilirubin Total 0.9 mg/dL (0.0-1.0); Blood Urea Nitrogen 15 mg/dL (9-16); Calcium 8.6 mg/dL (8.4-10.2); Carbon Dioxide 24 mmol/L (22-29); Chloride 111 mmol/L (96-108); Creatinine Clr Calc Pharmacy 62.1; Estimated Glomerular Filt Rate > 60; Glucose Random 141 mg/dL (60-115); Potassium 3.9 mmol/L (3.3-5.1); Sodium 144 mmol/L (135-145); Total Protein 6.1 g/dL (6.5-8.0)
[2022-06-06 13:20] LABS: B Type Natriuretic Peptide 363 pg/mL (<100)
[2022-06-06 15:16] VITALS: BP 156/73; PULSE 93; RESP 17; O2SAT 97
[2022-06-06] MEDS: Furosemide 20 MG TABLET PO (17:05)
== END 2022-06-06 17:39 | disposition home or self-care (01) ==
PROVIDERS: Physician Assistant; Emergency Provider Student in an Organized Health Care Education/Training Program; PCP Family Medicine
DX: I50.9 Heart failure, unspecified (principal); R06.02 Shortness of breath; I13.0 Hypertensive heart and chronic kidney disease with heart failure and stage 1 through stage 4 chronic kidney disease, or unspecified chronic kidney disease; N18.30 Chronic kidney disease, stage 3 unspecified; F17.200 Nicotine dependence, unspecified, uncomplicated; Z71.6 Tobacco abuse counseling; Z79.899 Other long term (current) drug therapy
CPT/HCPCS: 36415; 71046; 80048; 80076; 83735; 83880; 85025; 93005; 99283; 99285

== ENCOUNTER 2022-06-22 09:45 | Inpatient (IN) | payer MEDICARE, SELFPAY ==
[2022-06-22] VITALS (7 sets, daily range): BP systolic 127–155; BP diastolic 60–77; PULSE 69–85; RESP 16–20; TEMP 36.4–37.2; O2SAT 92–98; BMI 24.4; BMI 25.0
--- NOTE | ~2022-06-22 | XR_ITS ---
EXAMINATION: XR CHEST CLINICAL INFORMATION: Reason for Exam cough COMPARISON: Chest radiograph 06/06/2022, CT chest 04/11/2022 TECHNIQUE: 2 views of the chest FINDINGS: Asymmetric right bronchial wall thickening with patchy right lung airspace opacities, progressed from prior suspicious for multifocal infection versus asymmetric edema. Small bilateral pleural effusions. No pneumothorax. Unchanged cardiomediastinal silhouette. XR/XR chest 2V IMPRESSION: 1. Asymmetric right bronchial wall thickening with patchy right lung airspace opacities, progressed from prior suspicious for multifocal infection versus asymmetric edema. Recommend follow-up radiographs to ensure resolution. 2. Small bilateral pleural effusions, similar to prior.
--- NOTE | 2022-06-22 10:04 | PC.NURSE ---
Addendum entered by Glenny Nguyễn 06/22/22 10:05: Afib on monitor, hx of afib takes eliquis Original Note: Brought in via EMS ?abnormal labs. Pt states he was seen previously for this and required 2 units of blood. Unsure of lab work today. Also says he feels hungry but lacks the desire to eat food. Alert and oriented, resp even and unlabored. IV established by EMS.
[2022-06-22 10:39] LABS: MANUAL DIFF FLAG NO
[2022-06-22 10:42] LABS: Basophils Percent Auto 0.6 % (0-2); Eosinophils Absolute Auto 0.4 X10*3/uL (0.0-0.4); Hematocrit 28.4 % (42.0-52.0); Hemoglobin 8.9 g/dl (14.0-18.0); Imm Gran Abs Auto 0.02 X10*3/uL (0.00-0.03); Imm Gran Pct Auto 0.3 % (0.0-0.4); Lymphocytes Absolute Auto 1.5 X10*3/uL (1.2-4.9); Lymphocytes Percent Auto 23.4 % (20-40); Mean Corpuscular HGB Conc 31.3 g/dl (31.0-36.0); Mean Corpuscular Hemoglobin 32.5 pg (27.0-33.0); Mean Corpuscular Volume 103.6 fL (80.0-98.0); Mean Platelet Volume 10.4 fL (9.4-12.4); Monocytes Absolute Auto 0.4 X10*3/uL (0.1-1.2); Neutrophils Absolute Auto 3.9 x10*3/uL (2.0-8.3); Neutrophils Percent Auto 62.7 % (45-73); Platelet Count 131 X10*3/uL (160-400); Red Blood Count 2.74 X10*6/uL (4.60-5.80); White Blood Count 6.3 X10*3/uL (4.8-10.8)
--- NOTE | 2022-06-22 10:56 | ED.GENADULT ---
HPI - General Adult General Chief complaint: General Medical Stated complaint: ABNORMAL LABS PER EMS Time Seen by Provider: 06/22/22 10:37 Source: patient and EMS Mode of arrival: EMS Limitations: no limitations History of Present Illness HPI narrative: Patient has anemia from unknown source at the time of a syncopal. patient feels that his abdomen is queasy. Onset (ago): day(s) Location: abdomen Severity: moderate Quality: aching Pain Consistency: intermittent Associated symptoms: cough Related Data Home Medications Medication Instructions Recorded Confirmed alfuzosin 10 mg tablet,extended 1 tab PO BEDTIME 03/13/22 04/01/22 release 24 hr allopurinol 300 mg tablet 1 tab PO DAILY 03/13/22 04/01/22 ferrous sulfate 325 mg (65 mg 975 mg PO DAILY 03/13/22 04/01/22 iron) tablet gabapentin 600 mg tablet 1 tab PO BEDTIME 03/13/22 04/01/22 magnesium 250 mg tablet 250 mg PO DAILY 03/13/22 04/01/22 potassium chloride 20 mEq 1 tab PO DAILY 03/13/22 04/01/22 tablet,extended release simvastatin 40 mg tablet 1 tab PO BEDTIME 03/13/22 04/01/22 vitamin B complex 1 tab PO DAILY 03/13/22 04/01/22 apixaban 2.5 mg tablet (Eliquis) 1 tab PO BID 04/01/22 04/01/22 Previous Rx's Medication Instructions Recorded omeprazole 20 mg capsule,delayed 20 mg PO DAILY@0630 #30 caps 03/20/22 release carvedilol 25 mg tablet (Coreg) 37.5 mg PO Q12H #90 tabs 03/21/22 amoxicillin 875 mg-potassium 875 mg PO Q12H #6 tabs 04/03/22 clavulanate 125 mg tablet furosemide 20 mg tablet (Lasix) 20 mg PO DAILY #30 tabs 04/03/22 temazepam 15 mg capsule 15 mg PO BEDTIME #30 caps 04/03/22 peg-electrolyte solution 420 gram 240 ml PO Q10M #2,000 mL 05/07/22 oral solution furosemide 20 mg tablet 20 mg PO DAILY #30 tabs 06/06/22 Allergies Allergy/AdvReac Type Severity Reaction Status Date / Time No Known Allergies Allergy Unverified 11/18/19 15:22 [No Known Allergies*] Review of Systems Review of Systems: Yes all other systems are reviewed and are negative Constitutional: Constitutional: Reports poor appetite Comments: weakness Respiratory: Respiratory: Reports cough PMFSH Past Medical History Medical History Afib Anemia Anxiety Cardiomyopathy Chronic indwelling Oconnell catheter CKD (chronic kidney disease) stage 3, GFR 30-59 ml/min Heart failure with reduced ejection fraction Obstructive uropathy Persistent atrial fibrillation Urethral stricture Social History Social History Household Members: None Household Members Other:: daughter visiting from [place] through pt health problems and staying Housing: House Do you presently have visiting nurse or other home services: Yes (pt was set up with services but said they stop coming) Alcohol intake: current Alcohol intake frequency: 0-2 drinks per day Alcohol type: hard liquor Patient Tobacco Use Status: Current everyday Tobacco user Tobacco use type: Cigar Smoked in Last 30 Days: No Use of substances other than those prescribed or required for medical reasons: No Advance Directives: Yes Advance Directives on File: Yes Advance Directives Date on File: 03/14/22 service: No Current occupational status: retired Physical Exam ED Vital Signs: Vital Signs - 24 hr 06/22/22 09:59 06/22/22 11:37 06/22/22 12:15 Temperature 97.7 F Pulse Rate 84 74 69 Respiratory Rate 16 18 16 Blood Pressure 142/60 H 127/70 Pulse Oximetry 97 98 Oxygen Delivery Method Room Air Room Air BMI result Body Mass Index 24.4 Const General: healthy appearing Nutritional Appearance: average body habitus Orientation/consciousness: oriented to person and patient oriented x3 Limitations: no limitations HENMT Head: Yes normal to inspection Ears: external ears normal General nose exam: Normal external nose present Mouth: Normal oral and palatal mucosa present and oropharynx normal Throat: Yes posterior oropharynx normal Eyes General: appearance normal, both eyes and all related structures Neck Neck: Yes normal visual inspection Chest Chest palpation & inspection: normal inspection of the chest Resp Other: diffuse rhonchi with right basilar rales Cardio Jugular venous distension: no JVD Rate: regular rate Rhythm: regular rhythm Heart sounds: S1 normal heart sound present and S2 normal heart sound present GI Inspection: Yes normal to inspection Palpation (GI): Soft to palpation, nontender and No hepatosplenomegaly present Auscultation: normal bowel sounds General: Yes no CVA tenderness Back/Spine/Pelvis Back: no CVA tenderness Skin General skin exam: no rashes or lesions noted Neuro General: oriented to person and patient oriented x3 Cranial nerves: Yes CN's II-XII intact bilaterally Motor exam (neuro): 5/5 motor strength present throughout Extrem General: Yes normal to inspection Psych Appearance: grossly normal Course Reevaluation(s) Reevaluation #1: patient with multifocal infiltrate on the right too weak to care for himself will admit for pneumonia Time: 13:08 Medications Administered Discontinued Medications Generic Name Dose Route Start Last Admin Trade Name Freq PRN Reason Stop Dose Admin Albuterol/Ipratropium 3 ml 06/22/22 11:09 06/22/22 11:33 Albuterol/Iprat 2.5/0.5mg 3 Ml Ampul.Neb INHALE 06/22/22 11:10 3 ml ONCE ONE Administration Medical Decision Making Differential Diagnosis Differential Diagnoses: The differential diagnosis associated with the presentation includes (anemia, weakness, pneumonia, UTI, dehydration were all considered) Admission/Observation Consideration of admission/observation: Escalation of care including admission/observation considered (Upon arrival this patient who is 79 yo with afib, recently requiring transfusion for anemia and new cough and rales on the right was considered for admission) Consult Healthcare Provider Management of the patient was discussed with: Hospitalist Lab Data MDM Lab Attestation statement: I reviewed the patient's lab results. 06/22/22 10:35 06/22/22 10:35 Labs: Lab Results 06/22/22 06/22/22 06/22/22 Range/Units 10:35 10:35 11:40 WBC 6.3 (4.8-10.8) X10*3/uL RBC 2.74 L (4.60-5.80) X10*6/uL Hgb 8.9 L (14.0-18.0) g/dl Hct 28.4 L (42.0-52.0) % MCV 103.6 H (80.0-98.0) fL MCH 32.5 (27.0-33.0) pg MCHC 31.3 (31.0-36.0) g/dl RDW 17.0 H (11.0-16.0) % Plt Count 131 L (160-400) X10*3/uL MPV 10.4 (9.4-12.4) fL Immature Gran % (Auto) 0.3 (0.0-0.4) % Neut % (Auto) 62.7 (45-73) % Lymph % (Auto) 23.4 (20-40) % [place] % (Auto) 6.0 (2-11) % Eos % (Auto) 7.0 H (0-4) % Baso % (Auto) 0.6 (0-2) % Lymph # (Auto) 1.5 (1.2-4.9) X10*3/uL [place] # (Auto) 0.4 (0.1-1.2) X10*3/uL Eos # (Auto) 0.4 (0.0-0.4) X10*3/uL Baso # (Auto) 0.0 (0.0-0.2) X10*3/uL Abs Immat Gran (auto) 0.02 (0.00-0.03) X10*3/uL Absolute Neuts (auto) 3.9 (2.0-8.3) x10*3/uL Absolute Nucleated RBC 0.000 (0.0-0.012) X10*3/uL Nucleated RBC % (auto) 0.0 (0.0-0.2) /100WBC Sodium 142 (135-145) mmol/L Potassium 3.3 (3.3-5.1) mmol/L Chloride 112 H (96-108) mmol/L Carbon Dioxide 24 (22-29) mmol/L Anion Gap 9 L (12-20) BUN 18 H (9-16) mg/dL Creatinine 1.05 (0.5-1.4) mg/dL Estim Creat Clear Calc 64.4 Estimated GFR > 60 Random Glucose 176 H (60-115) mg/dL Calcium 8.5 (8.4-10.2) mg/dL Total Bilirubin 0.8 (0.0-1.0) mg/dL AST 14 (5-37) U/L ALT 11 (0-40) U/L Alkaline Phosphatase 106 (39-117) U/L Total Protein 5.8 L (6.5-8.0) g/dL Albumin 3.6 (3.5-5.0) g/dL Urine Color Urine Appearance Urine pH (5.0-9.0) Ur Specific [place] (1.005-1.025) Urine Protein (Neg-Trace) mg/dL Urine Glucose (UA) (Negative) mg/dL Urine Ketones (Negative) mg/dL Urine Blood (Negative) Urine Nitrite (Negative) Ur Leukocyte Esterase (Negative) Urine RBC (0-2) /HPF Urine WBC (0-5) /HPF Ur Squamous Epith Cells (0-2) /HPF Urine Bacteria (None Seen) Hyaline Casts (0-2) /LPF Urine Yeast Influenza Type A (PCR) NEGATIVE (Negative) Influenza Type B (PCR) NEGATIVE (Negative) RSV RNA Qual (PCR) NEGATIVE (Negative) SARS-CoV-2 RNA (RT-PCR) NEGATIVE (Negative) 06/22/22 Range/Units 12:15 WBC (4.8-10.8) X10*3/uL RBC (4.60-5.80) X10*6/uL Hgb (14.0-18.0) g/dl Hct (42.0-52.0) % MCV (80.0-98.0) fL MCH (27.0-33.0) pg MCHC (31.0-36.0) g/dl RDW (11.0-16.0) % Plt Count (160-400) X10*3/uL MPV (9.4-12.4) fL Immature Gran % (Auto) (0.0-0.4) % Neut % (Auto) (45-73) % Lymph % (Auto) (20-40) % [place] % (Auto) (2-11) % Eos % (Auto) (0-4) % Baso % (Auto) (0-2) % Lymph # (Auto) (1.2-4.9) X10*3/uL [place] # (Auto) (0.1-1.2) X10*3/uL Eos # (Auto) (0.0-0.4) X10*3/uL Baso # (Auto) (0.0-0.2) X10*3/uL Abs Immat Gran (auto) (0.00-0.03) X10*3/uL Absolute Neuts (auto) (2.0-8.3) x10*3/uL Absolute Nucleated RBC (0.0-0.012) X10*3/uL Nucleated RBC % (auto) (0.0-0.2) /100WBC Sodium (135-145) mmol/L Potassium (3.3-5.1) mmol/L Chloride (96-108) mmol/L Carbon Dioxide (22-29) mmol/L Anion Gap (12-20) BUN (9-16) mg/dL Creatinine (0.5-1.4) mg/dL Estim Creat Clear Calc Estimated GFR Random Glucose (60-115) mg/dL Calcium (8.4-10.2) mg/dL Total Bilirubin (0.0-1.0) mg/dL AST (5-37) U/L ALT (0-40) U/L Alkaline Phosphatase (39-117) U/L Total Protein (6.5-8.0) g/dL Albumin (3.5-5.0) g/dL Urine Color Yellow Urine Appearance Clear Urine pH 5.5 (5.0-9.0) Ur Specific [place] 1.010 (1.005-1.025) Urine Protein Trace (Neg-Trace) mg/dL Urine Glucose (UA) Negative (Negative) mg/dL Urine Ketones Negative (Negative) mg/dL Urine Blood Trace H (Negative) Urine Nitrite Negative (Negative) Ur Leukocyte Esterase Moderate (2+) H (Negative) Urine RBC 3-5 H (0-2) /HPF Urine WBC 11-20 (0-5) /HPF Ur Squamous Epith Cells 0-2 (0-2) /HPF Urine Bacteria None Seen (None Seen) Hyaline Casts 0-2 (0-2) /LPF Urine Yeast Present Influenza Type A (PCR) (Negative) Influenza Type B (PCR) (Negative) RSV RNA Qual (PCR) (Negative) SARS-CoV-2 RNA (RT-PCR) (Negative) Independent Interpretation I performed an independent interpretation of an: Plain X-Ray (CXR right sided infiltrate and pleural effusion) Independent Historian Clinical information obtained from an independent historian. History obtained from or confirmed by: Other (patients brother gave more of a history) External Record Review External record reviewed: Inpatient record Discharge Plan Discharge Clinical Impression: Pneumonia, Anemia Patient Disposition: Admitted As Inpatient Prescriptions: No Action peg-electrolyte soln 420 gram recon soln 240 ml PO Q10M Qty: 2000 0RF Rx Instructions: until fecal effluent is clear; do not exceed a total volume of 2,000 mL Eliquis 2.5 mg tablet 1 tab PO BID furosemide [Lasix] 20 mg tablet 20 mg PO DAILY Qty: 30 0RF amoxicillin-pot clavulanate 875-125 mg Tablet 875 mg PO Q12H Qty: 6 0RF temazepam 15 mg Capsule 15 mg PO BEDTIME Qty: 30 0RF gabapentin 600 mg tablet 1 tab PO BEDTIME simvastatin 40 mg tablet 1 tab PO BEDTIME allopurinol 300 mg tablet 1 tab PO DAILY alfuzosin 10 mg tablet extended release 24 hr 1 tab PO BEDTIME potassium chloride 20 mEq tablet extended release 1 tab PO DAILY ferrous sulfate 325 mg (65 mg iron) Tablet 975 mg PO DAILY vitamin B complex Tablet 1 tab PO DAILY magnesium 250 mg Tablet 250 mg PO DAILY omeprazole 20 mg Capsule,Delayed Release(Dr/Ec) 20 mg PO DAILY@0630 Qty: 30 0RF carvedilol [Coreg] 25 mg tablet 37.5 mg PO Q12H Qty: 90 0RF Rx Instructions: must administer with a meal/food furosemide 20 mg tablet 20 mg PO DAILY Qty: 30 0RF
[2022-06-22 10:57] LABS: Alanine Aminotransferase 11 U/L (0-40); Albumin Level 3.6 g/dL (3.5-5.0); Alkaline Phosphatase 106 U/L (39-117); Anion Gap 9 (12-20); Aspartate Amino Transferase 14 U/L (5-37); Bilirubin Total 0.8 mg/dL (0.0-1.0); Blood Urea Nitrogen 18 mg/dL (9-16); Calcium 8.5 mg/dL (8.4-10.2); Carbon Dioxide 24 mmol/L (22-29); Chloride 112 mmol/L (96-108); Creatinine Clr Calc Pharmacy 64.4; Estimated Glomerular Filt Rate > 60; Glucose Random 176 mg/dL (60-115); Potassium 3.3 mmol/L (3.3-5.1); Sodium 142 mmol/L (135-145); Total Protein 5.8 g/dL (6.5-8.0)
[2022-06-22] MEDS: Albuterol/Iprat 2.5/0.5MG 3 ML AMPUL.NEB INHALE (11:33)
--- NOTE | 2022-06-22 12:12 | PC.NURSE ---
Ambulated to bathroom with steady gait to give urine sample
[2022-06-22 12:22] LABS: Influenza A PCR NEGATIVE (Negative); Influenza B PCR NEGATIVE (Negative); Resp Syncy Virus RNA Qual PCR NEGATIVE (Negative); SARS COV2 PCR INHOUSE NEGATIVE (Negative)
[2022-06-22 12:25] LABS: Appearance Urine Clear; Color Urine Yellow; Glucose Urine UA Negative (Negative); Leukocyte Esterase Urine Moderate (2+) (Negative); Nitrite Urine Negative (Negative); PH 5.5 (5.0-9.0); UMIC TRIGGER UACC YES; Urine Blood Trace (Negative); Urine Ketones Negative (Negative); Urine Protein Trace mg/dL (Neg-Trace)
[2022-06-22 12:42] LABS: Bacteria Urine None Seen (None Seen); Hyaline Casts Urine 0-2 /LPF (0-2); Squamous Epithelial Cell Urine 0-2 /HPF (0-2); UACC Culture Trigger YES
--- NOTE | 2022-06-22 13:21 | MHC.EDTECH ---
Blood cultures collected and sent to lab
[2022-06-22] MEDS: Piperacillin Sodium/Tazobactam 3.375 GM in 0.9 % Sodium Chloride 50 ML IV ×2 (13:37→20:25)
--- NOTE | 2022-06-22 13:49 | PC.NURSE ---
Continues to deny any pain. Antibiotics infusing, hospitalist at bedside for admission.
[2022-06-22 13:50] LABS: Magnesium 1.7 mg/dL (1.6-2.6); Phosphorus 1.7 mg/dL (2.7-4.5)
[2022-06-22] MEDS: Potassium Chloride ER 20 MEQ TAB.ER.PRT PO (14:02)
[2022-06-22] MEDS: Furosemide 20 MG/2 ML VIAL IVPUSH (14:03)
[2022-06-22] MEDS: Doxycycline Hyclate 100 MG in 0.9 % Sodium Chloride 250 ML 166.67 MG IV ×2 (14:03→21:49)
[2022-06-22 14:31] LABS: B Type Natriuretic Peptide 439 pg/mL (<100)
--- NOTE | 2022-06-22 14:32 | PM.EVENT ---
Event Note Date of Service: 06/22/22 Event Note: This patient is seen and examined with APC. Patient came to the hospital because of generalized weakness, productive cough, no fever or any sick contacts or shortness of breath or chest pain. Lab imagingreviewed. H&H seems to be near baseline, his platelets similar to preious cxr-pneumonia Physical exam as per APC H&P, HAS 1+ Edema , assessment and plan coordinated in APCs note, Agree with the plan in addition: Pneumonia : started iv antibiotics ,blood cultures pendin Acute on chronic chf excerebation with reduced EF: started iv lasix i/o daily weight Time Spent With Patient Time: Total time managing care of this patient today ____ minutes.
--- NOTE | 2022-06-22 14:43 | PM.IMHP ---
History of Present Illness Date of Service: 06/22/22 Attending physician on admission: Corona Zavaleta Chief Complaint: Cough, genearlized weakness Pt is a 81-year-old male with a PMH significant for?HFrEF, chronic persistent AFib on Eliquis, HTN, HLD, anemia, GERD, gout, history of prostate cancer status post radiation therapy 2005, and CKD 3 who presents to the ED with?generalized weakness, nonproductive cough, and ?queasiness? the past 3 days. Patient was recently admitted from 04/01/2022 to 04/03/2022 for pneumonia and heart failure, says he felt quite good after discharge up until 3 days ago when he started to feel unwell. Patient states that he has been having phlegm in his throat that he has been unable to cough up, fatigue/generalized weakness, and and ?uneasiness? in his abdomen. Patient has had some chills but denies fever, nausea, vomiting, diarrhea. No abdominal pain. Denies chest pain/pressure, palpitations. In the ED patient was afebrile, slightly hypertensive at 142/60. Labs were significant for stable macrocytic anemia of 8.9/28.4, phosphorus of 1.7, for BNP of 439. UA negative for UTI. Patient tested negative for COVID, influenza type a and B, RSV. CXR showed small bilateral pleural effusions, and suspicion for multifocal infection versus asymmetric edema. Pt was treated with DuoNebs, Zosyn, potassium chloride, doxycycline, furosemide. Pt will be admitted to the hospital for for treatment of acute exacerbation of heart failure and community-acquired pneumonia with IV antibiotics and IV fluids. Review of Systems Review of Systems: Nonproductive cough Generalized weakness Abdominal queasiness Occasional chills Denies fever, nausea, vomiting, diarrhea, abdominal pain No chest pain/pressure, palpitations Denies shortness of breath Yes all other systems are reviewed and are negative [facility] Medical History Afib Anemia Anxiety Cardiomyopathy Chronic indwelling Oconnell catheter CKD (chronic kidney disease) stage 3, GFR 30-59 ml/min Heart failure with reduced ejection fraction Obstructive uropathy Persistent atrial fibrillation Urethral stricture Social History Household Members: None Household Members Other:: daughter visiting from [place] through pt health problems and staying Housing: House Do you presently have visiting nurse or other home services: Yes (pt was set up with services but said they stop coming) Alcohol intake: current Alcohol intake frequency: 0-2 drinks per day Alcohol type: hard liquor Patient Tobacco Use Status: Former Tobacco user Tobacco use type: Cigar Smoked in Last 30 Days: No Use of substances other than those prescribed or required for medical reasons: No Advance Directives: Yes Advance Directives on File: Yes Advance Directives Date on File: 03/14/22 service: No Current occupational status: retired [employer] Allergies Allergy/AdvReac Type Severity Reaction Status Date / Time No Known Allergies Allergy Unverified 11/18/19 15:22 [No Known Allergies*] Active Medications: Current Medications Furosemide (Furosemide 20 Mg/2 Ml Vial) 20 mg IVPUSH DAILY [facility]; Protocol Doxycycline Hyclate 100 mg/ (Sodium Chloride) 250 mls @ 166.67 mls/hr IV ONCE ONE Stop: 06/22/22 14:53 Last Admin: 06/22/22 14:03 Dose: 166.67 mls/hr Doxycycline Hyclate 100 mg/ (Sodium Chloride) 250 mls @ 166.67 mls/hr IV BID [facility] Piperacillin Sod/Tazobactam (Sod 3.375 gm/ Sodium Chloride) 50 mls @ 100 mls/hr IV Q6H [facility] Last Admin: 06/22/22 14:31 Dose: Not Given Magnesium Oxide (Magnesium Oxide 400 Mg Tablet) 800 mg PO BID [facility] Pharmacy Consult (Consult Rx Perform Med Rec) 1 each MISCELLANE ONCE PRN PRN Reason: Consult order Sodium Chloride (0.9 % Sodium Chloride Flush 3 Ml Syringe) 3 ml IVFLUSH QSHIFT [facility] Home Medications Medication Instructions Recorded Confirmed Last Taken Type alfuzosin 10 mg tablet,extended 1 tab PO BEDTIME 03/13/22 06/22/22 06/21/22 History release 24 hr allopurinol 300 mg tablet 1 tab PO DAILY 03/13/22 06/22/22 06/22/22 09:00 History ferrous sulfate 325 mg (65 mg 975 mg PO DAILY 03/13/22 06/22/22 06/22/22 09:00 History iron) tablet gabapentin 600 mg tablet 1 tab PO BEDTIME 03/13/22 06/22/22 06/21/22 History magnesium 250 mg tablet 250 mg PO DAILY 03/13/22 06/22/22 06/22/22 09:00 History simvastatin 40 mg tablet 1 tab PO BEDTIME 03/13/22 06/22/22 06/21/22 History vitamin B complex 1 tab PO DAILY 03/13/22 06/22/22 06/22/22 09:00 History apixaban 2.5 mg tablet (Eliquis) 1 tab PO BID 04/01/22 06/22/22 06/22/22 09:00 History carvedilol 25 mg tablet (Coreg) 37.5 mg PO BIDWM 06/22/22 06/22/22 06/22/22 09:00 History tamsulosin 0.4 mg capsule 0.4 mg PO BID 06/22/22 06/22/22 06/22/22 09:00 History Physical Exam Vital Signs and Narrative: Vital Signs: Last Vital Signs Temp 97.7 F 06/22/22 09:59 Pulse 69 06/22/22 12:15 Resp 16 06/22/22 12:15 BP 127/70 06/22/22 12:15 Pulse Ox 98 06/22/22 12:15 O2 Del Method Room Air 06/22/22 12:15 BMI result Body Mass Index 24.4 Constitutional: Alert, in no acute distress. Mental Status: Oriented to person, place and time. Eyes: Pupils are equal, round, and reactive to light. Ear, Nose, and Throat: Oropharynx clear, mucous membranes moist. Ears and nose without deformities. Trachea midline. Respiratory: Diffuse expiratory rhonci. Cardiovascular: Irregularly irregular rhythm. Gastrointestinal: Abdomen soft, non-tender, non-distended. Normal bowel sounds. Neurologic: Cranial nerves II-XII are grossly intact bilaterally. No focal neurological deficits. Moves all extremities spontaneously. Skin: No rashes or lesions noted. Musculoskeletal: No cyanosis or clubbing. Extremities: Trace lower leg edema, worse in right ankle. Psychiatric: Normal mood and affect. Results Labs 06/22/22 10:35 06/22/22 10:35 Labs: Laboratory Results - last 24 hr 06/22/22 06/22/22 06/22/22 10:35 10:35 10:35 MCV 103.6 H MCH 32.5 MCHC 31.3 RDW 17.0 H Plt Count 131 L MPV 10.4 Immature Gran % (Auto) 0.3 Neut % (Auto) 62.7 Lymph % (Auto) 23.4 [place] % (Auto) 6.0 Eos % (Auto) 7.0 H Baso % (Auto) 0.6 Lymph # (Auto) 1.5 [place] # (Auto) 0.4 Eos # (Auto) 0.4 Baso # (Auto) 0.0 Abs Immat Gran (auto) 0.02 Absolute Neuts (auto) 3.9 Absolute Nucleated RBC 0.000 Nucleated RBC % (auto) 0.0 Anion Gap 9 L Estim Creat Clear Calc 64.4 Estimated GFR > 60 Random Glucose 176 H Calcium 8.5 Phosphorus 1.7 L Magnesium 1.7 Total Bilirubin 0.8 AST 14 ALT 11 Alkaline Phosphatase 106 B-Natriuretic Peptide 439 H Total Protein 5.8 L Albumin 3.6 Urine Color Urine Appearance Urine pH Ur Specific [place] Urine Protein Urine Glucose (UA) Urine Ketones Urine Blood Urine Nitrite Ur Leukocyte Esterase Urine RBC Urine WBC Ur Squamous Epith Cells Urine Bacteria Hyaline Casts Urine Yeast Influenza Type A (PCR) Influenza Type B (PCR) RSV RNA Qual (PCR) SARS-CoV-2 RNA (RT-PCR) 06/22/22 06/22/22 11:40 12:15 MCV MCH MCHC RDW Plt Count MPV Immature Gran % (Auto) Neut % (Auto) Lymph % (Auto) [place] % (Auto) Eos % (Auto) Baso % (Auto) Lymph # (Auto) [place] # (Auto) Eos # (Auto) Baso # (Auto) Abs Immat Gran (auto) Absolute Neuts (auto) Absolute Nucleated RBC Nucleated RBC % (auto) Anion Gap Estim Creat Clear Calc Estimated GFR Random Glucose Calcium Phosphorus Magnesium Total Bilirubin AST ALT Alkaline Phosphatase B-Natriuretic Peptide Total Protein Albumin Urine Color Yellow Urine Appearance Clear Urine pH 5.5 Ur Specific [place] 1.010 Urine Protein Trace Urine Glucose (UA) Negative Urine Ketones Negative Urine Blood Trace H Urine Nitrite Negative Ur Leukocyte Esterase Moderate (2+) H Urine RBC 3-5 H Urine WBC 11-20 Ur Squamous Epith Cells 0-2 Urine Bacteria None Seen Hyaline Casts 0-2 Urine Yeast Present Influenza Type A (PCR) NEGATIVE Influenza Type B (PCR) NEGATIVE RSV RNA Qual (PCR) NEGATIVE SARS-CoV-2 RNA (RT-PCR) NEGATIVE Imaging Radiologist's Impressions: Impressions Chest X-Ray 06/22/22 11:30 IMPRESSION: 1. Asymmetric right bronchial wall thickening with patchy right lung airspace opacities, progressed from prior suspicious for multifocal infection versus asymmetric edema. Recommend follow-up radiographs to ensure resolution. 2. Small bilateral pleural effusions, similar to prior. Assessment and Plan (1) Pneumonia: Status: Acute (2) Congestive heart failure: Status: Inactive Plan Pt is a 81-year-old male with a PMH significant for?HFrEF, chronic persistent AFib on Eliquis, HTN, HLD, anemia, GERD, gout, history of prostate cancer status post radiation therapy 2005, and CKD 3 who presents to the ED with?generalized weakness, nonproductive cough, and ?queasiness? the past 3 days. Pt will be admitted to the hospital for for treatment of acute exacerbation of heart failure and community-acquired pneumonia with IV antibiotics and IV fluids. Community-acquired pneumonia Patient with generalized weakness, cough, chest x-ray suspicious for multifocal pneumonia IV antibiotics: Zosyn Follow cultures Acute HFrEF exacerbation Chest x-ray with bilateral pleural effusions, elevated BNP, bilateral lower leg edema Will treat with IV Lasix: 20 mg IV daily Follow BMP, Mg, I&O Daily weights, low-salt diet Last echo on 03/14/22 showed EF of 40-45%, no repeat echocardiogram needed at this time Monitor on telemetry Generalized weakness Likely multifactorial: Secondary to CHF exacerbation and pneumonia Treat as above Hypophosphatemia Patient's phosphorus 1.7 at time of admission Will be treated with Neutra-Phos 2 packets q.i.d. hypophosphatemia Chronic persistent AFib Continue Eliquis, carvedilol Chronic anemia Stable Follow CBC CKD stage 3 Stable Follow BMP Gout Continue allopurinol HTN Continue antihypertensives GERD Continue omeprazole HLD Continue statin Full Code Attending:?Dr. Zavaleta DVT Prophylaxis: On Eliquis Pt will require a hospitalization of at least two nights for treatment of? with . Pt will be admitted to the hospital for for treatment of acute exacerbation of heart failure and community-acquired pneumonia with IV antibiotics and IV fluids. Time Spent With Patient Time: Total time managing care of this patient today ____ minutes. Quality Stroke Does the patient have a stroke diagnosis?: No VTE Prior VTE?: No VTE Risk Level:: Medical - moderate - high VTE Device Contraindication: N/A - Device Ordered VTE Drug Contraindication: N/A - Med Ordered
--- NOTE | 2022-06-22 14:52 | PHA.MEDREC ---
Addendum entered by Shelby Ray RPh 06/22/22 15:24: eduarda reviewed med rec Original Note: Pharmacy Consult ? Medication Reconciliation Pharmacy has completed the medication reconciliation. Spoke to patient which had recent discharge list of medications. Patient's daughter annotated list to current med list regimen.
[2022-06-22] MEDS: Folic Acid 1 MG TABLET PO (15:00)
[2022-06-22] MEDS: Thiamine HCL 100 MG TABLET PO (15:00)
--- NOTE | 2022-06-22 15:05 | PC.NURSE ---
this promotion writer assumed care of this pt at 1500. pt assigned to room 452. LAUREN Murrieta gave report to receiving RN. transporter was notified.
[2022-06-22] MEDS: 0.9 % Sodium Chloride Flush 3 ML SYRINGE IVFLUSH ×2 (15:46→20:26)
[2022-06-22] MEDS: Sodium,Potassium Phosphates POWD.PACK 2 PACKET PO ×2 (15:50→20:25)
[2022-06-22] MEDS: Tamsulosin HCL 0.4 MG CAPSULE PO (20:25)
[2022-06-22] MEDS: Temazepam 15 MG CAPSULE PO (20:25)
[2022-06-22] MEDS: Atorvastatin Calcium 20 MG TABLET PO (20:25)
[2022-06-22] MEDS: Magnesium Oxide 400 MG TABLET 800 MG PO (20:25)
[2022-06-22] MEDS: Apixaban 2.5 MG TABLET PO (20:26)
[2022-06-22] MEDS: Gabapentin 600 MG TABLET PO (20:26)
[2022-06-23] MEDS: Piperacillin Sodium/Tazobactam 3.375 GM in 0.9 % Sodium Chloride 50 ML IV ×4 (03:14→20:37)
[2022-06-23 03:17] VITALS: BP 112/72; PULSE 68; RESP 12; TEMP 36.4; O2SAT 96
[2022-06-23] MEDS: Omeprazole 20 MG CAPSULE.DR PO ×2 (06:06→16:32)
[2022-06-23 07:11] VITALS: BP 139/73; PULSE 78; RESP 20; TEMP 36.7; O2SAT 96
--- NOTE | 2022-06-23 08:17 | MHC.CM.PN ---
CM met with Patient at bedside and addressed IMM with him, providing him with the original and placing a copy on the chart. Patient lives alone in a house and he required no services nor DME [employer]. Home self care is the goal and CM has initiated and will follow for dc planning. Patient has received Covid vax x5 and his PCP is Dr. Teddy Pabon. HCP is on file.
[2022-06-23] MEDS: Thiamine HCL 100 MG TABLET PO (08:29)
[2022-06-23] MEDS: Multivitamin TABLET 1 TAB PO (08:29)
[2022-06-23] MEDS: Tamsulosin HCL 0.4 MG CAPSULE PO ×2 (08:29→20:34)
[2022-06-23] MEDS: allopurinoL 300 MG TABLET PO (08:29)
[2022-06-23] MEDS: Folic Acid 1 MG TABLET PO (08:30)
[2022-06-23] MEDS: Ferrous Sulfate 324 MG TABLET.DR 972 MG PO (08:30)
[2022-06-23] MEDS: Magnesium Oxide 400 MG TABLET 200 MG PO (08:30)
[2022-06-23] MEDS: Apixaban 2.5 MG TABLET PO ×2 (08:30→20:33)
[2022-06-23] MEDS: carvediloL 12.5 MG TABLET 37.5 MG PO ×2 (08:30→16:32)
[2022-06-23] MEDS: Furosemide 20 MG/2 ML VIAL IVPUSH (08:31)
[2022-06-23] MEDS: 0.9 % Sodium Chloride Flush 3 ML SYRINGE IVFLUSH ×3 (08:31→20:42)
[2022-06-23] MEDS: Magnesium Oxide 400 MG TABLET 800 MG PO ×2 (08:31→20:34)
[2022-06-23] MEDS: Sodium,Potassium Phosphates POWD.PACK 2 PACKET PO ×4 (08:31→20:35)
[2022-06-23] MEDS: Doxycycline Hyclate 100 MG in 0.9 % Sodium Chloride 250 ML 166.67 MG IV ×2 (08:43→21:33)
[2022-06-23 08:46] LABS: Anion Gap 11 (12-20); Blood Urea Nitrogen 13 mg/dL (9-16); Calcium 8.7 mg/dL (8.4-10.2); Carbon Dioxide 28 mmol/L (22-29); Chloride 107 mmol/L (96-108); Creatinine Clr Calc Pharmacy 55.4; Estimated Glomerular Filt Rate 57; Glucose Random 113 mg/dL (60-115); Phosphorus 2.7 mg/dL (2.7-4.5); Potassium 3.3 mmol/L (3.3-5.1); Sodium 143 mmol/L (135-145)
[2022-06-23 08:48] LABS: B Type Natriuretic Peptide 421 pg/mL (<100)
--- NOTE | 2022-06-23 11:05 | HO.PM.IMPN ---
Subjective Subjective Date of Service: 06/23/22 Interval History: CAP/CHF Review of Systems sob seems somewhat improving less cough no fevers Physical Exam Vital Signs: Vital Signs: Last Vital Signs Temp 98.1 F 06/23/22 07:11 Pulse 78 06/23/22 07:11 Resp 20 06/23/22 07:11 BP 139/73 06/23/22 07:11 Pulse Ox 96 06/23/22 07:11 O2 Del Method Room Air 06/23/22 07:11 BMI result Body Mass Index 25.0 Appearance: Alert.? Oriented X3. cvs: rrr, [id number] , no murmur res: air entry diminshed right>left. abd: no rebound or guarding ,nt, bs present. ext pulses present , no cyanosis. neuro: axo3 , nonfocal. Objective Data Active Medications Allopurinol (Allopurinol 300 Mg Tablet) 300 mg PO DAILY [facility] Last Admin: 06/23/22 08:29 Dose: 300 mg Documented By: VASHTI Apixaban (Apixaban 2.5 Mg Tablet) 2.5 mg PO BID [facility] Last Admin: 06/23/22 08:30 Dose: 2.5 mg Documented By: VASHTI Atorvastatin Calcium (Atorvastatin Calcium 20 Mg Tablet) 20 mg PO BEDTIME [facility] Last Admin: 06/22/22 20:25 Dose: 20 mg Documented By: KATHY Carvedilol (Carvedilol 12.5 Mg Tablet) 37.5 mg PO BIDWM [facility]; Protocol Last Admin: 06/23/22 08:30 Dose: 37.5 mg Documented By: VASHTI Ferrous Sulfate (Ferrous Sulfate 324 Mg Tablet.) 972 mg PO DAILY [facility] Last Admin: 06/23/22 08:30 Dose: 972 mg Documented By: VASHTI Folic Acid (Folic Acid 1 Mg Tablet) 1 mg PO DAILY [facility] Last Admin: 06/23/22 08:30 Dose: 1 mg Documented By: VASHTI Furosemide (Furosemide 20 Mg/2 Ml Vial) 20 mg IVPUSH DAILY [facility]; Protocol Last Admin: 06/23/22 08:31 Dose: 20 mg Documented By: VASHTI Gabapentin (Gabapentin 600 Mg Tablet) 600 mg PO BEDTIME [facility] Last Admin: 06/22/22 20:26 Dose: 600 mg Documented By: KATHY Doxycycline Hyclate 100 mg/ (Sodium Chloride) 250 mls @ 166.67 mls/hr IV BID [facility] Last Infusion: 06/23/22 10:24 Dose: 0 mls/hr Documented By: VASHTI Piperacillin Sod/Tazobactam (Sod 3.375 gm/ Sodium Chloride) 50 mls @ 100 mls/hr IV Q6H [facility] Last Infusion: 06/23/22 09:30 Dose: 0 mls/hr Documented By: VASHTI Magnesium Oxide (Magnesium Oxide 400 Mg Tablet) 800 mg PO BID [facility] Last Admin: 06/23/22 08:31 Dose: 800 mg Documented By: VASHTI Magnesium Oxide (Magnesium Oxide 400 Mg Tablet) 200 mg PO DAILY [facility] Last Admin: 06/23/22 08:30 Dose: 200 mg Documented By: VASHTI Multivitamins/Vitamin C (Multivitamin Tablet) 1 tab PO DAILY [facility] Last Admin: 06/23/22 08:29 Dose: 1 tab Documented By: VASHTI Omeprazole (Omeprazole 20 Mg Capsule.) 20 mg PO DAILY@0630 [facility] Last Admin: 06/23/22 06:06 Dose: 20 mg Documented By: KATHY Pharmacy Consult (Consult Rx Perform Med Rec) 1 each MISCELLANE ONCE PRN PRN Reason: Consult order Potassium Phos/Sodium Phos (Sodium,Potassium Phosphates Powd.Pack) 2 packet PO QID [facility] Last Admin: 06/23/22 08:31 Dose: 2 packet Documented By: VASHTI Sodium Chloride (0.9 % Sodium Chloride Flush 3 Ml Syringe) 3 ml IVFLUSH QSHIFT [facility] Last Admin: 06/23/22 08:31 Dose: 3 ml Documented By: VASHTI Tamsulosin HCl (Tamsulosin Hcl 0.4 Mg Capsule) 0.4 mg PO BID [facility] Last Admin: 06/23/22 08:29 Dose: 0.4 mg Documented By: VASHTI Temazepam (Temazepam 15 Mg Capsule) 15 mg PO BEDTIME [facility] Last Admin: 06/22/22 20:25 Dose: 15 mg Documented By: KATHY Thiamine HCl (Thiamine Hcl 100 Mg Tablet) 100 mg PO DAILY [facility] Last Admin: 06/23/22 08:29 Dose: 100 mg Documented By: VASHTI Labs 06/22/22 10:35 06/23/22 07:58 Labs: Laboratory Results - last 24 hr 06/22/22 06/22/22 06/22/22 10:35 10:35 11:40 Anion Gap Estim Creat Clear Calc Estimated GFR Random Glucose Calcium Phosphorus 1.7 L Magnesium 1.7 B-Natriuretic Peptide 439 H Urine Color Urine Appearance Urine pH Ur Specific [place] Urine Protein Urine Glucose (UA) Urine Ketones Urine Blood Urine Nitrite Ur Leukocyte Esterase Urine RBC Urine WBC Ur Squamous Epith Cells Urine Bacteria Hyaline Casts Urine Yeast Influenza Type A (PCR) NEGATIVE Influenza Type B (PCR) NEGATIVE RSV RNA Qual (PCR) NEGATIVE SARS-CoV-2 RNA (RT-PCR) NEGATIVE 06/22/22 06/23/22 06/23/22 12:15 07:58 07:58 Anion Gap 11 L Estim Creat Clear Calc 55.4 Estimated GFR 57 Random Glucose 113 Calcium 8.7 Phosphorus 2.7 Magnesium B-Natriuretic Peptide 421 H Urine Color Yellow Urine Appearance Clear Urine pH 5.5 Ur Specific [place] 1.010 Urine Protein Trace Urine Glucose (UA) Negative Urine Ketones Negative Urine Blood Trace H Urine Nitrite Negative Ur Leukocyte Esterase Moderate (2+) H Urine RBC 3-5 H Urine WBC 11-20 Ur Squamous Epith Cells 0-2 Urine Bacteria None Seen Hyaline Casts 0-2 Urine Yeast Present Influenza Type A (PCR) Influenza Type B (PCR) RSV RNA Qual (PCR) SARS-CoV-2 RNA (RT-PCR) Assessment and Plan (1) CHF exacerbation: Status: Resolved Plan acute on chronic CHF exacerbation with reduced EF Appears euvolemic, no shortness of breath, no chest pain, on IV Lasix 4, d/w staff need i/o monitering/daily weight bnp improving([id number]) recent echocardiogram shows an ejection fraction of 40-45% continue iv lasix. Community-acquired pneumonia sob and cough -some improvement. Patient with generalized weakness, cough, chest x-ray suspicious for multifocal pneumonia blood cultures IV antibiotics:doxy and Zosyn Follow cultures Persistent afib: rate controlled continue bb and eliquis. ch marcocytic anemia : h/h stable around 9/28.4 CKD stage 3, creatinine stable at 1.2 , moniter bmp/electrolytes. hypertension, soft blood pressure continue Coreg , was recently discharged on valsartan , currently not using id will discuss medications with Cardiology. weakness will obtain PT eval continued inpatient hospitalization : treatment of congestive heart failure and pneumonia, need iv lasix/antibiotics , renal function electrolytic moniterin. Time Spent With Patient Time: Total time managing care of this patient today ____ minutes. Quality Stroke Does the patient have a stroke diagnosis?: No VTE Prior VTE?: No VTE Risk Level:: Medical - moderate - high VTE Device Contraindication: N/A - Device Ordered VTE Drug Contraindication: N/A - Med Ordered
[2022-06-23 11:15] VITALS: BP 109/52; PULSE 74; RESP 20; TEMP 37.1; O2SAT 95
[2022-06-23 16:00] VITALS: BP 144/71; PULSE 92; RESP 17; TEMP 37.1; O2SAT 95
[2022-06-23 19:26] VITALS: BP 135/63; PULSE 72; RESP 18; TEMP 36.9; O2SAT 98
[2022-06-23] MEDS: Gabapentin 600 MG TABLET PO (20:33)
[2022-06-23] MEDS: Atorvastatin Calcium 20 MG TABLET PO (20:33)
[2022-06-23] MEDS: Temazepam 15 MG CAPSULE PO (20:34)
[2022-06-23 23:32] VITALS: BP 123/59; PULSE 58; RESP 20; TEMP 36.7; O2SAT 96
[2022-06-24] MEDS: Piperacillin Sodium/Tazobactam 3.375 GM in 0.9 % Sodium Chloride 50 ML IV ×4 (02:05→19:41)
[2022-06-24 03:44] VITALS: BP 139/66; PULSE 78; RESP 20; TEMP 36.8; O2SAT 92
[2022-06-24] MEDS: Omeprazole 20 MG CAPSULE.DR PO ×2 (05:15→16:17)
[2022-06-24 07:18] LABS: Hematocrit 29.2 % (42.0-52.0); Hemoglobin 9.4 g/dl (14.0-18.0)
[2022-06-24 07:44] VITALS: BP 131/75; PULSE 75; RESP 20; TEMP 36.6; O2SAT 94
[2022-06-24] MEDS: Potassium Chloride Packet 20 MEQ PACKET PO (07:55)
[2022-06-24] MEDS: Sodium,Potassium Phosphates POWD.PACK 2 PACKET PO ×4 (07:55→20:18)
[2022-06-24] MEDS: 0.9 % Sodium Chloride Flush 3 ML SYRINGE IVFLUSH ×3 (07:55→20:19)
[2022-06-24] MEDS: Magnesium Oxide 400 MG TABLET 200 MG PO (07:56)
[2022-06-24] MEDS: Magnesium Oxide 400 MG TABLET 800 MG PO ×2 (07:56→20:16)
[2022-06-24] MEDS: Multivitamin TABLET 1 TAB PO (07:56)
[2022-06-24] MEDS: Tamsulosin HCL 0.4 MG CAPSULE PO ×2 (07:56→20:16)
[2022-06-24] MEDS: allopurinoL 300 MG TABLET PO (07:56)
[2022-06-24] MEDS: Thiamine HCL 100 MG TABLET PO (07:57)
[2022-06-24] MEDS: Ferrous Sulfate 324 MG TABLET.DR 972 MG PO (07:57)
[2022-06-24] MEDS: carvediloL 12.5 MG TABLET 37.5 MG PO ×2 (07:57→16:17)
[2022-06-24] MEDS: Folic Acid 1 MG TABLET PO (07:58)
[2022-06-24] MEDS: Apixaban 2.5 MG TABLET PO ×2 (07:58→20:16)
[2022-06-24] MEDS: Furosemide 20 MG TABLET PO (07:58)
[2022-06-24 08:19] LABS: Platelet Count 139 X10*3/uL (160-400)
[2022-06-24] MEDS: Doxycycline Hyclate 100 MG in 0.9 % Sodium Chloride 250 ML 166.67 MG IV ×2 (08:48→20:19)
[2022-06-24 11:12] VITALS: BP 123/64; PULSE 73; RESP 18; TEMP 37.3; O2SAT 94
--- NOTE | 2022-06-24 13:25 | HO.PM.IMPN ---
Subjective Subjective Date of Service: 06/24/22 Interval History: chf/pneumonia Review of Systems sob seems slightly improving still has aggressive cough no fevers Physical Exam Vital Signs: Vital Signs: Last Vital Signs Temp 99.1 F 06/24/22 11:12 Pulse 73 06/24/22 11:12 Resp 18 06/24/22 11:12 BP 123/64 06/24/22 11:12 Pulse Ox 94 06/24/22 11:12 O2 Del Method Room Air 06/24/22 11:12 BMI result Body Mass Index 25.0 Appearance: Alert.? Oriented X3. cvs: rrr, [id number] . res: air entry diminshed right>left. abd: no rebound or guarding ,nt, bs present. ext pulses present , no cyanosis. neuro: axo3 , nonfocal. Objective Data Active Medications Allopurinol (Allopurinol 300 Mg Tablet) 300 mg PO DAILY [facility] Last Admin: 06/24/22 07:56 Dose: 300 mg Documented By: COTEMA Apixaban (Apixaban 2.5 Mg Tablet) 2.5 mg PO BID [facility] Last Admin: 06/24/22 07:58 Dose: 2.5 mg Documented By: COTBEATRIZ Atorvastatin Calcium (Atorvastatin Calcium 20 Mg Tablet) 20 mg PO BEDTIME [facility] Last Admin: 06/23/22 20:33 Dose: 20 mg Documented By: TAMELA Carvedilol (Carvedilol 12.5 Mg Tablet) 37.5 mg PO BIDWM [facility]; Protocol Last Admin: 06/24/22 07:57 Dose: 37.5 mg Documented By: COTBEATRIZ Ferrous Sulfate (Ferrous Sulfate 324 Mg Tablet.) 972 mg PO DAILY [facility] Last Admin: 06/24/22 07:57 Dose: 972 mg Documented By: COTEMA Folic Acid (Folic Acid 1 Mg Tablet) 1 mg PO DAILY [facility] Last Admin: 06/24/22 07:58 Dose: 1 mg Documented By: COTEMA Furosemide (Furosemide 20 Mg Tablet) 20 mg PO DAILY [facility]; Protocol Last Admin: 06/24/22 07:58 Dose: 20 mg Documented By: MARKEMA Gabapentin (Gabapentin 600 Mg Tablet) 600 mg PO BEDTIME [facility] Last Admin: 06/23/22 20:33 Dose: 600 mg Documented By: TAMELA Doxycycline Hyclate 100 mg/ (Sodium Chloride) 250 mls @ 166.67 mls/hr IV BID [facility] Last Infusion: 06/24/22 10:21 Dose: 0 mls/hr Documented By: MARKEMA Piperacillin Sod/Tazobactam (Sod 3.375 gm/ Sodium Chloride) 50 mls @ 100 mls/hr IV Q6H [facility] Last Infusion: 06/24/22 08:38 Dose: 0 mls/hr Documented By: MARKEMA Magnesium Oxide (Magnesium Oxide 400 Mg Tablet) 800 mg PO BID [facility] Last Admin: 06/24/22 07:56 Dose: 800 mg Documented By: COTEMA Magnesium Oxide (Magnesium Oxide 400 Mg Tablet) 200 mg PO DAILY [facility] Last Admin: 06/24/22 07:56 Dose: 200 mg Documented By: ROSE Multivitamins/Vitamin C (Multivitamin Tablet) 1 tab PO DAILY [facility] Last Admin: 06/24/22 07:56 Dose: 1 tab Documented By: ROSE Omeprazole (Omeprazole 20 Mg Capsule.) 20 mg PO BID@0630,1630 [facility] Last Admin: 06/24/22 05:15 Dose: 20 mg Documented By: TAMELA Pharmacy Consult (Consult Rx Perform Med Rec) 1 each MISCELLANE ONCE PRN PRN Reason: Consult order Potassium Phos/Sodium Phos (Sodium,Potassium Phosphates Powd.Pack) 2 packet PO QID [facility] Last Admin: 06/24/22 07:55 Dose: 2 packet Documented By: ROSE Sodium Chloride (0.9 % Sodium Chloride Flush 3 Ml Syringe) 3 ml IVFLUSH QSHIFT [facility] Last Admin: 06/24/22 07:55 Dose: 3 ml Documented By: ROSE Tamsulosin HCl (Tamsulosin Hcl 0.4 Mg Capsule) 0.4 mg PO BID [facility] Last Admin: 06/24/22 07:56 Dose: 0.4 mg Documented By: ROSE Temazepam (Temazepam 15 Mg Capsule) 15 mg PO BEDTIME [facility] Last Admin: 06/23/22 20:34 Dose: 15 mg Documented By: TAMELA Thiamine HCl (Thiamine Hcl 100 Mg Tablet) 100 mg PO DAILY [facility] Last Admin: 06/24/22 07:57 Dose: 100 mg Documented By: ROSE Labs 06/24/22 06:26 06/23/22 07:58 Labs: Laboratory Results - last 24 hr 06/24/22 06:26 Plt Count 139 L Microbiology Microbiology Results: Microbiology 06/22/22 Unknown Urine Culture - Final Urine clean catch - Clean Catch Midstream Emmanuelle albicans 06/22/22 13:16 Blood Culture - Preliminary Blood - Venous No growth after 24 hours. 06/22/22 13:16 Blood Culture - Preliminary Blood - Venous No growth after 24 hours. Assessment and Plan (1) CHF exacerbation: Status: Resolved Plan acute on chronic CHF exacerbation with reduced EF Appears euvolemic, no shortness of breath, no chest pain, on IV Lasix 4, d/w staff need i/o monitering/daily weight bnp improving([id number]) recent echocardiogram shows an ejection fraction of 40-45% continue iv lasix. we may switch to po lasix Community-acquired pneumonia sob and cough -some improvement. Patient with generalized weakness, cough, chest x-ray suspicious for multifocal pneumonia blood cultures IV antibiotics:doxy and Zosyn since 06/22. Follow cultures Persistent afib: rate controlled continue bb and eliquis. ch marcocytic anemia : h/h stable around 9/28.4,platalets 139. CKD stage 3, creatinine stable at 1.2 , moniter bmp/electrolytes. hypertension, soft blood pressure continue Coreg , was recently discharged on valsartan? unclear why is off it . weakness will obtain PT eval continued inpatient hospitalization : treatment of congestive heart failure and pneumonia, need iv lasix/antibiotics , renal function electrolytic moniterin,also blood cultures need to be neg 48hrs. Time Spent With Patient Time: Total time managing care of this patient today ____ minutes. Quality Stroke Does the patient have a stroke diagnosis?: No VTE Prior VTE?: No VTE Risk Level:: Medical - moderate - high VTE Device Contraindication: N/A - Device Ordered VTE Drug Contraindication: N/A - Med Ordered
[2022-06-24] MEDS: ondansetron HCL 4 MG/2 ML VIAL IVPUSH (14:04)
[2022-06-24 15:36] VITALS: BP 137/64; PULSE 73; RESP 20; TEMP 36.7; O2SAT 96
[2022-06-24 19:19] VITALS: BP 116/55; PULSE 79; RESP 20; TEMP 36.3; O2SAT 95
[2022-06-24] MEDS: Gabapentin 600 MG TABLET PO (20:16)
[2022-06-24] MEDS: Atorvastatin Calcium 20 MG TABLET PO (20:19)
[2022-06-24] MEDS: Temazepam 15 MG CAPSULE PO (20:21)
[2022-06-25] VITALS: BP 113/55; PULSE 67; RESP 20; TEMP 36.3; O2SAT 91
[2022-06-25] MEDS: Piperacillin Sodium/Tazobactam 3.375 GM in 0.9 % Sodium Chloride 50 ML IV ×2 (01:47→09:55)
[2022-06-25 03:10] VITALS: BP 121/68; PULSE 76; RESP 20; TEMP 36.3; O2SAT 92
[2022-06-25] MEDS: Omeprazole 20 MG CAPSULE.DR PO (05:40)
[2022-06-25 07:26] VITALS: BP 124/70; PULSE 84; RESP 20; TEMP 36.5; O2SAT 95
[2022-06-25] MEDS: Furosemide 20 MG TABLET PO (09:41)
[2022-06-25] MEDS: Magnesium Oxide 400 MG TABLET 800 MG PO (09:42)
[2022-06-25] MEDS: carvediloL 12.5 MG TABLET 37.5 MG PO (09:42)
[2022-06-25] MEDS: allopurinoL 300 MG TABLET PO (09:42)
[2022-06-25] MEDS: Tamsulosin HCL 0.4 MG CAPSULE PO (09:42)
[2022-06-25] MEDS: Thiamine HCL 100 MG TABLET PO (09:42)
[2022-06-25] MEDS: Multivitamin TABLET 1 TAB PO (09:42)
[2022-06-25] MEDS: Ferrous Sulfate 324 MG TABLET.DR 972 MG PO (09:42)
[2022-06-25] MEDS: Sodium,Potassium Phosphates POWD.PACK 2 PACKET PO ×2 (09:42→12:01)
[2022-06-25] MEDS: Apixaban 2.5 MG TABLET PO (09:43)
[2022-06-25] MEDS: Folic Acid 1 MG TABLET PO (09:43)
[2022-06-25] MEDS: Doxycycline Hyclate 100 MG in 0.9 % Sodium Chloride 250 ML 166.67 MG IV (09:55)
[2022-06-25 10:50] VITALS: BP 123/74; PULSE 77; RESP 20; TEMP 36.3; O2SAT 95
--- NOTE | 2022-06-25 11:40 | P.DS_ITS ---
DS: Providers Provider Date of Service: 06/25/22 Date of admission: 06/22/22 14:00 Primary care physician: Teddy Pabon MD DS: Diagnosis Discharge Diagnosis (1) CHF exacerbation: Status: Resolved DS: Summary Hospital Course Hospital Course: Chief Complaint: Cough, genearlized weakness Pt is a 81-year-old male with a PMH significant for?HFrEF, chronic persistent AFib on Eliquis, HTN, HLD, anemia, GERD, gout, history of prostate cancer status post radiation therapy 2005, and CKD 3 who presents to the ED with?generalized weakness, nonproductive cough, and ?queasiness? the past 3 days. Patient was recently admitted from 04/01/2022 to 04/03/2022 for pneumonia and heart failure, says he felt quite good after discharge up until 3 days ago when he started to feel unwell.? Patient states that he has been having phlegm in his throat that he has been unable to cough up, fatigue/generalized weakness, and and ?uneasiness? in his abdomen.? Patient has had some chills but denies fever, nausea, vomiting, diarrhea.? No abdominal pain.? Denies chest pain/pressure, palpitations. In the ED patient was afebrile, slightly hypertensive at 142/60. Labs were significant for stable macrocytic anemia of 8.9/28.4, phosphorus of 1.7, for BNP of 439.? UA negative for UTI.? Patient tested negative for COVID, influenza type a and B, RSV. CXR showed small bilateral pleural effusions, and suspicion for multifocal infection versus asymmetric edema. Pt was treated with DuoNebs, Zosyn, potassium chloride, doxycycline, furosemide. Pt will be admitted to the hospital for for treatment of acute exacerbation of heart failure and community- acquired pneumonia with IV antibiotics and IV fluids. Hospital course: Acute on chronic CHF exacerbation with reduced EF--Treated with IV Lasix and is presently euvolemic, transition back to PO Lasix at discharge Community-acquired pneumonia--has been treated with Doxy and Zosyn x 3 days now, clinically is feeling better, no fever, 95 on rooms, will tranisition to Oral Ceftin for 4 more days, cultures thus far negative Persistent afib, rate controlled. No change in management, eliquis ch marcocytic anemia : h/h? stable around 9/28.4,platalets 139. ?CKD stage 3, creatinine stable at 1.2 , moniter bmp/electrolytes. ?hypertension, resume home meds continued inpatient hospitalization : treatment of congestive heart failure and pneumonia, need iv lasix/antibiotics , renal function electrolytic moniterin,also blood cultures need to be neg 48hrs. Time Spent with Patient Time attestation: Total time managing care of this patient today ____ minutes. Discharge coordination time: Greater than 30 minutes Quality: Safe Use of Opioids Does Pt have an Active Cancer Diagnosis on the Problem List?: No Quality: Stroke Does the patient have a stroke diagnosis?: No Physical Exam Vital Signs: Vital Signs: Last Vital Signs Temp 97.3 F 06/25/22 10:50 Pulse 77 06/25/22 10:50 Resp 20 06/25/22 10:50 BP 123/74 06/25/22 10:50 Pulse Ox 95 06/25/22 10:50 O2 Del Method Room Air 06/25/22 10:50 BMI result Body Mass Index 25.0 Const: Other: General: AO X 3, no acute distress Resp: CTA bilateral CVS: S1,S2,RRR GI: +BS, NT, no distention Skin: No rash Neuro: motor grossly intact Psych: appropriate affect DS: Data Data Completed and Pending Completed studies during hospitalization [Text1]: Procedures Dilation of Urethra, Via Natural or Artificial Opening Endoscopic (03/13/22) Drainage of Bladder with Drainage Device, Via Natural or Artificial Opening Endoscopic (03/13/22) Excision of Large Intestine, Via Natural or Artificial Opening Endoscopic, Diagnostic (03/13/22) Excision of Rectum, Via Natural or Artificial Opening Endoscopic, Diagnostic (03/13/22) Excision of Stomach, Pylorus, Via Natural or Artificial Opening Endoscopic, Diagnostic (03/13/22) Transfusion of Nonautologous Red Blood Cells into Peripheral Vein, Percutaneous Approach (03/13/22) Labs on day of discharge: Preliminary micro results at discharge 06/22/22 13:16 Blood Culture - Preliminary Blood - Venous No growth after 48 hours. 06/22/22 13:16 Blood Culture - Preliminary Blood - Venous No growth after 48 hours. Discharge Plan Discharge Anticipated Discharge Date/Time: 06/25/22 11:46 Patient Disposition: Home, Self-Care Discharge Diagnosis: Heart failure, pneumonia Referrals: Teddy Pabon MD [Primary Care Provider] - 1 Week Discharge Medications: New cefuroxime axetil 500 mg tablet 500 mg PO BID 4 Days Qty: 8 0RF Continued Eliquis 2.5 mg tablet 1 tab PO BID temazepam 15 mg Capsule 15 mg PO BEDTIME Qty: 30 0RF gabapentin 600 mg tablet 1 tab PO BEDTIME simvastatin 40 mg tablet 1 tab PO BEDTIME allopurinol 300 mg tablet 1 tab PO DAILY alfuzosin 10 mg tablet extended release 24 hr 1 tab PO BEDTIME ferrous sulfate 325 mg (65 mg iron) Tablet 975 mg PO DAILY vitamin B complex Tablet 1 tab PO DAILY magnesium 250 mg Tablet 250 mg PO DAILY furosemide 20 mg tablet 20 mg PO DAILY Qty: 30 0RF tamsulosin 0.4 mg capsule 0.4 mg PO BID carvedilol [Coreg] 25 mg tablet 37.5 mg PO BIDWM Rx Instructions: must administer with a meal/food Discharge Orders: Discharge Order (Routine); Ordered 06/25/22 Ordered By: Gustavo Torres Diet: Advance to usual diet Activity on Discharge: As tolerated Stand Alone Forms: Patient Portal Discharge page Care Plan Goals: full recovery Health Concerns: pneumonia, heart failure Plan of Treatment: Take Cefuruxime (ceftin) for pneumonia continue your usual medications follow up with your Doctor in a weekd Assessment: as a Discharge Date/Time: 06/25/22 15:14
--- NOTE | 2022-06-25 11:55 | MHC.CM.PN ---
Patient has been medically cleared for dc to home today, self care. Last IMM addressed on 06/23/2022.
[2022-06-25 15:09] VITALS: BP 134/70; PULSE 80; RESP 20; TEMP 36.3; O2SAT 87
--- NOTE | 2022-06-25 15:14 | PC.NURSE ---
Pt was educated on discharge packet. IV and tele removed. all belongings with pt. informed pt requested zofran rx for nausea and that pt was having fruit punch colored urine prior to discharge. no new orders at this time. pt's family member picking pt up.
== END 2022-06-25 15:14 | disposition home or self-care (01) | DRG 291 ==
LOC: HO.ED 13:12 → HO.EDOVER 14:07 → HO.IMC 14:45
PROVIDERS: Admitting Provider Internal Medicine; Emergency Provider Emergency Medicine; PCP Family Medicine; Visit Provider Internal Medicine
DX: I13.0 Hypertensive heart and chronic kidney disease with heart failure and stage 1 through stage 4 chronic kidney disease, or unspecified chronic kidney disease (principal); I50.23 Acute on chronic systolic (congestive) heart failure; J18.9 Pneumonia, unspecified organism; I48.19 Other persistent atrial fibrillation; N18.30 Chronic kidney disease, stage 3 unspecified; D63.1 Anemia in chronic kidney disease; M10.9 Gout, unspecified; K21.9 Gastro-esophageal reflux disease without esophagitis; E78.5 Hyperlipidemia, unspecified; D53.9 Nutritional anemia, unspecified; E83.39 Other disorders of phosphorus metabolism; F17.210 Nicotine dependence, cigarettes, uncomplicated; Z20.822 Contact with and (suspected) exposure to COVID-19; Z85.46 Personal history of malignant neoplasm of prostate; Z92.3 Personal history of irradiation; Z71.6 Tobacco abuse counseling; Z79.01 Long term (current) use of anticoagulants; Z79.899 Other long term (current) drug therapy
CPT/HCPCS: 0241U; 36415; 71046; 80048; 80053; 81001; 83735; 83880; 84100; 85014; 85018; 85025; 85049; 87040; 87086; 87088; 94640; 97161; 99285; C1758; J1940; J2405; J2543

== ENCOUNTER → 2022-06-27 15:04 | Outpatient (BNVA) | payer MEDICARE, SELFPAY | PROVIDERS: PCP Family Medicine; Referring Provider Family Medicine; Visit Provider Nurse Practitioner Family | DX: I48.20 Chronic atrial fibrillation, unspecified (principal); I50.20 Unspecified systolic (congestive) heart failure; I42.9 Cardiomyopathy, unspecified; N18.30 Chronic kidney disease, stage 3 unspecified; N17.9 Acute kidney failure, unspecified; D64.9 Anemia, unspecified; E78.5 Hyperlipidemia, unspecified; F17.290 Nicotine dependence, other tobacco product, uncomplicated; Z79.899 Other long term (current) drug therapy | CPT/HCPCS: 99212 ==

== ENCOUNTER 2022-07-01 14:49 | Outpatient (REF) | payer MEDICARE, SELFPAY ==
[2022-07-01 15:05] LABS: MANUAL DIFF FLAG NO
[2022-07-01 16:37] LABS: Basophils Absolute Auto 0.1 X10*3/uL (0.0-0.2); Basophils Percent Auto 0.9 % (0-2); Eosinophils Absolute Auto 0.5 X10*3/uL (0.0-0.4); Eosinophils Percent Auto 7.5 % (0-4); Hematocrit 32.2 % (42.0-52.0); Hemoglobin 10.1 g/dl (14.0-18.0); Imm Gran Abs Auto 0.04 X10*3/uL (0.00-0.03); Imm Gran Pct Auto 0.6 % (0.0-0.4); Lymphocytes Absolute Auto 1.9 X10*3/uL (1.2-4.9); Lymphocytes Percent Auto 27.7 % (20-40); Mean Corpuscular HGB Conc 31.4 g/dl (31.0-36.0); Mean Corpuscular Hemoglobin 32.9 pg (27.0-33.0); Mean Corpuscular Volume 104.9 fL (80.0-98.0); Mean Platelet Volume 11.7 fL (9.4-12.4); Monocytes Absolute Auto 0.4 X10*3/uL (0.1-1.2); Monocytes Percent Auto 5.8 % (2-11); Neutrophils Absolute Auto 3.9 x10*3/uL (2.0-8.3); Neutrophils Percent Auto 57.5 % (45-73); Platelet Count 167 X10*3/uL (160-400); Red Blood Count 3.07 X10*6/uL (4.60-5.80); Red Cell Distribution Width 16.6 % (11.0-16.0); White Blood Count 6.8 X10*3/uL (4.8-10.8)
[2022-07-01 17:06] LABS: Iron 117 mcg/dL (45-160); Percent Iron Saturation 46 % (15-50); Total Iron Binding Capacity 256 mcg/dL (228-428); Unsaturated Iron Binding 139 ug/dL
[2022-07-01 17:16] LABS: Erythrocyte Sedimentation Rate 34 MM/HR (0-15)
[2022-07-01 17:22] LABS: Ferritin 588 ng/mL (20-250)
== END 2022-07-01 14:50 | disposition home or self-care (01) ==
LOC: HO.LAB 14:49
PROVIDERS: PCP Family Medicine; Visit Provider Family Medicine
DX: D50.9 Iron deficiency anemia, unspecified (principal); R53.1 Weakness
CPT/HCPCS: 36415; 82728; 83540; 85025; 85652

== ENCOUNTER 2022-08-26 08:16 | Outpatient (REF) | payer MEDICARE, SELFPAY ==
[2022-08-26 08:38] LABS: MANUAL DIFF FLAG NO
[2022-08-26 09:11] LABS: Basophils Percent Auto 0.6 % (0-2); Eosinophils Absolute Auto 0.4 X10*3/uL (0.0-0.4); Eosinophils Percent Auto 6.3 % (0-4); Hematocrit 34.8 % (42.0-52.0); Hemoglobin 11.4 g/dl (14.0-18.0); Imm Gran Abs Auto 0.02 X10*3/uL (0.00-0.03); Imm Gran Pct Auto 0.3 % (0.0-0.4); Lymphocytes Percent Auto 32.7 % (20-40); Mean Corpuscular HGB Conc 32.8 g/dl (31.0-36.0); Mean Corpuscular Hemoglobin 33.2 pg (27.0-33.0); Mean Corpuscular Volume 101.5 fL (80.0-98.0); Mean Platelet Volume 10.9 fL (9.4-12.4); Monocytes Absolute Auto 0.5 X10*3/uL (0.1-1.2); Monocytes Percent Auto 8.4 % (2-11); Neutrophils Absolute Auto 3.2 x10*3/uL (2.0-8.3); Neutrophils Percent Auto 51.7 % (45-73); Platelet Count 137 X10*3/uL (160-400); Red Blood Count 3.43 X10*6/uL (4.60-5.80); Red Cell Distribution Width 15.8 % (11.0-16.0); White Blood Count 6.2 X10*3/uL (4.8-10.8)
[2022-08-26 09:40] LABS: Estimated Average Glucose 111 mg/dL; Hemoglobin A1c % 5.5 %
[2022-08-26 09:59] LABS: Erythrocyte Sedimentation Rate 27 MM/HR (0-15)
[2022-08-26 10:01] LABS: Anion Gap 10 (12-20); Blood Urea Nitrogen 14 mg/dL (9-16); Calcium 9.2 mg/dL (8.4-10.2); Carbon Dioxide 28 mmol/L (22-29); Chloride 107 mmol/L (96-108); Estimated Glomerular Filt Rate > 60; Glucose Random 124 mg/dL (60-115); Potassium 3.8 mmol/L (3.3-5.1); Sodium 141 mmol/L (135-145)
[2022-08-26 10:16] LABS: Glucose Fasting 123 mg/dL (60-99); Iron 48 mcg/dL (45-160); Percent Iron Saturation 23 % (15-50); Total Iron Binding Capacity 206 mcg/dL (228-428); Unsaturated Iron Binding 158 ug/dL
[2022-08-26 10:22] LABS: Ferritin 375 ng/mL (20-250); Free T4 (Free Thyroxine) 0.79 ng/dL (0.71-1.85)
[2022-08-26 11:05] LABS: Prostate Specific Antigen 2.45 ng/mL (<0.05-4.0)
== END 2022-08-26 08:17 | disposition home or self-care (01) ==
LOC: HO.LAB 08:16
PROVIDERS: Urology; PCP Family Medicine; Visit Provider Family Medicine
DX: Z12.5 Encounter for screening for malignant neoplasm of prostate (principal); D50.9 Iron deficiency anemia, unspecified; E55.9 Vitamin D deficiency, unspecified; E11.9 Type 2 diabetes mellitus without complications; R53.83 Other fatigue
CPT/HCPCS: 36415; 80048; 82306; 82728; 82947; 83036; 83540; 84153; 84439; 84443; 85025; 85652

== ENCOUNTER 2022-10-14 10:29 | Outpatient (AMB) | payer MEDICARE, SELFPAY ==
[2022-10-14 10:52] VITALS: BP 118/84; PULSE 61; BMI 24.0
--- NOTE | 2022-10-14 10:52 | MHC.OFFVIS ---
Intake Vital Signs 10/14/22 10:52 Height 6 ft 1 in Weight 181 lb 10.574 oz BMI 24.0 BP 118/84 Blood Pressure Location Lt brachial Position Sitting Pulse 61 Pulse Source Monitor Intake Visit Reasons: 3 MON FUP (R/S BY US 7.31) Intake Note: 3 month follow up with EKG. Juvenile Officer Required: No Accompanied by: Self / Same As Patient Allergies No Known Allergies [No Known Allergies*] Allergy (Verified 10/14/22 10:55) Medication List - Last Reconciled 10/14/22 by Rafi Hood MD alfuzosin ER 1 tab PO BEDTIME allopurinol 1 tab PO DAILY apixaban (Eliquis) 1 tab PO BID carvedilol (Coreg) 37.5 mg PO BIDWM cefuroxime axetil 500 mg PO BID 4 days ferrous sulfate 975 mg PO DAILY finasteride 5 mg PO DAILY furosemide 20 mg PO DAILY gabapentin 300 mg PO BEDTIME magnesium 250 mg PO DAILY simvastatin 1 tab PO BEDTIME tamsulosin 0.4 mg PO BID temazepam 15 mg PO BEDTIME vitamin B complex 1 tab PO DAILY HPI HPI Comments History of Present Illness Details 82-year-old gentleman who is here for follow-up. He was previously following with [facility]. He was seen in the hospital in March when presented with symptomatic anemia due to GI blood loss. He was chronically on apixaban for anticoagulation for permanent atrial fibrillation. He also has background of cardiomyopathy which by his report improved in the past. He was noticed to have mildly reduced ejection fraction. He has no chest discomfort shortness of breath. He had a EGD and colonoscopy for by capsule endoscopy which was normal too. He has been back on anticoagulation at this point. By his report no bleeding issues. He is following with Dr. Martin at [facility] and by his report again no concerns on his part about anemia. He was referred for Watchman device and saw Dr. Cotto. He decided not to pursue this right away and has been taking apixaban. [facility] Medical History (Updated 10/14/22 @ 14:07 by Rafi Hood MD) Afib Anemia Anemia Anxiety Cardiomyopathy Chronic indwelling Oconnell catheter CKD (chronic kidney disease) stage 3, GFR 30-59 ml/min Heart failure with reduced ejection fraction Obstructive uropathy Persistent atrial fibrillation Urethral stricture Surgical History (Updated 10/14/22 @ 10:57 by DEE DEE Rivera) History of partial colectomy Social History Household Members: None Household Members Other:: daughter visiting from [place] through health problems and staying Housing: House Do you presently have visiting nurse or other home services: No Alcohol intake: current Alcohol intake frequency: 0-2 drinks per day Alcohol type: hard liquor Patient Tobacco Use Status: Current everyday Tobacco user Tobacco use type: Cigar e-Cigarette/Vaping Use: Currently Using Second Hand Smoke Exposure: No Advance Directives Date on File: 03/14/22 service: Yes Current occupational status: retired Review of Systems Const Denies weakness ENT Denies dizziness Card Denies chest pain, Denies chest pain with activity, Denies syncope, Denies rapid heart rate, Denies pedal edema, Denies edema, Denies leg edema, Denies lightheadedness, Denies palpitations, Denies dyspnea, Denies dyspnea on exertion and Denies orthopnea Resp Denies cough, Denies dyspnea and Denies dyspnea on exertion GI Denies hematochezia and Denies change in stool character Musc Denies abnormal gait, Denies muscle cramps, Denies muscle weakness, Denies numbness, Denies radiating pain into limb and Denies tingling Neuro Denies abnormal gait, Denies dizziness, Denies syncope, Denies numbness, Denies tingling and Denies weakness Endo Denies palpitations Physical Exam Vital Signs: Last Vital Signs Pulse 61 10/14/22 10:52 BP 118/84 10/14/22 10:52 BMI result Body Mass Index 24.0 GENERAL APPEARANCE: in no acute distress, pleasant. NECK: no carotid bruit, no significant jugular venous distention. SKIN: no suspicious lesions, warm and dry. HEART: no murmurs, irregular rate and rhythm. LUNGS: clear to auscultation bilaterally. ABDOMEN: soft, nontender. EXTREMITIES: no edema. PERIPHERAL PULSES: equal. NEUROLOGIC: No gross deficits, AAO X 3 Office Procedures EKG Details: Atrial fibrillation 61 beats per minute, incomplete left bundle-branch block, QTC 463 milliseconds. QRS 114 milliseconds. [id number], Complete Results Reviewed Results Reviewed: 03/2022: - Normal left ventricular cavity size.? There is mildly increased left ventricular wall thickness.? The left ventricular systolic? function is mildly decreased.? The visually estimated ejection ? fraction is between 40-45%.? - The basal inferior segment is hypokinetic. ? - Mildly increased right ventricular cavity size.? There is? ? ? mildly decreased right ventricular systolic function.? - The left atrium is severely dilated.? The right atrium is? ? ? severely dilated.? Assessment & Plan Assessment & Plan (1) Permanent atrial fibrillation: Code(s): I48.21 - Permanent atrial fibrillation (2) Cardiomyopathy: Code(s): I42.9 - Cardiomyopathy, unspecified Plan 82-year-old gentleman with permanent atrial fibrillation and cardiomyopathy with EF of 40 45%. He was seen in the hospital for symptomatic anemia and mild congestive heart failure. He was diuresed and received blood transfusion followed by endoscopy which did not reveal any significant issues. He subsequently had capsule endoscopy which was normal too. He was started back on apixaban and has been taking for few months without any reported history of bleeding. He is following with Hematology and reports that his hemoglobin has been stable. Given GI blood loss and atrial fibrillation he was referred for Watchman device and saw Dr. Cotto but so far he has decided not to pursue Watchman device right away. I have explained to him that if he has recurrent bleeding then we need to seriously consider Watchman placement as the alternative strategy of stopping anticoagulation puts him at a significant risk of stroke. Clinically appears to be euvolemic. Will get records from [facility]. If he did not have any recent stress testing then I would recommend stress test to make sure he does not have underlying coronary disease as he has basal inferior hypokinesis on the echocardiogram. Thank you for allowing me to participate in the care of your patient. Please feel free to contact me if you have any questions. Medications: Discontinued carvedilol must administer with a meal/food 37.5 mg (1.5 x 25 mg) PO Q12H 90 tabs 0RF Coding Level of Care Code Est Pt Level 4 (71831) Diagnoses Permanent atrial fibrillation I48.21 Cardiomyopathy I42.9 CPT Codes EKG - CPT: 80740-[id number], Complete ([id number])
== END 2022-10-14 11:25 | disposition home or self-care (01) ==
PROVIDERS: PCP Family Medicine; Referring Provider Family Medicine; Visit Provider Internal Medicine Cardiovascular Disease
DX: I48.21 Permanent atrial fibrillation (principal); I42.9 Cardiomyopathy, unspecified
CPT/HCPCS: 93010; 99214

== ENCOUNTER → 2022-10-14 10:29 | Outpatient (BNVA) | payer MEDICARE, SELFPAY | PROVIDERS: PCP Family Medicine; Referring Provider Family Medicine; Visit Provider Internal Medicine Cardiovascular Disease | DX: I48.21 Permanent atrial fibrillation (principal); I44.7 Left bundle-branch block, unspecified; I42.9 Cardiomyopathy, unspecified; I13.0 Hypertensive heart and chronic kidney disease with heart failure and stage 1 through stage 4 chronic kidney disease, or unspecified chronic kidney disease; I50.20 Unspecified systolic (congestive) heart failure; N18.30 Chronic kidney disease, stage 3 unspecified; U07.0 Vaping-related disorder; Z72.0 Tobacco use | CPT/HCPCS: 93005; 99212 ==

== ENCOUNTER 2022-11-06 07:50 | Outpatient (REF) | payer MEDICARE, SELFPAY ==
[2022-11-06 08:06] LABS: MANUAL DIFF FLAG NO
[2022-11-06 08:20] LABS: Basophils Absolute Auto 0.1 X10*3/uL (0.0-0.2); Basophils Percent Auto 0.8 % (0-2); Eosinophils Absolute Auto 0.4 X10*3/uL (0.0-0.4); Eosinophils Percent Auto 6.5 % (0-4); Hematocrit 35.7 % (42.0-52.0); Hemoglobin 11.8 g/dl (14.0-18.0); Imm Gran Abs Auto 0.02 X10*3/uL (0.00-0.03); Imm Gran Pct Auto 0.3 % (0.0-0.4); Lymphocytes Absolute Auto 2.1 X10*3/uL (1.2-4.9); Lymphocytes Percent Auto 34.5 % (20-40); Mean Corpuscular HGB Conc 33.1 g/dl (31.0-36.0); Mean Corpuscular Hemoglobin 34.2 pg (27.0-33.0); Mean Corpuscular Volume 103.5 fL (80.0-98.0); Mean Platelet Volume 9.9 fL (9.4-12.4); Monocytes Absolute Auto 0.5 X10*3/uL (0.1-1.2); Monocytes Percent Auto 8.7 % (2-11); Neutrophils Percent Auto 49.2 % (45-73); Platelet Count 142 X10*3/uL (160-400); Red Blood Count 3.45 X10*6/uL (4.60-5.80); Red Cell Distribution Width 16.7 % (11.0-16.0); White Blood Count 6.2 X10*3/uL (4.8-10.8)
== END 2022-11-06 07:51 | disposition home or self-care (01) ==
LOC: HO.LAB 07:50
PROVIDERS: PCP Family Medicine; Visit Provider Family Medicine
DX: D64.9 Anemia, unspecified (principal)
CPT/HCPCS: 36415; 85025

== ENCOUNTER 2022-12-31 08:24 | Outpatient (REF) | payer MEDICARE, SELFPAY ==
[2022-12-31 08:50] LABS: MANUAL DIFF FLAG NO
[2022-12-31 09:22] LABS: Basophils Percent Auto 0.7 % (0-2); Eosinophils Absolute Auto 0.4 X10*3/uL (0.0-0.4); Eosinophils Percent Auto 6.2 % (0-4); Hematocrit 36.9 % (42.0-52.0); Hemoglobin 12.5 g/dl (14.0-18.0); Imm Gran Abs Auto 0.02 X10*3/uL (0.00-0.03); Imm Gran Pct Auto 0.3 % (0.0-0.4); Lymphocytes Absolute Auto 1.9 X10*3/uL (1.2-4.9); Lymphocytes Percent Auto 32.7 % (20-40); Mean Corpuscular HGB Conc 33.9 g/dl (31.0-36.0); Mean Corpuscular Hemoglobin 34.6 pg (27.0-33.0); Mean Corpuscular Volume 102.2 fL (80.0-98.0); Mean Platelet Volume 10.5 fL (9.4-12.4); Monocytes Absolute Auto 0.4 X10*3/uL (0.1-1.2); Monocytes Percent Auto 7.1 % (2-11); Neutrophils Absolute Auto 3.1 x10*3/uL (2.0-8.3); Platelet Count 143 X10*3/uL (160-400); Red Blood Count 3.61 X10*6/uL (4.60-5.80); White Blood Count 5.8 X10*3/uL (4.8-10.8)
[2022-12-31 09:38] LABS: Estimated Average Glucose 111 mg/dL; Hemoglobin A1C 104.7921 umol/L; Hemoglobin A1c % 5.5 % (<6.0)
[2022-12-31 09:43] LABS: Anion Gap 14 (12-20); Blood Urea Nitrogen 19 mg/dL (9-16); Carbon Dioxide 26 mmol/L (22-29); Chloride 105 mmol/L (96-108); Estimated Glomerular Filt Rate > 60; Glucose Fasting 115 mg/dL (60-99); Sodium 141 mmol/L (135-145)
[2022-12-31 10:04] LABS: Erythrocyte Sedimentation Rate 26 MM/HR (0-15)
== END 2022-12-31 08:25 | disposition home or self-care (01) ==
LOC: HO.LAB 08:24
PROVIDERS: PCP Family Medicine; Visit Provider Family Medicine
DX: I10 Essential (primary) hypertension (principal); D64.9 Anemia, unspecified; E11.9 Type 2 diabetes mellitus without complications
CPT/HCPCS: 36415; 80051; 82565; 82947; 83036; 84520; 85025; 85652

== ENCOUNTER 2023-02-03 11:07 | Outpatient (AMB) | payer MEDICARE, SELFPAY ==
[2023-02-03 11:22] VITALS: BP 130/72; PULSE 77; BMI 24.3
--- NOTE | 2023-02-03 11:22 | MHC.OFFVIS ---
Intake Vital Signs 02/03/23 11:22 Height 6 ft 1 in Weight 183 lb 13.848 oz BMI 24.3 BP 130/72 Blood Pressure Location Lt brachial Position Sitting Pulse 77 Pulse Source Pulse Oximeter Intake Visit Reasons: 4 month follow up Intake Note: 4 mth f/u, patient its fine. 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 Accompanied by: Self / Same As Patient Allergies No Known Allergies [No Known Allergies*] Allergy (Verified 02/03/23 11:25) Medication List - Last Reconciled 02/03/23 by Rafi Hood MD allopurinol 1 tab PO DAILY apixaban (Eliquis) 1 tab PO BID carvedilol (Coreg) 37.5 mg PO BIDWM cefuroxime axetil 500 mg PO BID 4 days ferrous sulfate 975 mg PO DAILY furosemide 20 mg PO DAILY gabapentin 300 mg PO BEDTIME magnesium 250 mg PO DAILY simvastatin 1 tab PO BEDTIME temazepam 15 mg PO BEDTIME vitamin B complex 1 tab PO DAILY HPI HPI Comments History of Present Illness Details 82-year-old gentleman who is here for follow-up. He was previously following with [facility]. He was seen in the hospital in March when presented with symptomatic anemia due to GI blood loss. He was chronically on apixaban for anticoagulation for permanent atrial fibrillation. He also has background of cardiomyopathy which by his report improved in the past. He was noticed to have mildly reduced ejection fraction. He has no chest discomfort shortness of breath. He had a EGD and colonoscopy for by capsule endoscopy which was normal too. He has been back on anticoagulation at this point. By his report no bleeding issues. He is following with Dr. Martin at [facility] [place] and by his report again no concerns on his part about anemia. He was referred for Watchman device and saw Dr. Cotto. He decided not to pursue this right away and has been taking apixaban. 02/03/2023: He returns for follow-up. He has been doing well. No chest discomfort shortness of breath. No bleeding issues. He is tolerating apixaban for atrial fibrillation. Blood pressure control is good. Taking medications regularly. [facility] Medical History (Updated 10/14/22 @ 14:07 by Rafi Hood MD) Anemia CKD (chronic kidney disease) stage 3, GFR 30-59 ml/min Chronic indwelling Oconnell catheter Heart failure with reduced ejection fraction Anxiety Afib Cardiomyopathy Persistent atrial fibrillation Urethral stricture Obstructive uropathy Anemia Surgical History History of partial colectomy Social History Household Members: None Household Members Other:: daughter visiting from [place] through health problems and staying Housing: House Do you presently have visiting nurse or other home services: No Alcohol intake: current Alcohol intake frequency: 0-2 drinks per day Alcohol type: hard liquor Patient Tobacco Use Status: Current everyday Tobacco user Tobacco use type: Cigar e-Cigarette/Vaping Use: Currently Using Second Hand Smoke Exposure: No Advance Directives Date on File: 03/14/22 service: Yes Current occupational status: retired Review of Systems Const Reports chills, Reports fatigue, Reports fever(s), Reports frequent falls, Reports weakness, Reports weight gain and Reports weight loss ENT Reports dizziness Card Reports chest pain, Reports leg edema, Reports lightheadedness, Reports palpitations, Reports dyspnea and Reports dyspnea on exertion Resp Reports cough, Reports dyspnea and Reports dyspnea on exertion GI Reports hematochezia Musc Reports abnormal gait, Reports muscle weakness, Reports numbness, Reports radiating pain into limb and Reports tingling Neuro Reports abnormal gait, Reports dizziness, Reports frequent falls, Reports numbness, Reports tingling and Reports weakness Endo Reports fatigue and Reports palpitations Physical Exam Vital Signs: Last Vital Signs Pulse 77 02/03/23 11:22 BP 130/72 02/03/23 11:22 BMI result Body Mass Index 24.3 GENERAL APPEARANCE: in no acute distress, pleasant. NECK: no carotid bruit, no significant jugular venous distention. SKIN: no suspicious lesions, warm and dry. HEART: no murmurs, irregular rate and rhythm. LUNGS: clear to auscultation bilaterally. ABDOMEN: soft, nontender. EXTREMITIES: no edema. PERIPHERAL PULSES: equal. NEUROLOGIC: No gross deficits, AAO X 3 Assessment & Plan Assessment & Plan (1) Permanent atrial fibrillation: Code(s): I48.21 - Permanent atrial fibrillation (2) Cardiomyopathy: Code(s): I42.9 - Cardiomyopathy, unspecified Plan Pleasant 82-year-old gentleman is here for follow-up. He has mild cardiomyopathy with ejection fraction 40 45%. Basal inferior hypokinesis by echocardiography with mildly increased right ventricular cavity size and mildly decreased RV function. This was based on echocardiography from March 2022. He has a atrial fibrillation and has been rate controlled with carvedilol. He is on apixaban for anticoagulation. Previously had anemia and had consultation with Dr. Cotto about Watchman device. He has decided to hold off for now. It appears his hemoglobin has been stable. He is following with Hematology at [facility] [place]. Clinically stable. Follow-up with us in 6 months. Thank you for allowing me to participate in the care of your patient. Please feel free to contact me if you have any questions. Coding Level of Care Code Est Pt Level 4 (70766) Diagnoses Permanent atrial fibrillation I48.21 Cardiomyopathy I42.9
== END 2023-02-03 11:42 | disposition home or self-care (01) ==
PROVIDERS: PCP Family Medicine; Visit Provider Internal Medicine Cardiovascular Disease
DX: I48.21 Permanent atrial fibrillation (principal); I42.9 Cardiomyopathy, unspecified
CPT/HCPCS: 99214

== ENCOUNTER → 2023-02-03 11:07 | Outpatient (BNVA) | payer MEDICARE, SELFPAY | PROVIDERS: PCP Family Medicine; Visit Provider Internal Medicine Cardiovascular Disease | DX: I48.21 Permanent atrial fibrillation (principal); I42.9 Cardiomyopathy, unspecified; I13.0 Hypertensive heart and chronic kidney disease with heart failure and stage 1 through stage 4 chronic kidney disease, or unspecified chronic kidney disease; I50.20 Unspecified systolic (congestive) heart failure; N18.30 Chronic kidney disease, stage 3 unspecified; F17.210 Nicotine dependence, cigarettes, uncomplicated; Z79.01 Long term (current) use of anticoagulants | CPT/HCPCS: 99212 ==

== ENCOUNTER 2023-07-02 07:03 | Outpatient (REF) | payer MEDICARE, SELFPAY ==
[2023-07-02 07:20] LABS: MANUAL DIFF FLAG NO
[2023-07-02 07:33] LABS: Basophils Percent Auto 0.5 % (0-2); Eosinophils Absolute Auto 0.3 X10*3/uL (0.0-0.4); Eosinophils Percent Auto 5.5 % (0-4); Hematocrit 35.7 % (42.0-52.0); Hemoglobin 11.8 g/dl (14.0-18.0); Imm Gran Abs Auto 0.02 X10*3/uL (0.00-0.03); Imm Gran Pct Auto 0.3 % (0.0-0.4); Lymphocytes Percent Auto 32.9 % (20-40); Mean Corpuscular HGB Conc 33.1 g/dl (31.0-36.0); Mean Corpuscular Hemoglobin 34.6 pg (27.0-33.0); Mean Corpuscular Volume 104.7 fL (80.0-98.0); Mean Platelet Volume 10.3 fL (9.4-12.4); Monocytes Absolute Auto 0.5 X10*3/uL (0.1-1.2); Monocytes Percent Auto 8.8 % (2-11); Neutrophils Absolute Auto 3.2 x10*3/uL (2.0-8.3); Platelet Count 134 X10*3/uL (160-400); Red Blood Count 3.41 X10*6/uL (4.60-5.80); Red Cell Distribution Width 15.5 % (11.0-16.0); White Blood Count 6.2 X10*3/uL (4.8-10.8)
[2023-07-02 07:43] LABS: Estimated Average Glucose 114 mg/dL; Hemoglobin A1c % 5.6 % (<6.0)
[2023-07-02 08:02] LABS: Alanine Aminotransferase 22 U/L (0-40); Anion Gap 12 (12-20); Aspartate Amino Transferase 23 U/L (5-37); Blood Urea Nitrogen 17 mg/dL (9-16); Carbon Dioxide 27 mmol/L (22-29); Chloride 105 mmol/L (96-108); Estimated Glomerular Filt Rate > 60; Glucose Fasting 122 mg/dL (60-99); Potassium 3.7 mmol/L (3.3-5.1); Sodium 140 mmol/L (135-145)
[2023-07-02 08:11] LABS: Erythrocyte Sedimentation Rate 16 MM/HR (0-15)
[2023-07-02 08:34] LABS: Creatinine Urine 124.21 mg/dL; Microalbum/Creatinine Ratio Ur 86.1 ug/mg cr (<30)
== END 2023-07-02 07:04 | disposition home or self-care (01) ==
LOC: HO.LAB 07:03
PROVIDERS: PCP Family Medicine; Visit Provider Family Medicine
DX: I10 Essential (primary) hypertension (principal); E78.00 Pure hypercholesterolemia, unspecified; R53.83 Other fatigue; E11.9 Type 2 diabetes mellitus without complications
CPT/HCPCS: 36415; 80051; 82043; 82565; 82570; 82947; 83036; 84450; 84460; 84520; 85025; 85652

== ENCOUNTER 2023-08-11 10:41 | Outpatient (AMB) | payer MEDICARE, SELFPAY ==
[2023-08-11 11:12] VITALS: BP 140/70; PULSE 61; O2SAT 100; BMI 24.4
--- NOTE | 2023-08-11 11:12 | MHC.OFFVIS ---
Vital Signs 08/11/23 11:12 Height 6 ft 1 in Weight 184 lb 11.958 oz BMI 24.4 BP 140/70 H Blood Pressure Location Lt brachial Position Sitting Pulse 61 Pulse Source Pulse Oximeter Pulse Oximetry (%) 100 Oxygen Delivery Method Room Air Intake Visit Reasons: 6 mth f/up Network Lead Required: No Accompanied by: Self / Same As Patient Allergies No Known Allergies [No Known Allergies*] Allergy (Verified 02/03/23 11:25) Medication List - Last Reconciled 08/11/23 by Rafi Hood MD allopurinol 1 tab PO DAILY apixaban (Eliquis) 1 tab PO BID carvedilol (Coreg) 37.5 mg PO BIDWM ferrous sulfate 975 mg PO DAILY furosemide 20 mg PO DAILY gabapentin 300 mg PO BEDTIME lisinopril 5 mg PO DAILY magnesium 250 mg PO DAILY simvastatin 1 tab PO BEDTIME temazepam 15 mg PO BEDTIME vitamin B complex 1 tab PO DAILY HPI Comments Details: 83-year-old gentleman who is here for follow-up. He was previously following with [facility]. He was seen in the hospital in March when presented with symptomatic anemia due to GI blood loss. He was chronically on apixaban for anticoagulation for permanent atrial fibrillation. He also has background of cardiomyopathy which by his report improved in the past. He was noticed to have mildly reduced ejection fraction. He has no chest discomfort shortness of breath. He had a EGD and colonoscopy for by capsule endoscopy which was normal too. He has been back on anticoagulation at this point. By his report no bleeding issues. He is following with Dr. Martin at [facility] and by his report again no concerns on his part about anemia. He was referred for Watchman device and saw Dr. Cotto. He decided not to pursue this right away and has been taking apixaban. 02/03/2023: He returns for follow-up. He has been doing well. No chest discomfort shortness of breath. No bleeding issues. He is tolerating apixaban for atrial fibrillation. Blood pressure control is good. Taking medications regularly. 08/11/23: He is here for f/u. BP 140/70.He has been experiencing some urinary issues and is unable to pass urine. He said he had prostate cancer in the past. He has indwelling Oconnell catheter which has been changed every few weeks. Blood pressures is elevated. [facility] Medical History (Updated 08/11/23 @ 11:48 by Rafi Hood MD) Anemia CKD (chronic kidney disease) stage 3, GFR 30-59 ml/min Chronic indwelling Oconnell catheter Heart failure with reduced ejection fraction Anxiety Afib Cardiomyopathy Persistent atrial fibrillation Urethral stricture Obstructive uropathy Anemia Surgical History History of partial colectomy Social History Household Members: None Household Members Other:: daughter visiting from [place] through health problems and staying Housing: House Do you presently have visiting nurse or other home services: No Alcohol intake: current Alcohol intake frequency: 0-2 drinks per day Alcohol type: hard liquor Patient Tobacco Use Status: Current everyday Tobacco user Tobacco use type: Cigar e-Cigarette/Vaping Use: Currently Using Second Hand Smoke Exposure: No Advance Directives Date on File: 03/14/22 service: Yes Current occupational status: retired Review of Systems Const Denies chills, Denies fatigue, Denies fever(s), Denies frequent falls, Denies weakness, Denies weight gain and Denies weight loss ENT Denies dizziness Card Denies chest pain, Denies leg edema, Denies lightheadedness, Denies palpitations, Denies dyspnea and Denies dyspnea on exertion Resp Denies cough, Denies dyspnea and Denies dyspnea on exertion GI Denies hematochezia Musc Denies abnormal gait, Denies muscle weakness, Denies numbness, Denies radiating pain into limb and Denies tingling Neuro Denies abnormal gait, Denies dizziness, Denies frequent falls, Denies numbness, Denies tingling and Denies weakness Endo Denies fatigue and Denies palpitations Physical Exam Vital Signs: Last Vital Signs Pulse 61 08/11/23 11:12 BP 140/70 H 08/11/23 11:12 Pulse Ox 100 08/11/23 11:12 Oxygen Delivery Method Room Air 08/11/23 11:12 BMI result Body Mass Index 24.4 GENERAL APPEARANCE: in no acute distress, pleasant. NECK: no carotid bruit, no significant jugular venous distention. SKIN: no suspicious lesions, warm and dry. HEART: no murmurs, irregular rate and rhythm. LUNGS: clear to auscultation bilaterally. ABDOMEN: soft, nontender. EXTREMITIES: no edema. PERIPHERAL PULSES: equal. NEUROLOGIC: No gross deficits, AAO X 3 Assessment & Plan Assessment & Plan (1) Cardiomyopathy: Code(s): I42.9 - Cardiomyopathy, unspecified Category: Medical (2) Permanent atrial fibrillation: Code(s): I48.21 - Permanent atrial fibrillation Category: Medical (3) Essential hypertension: Code(s): I10 - Essential (primary) hypertension Category: Medical Plan 83 male with mild cardiomyopathy and permanent Afib. On coreg and apixaban. BP is high-increasing lisinopril to 10 mg daily. f/u in few months. Medications: New lisinopril 10 mg PO DAILY 90 tabs 3RF I10 - Essential (primary) hypertension Coding Level of Care Code Est Pt Level 4 (09090) Diagnoses Cardiomyopathy I42.9 Permanent atrial fibrillation I48.21 Essential hypertension I10
== END 2023-08-11 11:47 | disposition home or self-care (01) ==
PROVIDERS: PCP Family Medicine; Visit Provider Internal Medicine Cardiovascular Disease
DX: I42.9 Cardiomyopathy, unspecified (principal); I48.21 Permanent atrial fibrillation; I10 Essential (primary) hypertension
CPT/HCPCS: 99214

== ENCOUNTER → 2023-08-11 10:41 | Outpatient (BNVA) | payer MEDICARE, SELFPAY | PROVIDERS: PCP Family Medicine; Visit Provider Internal Medicine Cardiovascular Disease | DX: I48.21 Permanent atrial fibrillation (principal); I42.9 Cardiomyopathy, unspecified; I10 Essential (primary) hypertension; Z79.01 Long term (current) use of anticoagulants | CPT/HCPCS: 99212 ==

== ENCOUNTER 2023-11-04 08:33 | Outpatient (REF) | payer MEDICARE, SELFPAY ==
--- NOTE | ~2023-11-04 | XR_ITS ---
EXAMINATION: XR SACRUM AND COCCYX. XR lumbar spine for views CLINICAL INFORMATION: Back pain COMPARISON: None available. TECHNIQUE: 2 views of the sacrum and 2 views of the coccyx were obtained. 4 view lumbar spine. FINDINGS: 4 views of the lumbar spine and 2 views of the sacrum and coccyx show no fracture or destructive process. There is disc space narrowing at the lumbosacral junction as well as L3-4 and L4-5, and anterior spondylitic changes throughout the lumbar spine. There is mild disc space narrowing at L2-3 with 3 mm of retrolisthesis at this level. No fracture. No spondylolysis. SI joints symmetric. Sacrum and coccyx intact. No fracture. XR/XR lumbar spine 4V min IMPRESSION: Degenerative changes noted. No acute findings. Electronically signed by: Jesu Nguyen MD 11/04/2023 10:06 AM EDT
--- NOTE | ~2023-11-04 | XR_ITS ---
EXAMINATION: XR SACRUM AND COCCYX. XR lumbar spine for views CLINICAL INFORMATION: Back pain COMPARISON: None available. TECHNIQUE: 2 views of the sacrum and 2 views of the coccyx were obtained. 4 view lumbar spine. FINDINGS: 4 views of the lumbar spine and 2 views of the sacrum and coccyx show no fracture or destructive process. There is disc space narrowing at the lumbosacral junction as well as L3-4 and L4-5, and anterior spondylitic changes throughout the lumbar spine. There is mild disc space narrowing at L2-3 with 3 mm of retrolisthesis at this level. No fracture. No spondylolysis. SI joints symmetric. Sacrum and coccyx intact. No fracture. XR/XR sacrum coccyx min 2V IMPRESSION: Degenerative changes noted. No acute findings. Electronically signed by: Jesu Nguyen MD 11/04/2023 10:06 AM EDT
== END 2023-11-04 08:34 | disposition home or self-care (01) ==
LOC: HO.XRAY 08:33
PROVIDERS: PCP Family Medicine; Visit Provider Family Medicine
DX: M54.9 Dorsalgia, unspecified (principal)
CPT/HCPCS: 72110; 72220

== ENCOUNTER 2023-11-24 12:46 | Outpatient (AMB) | payer MEDICARE, SELFPAY ==
--- NOTE | 2023-11-24 12:53 | A.OFFVIS_ITS ---
Vital Signs 11/24/23 12:54 Height 6 ft 1 in Weight 177 lb 11.081 oz BMI 23.4 BP 120/72 Blood Pressure Location Lt brachial Position Sitting Pulse 63 Pulse Source Monitor Intake Visit Reasons: 3m follow up Intake Note: 3 mth f/up [employer] Required: No Accompanied by: Self / Same As Patient Allergies No Known Allergies [No Known Allergies*] Allergy (Verified 02/03/23 11:25) Medication List - Last Reconciled 11/24/23 by Rafi Hood MD allopurinol 1 tab PO DAILY apixaban (Eliquis) 1 tab PO BID carvedilol (Coreg) 37.5 mg PO BIDWM ferrous sulfate 975 mg PO DAILY furosemide 20 mg PO DAILY gabapentin 300 mg PO BEDTIME lisinopril 10 mg PO DAILY magnesium 250 mg PO DAILY simvastatin 1 tab PO BEDTIME temazepam 15 mg PO BEDTIME vitamin B complex 1 tab PO DAILY HPI Comments Details: 83-year-old gentleman who is here for follow-up. He was previously following with [facility]. He was seen in the hospital in March when presented with symptomatic anemia due to GI blood loss. He was chronically on apixaban for anticoagulation for permanent atrial fibrillation. He also has background of cardiomyopathy which by his report improved in the past. He was noticed to have mildly reduced ejection fraction. He has no chest discomfort shortness of breath. He had a EGD and colonoscopy for by capsule endoscopy which was normal too. He has been back on anticoagulation at this point. By his report no bleeding issues. He is following with Dr. Martin at [facility] and by his report again no concerns on his part about anemia. He was referred for Watchman device and saw Dr. Cotto. He decided not to pursue this right away and has been taking apixaban. 02/03/2023: He returns for follow-up. He has been doing well. No chest discomfort shortness of breath. No bleeding issues. He is tolerating apixaban for atrial fibrillation. Blood pressure control is good. Taking medications regularly. 08/11/23: He is here for f/u. BP 140/70.He has been experiencing some urinary issues and is unable to pass urine. He said he had prostate cancer in the past. He has indwelling Oconnell catheter which has been changed every few weeks. Blood pressures is elevated. 11/24/2023: He is here for follow-up. Clinically stable. No new complaints. Continues to be in atrial fibrillation. Blood pressure control is good. Previous echocardiography has shown mildly reduced ejection fraction. REPLACED BY [facility] Medical History (Updated 08/11/23 @ 11:48 by Rafi Hood MD) Anemia CKD (chronic kidney disease) stage 3, GFR 30-59 ml/min Chronic indwelling Oconnell catheter Heart failure with reduced ejection fraction Anxiety Afib Cardiomyopathy Persistent atrial fibrillation Urethral stricture Obstructive uropathy Anemia Surgical History History of partial colectomy Social History Household Members: None Household Members Other:: daughter visiting from [place] through health problems and staying Housing: House Do you presently have visiting nurse or other home services: No Alcohol intake: current Alcohol intake frequency: 0-2 drinks per day Alcohol type: hard liquor Patient Tobacco Use Status: Current everyday Tobacco user Tobacco use type: Cigar e-Cigarette/Vaping Use: Currently Using Second Hand Smoke Exposure: No Advance Directives Date on File: 03/14/22 service: Yes Current occupational status: retired Review of Systems Const Denies chills, Denies fatigue, Denies fever(s), Denies frequent falls, Denies weakness, Denies weight gain and Denies weight loss ENT Denies dizziness Card Denies chest pain, Denies leg edema, Denies lightheadedness, Denies palpitations, Denies dyspnea and Denies dyspnea on exertion Resp Denies cough, Denies dyspnea and Denies dyspnea on exertion GI Denies hematochezia Musc Denies abnormal gait, Denies muscle weakness, Denies numbness, Denies radiating pain into limb and Denies tingling Neuro Denies abnormal gait, Denies dizziness, Denies frequent falls, Denies numbness, Denies tingling and Denies weakness Endo Denies fatigue and Denies palpitations Physical Exam Vital Signs: Last Vital Signs Pulse 63 11/24/23 12:54 BP 120/72 11/24/23 12:54 BMI result Body Mass Index 23.4 GENERAL APPEARANCE: in no acute distress, pleasant. NECK: no carotid bruit, no significant jugular venous distention. SKIN: no suspicious lesions, warm and dry. HEART: no murmurs, irregular rate and rhythm. LUNGS: clear to auscultation bilaterally. ABDOMEN: soft, nontender. EXTREMITIES: no edema. PERIPHERAL PULSES: equal. NEUROLOGIC: No gross deficits, AAO X 3 Office Procedures EKG Details: Atrial fibrillation 63 beats per minute, rightward axis, lateral infarct, ST depressions V5 V6 - consider ischemia, QTC 452 milliseconds. [id number], Complete Assessment & Plan Assessment & Plan (1) Essential hypertension: Code(s): I10 - Essential (primary) hypertension Category: Medical (2) Cardiomyopathy: Code(s): I42.9 - Cardiomyopathy, unspecified Category: Medical (3) Permanent atrial fibrillation: Code(s): I48.21 - Permanent atrial fibrillation Category: Medical Plan Pleasant 83 year gentleman who was known history of mild cardiomyopathy with EF 40 45% and permanent atrial fibrillation. He is rate controlled with carvedilol. Blood pressure control is good. He is on anticoagulation with apixaban with no recent bleeding concerns. I will repeat echocardiography to reassess the ejection fraction. He will see us back in few months. Thank you for allowing me to participate in the care of your patient. Please feel free to contact me if you have any questions. Orders: Orders CA echo transthoracic complete Today I42.9 - Cardiomyopathy, unspecified Coding Level of Care Code Est Pt Level 4 (66016) Diagnoses Essential hypertension I10 Cardiomyopathy I42.9 Permanent atrial fibrillation I48.21 CPT Codes EKG - CPT: 27328-[id number], Complete ([id number])
[2023-11-24 12:54] VITALS: BP 120/72; PULSE 63; BMI 23.4
== END 2023-11-24 13:16 | disposition home or self-care (01) ==
PROVIDERS: PCP Family Medicine; Visit Provider Internal Medicine Cardiovascular Disease
DX: I10 Essential (primary) hypertension (principal); I42.9 Cardiomyopathy, unspecified; I48.21 Permanent atrial fibrillation
CPT/HCPCS: 93010; 99214

== ENCOUNTER → 2023-11-24 12:46 | Outpatient (BNVA) | payer MEDICARE, SELFPAY | PROVIDERS: PCP Family Medicine; Visit Provider Internal Medicine Cardiovascular Disease | DX: I10 Essential (primary) hypertension (principal); I42.9 Cardiomyopathy, unspecified; I48.21 Permanent atrial fibrillation | CPT/HCPCS: 93005; 99212 ==

== ENCOUNTER 2023-12-26 07:40 | Outpatient (REF) | payer MEDICARE, SELFPAY ==
[2023-12-26 08:29] LABS: Estimated Average Glucose 117 mg/dL; Hemoglobin A1C 122.1789 umol/L; Hemoglobin A1c % 5.7 % (<6.0); Total Hemoglobin (HGBA1C) 3116.0022 umol/L
[2023-12-26 08:59] LABS: Anion Gap 11 (12-20); Blood Urea Nitrogen 19 mg/dL (9-16); Carbon Dioxide 27 mmol/L (22-29); Chloride 107 mmol/L (96-108); Estimated Glomerular Filt Rate > 60; Glucose Fasting 110 mg/dL (60-99); Potassium 4.1 mmol/L (3.3-5.1); Sodium 141 mmol/L (135-145)
== END 2023-12-26 07:41 | disposition home or self-care (01) ==
LOC: HO.LAB 07:40
PROVIDERS: PCP Family Medicine; Visit Provider Family Medicine
DX: I10 Essential (primary) hypertension (principal); E11.9 Type 2 diabetes mellitus without complications
CPT/HCPCS: 36415; 80051; 82565; 82947; 83036; 84520